=== PATIENT | female | born 1970 | race Two or more races ===

== ENCOUNTER 2020-10-13 20:11 | Inpatient (IN) | payer OTHER, SELFPAY ==
[2020-10-13 20:16] VITALS: BP 135/67; PULSE 125; RESP 18; TEMP 36.7; O2SAT 98
[2020-10-13 23:32] VITALS: BP 143/73; PULSE 93; RESP 18; TEMP 36.6; O2SAT 98
[2020-10-14 01:26] VITALS: BP 135/91; PULSE 102; RESP 18; TEMP 37.2; O2SAT 99; BMI 53.8
--- NOTE | 2020-10-14 01:52 | ECG_ITS ---
Test Reason : SOB Blood Pressure : / mmHG Vent. Rate : 094 BPM Atrial Rate : 094 BPM P-R Int : 158 ms QRS Dur : 078 ms QT Int : 342 ms P-R-T Axes : 035 017 039 degrees QTc Int : 427 ms Normal sinus rhythm Normal ECG No previous ECGs available Referred By: Irma Jo Electronically Signed By:ELOISE CHAPPELL MD
--- NOTE | 2020-10-14 01:54 | ED.GENADULT ---
HPI - General Adult General Chief complaint: General Medical Stated complaint: sob, Dizzy, back pain Time Seen by Provider: 10/14/20 01:52 History of Present Illness HPI narrative: Patient is a 49-year-old female with a history of anxiety in the past. Patient presented today with having 2 episodes of palpitation. Had 1 at 16:00. Lasted for about an hour. Patient had a long day at work. 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 Feels her heart going fast similar to previous bouts of anxiety had some shortness of breath associated with it. Has no history of blood clot. No history of leg swelling that is new. No fever no chills no cough no congestion or upper respiratory symptoms. Went away after an hour and a half. Patient previously and had this worked up by a primary physician told that she had anxiety. Never had a monitor done. At 20:00 similar episode occurred this time lasting about half an hour. Patient now symptom free. Never exactly had chest pain. No diaphoresis. No near syncope. No syncope. No bloody stool. No new medication. No change in medication. Related Data Home Medications Medication Instructions Recorded Confirmed aspirin 81 mg tablet,delayed 81 mg PO DAILY 06/14/20 08/11/20 release blood sugar diagnostic #10 ea 06/14/20 08/11/20 cholecalciferol (vitamin D3) 50 50 mcg PO DAILY 06/14/20 08/11/20 mcg (2,000 unit) capsule lisinopril 5 mg tablet 5 mg PO DAILY 06/14/20 08/11/20 metformin 750 mg tablet,extended 750 mg PO BID 06/14/20 08/11/20 release 24 hr pioglitazone 30 mg tablet 30 mg PO DAILY 06/14/20 08/11/20 spironolactone 100 mg tablet 100 mg PO BID 06/14/20 08/11/20 spironolactone 50 mg tablet mg PO 08/17/20 Previous Rx's Medication Instructions Recorded naproxen 500 mg tablet,delayed 500 mg PO .Q.h.s. 30 Days #30 tab 08/11/20 release fluconazole 150 mg tablet 150 mg PO Q3D #2 tab 08/17/20 ketoconazole 2 % topical cream 1 appl TOPICAL BID 28 Days #30 g 08/17/20 Allergies Allergy/AdvReac Type Severity Reaction Status Date / Time No Known Allergies Allergy Verified 08/17/20 09:20 Review of Systems Review of Systems: Constitutional: No Weight loss, No Fever, No Chills, No Night Sweats, No Fatigue, No Malaise ENT/Mouth: No Hearing loss, No Ear Pain, No Nasal Congestion, No Sinus Pain, No Hoarseness, No sore throat, No Rhinorrhea, No Swallowing Difficulty Eyes: No Eye Pain, No Swelling, No Redness, No Foreign Body, No Discharge, No Vision Changes Cardiovascular: No Chest Pain, No SOB, No Dyspnea on Exertion, No Orthopnea, No Edema, positive Palpitations Respiratory: No Cough, No Sputum, No Wheezing, No Smoke Exposure, No Dyspnea Gastrointestinal: No Nausea, No Vomiting, No Diarrhea, No Constipation, No abdominal Pain, No Hematochezia, No Melena Genitourinary: no irregular bleeding, No Dysuria, No Urinary Frequency, No Hematuria, No Urinary Incontinence, No Urgency, No Flank Pain, No Urinary Flow Changes, No Hesitancy Musculoskeletal: No joint pain, No Myalgias, No Joint Swelling Skin: No Skin Lesions, No rash Neuro: No Weakness, No Numbness, No Paresthesias, No Loss of Consciousness, No Dizziness, No Headache Psych: No Anxiety/Panic, No Depression, No SI/HI/AH/VH, No Social Issues, Heme/Lymph: No Bruising, No Bleeding,No Lymphadenopathy Endocrine: No Polyuria, No Polydipsia, No Temperature Intolerance PMF Past Medical History Medical History Chronic GERD Diabetes 1.5, managed as type 2 Hirsutism Obesity Surgical History No pertinent past surgical history Family History Family History Father Diabetes mellitus Mother HTN (hypertension) Paternal Grandfather Diabetes mellitus Maternal Grandfather No problems noted. Maternal Grandmother Brain tumor Paternal Grandmother Diabetes mellitus Brother No problems noted. Social History Social History Advance Directives: No Physical Exam Vital Signs: Vital Signs: Last Vital Signs Temp 99 F 10/14/20 01:26 Pulse 102 H 10/14/20 01:26 Resp 18 10/14/20 01:26 BP 135/91 H 10/14/20 01:26 Pulse Ox 99 10/14/20 01:26 Body Mass Index 53.8 Appearance: Alert. Oriented X3. No acute distress. Eyes: Pupils equal, round and reactive to light. ENT: Pharynx normal. Neck: Normal inspection. Neck supple. No lymph nodes noted. No crepitus CVS: Normal heart rate and rhythm. Pulses normal. Normal S1 and S2 Respiratory: No respiratory distress. Breath sounds normal. No Wheezing. No rales Abdomen: Soft and nontender. No rigidity. No distention. good BS x4 Skin: Skin warm and dry. Normal skin color. Normal skin turgor. Extremities: No lower extremity edema. Neurovascular intact to all extremities. No Lacerations. No Rash Neuro: Oriented X 3. No motor deficit. No sensory deficit. Moving all extermities. No slurred speech Medical Decision Making MDM Narrative Medical decision making narrative: Patient's troponin came back to be approximately 100. A 2nd troponin was drawn 2 hours later it was approximately 90. Question if patient have angina episode causing her to have the shortness of breath and palpitation. Will admit patient for further evaluation. Currently in stable condition. Symptom free. Lab Data Result diagrams: 10/14/20 02:44 10/14/20 02:44 Labs: Lab Results 10/14/20 10/14/20 10/14/20 Range/Units 02:44 02:44 02:44 WBC 11.3 H (4.8-10.8) X10*3/uL RBC 4.99 (4.20-5.50) X10*6/uL Hgb 10.3 L (12.0-16.0) g/dl Hct 34.8 L (37-47) % MCV 69.7 L (80-98) fL MCH 20.6 L (27.0-33.0) pg MCHC 29.6 L (31.0-35.0) g/dl RDW 17.5 H (11.0-16.0) % Plt Count 540 H (160-400) X10*3/uL MPV 9.8 (9.4-12.3) fL Immature Gran % (Auto) 0.5 H (0.0-0.4) % Neut % (Auto) 56.6 (45-73) % Lymph % (Auto) 33.5 (20-40) % [place] % (Auto) 7.6 (2-11) % Eos % (Auto) 1.3 (0-4) % Baso % (Auto) 0.5 (0-2) % Lymph # (Auto) 3.8 (1.2-4.9) X10*3/uL [place] # (Auto) 0.9 (0.1-1.2) X10*3/uL Eos # (Auto) 0.2 (0.0-0.4) X10*3/uL Baso # (Auto) 0.1 (0.0-0.2) X10*3/uL Abs Immat Gran (auto) 0.06 H (0.00-0.03) X10*3/uL Absolute Neuts (auto) 6.4 (2.0-8.3) X10*3/uL Absolute Nucleated RBC 0.000 (0.0-0.012) X10*3/uL Nucleated RBC % (auto) 0.0 (0.0-0.2) /100WBC Sodium 135 (135-145) mmol/L Potassium 4.8 (3.3-5.1) mmol/L Chloride 100 (96-108) mmol/L Carbon Dioxide 27 (22-29) mmol/L Anion Gap 13 (12-20) BUN 11 (9-16) mg/dL Creatinine 0.75 (0.5-1.4) mg/dL Estim Creat Clear Calc 131.4 Estimated GFR > 60 Random Glucose 238 H (60-115) mg/dL Calcium 9.6 (8.4-10.2) mg/dL Magnesium 1.9 (1.6-2.6) mg/dL Troponin I High Sens 101.6 H (<3.5-17.0) ng/L TSH 1.65 (0.32-4.0) uIU/mL COVID-19 (TRUPTI) (Negative) COVID-19 Clin Com 10/14/20 Range/Units 04:36 WBC (4.8-10.8) X10*3/uL RBC (4.20-5.50) X10*6/uL Hgb (12.0-16.0) g/dl Hct (37-47) % MCV (80-98) fL MCH (27.0-33.0) pg MCHC (31.0-35.0) g/dl RDW (11.0-16.0) % Plt Count (160-400) X10*3/uL MPV (9.4-12.3) fL Immature Gran % (Auto) (0.0-0.4) % Neut % (Auto) (45-73) % Lymph % (Auto) (20-40) % [place] % (Auto) (2-11) % Eos % (Auto) (0-4) % Baso % (Auto) (0-2) % Lymph # (Auto) (1.2-4.9) X10*3/uL [place] # (Auto) (0.1-1.2) X10*3/uL Eos # (Auto) (0.0-0.4) X10*3/uL Baso # (Auto) (0.0-0.2) X10*3/uL Abs Immat Gran (auto) (0.00-0.03) X10*3/uL Absolute Neuts (auto) (2.0-8.3) X10*3/uL Absolute Nucleated RBC (0.0-0.012) X10*3/uL Nucleated RBC % (auto) (0.0-0.2) /100WBC Sodium (135-145) mmol/L Potassium (3.3-5.1) mmol/L Chloride (96-108) mmol/L Carbon Dioxide (22-29) mmol/L Anion Gap (12-20) BUN (9-16) mg/dL Creatinine (0.5-1.4) mg/dL Estim Creat Clear Calc Estimated GFR Random Glucose (60-115) mg/dL Calcium (8.4-10.2) mg/dL Magnesium (1.6-2.6) mg/dL Troponin I High Sens (<3.5-17.0) ng/L TSH (0.32-4.0) uIU/mL COVID-19 (TRUPTI) Negative (Negative) COVID-19 Clin Com See Note Discharge Plan Discharge Clinical Impression: Angina pectoris Patient Disposition: Admitted As Inpatient Prescriptions: No Action cholecalciferol (vitamin D3) 50 mcg (2,000 unit) capsule 50 mcg PO DAILY RF: 0 metformin 750 mg tablet extended release 24 hr 750 mg PO BID RF: 0 pioglitazone 30 mg tablet 30 mg PO DAILY RF: 0 lisinopril 5 mg tablet 5 mg PO DAILY RF: 0 aspirin [Adult Low Dose Aspirin] 81 mg tablet,delayed release (DR/EC) 81 mg PO DAILY RF: 0 (DME) FreeStyle Lite Strips Strip See Rx Instructions .ROUTE .MEDSUPPLY Qty: 10 RF: 0 spironolactone 100 mg tablet 100 mg PO BID RF: 0 naproxen [EC-Naproxen] 500 mg tablet,delayed release (DR/EC) 500 mg PO .Q.h.s. 30 Days Qty: 30 RF: 0 spironolactone 50 mg tablet PO RF: 0 fluconazole [Diflucan] 150 mg tablet 150 mg PO Q3D Qty: 2 RF: 0 ketoconazole 2 % cream 1 appl topical BID 28 Days Qty: 30 RF: 0
[2020-10-14 02:48] LABS: Basophils Absolute Auto 0.1 X10*3/uL (0.0-0.2); Basophils Percent Auto 0.5 % (0-2); Eosinophils Absolute Auto 0.2 X10*3/uL (0.0-0.4); Eosinophils Percent Auto 1.3 % (0-4); Hematocrit 34.8 % (37-47); Hemoglobin 10.3 g/dl (12.0-16.0); Imm Gran Abs Auto 0.06 X10*3/uL (0.00-0.03); Imm Gran Pct Auto 0.5 % (0.0-0.4); Lymphocytes Absolute Auto 3.8 X10*3/uL (1.2-4.9); Lymphocytes Percent Auto 33.5 % (20-40); MANUAL DIFF FLAG NO; Mean Corpuscular HGB Conc 29.6 g/dl (31.0-35.0); Mean Corpuscular Hemoglobin 20.6 pg (27.0-33.0); Mean Corpuscular Volume 69.7 fL (80-98); Mean Platelet Volume 9.8 fL (9.4-12.3); Monocytes Absolute Auto 0.9 X10*3/uL (0.1-1.2); Monocytes Percent Auto 7.6 % (2-11); Neutrophils Absolute Auto 6.4 X10*3/uL (2.0-8.3); Neutrophils Percent Auto 56.6 % (45-73); Platelet Count 540 X10*3/uL (160-400); Red Blood Count 4.99 X10*6/uL (4.20-5.50); Red Cell Distribution Width 17.5 % (11.0-16.0); White Blood Count 11.3 X10*3/uL (4.8-10.8)
--- NOTE | 2020-10-14 03:11 | PC.NURSE ---
Pt refused to have IV access obtained, but consented to lab draw. Labs drawn and sent for analysis, awaiting results. Dr.Hsu perry.
[2020-10-14 03:23] LABS: Anion Gap 13 (12-20); Blood Urea Nitrogen 11 mg/dL (9-16); Calcium 9.6 mg/dL (8.4-10.2); Carbon Dioxide 27 mmol/L (22-29); Chloride 100 mmol/L (96-108); Creatinine Clr Calc Pharmacy 131.4; Estimated Glomerular Filt Rate > 60; Glucose Random 238 mg/dL (60-115); Magnesium 1.9 mg/dL (1.6-2.6); Potassium 4.8 mmol/L (3.3-5.1); Sodium 135 mmol/L (135-145)
[2020-10-14 03:34] LABS: Troponin-I High Sensitivity 101.6 ng/L (<3.5-17.0)
--- NOTE | 2020-10-14 03:43 | PC.NURSE ---
Discussed plan for admission based on lab results. Pt okay with having IV access obtained at this time, and additional labs. Awaiting admission bed.
[2020-10-14 03:44] LABS: TSH reflex Free T4 1.65 uIU/mL (0.32-4.0)
[2020-10-14] MEDS: Aspirin 81 MG TAB.CHEW 324 MG PO (04:16)
[2020-10-14 04:55] LABS: COVID-19 Test Negative (Negative)
[2020-10-14 05:20] LABS: Troponin-I High Sensitivity 98.5 ng/L (<3.5-17.0)
--- NOTE | 2020-10-14 05:27 | PM.IMHP ---
History of Present Illness Date of Service: 10/14/20 Chief Complaint: Chest pain 49-year-old female with a past medical history of hypertension, diabetes, GERD, obesity, anxiety presented to the hospital with a chief complaint of palpitations. Patient reports that at around 4 p.m. she had an episode of chest tightness associated with palpitations and not feeling well subsequently subsided but she had an episode similar happened around 8:00 p.m.. Denies any nausea vomiting lightheadedness or sweating. Denies any fever chills cough. Mentioned thatl she had some shortness of breath. Denies any GI or symptoms. Denies any fever chills cough. Review of all other systems is negative except mentioned above ER course: Per ER team patient chest pain improved. EKG nonischemic. Troponin elevated to 100 follow-up troponin trended down to 98; admitted to the [facility] for [facility] Medical History Chronic GERD Diabetes 1.5, managed as type 2 Diabetes type 2, uncontrolled Hirsutism Hypertension Obesity PCOS (polycystic ovarian syndrome) Vitamin D deficiency Family History Father Diabetes mellitus Mother HTN (hypertension) Paternal Grandfather Diabetes mellitus Maternal Grandfather No problems noted. Maternal Grandmother Brain tumor Paternal Grandmother Diabetes mellitus Brother No problems noted. Father Diabetes mellitus Maternal Grandmother Brain tumor Maternal Grandfather No problems noted. Paternal Grandfather Diabetes mellitus Paternal Grandmother No problems noted. Brother No problems noted. Surgical History No pertinent past surgical history No pertinent past surgical history Social History Household Members: Spouse and Children Housing: House Alcohol intake: never Smoking Status: Never smoker Advance Directives Date on File: 10/14/20 service: No Current occupational status: employed Meds Allergies Allergy/AdvReac Type Severity Reaction Status Date / Time No Known Allergies Allergy Verified 10/15/20 10:56 Active Medications: Current Medications Generic Name Dose Route Start Last Admin Trade Name Freq PRN Reason Stop Dose Admin Acetaminophen 650 mg 10/14/20 05:24 Acetaminophen 325 Mg Tablet PO Q6H PRN Pain, Mild (Pain Scale 1-3) Aspirin 81 mg 10/14/20 09:00 Aspirin Enteric Coated 81 Mg Tablet. PO DAILY [facility] Enoxaparin Sodium 40 mg 10/14/20 05:30 Enoxaparin Sodium 40 Mg/0.4 Ml Syringe SUBCUT Q24H [facility] Insulin Human Lispro 0 unit 10/14/20 07:30 Insulin Lispro 100 Unit/Ml 3 Ml Vial SUBCUT QIDACHS [facility] Protocol Nitroglycerin 0.4 mg 10/14/20 05:24 Nitroglycerin 0.4 Mg Tab.Subl SUBLINGUAL Q5M PRN Chest Pain Sodium Chloride 3 ml 10/14/20 08:00 0.9 % Sodium Chloride Flush 3 Ml Syringe IVFLUSH QSHIFT [facility] Home Medications Medication Instructions Recorded Confirmed Last Taken Type blood sugar diagnostic #10 ea 06/14/20 10/21/20 Unknown History metformin 1,000 mg tablet 1,000 mg PO BID 10/21/20 10/22/20 Unknown History Physical Exam Vital Signs and Narrative: Vital Signs: Last Vital Signs Temp 99 F 10/14/20 01:26 Pulse 102 H 10/14/20 01:26 Resp 18 10/14/20 01:26 BP 135/91 H 10/14/20 01:26 Pulse Ox 99 10/14/20 01:26 Body Mass Index 53.8 Gen: Appears be in no acute distress HEENT: NCAT, Moist mucosa. Pulmonary: Vesicular breath sounds, fair air entry CVS: Normal S1-S2 Abdomen: BS+, Soft, Nontender Extremities: Warm well perfused Neuro: Alert and awake. Results Labs CBC and Chem 7: 10/14/20 06:29 10/14/20 06:29 Labs: Laboratory Results - last 24 hr 10/14/20 10/14/20 10/14/20 02:44 02:44 02:44 MCV 69.7 L MCH 20.6 L MCHC 29.6 L RDW 17.5 H Plt Count 540 H MPV 9.8 Immature Gran % (Auto) 0.5 H Neut % (Auto) 56.6 Lymph % (Auto) 33.5 [place] % (Auto) 7.6 Eos % (Auto) 1.3 Baso % (Auto) 0.5 Lymph # (Auto) 3.8 [place] # (Auto) 0.9 Eos # (Auto) 0.2 Baso # (Auto) 0.1 Abs Immat Gran (auto) 0.06 H Absolute Neuts (auto) 6.4 Absolute Nucleated RBC 0.000 Nucleated RBC % (auto) 0.0 Anion Gap 13 Estim Creat Clear Calc 131.4 Estimated GFR > 60 Random Glucose 238 H Calcium 9.6 Magnesium 1.9 Troponin I High Sens 101.6 H TSH 1.65 COVID-19 (TRUPTI) COVID-19 Clin Com 10/14/20 10/14/20 04:09 04:36 MCV MCH MCHC RDW Plt Count MPV Immature Gran % (Auto) Neut % (Auto) Lymph % (Auto) [place] % (Auto) Eos % (Auto) Baso % (Auto) Lymph # (Auto) [place] # (Auto) Eos # (Auto) Baso # (Auto) Abs Immat Gran (auto) Absolute Neuts (auto) Absolute Nucleated RBC Nucleated RBC % (auto) Anion Gap Estim Creat Clear Calc Estimated GFR Random Glucose Calcium Magnesium Troponin I High Sens 98.5 H TSH COVID-19 (TRUPTI) Negative COVID-19 Clin Com See Note Assessment and Plan (1) Angina pectoris: Status: Resolved 49-year-old female with a past medical history of hypertension, hyperlipidemia, diabetes, GERD presented to the hospital with a chief complaint of chest discomfort/palpitations Chest discomfort: Atypical in nature. Patient troponin slightly elevated but follow-up for troponin trended down. EKG nonischemic. Telemetry Echocardiogram Cardiology consult for further recommendations Continue aspirin and beta-riya. will start statin, will check liver panel baseline; Will obtain lipid profile Will obtain a D-dimer-> will defer to the a.m. team to follow the results of delayed. Diabetes: Insulin sliding scale GI prophylaxis: Pepcid DVT prophylaxis: Lovenox Code status: Full code Will continue medications per med rec is done except oral hypoglycemic agents
[2020-10-14 06:22] LABS: D Dimer 244 NG/ML
[2020-10-14 06:30] VITALS: BP 114/71; PULSE 98; RESP 18; TEMP 36.9; O2SAT 99
[2020-10-14 06:49] LABS: Hematocrit 33.9 % (37-47); Hemoglobin 10.1 g/dl (12.0-16.0); Mean Corpuscular HGB Conc 29.8 g/dl (31.0-35.0); Mean Corpuscular Hemoglobin 20.9 pg (27.0-33.0); Platelet Count 532 X10*3/uL (160-400); Red Blood Count 4.84 X10*6/uL (4.20-5.50); Red Cell Distribution Width 17.4 % (11.0-16.0); White Blood Count 10.2 X10*3/uL (4.8-10.8)
[2020-10-14 07:09] LABS: Alanine Aminotransferase 22 U/L (0-31); Albumin Level 3.6 g/dL (3.5-5.0); Alkaline Phosphatase 58 U/L (39-117); Aspartate Amino Transferase 18 U/L (5-31); Bilirubin Direct 0.3 mg/dL (0.0-0.5); Bilirubin Total 0.9 mg/dL (0.0-1.0); Cholesterol 122 mg/dL; HDL Cholesterol 40 mg/dL; LDL Cholesterol Calculated 64 mg/dl; Total Protein 6.4 g/dL (6.5-8.0); Triglycerides 92 mg/dL
[2020-10-14 07:11] LABS: Anion Gap 13 (12-20); Blood Urea Nitrogen 10 mg/dL (9-16); Calcium 9.5 mg/dL (8.4-10.2); Carbon Dioxide 27 mmol/L (22-29); Chloride 100 mmol/L (96-108); Estimated Glomerular Filt Rate > 60; Glucose Random 218 mg/dL (60-115); Potassium 4.7 mmol/L (3.3-5.1); Sodium 135 mmol/L (135-145)
--- NOTE | 2020-10-14 07:17 | PC.NURSE ---
Pt on stretcher, sinus tach on tele rate 105, denies any pain or discomfort at this time, no sob or dizziness. Speech is clear. Aware of plan for admission. Significant other at bedside. Eating breakfast and tolerating well.
[2020-10-14 07:45] LABS: Glucose, Whole Blood 509 mg/dL (60-115)
[2020-10-14 08:08] VITALS: BP 136/85; PULSE 108; RESP 18; O2SAT 99
[2020-10-14] MEDS: Enoxaparin Sodium 40 MG/0.4 ML SYRINGE SUBCUT (08:08)
[2020-10-14] MEDS: 0.9 % Sodium Chloride Flush 3 ML SYRINGE IVFLUSH (08:08)
[2020-10-14 08:09] VITALS: BP 136/85; PULSE 108
[2020-10-14] MEDS: Metoprolol Tartrate 12.5 MG HALFTAB PO (08:09)
--- NOTE | 2020-10-14 08:09 | PC.NURSE ---
POC 509, Dr Ruiz notified. Pt declining insulin and request only her PO diabetic meds, Dr Ruiz updated and will be down to speak with pt. Plan to hold off on meds until Dr Ruiz speaks with pt.
--- NOTE | 2020-10-14 09:21 | PC.NURSE ---
Dr Ruiz down to speak to pt and plan to repeat poc and if greater than 300 insulin to be given, repeat poc was 286, Dr Ruiz updated
[2020-10-14 09:22] LABS: Estimated Average Glucose 229 mg/dL; Hemoglobin A1c % 9.6 %
[2020-10-14 09:22] LABS: Glucose, Whole Blood 286 mg/dL (60-115)
--- NOTE | 2020-10-14 09:46 | PC.NURSE ---
Dr Ruiz notified of poc 286, request pt still covered per sliding scale, pt now agreeable
[2020-10-14] MEDS: Insulin Lispro 100 UNIT/ML 3 ML VIAL SUBCUT ×2 (09:51→12:06)
[2020-10-14 11:06] VITALS: BP 135/88; PULSE 93; RESP 16; O2SAT 98
[2020-10-14 11:36] LABS: Glucose, Whole Blood 205 mg/dL (60-115)
--- NOTE | 2020-10-14 12:09 | PC.NURSE ---
Pt agreeable to SSI given (4 units). Dr Ma at bedside for evaluation at this time. Awaiting bed assgn
--- NOTE | 2020-10-14 12:44 | P.CONCA_ITS ---
History of Present Illness History of Present Illness Date of Service: 10/14/20 Consult reason: shortness of breath and troponin elevation Chief complaint: Chest pain Narrative: Thank you for asking us to see Shavon Hough in cardiology consultation today for symptoms of shortness of breath, palpitations or lightheadedness. 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 She got anxious and heart rate got faster. She then decided to rest and the symptoms and grow gradually subsided. However around 19:00 again she decided do some house work and she again got symptoms of shortness of breath, palpitations and then got dizzy this time. She went online and thought that she was having heart attack and she decided to come to the emergency room. She does not have any chest discomfort as per her. She came to the emergency room she was noted to have slightly lower blood pressure. She was noted to be in sinus rhythm EKG normal. Troponin was minimally elevated however repeat troponin is flat. She has not had any chest pain, she is feeling better. Heart rate is settle. Blood pressure is stable. Blood work shows significant anemia compared to last year and appears to be iron deficiency anemia. She says she has had very irregular menstrual cycles recently with heavy bleeding. She also has been started on Aldactone therapy for her polycystic ovarian disease and is on lisinopril to protect her kidneys from diabetes. She has longstanding history of diabetes for 5 years. She has never had any prior cardiac issues. She did not have any loss of consciousness. Denies orthopnea, PND, leg edema. Review of Systems Constitutional: Constitutional: Denies body ache(s), Denies chills, Reports fatigue and Reports lethargy Cardiovascular: Cardiovascular: Denies chest pain, Denies syncope, Reports lightheadedness, Denies Loss of Consciousness, Reports palpitations and Reports dyspnea Respiratory: Respiratory: Denies cough and Reports dyspnea Gastrointestinal: Gastrointestinal: Reports no additional gastrointestinal complaints Genitourinary: Genitourinary: Reports abnormal menses Musculoskeletal: Musculoskeletal: Reports no additional musculoskeletal co mplaints Neurologic: Reports system reviewed and no additional complaints, except as documented and Denies syncope Psychiatric: Psychiatric: Reports no additional psychiatric complaints Endocrine: Endocrine: Reports no additional endocrine complaints, Reports fatigue and Reports palpitations Hematologic/Lymphatic: Hematologic/Lymphatic: Reports no additional hematologic/lymphatic complaints [facility] Past Medical History Medical History Chronic GERD Diabetes 1.5, managed as type 2 Hirsutism Obesity Family History Family History Father Diabetes mellitus Mother HTN (hypertension) Paternal Grandfather Diabetes mellitus Maternal Grandfather No problems noted. Maternal Grandmother Brain tumor Paternal Grandmother Diabetes mellitus Brother No problems noted. Surgical History Surgical History No pertinent past surgical history Social History Social History Alcohol intake: current Alcohol intake frequency: holidays/special occasions only Smoking Status: Never smoker Use of substances other than those prescribed or required for medical reasons: No Advance Directives: No service: No Current occupational status: employed Meds Allergies Allergy/AdvReac Type Severity Reaction Status Date / Time No Known Allergies Allergy Verified 10/14/20 06:49 Active Medications: Current Medications Generic Name Dose Route Start Last Admin Trade Name Freq PRN Reason Stop Dose Admin Acetaminophen 650 mg 10/14/20 05:24 Acetaminophen 325 Mg Tablet PO Q6H PRN Pain, Mild (Pain Scale 1-3) Aspirin 81 mg 10/15/20 09:00 Aspirin Enteric Coated 81 Mg Tablet.Dr PO DAILY [facility] Atorvastatin Calcium 40 mg 10/14/20 21:00 Atorvastatin Calcium 40 Mg Tablet PO BEDTIME [facility] Enoxaparin Sodium 40 mg 10/14/20 09:00 10/14/20 08:08 Enoxaparin Sodium 40 Mg/0.4 Ml Syringe SUBCUT 40 mg Q24H JENY Administration Insulin Human Lispro 0 unit 10/14/20 07:30 10/14/20 12:06 Insulin Lispro 100 Unit/Ml 3 Ml Vial SUBCUT 4 unit QIDACHS JENY Administration Protocol Metoprolol Tartrate 12.5 mg 10/14/20 09:00 10/14/20 08:09 Metoprolol Tartrate 12.5 Mg Halftab PO 12.5 mg BID JENY Administration Protocol Nitroglycerin 0.4 mg 10/14/20 05:24 Nitroglycerin 0.4 Mg Tab.Subl SUBLINGUAL Q5M PRN Chest Pain Sodium Chloride 3 ml 10/14/20 08:00 10/14/20 08:08 0.9 % Sodium Chloride Flush 3 Ml Syringe [facility] 3 [facility] Administration Home Medications Medication Instructions Recorded Confirmed Last Taken Type blood sugar diagnostic #10 ea 06/14/20 08/11/20 Unknown History cholecalciferol (vitamin D3) 50 50 mcg PO DAILY 06/14/20 10/14/20 10/13/20 History mcg (2,000 unit) capsule lisinopril 5 mg tablet 5 mg PO DAILY 06/14/20 10/14/20 10/13/20 History metformin 750 mg tablet,extended 750 mg PO BID 06/14/20 10/14/20 10/13/20 History release 24 hr pioglitazone 30 mg tablet 30 mg PO DAILY 06/14/20 10/14/20 10/13/20 History spironolactone 50 mg tablet 50 mg PO BID 08/17/20 10/14/20 10/13/20 History Physical Exam Vital Signs: Vital Signs: Last Vital Signs Temp 98.4 F 10/14/20 06:30 Pulse 93 10/14/20 11:06 Resp 16 10/14/20 11:06 BP 135/88 10/14/20 11:06 Pulse Ox 98 10/14/20 11:06 Body Mass Index 53.8 Const: General: cooperative, no acute distress, alert and awake Nutritional Appearance: obese morbidly obese Orientation/consciousness: patient oriented x3 HENMT: Head: Yes normocephalic and Yes atraumatic Neck: Neck: Yes trachea midline, Yes supple and Yes no JVD Chest: Chest palpation & inspection: normal inspection of the chest Resp: Effort & Inspection: normal respiratory effort Auscultation: clear to auscultation bilaterally Cardio: Jugular venous distension: no JVD Rate: regular rate Rhythm: regular rhythm Heart sounds: S1 normal heart sound present and S2 normal heart sound present GI: Inspection: Yes Abdominal panniculus present and Yes obesity Auscultation: normal bowel sounds Skin: General skin exam: no rashes or lesions noted Neuro: General: patient oriented x3 and no focal motor deficits Extrem: General: Yes no clubbing, cyanosis or edema Psych: Appearance: grossly normal Results Labs and Meds Result diagrams: 10/14/20 06:29 10/14/20 06:29 Lab results: Laboratory Results - last 24 hr 10/14/20 10/14/20 10/14/20 02:44 02:44 02:44 WBC 11.3 H RBC 4.99 Hgb 10.3 L Hct 34.8 L MCV 69.7 L MCH 20.6 L MCHC 29.6 L RDW 17.5 H Plt Count 540 H MPV 9.8 Immature Gran % (Auto) 0.5 H Neut % (Auto) 56.6 Lymph % (Auto) 33.5 [place] % (Auto) 7.6 Eos % (Auto) 1.3 Baso % (Auto) 0.5 Lymph # (Auto) 3.8 [place] # (Auto) 0.9 Eos # (Auto) 0.2 Baso # (Auto) 0.1 Abs Immat Gran (auto) 0.06 H Absolute Neuts (auto) 6.4 Absolute Nucleated RBC 0.000 Nucleated RBC % (auto) 0.0 D-Dimer Sodium 135 Potassium 4.8 Chloride 100 Carbon Dioxide 27 Anion Gap 13 BUN 11 Creatinine 0.75 Estim Creat Clear Calc 131.4 Estimated GFR > 60 POC Glucose Random Glucose 238 H Estimat Average Glucose Hemoglobin A1c % Calcium 9.6 Magnesium 1.9 Total Bilirubin Direct Bilirubin AST ALT Alkaline Phosphatase Troponin I High Sens 101.6 H Total Protein Albumin Triglycerides Cholesterol LDL Cholesterol, Calc HDL Cholesterol TSH 1.65 COVID-19 (TRUPTI) COVID-19 [employer] [facility] 10/14/20 10/14/20 10/14/20 02:44 04:09 04:36 WBC RBC Hgb Hct MCV MCH MCHC RDW Plt Count MPV Immature Gran % (Auto) Neut % (Auto) Lymph % (Auto) [place] % (Auto) Eos % (Auto) Baso % (Auto) Lymph # (Auto) [place] # (Auto) Eos # (Auto) Baso # (Auto) Abs Immat Gran (auto) Absolute Neuts (auto) Absolute Nucleated RBC Nucleated RBC % (auto) D-Dimer Sodium Potassium Chloride Carbon Dioxide Anion Gap BUN Creatinine Estim Creat Clear Calc Estimated GFR POC Glucose Random Glucose Estimat Average Glucose 229 Hemoglobin A1c % 9.6 Calcium Magnesium Total Bilirubin Direct Bilirubin AST ALT Alkaline Phosphatase Troponin I High Sens 98.5 H Total Protein Albumin Triglycerides Cholesterol LDL Cholesterol, Calc HDL Cholesterol TSH COVID-19 (TRUPTI) Negative COVID-19 [employer] See Note 10/14/20 10/14/20 10/14/20 06:05 06:05 06:29 WBC 10.2 RBC 4.84 Hgb 10.1 L Hct 33.9 L MCV 70.0 L MCH 20.9 L MCHC 29.8 L RDW 17.4 H Plt Count 532 H MPV 10.0 Immature Gran % (Auto) Neut % (Auto) Lymph % (Auto) [place] % (Auto) Eos % (Auto) Baso % (Auto) Lymph # (Auto) [place] # (Auto) Eos # (Auto) Baso # (Auto) Abs Immat Gran (auto) Absolute Neuts (auto) Absolute Nucleated RBC 0.000 Nucleated RBC % (auto) 0.0 D-Dimer 244 Sodium Potassium Chloride Carbon Dioxide Anion Gap BUN Creatinine Estim Creat Clear Calc Estimated GFR POC Glucose Random Glucose Estimat Average Glucose Hemoglobin A1c % Calcium Magnesium Total Bilirubin 0.9 Direct Bilirubin 0.3 AST 18 ALT 22 Alkaline Phosphatase 58 Troponin I High Sens Total Protein 6.4 L Albumin 3.6 Triglycerides 92 Cholesterol 122 LDL Cholesterol, Calc 64 HDL Cholesterol 40 TSH COVID-19 (TRPUTI) COVID-[facility] 10/14/20 10/14/20 10/14/20 06:29 06:29 07:41 WBC RBC Hgb Hct MCV MCH MCHC RDW Plt Count MPV Immature Gran % (Auto) Neut % (Auto) Lymph % (Auto) [place] % (Auto) Eos % (Auto) Baso % (Auto) Lymph # (Auto) [place] # (Auto) Eos # (Auto) Baso # (Auto) Abs Immat Gran (auto) Absolute Neuts (auto) Absolute Nucleated RBC Nucleated RBC % (auto) D-Dimer Sodium 135 Potassium 4.7 Chloride 100 Carbon Dioxide 27 Anion Gap 13 BUN 10 Creatinine 0.73 Estim Creat Clear Calc 135.0 Estimated GFR > 60 POC Glucose 509 H* Random Glucose 218 H Estimat Average Glucose Cancelled Hemoglobin A1c % Cancelled Calcium 9.5 Magnesium Total Bilirubin Direct Bilirubin AST ALT Alkaline Phosphatase Troponin I High Sens Total Protein Albumin Triglycerides Cholesterol LDL Cholesterol, Calc HDL Cholesterol TSH COVID-19 (TRUPTI) COVID-[facility] 10/14/20 10/14/20 09:18 11:33 WBC RBC Hgb Hct MCV MCH MCHC RDW Plt Count MPV Immature Gran % (Auto) Neut % (Auto) Lymph % (Auto) [place] % (Auto) Eos % (Auto) Baso % (Auto) Lymph # (Auto) [place] # (Auto) Eos # (Auto) Baso # (Auto) Abs Immat Gran (auto) Absolute Neuts (auto) Absolute Nucleated RBC Nucleated RBC % (auto) D-Dimer Sodium Potassium Chloride Carbon Dioxide Anion Gap BUN Creatinine Estim Creat Clear Calc Estimated GFR POC Glucose 286 H 205 H Random Glucose Estimat Average Glucose Hemoglobin A1c % Calcium Magnesium Total Bilirubin Direct Bilirubin AST ALT Alkaline Phosphatase Troponin I High Sens Total Protein Albumin Triglycerides Cholesterol LDL Cholesterol, Calc HDL Cholesterol TSH COVID-19 (TRUPTI) COVID-19 Clin Com EKG shows normal sinus rhythm with normal EKG Assessment and Plan (1) Elevated troponin: Status: Acute Elevated troponin middle-aged woman with multiple risk factors for coronary artery disease including morbid obesity, diabetes and possibly hypertension. This appears to be flat and appears to be chronic and most likely precipitated by her significant anemia. This needs to be worked up and treated. Appears to be iron deficient anemia related to her abnormal menstrual bleeding. Prescribe iron therapy and outpatient follow-up. However given her elevated troponin, underlying significant obstructive coronary artery disease needs to be ruled out. This is not suggestive of acute coronary syndrome. Will perform outpatient myocardial perfusion imaging to further assess for myocardial ischemia further prognosis. This was discussed with her. She is agreeable. (2) Palpitations: Status: Acute Symptoms of palpitations at shortness of breath with exertion, most likely due to her significant anemia. This needs to be corrected. She is advised to avoid sudden exertion. Will require outpatient workup with event monitor to rule out atrial fibrillation, she is at high risk for the same. Will also obtain echocardiogram to have LV systolic and diastolic function. All of this workup can be done as outpatient. She is advised to maintain adequate hydration. Will follow up in the clinic after above-mentioned workup. (3) SOB (shortness of breath): Status: Acute
--- NOTE | 2020-10-14 12:52 | MHC.CM.ED ---
Met with patient in regards to dischare planning. Patient's preferred language listed as [place]ian. Patient is able to understand and speak [place]ian. 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 Patient lives with her and daughter, ambulates independently and had no services prior to coming to the ER. No services anticiapted to be needed because patient is not homebound. PCP verified. HCP completed, signed and witnessed. Original given to patient. Copy placed in chart. Patient's will transport her home when medically stable. Continue to monitor for d/c needs.
--- NOTE | 2020-10-14 13:33 | PC.NURSE ---
Plan for pt to be discharged home
[2020-10-14 13:49] LABS: Iron 25 mcg/dL (30-160); Percent Iron Saturation 5 % (15-50); Total Iron Binding Capacity 460 mcg/dL (228-428); Unsaturated Iron Binding 435 ug/dL
[2020-10-14 13:52] LABS: Ferritin 5 ng/mL (10-250)
--- NOTE | 2020-10-14 13:52 | PM.DS ---
DS: Providers Provider Date of Service: 10/16/20 Date of admission: 10/14/20 05:24 Primary care physician: Angie Blair MD Consults: 10/14/20 05:33 Consult to Cardiology Routine Consulting Provider: Gato Ma Reason for consultation: chest pain DS: Diagnosis Discharge Diagnosis (1) Elevated troponin: Status: Acute (2) Palpitations: Status: Acute (3) SOB (shortness of breath): Status: Acute (4) Iron deficiency anemia: Status: Acute DS: Medications Discharge Medications Home Medications: Home Medications Medication Instructions Recorded Confirmed blood sugar diagnostic #10 ea 06/14/20 08/11/20 cholecalciferol (vitamin D3) 50 50 mcg PO DAILY 06/14/20 10/14/20 mcg (2,000 unit) capsule lisinopril 5 mg tablet 5 mg PO DAILY 06/14/20 10/14/20 pioglitazone 30 mg tablet 30 mg PO DAILY 06/14/20 10/14/20 spironolactone 50 mg tablet 50 mg PO BID 08/17/20 10/14/20 Previous Rx's Medication Instructions Recorded ferrous sulfate 324 mg PO DAILY #30 tab 10/14/20 metformin [Fortamet] 1,000 mg PO BID #60 tab 10/14/20 DS: Summary Hospital Course Hospital Course: HPI 49-year-old female with a past medical history of hypertension, diabetes, GERD, obesity, anxiety presented to the hospital with a chief complaint of palpitations. Patient reports that at around 4 p.m. she had an episode of chest tightness associated with palpitations and not feeling well subsequently subsided but she had an episode similar happened around 8:00 p.m.. Denies any nausea vomiting lightheadedness or sweating. Denies any fever chills cough. Mentioned thatl she had some shortness of breath. Denies any GI or symptoms. Denies any fever chills cough. Per ER team patient chest pain improved. EKG nonischemic. Troponin elevated to 100 follow-up troponin trended down to 98; admitted to the hospital for further management Hospital course 49 yo f admitted with elevated troponin rule out ACS, patient was admitted to telemetry, troponin has flat trend, patient denies any chest pain, patient reported some sob , patient was seen by Cardiology reconciled troponin elevation likely secondary to anemia, given multiple risk factors for CAD cardiology recommended outpatient cardiac ischemic workup, patient will follow up cardiology Dr. Ma as outpatient for ischemic workup Patient also found to have iron deficiency anemia with hemoglobin around 10, patient reported heavy menstrual. Recently, patient was instructed to follow-up with endocrinology physician, patient was discharged on iron tablet, will follow-up endocrinology physician as outpatient patient was stable discharged home on iron tablets Time Spent with Patient Time attestation: Total time spent providing and/or coordinating discharge services: Discharge coordination time: Greater than 30 minutes Physical Exam Vital Signs: Vital Signs: Last Vital Signs Temp 98.4 F 10/14/20 06:30 Pulse 93 10/14/20 11:06 Resp 16 10/14/20 11:06 BP 135/88 10/14/20 11:06 Pulse Ox 98 10/14/20 11:06 Body Mass Index 53.8 DS: Data Data Completed and Pending Labs on day of discharge: Laboratory Results - last 24 hr 10/14/20 10/14/20 10/14/20 02:44 02:44 02:44 WBC 11.3 H RBC 4.99 Hgb 10.3 L Hct 34.8 L MCV 69.7 L MCH 20.6 L MCHC 29.6 L RDW 17.5 H Plt Count 540 H MPV 9.8 Immature Gran % (Auto) 0.5 H Neut % (Auto) 56.6 Lymph % (Auto) 33.5 [facility] % (Auto) 7.6 Eos % (Auto) 1.3 Baso % (Auto) 0.5 Lymph # (Auto) 3.8 [facility] # (Auto) 0.9 Eos # (Auto) 0.2 Baso # (Auto) 0.1 Abs Immat Gran (auto) 0.06 H Absolute Neuts (auto) 6.4 Absolute Nucleated RBC 0.000 Nucleated RBC % (auto) 0.0 D-Dimer Sodium 135 Potassium 4.8 Chloride 100 Carbon Dioxide 27 Anion Gap 13 BUN 11 Creatinine 0.75 Estim Creat Clear Calc 131.4 Estimated GFR > 60 POC Glucose Random Glucose 238 H Estimat Average Glucose Hemoglobin A1c % Calcium 9.6 Magnesium 1.9 Iron TIBC % Saturation Unsat Iron Binding Total Bilirubin Direct Bilirubin AST ALT Alkaline Phosphatase Troponin I High Sens 101.6 H Total Protein Albumin Triglycerides Cholesterol LDL Cholesterol, Calc HDL Cholesterol TSH 1.65 COVID-19 (TRUPTI) COVID-19 Clin Com 10/14/20 10/14/20 10/14/20 02:44 04:09 04:36 WBC RBC Hgb Hct MCV MCH MCHC RDW Plt Count MPV Immature Gran % (Auto) Neut % (Auto) Lymph % (Auto) [facility] [facility] % (Auto) Eos % (Auto) Baso % (Auto) Lymph # (Auto) [facility] # (Auto) Eos # (Auto) Baso # (Auto) Abs Immat Gran (auto) Absolute Neuts (auto) Absolute Nucleated RBC Nucleated RBC % (auto) D-Dimer Sodium Potassium Chloride Carbon Dioxide Anion Gap BUN Creatinine Estim Creat Clear Calc Estimated GFR POC Glucose Random Glucose Estimat Average Glucose 229 Hemoglobin A1c % 9.6 Calcium Magnesium Iron TIBC % Saturation Unsat Iron Binding Total Bilirubin Direct Bilirubin AST ALT Alkaline Phosphatase Troponin I High Sens 98.5 H Total Protein Albumin Triglycerides Cholesterol LDL Cholesterol, Calc HDL Cholesterol TSH COVID-19 (TRUPTI) Negative COVID-19 Clin Com See Note 10/14/20 10/14/20 10/14/20 06:05 06:05 06:29 WBC 10.2 RBC 4.84 Hgb 10.1 L Hct 33.9 L MCV 70.0 L MCH 20.9 L MCHC 29.8 L RDW 17.4 H Plt Count 532 H MPV 10.0 Immature Gran % (Auto) Neut % (Auto) Lymph % (Auto) [facility] % (Auto) Eos % (Auto) Baso % (Auto) Lymph # (Auto) [facility] # (Auto) Eos # (Auto) Baso # (Auto) Abs Immat Gran (auto) Absolute Neuts (auto) Absolute Nucleated RBC 0.000 Nucleated RBC % (auto) 0.0 D-Dimer 244 Sodium Potassium Chloride Carbon Dioxide Anion Gap BUN Creatinine Estim Creat Clear Calc Estimated GFR POC Glucose Random Glucose Estimat Average Glucose Hemoglobin A1c % Calcium Magnesium Iron TIBC % Saturation Unsat Iron Binding Total Bilirubin 0.9 Direct Bilirubin 0.3 AST 18 ALT 22 Alkaline Phosphatase 58 Troponin I High Sens Total Protein 6.4 L Albumin 3.6 Triglycerides 92 Cholesterol 122 LDL Cholesterol, Calc 64 HDL Cholesterol 40 TSH COVID-19 (TRUPTI) COVID-19 Clin Com 10/14/20 10/14/20 10/14/20 06:29 06:29 07:41 WBC RBC Hgb Hct MCV MCH MCHC RDW Plt Count MPV Immature Gran % (Auto) Neut % (Auto) Lymph % (Auto) [facility] % (Auto) Eos % (Auto) Baso % (Auto) Lymph # (Auto) [facility] # (Auto) Eos # (Auto) Baso # (Auto) Abs Immat Gran (auto) Absolute Neuts (auto) Absolute Nucleated RBC Nucleated RBC % (auto) D-Dimer Sodium 135 Potassium 4.7 Chloride 100 Carbon Dioxide 27 Anion Gap 13 BUN 10 Creatinine 0.73 Estim Creat Clear Calc 135.0 Estimated GFR > 60 POC Glucose 509 H* Random Glucose 218 H Estimat Average Glucose Cancelled Hemoglobin A1c % Cancelled Calcium 9.5 Magnesium Iron 25 L TIBC 460 H % Saturation 5 L Unsat Iron Binding 435 Total Bilirubin Direct Bilirubin AST ALT Alkaline Phosphatase Troponin I High Sens Total Protein Albumin Triglycerides Cholesterol LDL Cholesterol, Calc HDL Cholesterol TSH COVID-19 (TRUPTI) COVID-19 [employer] 10/14/20 10/14/20 09:18 11:33 WBC RBC Hgb Hct MCV MCH MCHC RDW Plt Count MPV Immature Gran % (Auto) Neut % (Auto) Lymph % (Auto) [facility] % (Auto) Eos % (Auto) Baso % (Auto) Lymph # (Auto) [facility] # (Auto) Eos # (Auto) Baso # (Auto) Abs Immat Gran (auto) Absolute Neuts (auto) Absolute Nucleated RBC Nucleated RBC % (auto) D-Dimer Sodium Potassium Chloride Carbon Dioxide Anion Gap BUN Creatinine Estim Creat Clear Calc Estimated GFR POC Glucose 286 H 205 H Random Glucose Estimat Average Glucose Hemoglobin A1c % Calcium Magnesium Iron TIBC % Saturation Unsat Iron Binding Total Bilirubin Direct Bilirubin AST ALT Alkaline Phosphatase Troponin I High Sens Total Protein Albumin Triglycerides Cholesterol LDL Cholesterol, Calc HDL Cholesterol TSH COVID-19 (TRUPTI) COVID-19 [employer] Com Discharge Plan Discharge Anticipated Discharge Date/Time: 10/14/20 13:38 Patient Disposition: Home, Self-Care Referrals: Angie Blair MD [Primary Care Provider] - Discharge Medications: New ferrous sulfate 324 mg (65 mg iron) tablet,delayed release (DR/EC) 324 mg PO DAILY Qty: 30 RF: 0 Continued cholecalciferol (vitamin D3) 50 mcg (2,000 unit) capsule 50 mcg PO DAILY RF: 0 pioglitazone 30 mg tablet 30 mg PO DAILY RF: 0 lisinopril 5 mg tablet 5 mg PO DAILY RF: 0 spironolactone 50 mg tablet 50 mg PO BID RF: 0 Discontinued metformin 750 mg tablet extended release 24 hr 750 mg PO BID RF: 0 No Action cholecalciferol (vitamin D3) 50 mcg (2,000 unit) capsule 50 mcg PO DAILY 30 Days Qty: 30 RF: 6 lisinopril 5 mg tablet 5 mg PO DAILY Qty: 90 RF: 1 spironolactone 50 mg tablet 50 mg PO BID Qty: 60 RF: 2 pioglitazone 30 mg tablet 30 mg PO DAILY 30 Days Qty: 30 RF: 3 metformin 500 mg tablet 1,000 mg PO BID 90 Days Qty: 360 RF: 0 (DME) FreeStyle Lite Strips Strip See Rx Instructions .ROUTE .MEDSUPPLY Qty: 10 RF: 0 Discharge Orders: Discharge Order (Routine); Ordered 10/14/20 Ordered By: Agusto Ruiz Diet: advance to usual diet Activity on Discharge: As tolerated Stand Alone Forms: Patient Portal Discharge page Care Plan Goals: treat anemia Health Concerns: see above Plan of Treatment: see above Discharge Date/Time: 10/14/20 15:05
== END 2020-10-14 15:05 | disposition home or self-care (01) | DRG 861 ==
LOC: HO.ED 10-14 05:21 → HO.EDOVER 10-14 05:32
PROVIDERS: Admitting Provider Hospitalist; Emergency Provider Emergency Medicine Emergency Medical Services; PCP Internal Medicine; Visit Provider Internal Medicine
DX: R79.89 Other specified abnormal findings of blood chemistry (principal); Z68.43 Body mass index [BMI] 50.0-59.9, adult; E11.9 Type 2 diabetes mellitus without complications; E66.9 Obesity, unspecified; R06.02 Shortness of breath; F41.9 Anxiety disorder, unspecified; K21.9 Gastro-esophageal reflux disease without esophagitis; E78.5 Hyperlipidemia, unspecified; Z79.84 Long term (current) use of oral hypoglycemic drugs; Z79.899 Other long term (current) drug therapy
CPT/HCPCS: 36415; 80048; 80061; 80076; 82728; 82947; 83036; 83540; 83735; 84443; 84484; 85025; 85027; 85379; 87635; 93005; 99219; 99284; J1650

== ENCOUNTER → 2020-10-21 10:22 | Outpatient (BNVA) | payer OTHER, SELFPAY | PROVIDERS: PCP Internal Medicine; Visit Provider Nurse Practitioner Family ==

== ENCOUNTER 2020-10-22 16:47 | Inpatient (IN) | payer OTHER, SELFPAY ==
[2020-10-22] VITALS (7 sets, daily range): BP systolic 111–129; BP diastolic 65–77; PULSE 102–204; RESP 12–26; TEMP 36.6–36.8; O2SAT 96–100; BMI 54.3
--- NOTE | 2020-10-22 | ECG_ITS ---
Test Reason : CHEST PAIN Blood Pressure : / mmHG Vent. Rate : 116 BPM Atrial Rate : 116 BPM P-R Int : 150 ms QRS Dur : 072 ms QT Int : 296 ms P-R-T Axes : 038 017 055 degrees QTc Int : 411 ms Sinus tachycardia with Premature atrial complexes Otherwise normal ECG When compared with ECG of 22-OCT-2020 17:14, Premature atrial complexes are now Present Referred By: Jon Avery Electronically Signed By:CARLOS GAFFNEY
--- NOTE | ~2020-10-22 | XR_ITS ---
EXAMINATION: XR CHEST CLINICAL INFORMATION: Palpitations COMPARISON: None TECHNIQUE: Frontal portable view of the chest was obtained. 5:16 PM FINDINGS: No significant abnormality is noted involving the heart, lungs, mediastinum, bony thorax or soft tissues. XR/XR chest 1V IMPRESSION: Unremarkable examination.
--- NOTE | 2020-10-22 07:59 | ECG_ITS ---
Test Reason : SVT Blood Pressure : / mmHG Vent. Rate : 197 BPM Atrial Rate : 214 BPM P-R Int : 000 ms QRS Dur : 072 ms QT Int : 228 ms P-R-T Axes : 000 007 150 degrees QTc Int : 413 ms Poor data quality, interpretation may be adversely affected Supraventricular tachycardia Nonspecific ST and T wave abnormality Abnormal ECG When compared to the previous EKG of SVT present Referred By: Jon Avery Electronically Signed By:Mark Borrero
--- NOTE | 2020-10-22 08:00 | ECG_ITS ---
Test Reason : CARDIAC STATUS CHECK Blood Pressure : / mmHG Vent. Rate : 098 BPM Atrial Rate : 098 BPM P-R Int : 166 ms QRS Dur : 072 ms QT Int : 344 ms P-R-T Axes : 035 008 027 degrees QTc Int : 439 ms Normal sinus rhythm Normal ECG When compared to the previous EKG of No significant changes seen Referred By: Jon Avery Electronically Signed By:Mark Borrero
--- NOTE | 2020-10-22 16:55 | PC.NURSE ---
pt arrives to triage reporting palptiations. HR 196. Attempted vagal maneuvers with no improvement of heart rate. she states she is dizzy, has chest discomfort.
--- NOTE | 2020-10-22 17:11 | ECG_ITS ---
Test Reason : TACHYCARDIA Blood Pressure : / mmHG Vent. Rate : 179 BPM Atrial Rate : 153 BPM P-R Int : 000 ms QRS Dur : 076 ms QT Int : 256 ms P-R-T Axes : 000 010 085 degrees QTc Int : 442 ms Supraventricular tachycardia Nonspecific ST and T wave abnormality Abnormal ECG When compared with ECG of 14-OCT-2020 02:26, Rhythm change Referred By: Jon Avery Electronically Signed By:CARLOS GAFFNEY
--- NOTE | 2020-10-22 17:21 | ED_ITS ---
HPI - Arrhythmia/Palpitations General Chief Complaint: Arrhythmia/Palpitations Stated Complaint: Hypertension,Dizziness Time Seen by Provider: 10/22/20 17:08 Source: patient and family (Spouse) Mode of arrival: ambulatory Limitations: no limitations History of Present Illness HPI narrative: 49-year-old female history of hypertension, diabetes, GERD, obesity, anxiety presented to the emergency department with her for feeling palpitation and shortness of breath, initial EKG found to have rapid SVT in the 190s, patient was rushed down 10, after failed Valsalva maneuver, 6 mg of adenosine was administrated intravenously, patient broke into rapid sinus tachycardia, chest tightness and shortness of breath has improved. Patient now has no symptoms. Related Data Home Medications Medication Instructions Recorded Confirmed blood sugar diagnostic #10 ea 06/14/20 10/21/20 metformin 1,000 mg tablet 1,000 mg PO BID 10/21/20 10/22/20 Previous Rx's Medication Instructions Recorded cholecalciferol (vitamin D3) 50 50 mcg PO DAILY 30 Days #30 cap 06/29/20 mcg (2,000 unit) capsule lisinopril 5 mg tablet 5 mg PO DAILY #90 tab 09/03/20 spironolactone 50 mg tablet 50 mg PO BID #60 tab 10/11/20 pioglitazone 30 mg tablet 30 mg PO DAILY 30 Days #30 tab 10/12/20 ferrous sulfate 324 mg PO DAILY #30 tab 10/14/20 Allergies Allergy/AdvReac Type Severity Reaction Status Date / Time No Known Allergies Allergy Verified 10/15/20 10:56 Review of Systems Review of Systems: All other systems are reviewed and are negative Constitutional: Reports as per HPI and Reports no additional constitutional complaints Eyes: Reports as per HPI and Reports no additional eye complaints Reports system reviewed and no additional complaints, except as documented Cardiovascular: Reports as per HPI and Reports no additional cardiovascular complaints Respiratory: Reports as per HPI and Reports no additional respiratory complaints Gastrointestinal: Reports as per HPI and Reports no additional gastrointestinal complaints Genitourinary: Reports no additional female genitourinary complaints Musculoskeletal: Reports no additional musculoskeletal complaints Skin/Breast: Reports system reviewed and no additional complaints, except as docu Psychiatric: Reports no additional psychiatric complaints Endocrine: Reports no additional endocrine complaints Hematologic/Lymphatic: Reports no additional hematologic/lymphatic complaints Allergic/Immunologic: Reports no additional allergic/immunologic complaints Reports system reviewed and no additional complaints, except as documented and Reports Abnormal speech present [facility] Past Medical History Medical History Chronic GERD Diabetes 1.5, managed as type 2 Diabetes type 2, uncontrolled Hirsutism Hypertension Obesity PCOS (polycystic ovarian syndrome) Vitamin D deficiency Surgical History No pertinent past surgical history No pertinent past surgical history Family History Family History Father Diabetes mellitus Mother HTN (hypertension) Paternal Grandfather Diabetes mellitus Maternal Grandfather No problems noted. Maternal Grandmother Brain tumor Paternal Grandmother Diabetes mellitus Brother No problems noted. Father Diabetes mellitus Maternal Grandmother Brain tumor Maternal Grandfather No problems noted. Paternal Grandfather Diabetes mellitus Paternal Grandmother No problems noted. Brother No problems noted. Social History Social History Alcohol intake: never Smoking Status: Never smoker Smoked in Last 30 Days: No Use of substances other than those prescribed or required for medical reasons: No Advance Directives: No Advance Directives Information Provided: No Advance Directives Date on File: 10/14/20 service: No Current occupational status: employed Physical Exam Vital Signs: Vital Signs: Last Vital Signs Temp 97.8 F 10/22/20 21:44 Pulse 107 H 10/22/20 22:14 Resp 26 H 10/22/20 22:06 BP 127/65 10/22/20 22:14 Pulse Ox 100 10/22/20 22:14 Body Mass Index 54.3 Vital signs have been reviewed as appeared to be correct. Blood pressure normal. Heart rate elevated. Respiration rate normal. Temperature normal. Oxygen saturation normal. Appearance: Alert. Oriented X3. No acute distress. Appear anxious Head: Normal external exam. Normocephalic. Atraumatic. No Vera signs noted. No raccoon eyes noted Eyes: PERRLA. EOMI. Conjunctiva and sclera normal. Eyelids normal. ENT: TM's Normal. Pharynx normal. Uvula midline. Moist mucous membranes. No trismus noted. No drooling noted. No muffled voice noted. Neck: Normal inspection. Neck supple. FROM. No adenopathy. Thyroid Normal. No meningeal signs. No neck mass noted. CVS: Very rapid tachycardia above 190 beats per minute. Heart sound normal. No murmurs noted. Pulses normal throughout. Respiratory: No respiratory distress. Painless inspiration. Breath sounds normal. No wheezes/rales/rhonchi noted. Chest nontender. No accessory muscle usage noted or decreased air movement noted. Abdomen: Soft and nontender. Bowel sounds normal in all 4 quadrants. No dis tention noted. No organomegaly noted. No visible injury noted. Back: No CVA tenderness. Full range of motion noted. Skin: Skin warm and dry. Normal skin color. Normal skin turgor. No rashes/les ions/lacerations noted. Extremities: No lower extremity edema. Extremities exhibit normal range of motion. Extremities nontender. Neuro: Oriented X 3. No motor deficit. No sensory deficit. Reflexes normal. Course Course Course Narrative: Assessment and plan. 49-year-old female came in with tachycardia SVT, patient required 1 dose of adenosine 6 mg, 1st troponin was 20 and 3 hours apart 2nd troponin was in the 40s, patient remained asymptomatic but will admit for troponin trends. Electrolytes within normal. Reevaluation(s) Reevaluation #1: I was called into room 10 to re-evaluate the patient for heart rate of 200, patient complaining of palpitation with shortness of breath heart rate at 200, nasal cannula with oxygen of 4 L was started, patient was connected to the EKG machine, EKG showed SVT, patient was given 6 mg of adenosine, was immediate breakdown of the SVT tachycardia and repeat EKG showed sinus tac hycardia at 01:22. Time: 22:18 MDM - Arrhythmia/Palpitations Lab Data Attestation: I reviewed the patient's lab results. Result diagrams: 10/22/20 17:21 10/22/20 17:21 Labs: Lab Results 10/22/20 10/22/20 10/22/20 Range/Units 17:21 17:21 17:21 WBC 11.6 H (4.8-10.8) X10*3/uL RBC 4.83 (4.20-5.50) X10*6/uL Hgb 10.1 L (12.0-16.0) g/dl Hct 33.7 L (37-47) % MCV 69.8 L (80-98) fL MCH 20.9 L (27.0-33.0) pg MCHC 30.0 L (31.0-35.0) g/dl RDW 17.7 H (11.0-16.0) % Plt Count 593 H (160-400) X10*3/uL MPV 10.1 (9.4-12.3) fL Immature Gran % (Auto) 0.5 H (0.0-0.4) % Neut % (Auto) 52.2 (45-73) % Lymph % (Auto) 35.5 (20-40) % Stevens % (Auto) 8.7 (2-11) % Eos % (Auto) 2.4 (0-4) % Baso % (Auto) 0.7 (0-2) % Lymph # (Auto) 4.1 (1.2-4.9) X10*3/uL Stevens # (Auto) 1.0 (0.1-1.2) X10*3/uL Eos # (Auto) 0.3 (0.0-0.4) X10*3/uL Baso # (Auto) 0.1 (0.0-0.2) X10*3/uL Abs Immat Gran (auto) 0.06 H (0.00-0.03) X10*3/uL Absolute Neuts (auto) 6.0 (2.0-8.3) X10*3/uL Absolute Nucleated RBC 0.000 (0.0-0.012) X10*3/uL Nucleated RBC % (auto) 0.0 (0.0-0.2) /100WBC PT (10.8-13.0) SEC INR (0.9-1.1) APTT (24.1-38.0) SEC Sodium 134 L (135-145) mmol/L Potassium 4.7 (3.3-5.1) mmol/L Chloride 99 (96-108) mmol/L Carbon Dioxide 22 (22-29) mmol/L Anion Gap 18 (12-20) BUN 14 (9-16) mg/dL Creatinine 1.13 (0.5-1.4) mg/dL Estim Creat Clear Calc 87.7 Estimated GFR 52 POC Glucose (60-115) mg/dL Random Glucose 290 H (60-115) mg/dL Calcium 9.0 (8.4-10.2) mg/dL Magnesium 1.7 (1.6-2.6) mg/dL Total Bilirubin 0.5 (0.0-1.0) mg/dL Direct Bilirubin 0.2 (0.0-0.5) mg/dL AST 23 (5-31) U/L ALT 33 H (0-31) U/L Alkaline Phosphatase 68 (39-117) U/L Troponin I High Sens 21.4 H D (<3.5-17.0) ng/L B-Natriuretic Peptide 24 (<100) pg/mL Total Protein 7.5 (6.5-8.0) g/dL Albumin 4.1 (3.5-5.0) g/dL Lipase 28 (8-78) U/L Urine Color Urine Appearance Urine pH (5.0-8.0) Ur Specific [place] (1.005-1.025) Urine Protein (NEG-TRACE) MG/DL Urine Glucose (UA) (NEG) MG/DL Urine Ketones (NEG) MG/DL Urine Blood (NEG) Urine Nitrite (NEG) Ur Leukocyte Esterase (NEG) Urine Test (NEGATIVE) COVID-19 (TRUPTI) (Negative) COVID-19 Clin Com 10/22/20 10/22/20 10/22/20 Range/Units 17:21 17:21 18:39 WBC (4.8-10.8) X10*3/uL RBC (4.20-5.50) X10*6/uL Hgb (12.0-16.0) g/dl Hct (37-47) % MCV (80-98) fL MCH (27.0-33.0) pg MCHC (31.0-35.0) g/dl RDW (11.0-16.0) % Plt Count (160-400) X10*3/uL MPV (9.4-12.3) fL Immature Gran % (Auto) (0.0-0.4) % Neut % (Auto) (45-73) % Lymph % (Auto) (20-40) % Stevens % (Auto) (2-11) % Eos % (Auto) (0-4) % Baso % (Auto) (0-2) % Lymph # (Auto) (1.2-4.9) X10*3/uL Stevens # (Auto) (0.1-1.2) X10*3/uL Eos # (Auto) (0.0-0.4) X10*3/uL Baso # (Auto) (0.0-0.2) X10*3/uL Abs Immat Gran (auto) (0.00-0.03) X10*3/uL Absolute Neuts (auto) (2.0-8.3) X10*3/uL Absolute Nucleated RBC (0.0-0.012) X10*3/uL Nucleated RBC % (auto) (0.0-0.2) /100WBC PT 12.0 (10.8-13.0) SEC INR 1.0 (0.9-1.1) APTT 30.6 (24.1-38.0) SEC Sodium (135-145) mmol/L Potassium (3.3-5.1) mmol/L Chloride (96-108) mmol/L Carbon Dioxide (22-29) mmol/L Anion Gap (12-20) BUN (9-16) mg/dL Creatinine (0.5-1.4) mg/dL Estim Creat Clear Calc Estimated GFR POC Glucose (60-115) mg/dL Random Glucose (60-115) mg/dL Calcium (8.4-10.2) mg/dL Magnesium (1.6-2.6) mg/dL Total Bilirubin (0.0-1.0) mg/dL Direct Bilirubin (0.0-0.5) mg/dL AST (5-31) U/L ALT (0-31) U/L Alkaline Phosphatase (39-117) U/L Troponin I High Sens (<3.5-17.0) ng/L B-Natriuretic Peptide (<100) pg/mL Total Protein (6.5-8.0) g/dL Albumin (3.5-5.0) g/dL Lipase (8-78) U/L Urine Color COLORLESS Urine Appearance CLEAR Urine pH 6.0 (5.0-8.0) Ur Specific [place] <= 1.005 (1.005-1.025) Urine Protein NEG (NEG-TRACE) MG/DL Urine Glucose (UA) 500 H (NEG) MG/DL Urine Ketones NEG (NEG) MG/DL Urine Blood NEG (NEG) Urine Nitrite NEG (NEG) Ur Leukocyte Esterase NEG (NEG) Urine Test (NEGATIVE) COVID-19 (TRUPTI) Negative (Negative) COVID-19 Clin Com See Note 10/22/20 10/22/20 10/22/20 Range/Units 18:39 19:51 21:43 WBC (4.8-10.8) X10*3/uL RBC (4.20-5.50) X10*6/uL Hgb (12.0-16.0) g/dl Hct (37-47) % MCV (80-98) fL MCH (27.0-33.0) pg MCHC (31.0-35.0) g/dl RDW (11.0-16.0) % Plt Count (160-400) X10*3/uL MPV (9.4-12.3) fL Immature Gran % (Auto) (0.0-0.4) % Neut % (Auto) (45-73) % Lymph % (Auto) (20-40) % Stevens % (Auto) (2-11) % Eos % (Auto) (0-4) % Baso % (Auto) (0-2) % Lymph # (Auto) (1.2-4.9) X10*3/uL Stevens # (Auto) (0.1-1.2) X10*3/uL Eos # (Auto) (0.0-0.4) X10*3/uL Baso # (Auto) (0.0-0.2) X10*3/uL Abs Immat Gran (auto) (0.00-0.03) X10*3/uL Absolute Neuts (auto) (2.0-8.3) X10*3/uL Absolute Nucleated RBC (0.0-0.012) X10*3/uL Nucleated RBC % (auto) (0.0-0.2) /100WBC PT (10.8-13.0) SEC INR (0.9-1.1) APTT (24.1-38.0) SEC Sodium (135-145) mmol/L Potassium (3.3-5.1) mmol/L Chloride (96-108) mmol/L Carbon Dioxide (22-29) mmol/L Anion Gap (12-20) BUN (9-16) mg/dL Creatinine (0.5-1.4) mg/dL Estim Creat Clear Calc Estimated GFR POC Glucose 180 H (60-115) mg/dL Random Glucose (60-115) mg/dL Calcium (8.4-10.2) mg/dL Magnesium (1.6-2.6) mg/dL Total Bilirubin (0.0-1.0) mg/dL Direct Bilirubin (0.0-0.5) mg/dL AST (5-31) U/L ALT (0-31) U/L Alkaline Phosphatase (39-117) U/L Troponin I High Sens 40.5 H D (<3.5-17.0) ng/L B-Natriuretic Peptide (<100) pg/mL Total Protein (6.5-8.0) g/dL Albumin (3.5-5.0) g/dL Lipase (8-78) U/L Urine Color Urine Appearance Urine pH (5.0-8.0) Ur Specific [place] (1.005-1.025) Urine Protein (NEG-TRACE) MG/DL Urine Glucose (UA) (NEG) MG/DL Urine Ketones (NEG) MG/DL Urine Blood (NEG) Urine Nitrite (NEG) Ur Leukocyte Esterase (NEG) Urine Test NEGATIVE (NEGATIVE) COVID-19 (TRUPTI) (Negative) COVID-19 Clin Com Imaging Data Chest x-ray: Radiologist's impression: Unremarkable examination. ECG Data Interpretation: EKG 1.: SVT tachycardia at 179 beats per minutes. EKG 2.: Sinus tachycardia with premature atrial complex, normal intervals, no ST-T changes. Critical Care Time Critical Care Time Total Critical Care Time: 45 Attestation: I spent 45 minutes providing critical care service to the patient, this including time spent at the bedside to evaluate the patient, reassess the patient, monitoring vital signs, review labs, and radiographic studies, counseling the patient/family, discussing the case with consultants, disposition the patient. Discharge Plan Discharge Clinical Impression: SVT (supraventricular tachycardia), Palpitations, Elevated troponin Patient Disposition: Admitted As Inpatient
[2020-10-22] MEDS: 0.9 % Sodium Chloride 1,000 ML 999 ML IVCONT (17:25)
[2020-10-22] MEDS: Adenosine 6 MG/2 ML VIAL IVPUSH ×2 (17:25→22:08)
[2020-10-22 17:31] LABS: MANUAL DIFF FLAG NO
[2020-10-22 17:33] LABS: Basophils Absolute Auto 0.1 X10*3/uL (0.0-0.2); Basophils Percent Auto 0.7 % (0-2); Eosinophils Absolute Auto 0.3 X10*3/uL (0.0-0.4); Eosinophils Percent Auto 2.4 % (0-4); Hematocrit 33.7 % (37-47); Hemoglobin 10.1 g/dl (12.0-16.0); Imm Gran Abs Auto 0.06 X10*3/uL (0.00-0.03); Imm Gran Pct Auto 0.5 % (0.0-0.4); Lymphocytes Absolute Auto 4.1 X10*3/uL (1.2-4.9); Lymphocytes Percent Auto 35.5 % (20-40); Mean Corpuscular Hemoglobin 20.9 pg (27.0-33.0); Mean Corpuscular Volume 69.8 fL (80-98); Mean Platelet Volume 10.1 fL (9.4-12.3); Monocytes Percent Auto 8.7 % (2-11); Neutrophils Percent Auto 52.2 % (45-73); Platelet Count 593 X10*3/uL (160-400); Red Blood Count 4.83 X10*6/uL (4.20-5.50); Red Cell Distribution Width 17.7 % (11.0-16.0); White Blood Count 11.6 X10*3/uL (4.8-10.8)
[2020-10-22 17:47] LABS: Partial Thromboplastin Time 30.6 SEC (24.1-38.0)
[2020-10-22 17:57] LABS: Alanine Aminotransferase 33 U/L (0-31); Albumin Level 4.1 g/dL (3.5-5.0); Alkaline Phosphatase 68 U/L (39-117); Anion Gap 18 (12-20); Aspartate Amino Transferase 23 U/L (5-31); Bilirubin Direct 0.2 mg/dL (0.0-0.5); Bilirubin Total 0.5 mg/dL (0.0-1.0); Blood Urea Nitrogen 14 mg/dL (9-16); Carbon Dioxide 22 mmol/L (22-29); Chloride 99 mmol/L (96-108); Creatinine Clr Calc Pharmacy 87.7; Estimated Glomerular Filt Rate 52; Glucose Random 290 mg/dL (60-115); Lipase 28 U/L (8-78); Magnesium 1.7 mg/dL (1.6-2.6); Potassium 4.7 mmol/L (3.3-5.1); Sodium 134 mmol/L (135-145); Total Protein 7.5 g/dL (6.5-8.0)
[2020-10-22 18:07] LABS: B Type Natriuretic Peptide 24 pg/mL (<100); Troponin-I High Sensitivity 21.4 ng/L (<3.5-17.0)
[2020-10-22 18:08] LABS: COVID-19 Test Negative (Negative)
[2020-10-22 18:57] LABS: Glucose Urine UA 500 MG/DL (NEG); Leukocyte Esterase Urine NEG (NEG); Nitrite Urine NEG (NEG); Specific Gravity - Urine <= 1.005 (1.005-1.025); Urine Blood NEG (NEG); Urine Ketones NEG (NEG); Urine Protein NEG (NEG-TRACE)
[2020-10-22 19:01] LABS: UPreg QC Valid YES; Urine Pregnancy NEGATIVE (NEGATIVE)
[2020-10-22 19:04] LABS: Appearance Urine CLEAR; Color Urine COLORLESS
[2020-10-22 20:24] LABS: Troponin-I High Sensitivity 40.5 ng/L (<3.5-17.0)
[2020-10-22 21:49] LABS: Glucose, Whole Blood 180 mg/dL (60-115)
--- NOTE | 2020-10-22 21:52 | PC.NURSE ---
Hospitalist at bedside, pt denies complaints or symptoms, no apparent distress noted. Awaiting room assignment
--- NOTE | 2020-10-22 22:11 | PC.NURSE ---
Pt in SVT w/ palpitation, weakness. Dr. coles at bedside- given 6mg adenosine w/ positive effect- hr 114 bpm, pt denies complaints
[2020-10-23] VITALS (16 sets, daily range): BP systolic 96–159; BP diastolic 55–75; PULSE 75–190; RESP 16–20; TEMP 36–36.9; O2SAT 98–100
--- NOTE | 2020-10-23 00:50 | PC.NURSE ---
report given to rn, ready for transport.
[2020-10-23 01:39] LABS: Glucose, Whole Blood 227 mg/dL (60-115)
[2020-10-23] MEDS: Metoprolol Tartrate 5 MG/5 ML VIAL 2.5 MG IVPUSH (01:53)
[2020-10-23] MEDS: Enoxaparin Sodium 40 MG/0.4 ML SYRINGE SUBCUT ×2 (02:03→20:58)
[2020-10-23] MEDS: 0.9 % Sodium Chloride 1,000 ML 100 ML IVCONT ×3 (02:03→21:07)
[2020-10-23] MEDS: 0.9 % Sodium Chloride Flush 3 ML SYRINGE IVFLUSH ×3 (02:03→16:16)
[2020-10-23] MEDS: diphenhydrAMINE HCL 50 MG/ML VIAL 25 MG IVPUSH (02:48)
[2020-10-23 05:39] LABS: MANUAL DIFF FLAG NO
[2020-10-23 05:41] LABS: Basophils Absolute Auto 0.1 X10*3/uL (0.0-0.2); Basophils Percent Auto 0.5 % (0-2); Eosinophils Absolute Auto 0.2 X10*3/uL (0.0-0.4); Eosinophils Percent Auto 1.9 % (0-4); Hematocrit 31.9 % (37-47); Hemoglobin 9.3 g/dl (12.0-16.0); Imm Gran Abs Auto 0.03 X10*3/uL (0.00-0.03); Imm Gran Pct Auto 0.3 % (0.0-0.4); Lymphocytes Absolute Auto 3.5 X10*3/uL (1.2-4.9); Lymphocytes Percent Auto 37.7 % (20-40); Mean Corpuscular HGB Conc 29.2 g/dl (31.0-35.0); Mean Corpuscular Hemoglobin 20.4 pg (27.0-33.0); Mean Platelet Volume 9.7 fL (9.4-12.3); Monocytes Absolute Auto 0.7 X10*3/uL (0.1-1.2); Monocytes Percent Auto 7.3 % (2-11); Neutrophils Absolute Auto 4.8 X10*3/uL (2.0-8.3); Neutrophils Percent Auto 52.3 % (45-73); Platelet Count 552 X10*3/uL (160-400); Red Blood Count 4.56 X10*6/uL (4.20-5.50); Red Cell Distribution Width 17.5 % (11.0-16.0); White Blood Count 9.2 X10*3/uL (4.8-10.8)
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
[2020-10-23 06:00] LABS: Anion Gap 13 (12-20); Blood Urea Nitrogen 11 mg/dL (9-16); Calcium 8.8 mg/dL (8.4-10.2); Carbon Dioxide 26 mmol/L (22-29); Chloride 104 mmol/L (96-108); Creatinine Clr Calc Pharmacy 132.2; Estimated Glomerular Filt Rate > 60; Glucose Random 214 mg/dL (60-115); Potassium 4.6 mmol/L (3.3-5.1); Sodium 138 mmol/L (135-145)
--- NOTE | 2020-10-23 08:00 | ECG_ITS ---
Test Reason : SVT Blood Pressure : / mmHG Vent. Rate : 122 BPM Atrial Rate : 122 BPM P-R Int : 136 ms QRS Dur : 074 ms QT Int : 282 ms P-R-T Axes : 044 017 096 degrees QTc Int : 401 ms Sinus tachycardia Abnormal QRS-T angle, consider primary T wave abnormality Abnormal ECG When compared to the previous EKG of Sinus tachycardia has replaced SVT Referred By: Jon Avery Electronically Signed By:Mark Borrero
[2020-10-23 08:06] LABS: Glucose, Whole Blood 192 mg/dL (60-115)
[2020-10-23] MEDS: Insulin Lispro 100 UNIT/ML 3 ML VIAL SUBCUT ×4 (08:15→20:59)
[2020-10-23] MEDS: Spironolactone 25 MG TABLET 50 MG PO (08:15)
[2020-10-23] MEDS: Pioglitazone HCL 30 MG TABLET PO (08:16)
[2020-10-23] MEDS: Cholecalciferol (Vitamin D3) 25 MCG TABLET 50 MCG PO (08:16)
[2020-10-23] MEDS: Ferrous Sulfate 324 MG TABLET.DR PO (08:16)
[2020-10-23] MEDS: lisinopriL 5 MG TABLET PO (08:16)
[2020-10-23 08:42] LABS: Troponin-I High Sensitivity 43.9 ng/L (<3.5-17.0)
--- NOTE | 2020-10-23 09:45 | P.PNIM_ITS ---
Subjective Subjective Date of Service: 10/23/20 Interval History: Patient had an episode of SVT around midnight, remained hemodynamically stable with stable blood pressure but heart rate reach 160s, patient was symptomatic with diaphoresis, and dizziness. She had no chest pain, no shortness of breath. She received 2.5 mg of IV Lopressor with improvement of her heart rate down to high 90s. Patient reports that she is feeling better this morning, she is able to tolerate food, no nausea or vomiting, no abdominal pain, no diarrhea constipation. Physical Exam Vital Signs: Vital Signs: Last Vital Signs Temp 97.4 F 10/23/20 08:00 Pulse 94 10/23/20 08:16 Resp 20 10/23/20 08:00 BP 112/67 10/23/20 08:16 Pulse Ox 100 10/23/20 08:00 Body Mass Index 54.3 Const: General: cooperative and no acute distress Orientation/consciousness: patient oriented x3 Eyes: General: appearance normal, both eyes and all related structures Resp: Effort & Inspection: normal respiratory effort and able to speak in complete sentences Cardio: Rate: regular rate Rhythm: regular rhythm GI: Palpation (GI): Soft to palpation Auscultation: normal bowel sounds Skin: General skin exam: no rashes or lesions noted Neuro: General: patient oriented x3 Cognition (Neuro): normal cognition Extrem: General: Yes normal to inspection and Yes no pedal edema Objective Data Current Medications Generic Name Dose Route Start Last Admin Trade Name Freq PRN Reason Stop Dose Admin Acetaminophen 650 mg 10/23/20 00:29 Acetaminophen 325 Mg Tablet PO Q6H PRN Pain, Mild (Pain Scale 1-3) Docusate Sodium 100 mg 10/23/20 00:29 Docusate Sodium 100 Mg Capsule PO DAILY PRN Constipation Enoxaparin Sodium 40 mg 10/23/20 00:29 10/23/20 02:03 Enoxaparin Sodium 40 Mg/0.4 Ml Syringe SUBCUT 40 mg 2200 JENY Administration Ferrous Sulfate 324 mg 10/23/20 09:00 10/23/20 08:16 Ferrous Sulfate 324 Mg Tablet.Dr PO 324 mg DAILY JENY Administration Sodium Chloride 1,000 mls @ 100 mls/hr 10/23/20 00:29 10/23/20 02:03 Ns IVCONT 100 mls/hr .Q10H JENY Administration Insulin Human Lispro 0 unit 10/23/20 07:30 10/23/20 08:15 Insulin Lispro 100 Unit/Ml 3 Ml Vial SUBCUT 2 unit QIDACHS [facility] Administration Protocol Lisinopril 5 mg 10/23/20 09:00 10/23/20 08:16 Lisinopril 5 Mg Tablet PO 5 mg DAILY JENY Administration Protocol Metoprolol Tartrate 2.5 mg 10/23/20 02:42 Metoprolol Tartrate 5 Mg/5 Ml Vial IVPUSH Q3H PRN tachycardia Ondansetron HCl 4 mg 10/23/20 00:29 Ondansetron Hcl 4 Mg/2 Ml Vial IVPUSH Q8H PRN Nausea and Vomiting Pharmacy Consult 1 each 10/22/20 20:49 Consult Rx Perform Med Rec MISCELLANE ONCE PRN Consult order Pharmacy Consult 1 each 10/22/20 20:57 Consult Rx Perform Med Rec MISCELLANE ONCE PRN Consult order Pioglitazone HCl 30 mg 10/23/20 09:00 10/23/20 08:16 Pioglitazone Hcl 30 Mg Tablet PO 30 mg DAILY JENY Administration Sodium Chloride 3 ml 10/23/20 00:29 10/23/20 08:17 0.9 % Sodium Chloride Flush 3 Ml Syringe IVFLUSH 3 ml QSHIFT [facility] Administration Spironolactone 50 mg 10/23/20 08:00 10/23/20 08:15 Spironolactone 25 Mg Tablet PO 50 mg BID@0800,1700 [facility] Administration Protocol Vitamin D 50 mcg 10/23/20 09:00 10/23/20 08:16 Cholecalciferol (Vitamin D3) 25 Mcg Tablet PO 50 mcg DAILY [facility] Administration Labs CBC & Chem 7: 10/23/20 05:33 10/23/20 05:33 Assessment and Plan (1) SVT (supraventricular tachycardia): Status: Acute (2) Palpitations: Status: Acute (3) Elevated troponin: Status: Acute (4) Iron deficiency anemia: Status: Acute Assessment and Plan: This is a 49-year-old female who presents to the hospital with palpitations found to have SVT and elevated troponin # SVT - unclear underlying rhythm - when SVT breaks, pt ges into sinus rhythm - patient seen by Cardiology on the of this month, recommended nuclear perfusion study as well as Holter monitor as well as echocardiogram - Echo pending - cardiology recommendation appreciated - Lopressor 2.5 IV push p.r.n. for further episodes, as she responded well to it overnight # elevated troponin - denies chest pain, no EKG changes suggestive of ACS - most likely secondary to SVT - trend stable with no increase - cardiology consulted # Iron def anemia - has heavy menstrual cycyles - will need follow up with PCP on discharge - Continue to monitor CBC # diabetes mellitus - hold oral antihyperglycemics - start low-dose sliding scale insulin - diabetic diet # hypertension - stable - continue spironolactone DVT prophylaxis: Lovenox Dispo: DC possibly tomorro pending cardiology recs
[2020-10-23] MEDS: Metoprolol Tartrate 25 MG TABLET PO ×2 (10:10→20:59)
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
--- NOTE | 2020-10-23 11:25 | MHC.CM.PN ---
Lives at home w/; still drives, still works, fully independent- she is requesting help getting a walker for in-home use for when she does not feel well. Explained that PT would have to evaluate for walker need and usage/ordering, etc., she is in agreement for PT eval for walker. Otherwise no prior services or equipment. Plan is home w/ when ready.
[2020-10-23 11:31] LABS: Glucose, Whole Blood 221 mg/dL (60-115)
[2020-10-23 16:01] LABS: Glucose, Whole Blood 209 mg/dL (60-115)
[2020-10-23 19:54] LABS: Glucose, Whole Blood 216 mg/dL (60-115)
[2020-10-24 03:12] VITALS: BP 112/61; PULSE 100; RESP 18; TEMP 36.1; O2SAT 98
[2020-10-24] MEDS: 0.9 % Sodium Chloride 1,000 ML 100 ML IVCONT (06:30)
[2020-10-24 07:08] VITALS: BP 115/68; PULSE 102; RESP 18; TEMP 36.1; O2SAT 99
[2020-10-24 07:31] LABS: Glucose, Whole Blood 179 mg/dL (60-115)
[2020-10-24] MEDS: Insulin Lispro 100 UNIT/ML 3 ML VIAL SUBCUT ×2 (07:53→11:35)
[2020-10-24 07:54] VITALS: BP 115/68; PULSE 102
[2020-10-24] MEDS: Pioglitazone HCL 30 MG TABLET PO (07:54)
[2020-10-24] MEDS: Ferrous Sulfate 324 MG TABLET.DR PO (07:54)
[2020-10-24] MEDS: Cholecalciferol (Vitamin D3) 25 MCG TABLET 50 MCG PO (07:54)
[2020-10-24] MEDS: Metoprolol Tartrate 25 MG TABLET PO (07:54)
[2020-10-24 10:57] VITALS: BP 140/67; PULSE 88; RESP 20; TEMP 36.6; O2SAT 99
[2020-10-24 11:17] LABS: Glucose, Whole Blood 259 mg/dL (60-115)
[2020-10-24 12:00] VITALS: TEMP 36.6
--- NOTE | 2020-10-24 12:17 | PM.DS ---
DS: Providers Provider Date of Service: 10/24/20 Date of admission: 10/22/20 22:29 Primary care physician: Angie Blair MD Consults: 10/23/20 00:29 Consult to Cardiology Routine Consulting Provider: Jamarcus Quinonez Reason for consultation: SVT, elevated trop Has provider been notified: No DS: Diagnosis Discharge Diagnosis (1) SVT (supraventricular tachycardia): Status: Acute (2) Elevated troponin: Status: Acute DS: Medications Discharge Medications Home Medications: Home Medications Medication Instructions Recorded Confirmed blood sugar diagnostic #10 ea 06/14/20 10/21/20 metformin 1,000 mg tablet 1,000 mg PO BID 10/21/20 10/22/20 Previous Rx's Medication Instructions Recorded cholecalciferol (vitamin D3) 50 50 mcg PO DAILY 30 Days #30 cap 06/29/20 mcg (2,000 unit) capsule pioglitazone 30 mg tablet 30 mg PO DAILY 30 Days #30 tab 10/12/20 ferrous sulfate 324 mg PO BIDWMEAL #30 tab 10/24/20 metoprolol tartrate 25 mg PO BID #60 tab 10/24/20 DS: Summary Hospital Course Hospital Course: Chief Complaint: Palpitations 49-year-old female with past medical history of chronic GERD, diabetes, hypertension obesity, PCOS, vitamin-D deficiency who presents the hospital with complaints of palpitations. Patient reports that she woke up this morning feeling funny feeling in her chest, but around 4:00 p.m. she started having palpitations and started feeling tired and had a weird feeling in her chest that felt similar to panic attack, she was also feeling dizzy, with no headache change in vision or shortness of breath.. She checked her heart rate at home and was 189. Patient was seen in the hospital last the and was asked to follow-up with cardiology. Patient reports that she did follow-up with Cardiology and was supposed to undergo some test but did not get a chance. She has no nausea vomiting, no abdominal pain diarrhea constipation. No urinary symptoms and no lower extremity edema. No numbness tingling or weakness. To the office note from 10/14 patient was felt to be high risk for coronary artery disease and was supposed to undergo myocardial perfusion imaging. And was supposed to have an event monitor as well as echocardiogram to evaluate LV systolic and diastolic function. On arrival to the ED patient temp was 98.1?, heart rate of 196, respiratory rate of 15, blood pressure of 126/66, satting 98% on room air. She was given adenosine with the resolution of her tachycardia. Had a 2nd episode of SVT while waiting in the ED and again resolved with adenosine. For WBC count of 11.6, hemoglobin of 10.1 MCV of 69.8, sodium of 134, potassium 4.7, glucose of 290, high sensitivity troponin of 421.4, on repeat 40.5, UA negative, COVID-19 negative. EKG Obtained shows normal sinus rhythm with no ST T wave changes Chest x-ray negative Hospital course SVT Patient was admitted with a diagnosis of SVT, patient received treatment with adenosine and placed on metoprolol 25 mg b.i.d. patient currently has sinus tachycardia she is asymptomatic with no further episodes of palpitation patient was seen in consultation by Dr. 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 Anemia also likely contributing to palpitation. Iron deficiency anemia patient inform about heavy periods she is currently on once a day iron supplement that has been increased to twice daily iron profile has been sent advised to follow-up with PCP Diabetes mellitus recommended to continue home medication Morbid obesity weight reduction recommended Time Spent with Patient Time attestation: Total time spent providing and/or coordinating discharge services: Discharge coordination time: Greater than 30 minutes Physical Exam Vital Signs: Vital Signs: Last Vital Signs Temp 98 F 10/24/20 10:57 Pulse 88 10/24/20 10:57 Resp 20 10/24/20 10:57 BP 140/67 H 10/24/20 10:57 Pulse Ox 99 10/24/20 10:57 Body Mass Index 54.3 General patient resting comfortably in no acute distress. Neck is supple no JVD. CVS regular rate rhythm, Respiratory lungs clear to auscultation, no respiratory distress, no wheeze, no rhonchi. Gastrointestinal abdomen soft, nontender, bowel sounds audible, no guarding , no rigidity. Extremities no clubbing cyanosis or edema. Neuro nonfocal ,speech clear. Skin no rash DS: Data Data Completed and Pending Labs on day of discharge: Laboratory Results - last 24 hr 10/23/20 10/23/20 10/24/20 15:53 19:46 07:08 POC Glucose 209 H 216 H 179 H 10/24/20 10:58 POC Glucose 259 H Discharge Plan Discharge Patient Disposition: Home, Self-Care Referrals: Angie Blair MD [Primary Care Provider] - Discharge Medications: New metoprolol tartrate 25 mg Tablet 25 mg PO BID Qty: 60 RF: 2 Continued cholecalciferol (vitamin D3) 50 mcg (2,000 unit) capsule 50 mcg PO DAILY 30 Days Qty: 30 RF: 6 pioglitazone 30 mg tablet 30 mg PO DAILY 30 Days Qty: 30 RF: 3 metformin 1,000 mg tablet 1,000 mg PO BID RF: 0 Changed ferrous sulfate 324 mg (65 mg iron) tablet,delayed release (DR/EC) 324 mg PO BIDWMEAL Qty: 30 RF: 0 Discontinued lisinopril 5 mg tablet 5 mg PO DAILY Qty: 90 RF: 1 spironolactone 50 mg tablet 50 mg PO BID Qty: 60 RF: 2 No Action (DME) FreeStyle Lite Strips Strip See Rx Instructions .ROUTE .MEDSUPPLY Qty: 10 RF: 0 Discharge Orders: Discharge Order (Routine); Ordered 10/24/20 Ordered By: Alexx Garrett Diet: diabetic diet Activity on Discharge: As tolerated Stand Alone Forms: Patient Portal Discharge page Care Plan Goals: As below Health Concerns: outpatient follow-up with cardiology Plan of Treatment: minimize use of caffeine, weight reduction, take metoprolol twice daily, stop use of lisinopril and Aldactone Follow-up with cardiology and primary care physician
--- NOTE | 2020-10-24 12:24 | MHC.CM.PN ---
Patient has been medically cleared for dc to home today, no services.
[2020-10-24 12:47] LABS: Iron 21 mcg/dL (30-160); Percent Iron Saturation 5 % (15-50); Total Iron Binding Capacity 398 mcg/dL (228-428); Unsaturated Iron Binding 377 ug/dL
--- NOTE | 2020-10-24 13:02 | PM.PNCARD ---
Subjective Subjective Date of Service: 10/24/20 Interval history: She feels okay. No specific complaints. Review of Systems Review of Systems Yes all other systems are reviewed and are negative Cardiovascular: Reports as per HPI, Reports no additional cardiovascular complaints, Denies acrocyanosis, Denies cool extremities, Denies painful fingertips, Reports chest pain, Denies chest pain at rest, Denies diaphoresis, Denies syncope, Denies irregular heart rhythm, Denies claudication, Denies leg edema, Denies lightheadedness, Reports palpitations and Reports dyspnea Respiratory: Reports dyspnea Denies syncope Endocrine: Reports palpitations Physical Exam Vital Signs: Last Vital Signs Temp 98 F 10/24/20 12:00 Pulse 88 10/24/20 10:57 Resp 20 10/24/20 10:57 BP 140/67 H 10/24/20 10:57 Pulse Ox 99 10/24/20 10:57 Body Mass Index 54.3 Const General: cooperative, comfortable and no acute distress Orientation/consciousness: patient oriented x3 HENMT Other: Unremarkable Neck Neck: Yes normal visual inspection Chest Chest palpation & inspection: normal inspection of the chest Resp Auscultation: clear to auscultation bilaterally, no crackles and no wheezes Cardio Jugular venous distension: no JVD Palpation: normal PMI Heart sounds: S1 normal heart sound present, S2 normal heart sound present, no gallops, no murmurs and no rubs GI Palpation (GI): Soft to palpation Back/Spine/Pelvis Other: unremarkable Skin General skin exam: no rashes or lesions noted Neuro General: patient oriented x3 Extrem General: Yes no clubbing, cyanosis or edema Psych Mental Status: mental status grossly normal Results Labs and Meds Result diagrams: 10/23/20 05:33 10/23/20 05:33 Lab results: Laboratory Results - last 24 hr 10/22/20 10/23/20 10/23/20 17:21 05:33 15:53 POC Glucose 209 H Iron Cancelled 21 L TIBC Cancelled 398 % Saturation Cancelled 5 L Unsat Iron Binding Cancelled 377 10/23/20 10/24/20 10/24/20 19:46 07:08 10:58 POC Glucose 216 H 179 H 259 H Iron TIBC % Saturation Unsat Iron Binding Progress Note: A&P Assessment and plan (1) SVT (supraventricular tachycardia): Status: Acute (2) Elevated troponin: Status: Acute Assessment and Plan: Based on EKGs, she clearly has SVT. 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 Discussed about pathophysiology of the same with patient. She understands. We discussed about medical options versus ablation. Her blood pressure is on the lower side. We can try metoprolol 25 b.i.d.. Hold off on lisinopril to avoid lowering her blood pressure too much. Otherwise with regard to troponins, we need to evaluate for underlying coronary disease with a stress test. If she has no evidence of any ischemic heart disease on noninvasive testing, then Flecainide can be considered. Otherwise discussed about obesity and implications on cardiac arrhythmias and she understands. She will require a sleep study as well as an outpatient. We also discussed about ablation as the definitive therapy and went over that as well. FU in our office. Fall Risk Details Current Medications: Current Medications Generic Name Dose Route Start Last Admin Trade Name Freq PRN Reason Stop Dose Admin Acetaminophen 650 mg 10/23/20 00:29 Acetaminophen 325 Mg Tablet PO Q6H PRN Pain, Mild (Pain Scale 1-3) Docusate Sodium 100 mg 10/23/20 00:29 Docusate Sodium 100 Mg Capsule PO DAILY PRN Constipation Enoxaparin Sodium 40 mg 10/23/20 00:29 10/23/20 20:58 Enoxaparin Sodium 40 Mg/0.4 Ml Syringe SUBCUT 40 mg 2200 JENY Administration Ferrous Sulfate 324 mg 10/23/20 09:00 10/24/20 07:54 Ferrous Sulfate 324 Mg Tablet. PO 324 mg DAILY JENY Administration Sodium Chloride 1,000 mls @ 100 mls/hr 10/23/20 00:29 10/24/20 06:30 Ns IVCONT 100 mls/hr .Q10H JENY Administration Insulin Human Lispro 0 unit 10/23/20 07:30 10/24/20 11:35 Insulin Lispro 100 Unit/Ml 3 Ml Vial SUBCUT 6 unit QIDACHS JENY Administration Protocol Metoprolol Tartrate 2.5 mg 10/23/20 02:42 Metoprolol Tartrate 5 Mg/5 Ml Vial IVPUSH Q3H PRN tachycardia Metoprolol Tartrate 25 mg 10/23/20 09:50 10/24/20 07:54 Metoprolol Tartrate 25 Mg Tablet PO 25 mg BID JENY Administration Protocol Ondansetron HCl 4 mg 10/23/20 00:29 Ondansetron Hcl 4 Mg/2 Ml Vial IVPUSH Q8H PRN Nausea and Vomiting Pharmacy Consult 1 each 10/22/20 20:49 Consult Rx Perform Med Rec MISCELLANE ONCE PRN Consult order Pharmacy Consult 1 each 10/22/20 20:57 Consult Rx Perform Med Rec MISCELLANE ONCE PRN Consult order Pioglitazone HCl 30 mg 10/23/20 09:00 10/24/20 07:54 Pioglitazone Hcl 30 Mg Tablet PO 30 mg DAILY JENY Administration Sodium Chloride 3 ml 10/23/20 00:29 10/24/20 07:55 0.9 % Sodium Chloride Flush 3 Ml Syringe IVFLUSH Not Given QSHIFT JENY Vitamin D 50 mcg 10/23/20 09:00 10/24/20 07:54 Cholecalciferol (Vitamin D3) 25 Mcg Tablet PO 50 mcg DAILY JENY Administration Time Spent With Patient Time: Total time spent is greater than 50% in coordination of care (as documented) at patient's floor/unit and/or counseling patient: Time with patient: less than 15 minutes
== END 2020-10-24 13:31 | disposition home or self-care (01) | DRG 201 ==
LOC: HO.ED 21:04 → HO.IMC 23:49
PROVIDERS: Admitting Provider Internal Medicine; Emergency Provider Emergency Medicine; PCP Internal Medicine; Visit Provider Hospitalist
DX: I47.1 Supraventricular tachycardia (principal); Z68.43 Body mass index [BMI] 50.0-59.9, adult; D50.9 Iron deficiency anemia, unspecified; E11.9 Type 2 diabetes mellitus without complications; E28.2 Polycystic ovarian syndrome; I10 Essential (primary) hypertension; N92.0 Excessive and frequent menstruation with regular cycle; E66.01 Morbid (severe) obesity due to excess calories; K21.9 Gastro-esophageal reflux disease without esophagitis; Z20.822 Contact with and (suspected) exposure to COVID-19; Z79.899 Other long term (current) drug therapy
CPT/HCPCS: 36415; 71045; 80048; 80076; 81003; 81025; 82947; 83540; 83690; 83735; 83880; 84484; 85025; 85610; 85730; 87635; 93005; 96374; 96375; 99285; 99291; J0153; J1200; J1650

== ENCOUNTER → 2020-10-26 08:43 | Outpatient (BNVA) | payer OTHER, SELFPAY | PROVIDERS: PCP Internal Medicine; Visit Provider Internal Medicine Endocrinology, Diabetes & Metabolism | DX: E11.65 Type 2 diabetes mellitus with hyperglycemia (principal); E11.21 Type 2 diabetes mellitus with diabetic nephropathy; E66.01 Morbid (severe) obesity due to excess calories; I10 Essential (primary) hypertension; E55.9 Vitamin D deficiency, unspecified; E28.2 Polycystic ovarian syndrome | CPT/HCPCS: 82947 ==

== ENCOUNTER 2020-11-17 10:39 | Outpatient (REF) | payer OTHER, SELFPAY ==
[2020-11-17 11:58] LABS: Creatinine Urine 129.62 mg/dL; Microalbum/Creatinine Ratio Ur 5.4 ug/mg cr
== END 2020-11-17 10:40 | disposition home or self-care (01) ==
LOC: HO.LAB 10:39
PROVIDERS: Internal Medicine; Visit Provider Internal Medicine Endocrinology, Diabetes & Metabolism
DX: E13.9 Other specified diabetes mellitus without complications (principal); M54.5 Low back pain
CPT/HCPCS: 82043

== ENCOUNTER → 2020-12-06 07:47 | Outpatient (REF) | payer OTHER, SELFPAY ==
--- NOTE | 2020-12-06 | CA_ITS ---
Acquisition Time: 2020-12-06 09:34:13 Total Exercise Time: 00:04:57 Test Indications: PALPITATIONS SOB Medications: METFORMIN METOPROLOL PIOGLITAZONE Protocol: NAE Max HR: 144 BPM 83% of Pred: 172 BPM Max BP: 128/078 mmHG Max Work Load: 5.5 METS Exercise stress nuclear using Nae protocol, total of 4 min 57 sec. METS 5.50 , and TAPHR up to 83 %. Pt tolerated well, denies any anginal sx. EKG with no arrhythmias, no ischemic changes seen during exercise or in recovery, Nuclear images to follow. Normotensive response to exercise . Test reviewed with Dr. Quinonez. Referred By: Kayce Waterman Overread By: Jazlyn Vallecillo NP
--- NOTE | ~2020-12-06 | NM_ITS ---
Exercise Myocardial perfusion study Indication: Shortness of breath evaluate for myocardial ischemia Technique: The patient was brought in for an exercise perfusion study on 12/06/2020. Patient performed exercise as per Gino protocol and was injected 40 mCi of sestamibi was given intravenously one target HR was achieved. Images were obtained using the SPECT gamma camera interlaced with the gating device. Images were obtained in supine position. Resting perfusion study was performed on 12/07/2020. Patient was administered 40 mCi of sestamibi intravenously at rest. Images were then obtained in supine position. Images obtained with and without CT attenuation. Total DLP 191 mGy-cm. Images were processed with the software and compared side to side in short axis, horizontal long axis and vertical long axis views. Findings: The stress perfusion study showed non attenuated images show mildly to moderately reduced uptake in a small area of distal anterolateral and mildly reduced uptake in the distal anterior wall of the LV myocardium. Remainder of the LV myocardium is normally perfused. Attenuation corrected images also show mildly reduced uptake in the distal anterolateral and anterior wall of the LV myocardium... The gated study shows normal LV systolic function with calculated LVEF of 56%. LV cavity is normal in size. The gated study shows normal systolic wall thickening and contraction of all segments. There is no transient ischemic dilation. Resting study shows normal uptake of radiotracer in all segments of LV myocardium on non attenuated images. Gating at rest reveals normal systolic wall motion with ejection fraction at 60%. The findings are consistent with mild intensity reversible defect of the distal anterolateral and inferior wall in the diagonal territory. NM/NM cardiolite stress test Impression: 1. Mild intensity small area of ischemia in diagonal territory 2. Gated LVEF is 66% 3. Transient ischemic dilatation not present Stress EKG is negative for ischemia
--- NOTE | 2020-12-06 07:51 | CA_ITS ---
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 The visually estimated ejection fraction is between 60-65%. - No obvious valvular pathology seen on this study. Findings Procedure Information Contrast agent, definity, is being given per protocol without apparent complications. Left Ventricle Normal left ventricular cavity size. There is normal left ventricular wall thickness. The left ventricular systolic function is normal. The visually estimated ejection fraction is between 60-65%. There is no evidence of regional wall motion abnormalities. Diastolic function is normal for age. Right Ventricle Normal right ventricular cavity size and systolic function. Atria Both atria are normal in size. Aortic Valve There is a normal trileaflet aortic valve. There is no aortic valve stenosis. There is no aortic valve regurgitation. Mitral Valve The mitral valve appears normal. There is trace mitral valve regurgitation. There is no mitral valve stenosis. Pulmonic Valve The pulmonic valve was not well visualized. Tricuspid Valve There is trace tricuspid valve regurgitation. Tricuspid regurgitation envelope is inadequate for calculation of right ventricular systolic pressure. Great Vessels The aortic annulus, sinuses of valsalva, and asc aorta are normal in size. Venous The inferior vena cava is normal in size and collapses greater than 50% with inspiration. Pericardium/Pleural There is a trivial pericardial effusion. Prior Study Comparison No prior study available for comparison. Recommendations, Care & Conclusions No obvious valvular pathology seen on this study. Measurements 2D Linear Measurements IVSd: 1.07 0.6-0.9/0.6-1.0 cm LVIDd: 4.73 3.9-5.3/4.2-5.9 cm LVIDd Index: 2.04 2.4-3.2/2.2-3.1 cm/m2 LVIDs: 2.97 2.0-3.6 cm LVPWd: 1.09 0.7-1.1 cm Ao Root: 3.20 2.1-3.5 cm LA Diam: 3.90 2.7-3.8/3.0-4.0 cm LAIDs Index: 1.68 1.5-2.3 cm/m2 LV Mass: 230.11 67-162/88-224 g LV Mass Index: 99.19 43-95/49-115 g/m2 LVOT Diam: 2.00 3.0+(-)1.3 cm 2D Systolic Function EF 4C: 65.40 >55% EF 2C: 58.30 >55% EF BiP: 62.10 >55% Mitral Valve MV Pk E: 1.12 MV PK A: 0.75 MV Decel Time: 214.00 E/A: 1.50 E'Lateral: 10.80 E'Medial: 12.30 E/E' Med: 9.10 E/E' Lat: 10.40 PHT: 63.00 MVA PHT: 3.49 Decel Clark: 5.23 Aortic Valve AoV Pk Goyo: 1.31 AoV Mn Goyo: 0.87 AoV VTI: 0.26 AoV Pk Grad: 7.00 Aov Mn Grad: 4.00 NAIF Cont.VTI: 2.38 LVOT LVOT Pk Goyo: 0.88 LVOT Mn Goyo: 0.59 LVOT VTI: 0.20 LVOT Pk Grad: 3.00 LVOT Mn Grad: 2.00 LVOT Diam: 2.00 LVOT Area: 3.14 Diastolic Function MV Pk E: 1.12 MV Pk A: 0.75 E/A: 1.50 E'Medial: 12.30 E/E' Med: 9.10 E' Laterial: 10.80 E/E' Lat: 10.40 Great Vessels Aorta Ao Root-2D: 3.20 2.0-3.7 cm Ao Asc: 3.00 2.1-3.4 cm Ao Arch: 2.60 Updated in Other Vendor System with Status of Final Jamarcus Quinonez MD electronically signed on 12/07/2020 12:30:34 PM with status of Final
--- NOTE | 2020-12-06 07:55 | ECG_ITS ---
Hook-up date: 2020-12-06 10:28:00 Duration: 26:39:00 Test Indications: PALPITATIONS Medications: 496131 QRS complexes 2 Ventricular ectopics which represent <1 % of total QRS comp. 13 Supraventricular ectopics which represent <1 % of total QRS comp. * Paced QRS complexs which represent % of total QRS comp. VENTRICULAR ECTOPY 2 Isolated 0 Bigeminal Cycles 0 Couplets 0 Runs 0 Beats in Runs * Beats LONGEST at * BPM at :: -- * Beats FASTEST at * BPM at :: -- SUPRAVENTRICULAR ECTOPY 13 Isolated 0 Couplets 0 Runs 0 Beats in Runs * Beats LONGEST at * BPM at :: -- * Beats FASTEST at * BPM at :: -- HEART RATES 80 MIN at 17:19:31 2020-12-06 99 AVG 138 MAX at 05:54:27 2020-12-07 LONGEST RR 0.7680 secs at 17:19:30 2020-12-06 S-T LEVELS Channel 1 - 128 mm at 10:28:00 2020-12-06 - 128 mm at 10:28:00 2020-12-06 Channel 2 - 128 mm at 10:28:00 2020-12-06 - 128 mm at 10:28:00 2020-12-06 Channel 3 - 128 mm at 02:94:71 -- - 128 mm at 02:94:71 Basic rhythm Normal sinus rhythm No long pause or profound bradycardia Frequent Sinus tachycardia , 38% of time HR > 100 bpm Rare Premature atrial complexes Patient did not report any symptoms in the diary Referred By: Kayce Waterman Overread By: ELOISE CHAPPELL MD
== END ==
LOC: HO.CARD 07:47
PROVIDERS: PCP Internal Medicine; Visit Provider Nurse Practitioner Family
DX: R00.2 Palpitations (principal); R06.02 Shortness of breath; I10 Essential (primary) hypertension; E11.65 Type 2 diabetes mellitus with hyperglycemia
CPT/HCPCS: 78452; 93016; 93017; 93018; 93225; 93226; 93306; A9500; Q9957

== ENCOUNTER → 2021-01-24 14:15 | Outpatient (BNVA) | payer OTHER, SELFPAY | PROVIDERS: PCP Internal Medicine; Visit Provider Internal Medicine Endocrinology, Diabetes & Metabolism | DX: E11.65 Type 2 diabetes mellitus with hyperglycemia (principal); E11.21 Type 2 diabetes mellitus with diabetic nephropathy; E55.9 Vitamin D deficiency, unspecified; E28.2 Polycystic ovarian syndrome; E66.01 Morbid (severe) obesity due to excess calories; I10 Essential (primary) hypertension | CPT/HCPCS: 82947 ==

== ENCOUNTER 2021-03-01 07:32 | Outpatient (REF) | payer OTHER, SELFPAY ==
[2021-03-01 08:04] LABS: MANUAL DIFF FLAG NO
[2021-03-01 08:10] LABS: Basophils Absolute Auto 0.1 X10*3/uL (0.0-0.2); Basophils Percent Auto 0.6 % (0-2); Eosinophils Absolute Auto 0.3 X10*3/uL (0.0-0.4); Eosinophils Percent Auto 2.6 % (0-4); Hematocrit 31.8 % (37-47); Hemoglobin 8.9 g/dl (12.0-16.0); Imm Gran Abs Auto 0.06 X10*3/uL (0.00-0.03); Imm Gran Pct Auto 0.6 % (0.0-0.4); Lymphocytes Absolute Auto 3.4 X10*3/uL (1.2-4.9); Lymphocytes Percent Auto 32.8 % (20-40); Mean Corpuscular Hemoglobin 18.3 pg (27.0-33.0); Mean Corpuscular Volume 65.4 fL (80-98); Mean Platelet Volume 9.5 fL (9.4-12.3); Monocytes Absolute Auto 0.7 X10*3/uL (0.1-1.2); Monocytes Percent Auto 7.2 % (2-11); Neutrophils Absolute Auto 5.7 X10*3/uL (2.0-8.3); Neutrophils Percent Auto 56.2 % (45-73); Platelet Count 615 X10*3/uL (160-400); Red Blood Count 4.86 X10*6/uL (4.20-5.50); Red Cell Distribution Width 20.8 % (11.0-16.0); White Blood Count 10.2 X10*3/uL (4.8-10.8)
[2021-03-01 08:19] LABS: Estimated Average Glucose 126 mg/dL
[2021-03-01 08:36] LABS: Alanine Aminotransferase 19 U/L (0-31); Albumin Level 4.1 g/dL (3.5-5.0); Alkaline Phosphatase 56 U/L (39-117); Anion Gap 12 (12-20); Aspartate Amino Transferase 15 U/L (5-31); Bilirubin Direct 0.2 mg/dL (0.0-0.5); Bilirubin Total 0.6 mg/dL (0.0-1.0); Blood Urea Nitrogen 15 mg/dL (9-16); Calcium 9.6 mg/dL (8.4-10.2); Carbon Dioxide 27 mmol/L (22-29); Chloride 102 mmol/L (96-108); Cholesterol 138 mg/dL; Estimated Glomerular Filt Rate > 60; Glucose Fasting 124 mg/dL (60-99); HDL Cholesterol 42 mg/dL; LDL Cholesterol Calculated 71 mg/dl; Potassium 4.8 mmol/L (3.3-5.1); Sodium 136 mmol/L (135-145); Total Protein 7.3 g/dL (6.5-8.0); Triglycerides 128 mg/dL
[2021-03-01 08:58] LABS: TSH reflex Free T4 1.98 uIU/mL (0.32-4.0)
[2021-03-01 09:21] LABS: Creatinine Urine 166.78 mg/dL; Microalbum/Creatinine Ratio Ur 7.7 ug/mg cr
== END 2021-03-01 07:33 | disposition home or self-care (01) ==
LOC: HO.LAB 07:32
PROVIDERS: Internal Medicine Endocrinology, Diabetes & Metabolism; Absent Provider Nurse Practitioner Family; PCP Internal Medicine; Visit Provider Internal Medicine
DX: M54.5 Low back pain (principal); D50.9 Iron deficiency anemia, unspecified; E11.65 Type 2 diabetes mellitus with hyperglycemia; E66.01 Morbid (severe) obesity due to excess calories; I10 Essential (primary) hypertension; R00.2 Palpitations
CPT/HCPCS: 36415; 80048; 80061; 80076; 82043; 83036; 84443; 85025

== ENCOUNTER → 2021-03-10 12:40 | Outpatient (BNVA) | payer OTHER, SELFPAY | PROVIDERS: PCP Internal Medicine; Referring Provider Internal Medicine; Visit Provider Nurse Practitioner Family ==

== ENCOUNTER → 2021-06-06 14:45 | Outpatient (BNVA) | payer OTHER, SELFPAY | PROVIDERS: PCP Internal Medicine; Referring Provider Internal Medicine; Visit Provider Internal Medicine Cardiovascular Disease ==

== ENCOUNTER → 2021-06-07 14:32 | Outpatient (BNVA) | payer OTHER, SELFPAY | PROVIDERS: PCP Internal Medicine; Visit Provider Advanced Practice Midwife ==

== ENCOUNTER → 2021-06-21 14:06 | Outpatient (BNV) | payer OTHER, SELFPAY | PROVIDERS: PCP Internal Medicine; Referring Provider Internal Medicine; Visit Provider Internal Medicine | DX: D50.9 Iron deficiency anemia, unspecified (principal) | CPT/HCPCS: 99213; 99214 ==

== ENCOUNTER 2021-06-28 07:20 | Outpatient (REF) | payer OTHER, SELFPAY | END 2021-06-28 07:21 | disposition home or self-care (01) | LOC: HO.MDS 07:20 | PROVIDERS: Visit Provider Internal Medicine | DX: D50.9 Iron deficiency anemia, unspecified (principal); E28.2 Polycystic ovarian syndrome | CPT/HCPCS: 96365; 96366; J1200; J1750; Q0163 ==

== ENCOUNTER → 2021-07-12 14:53 | Outpatient (BNVA) | payer OTHER, SELFPAY | PROVIDERS: PCP Internal Medicine; Referring Provider Internal Medicine; Visit Provider Nurse Practitioner ==

== ENCOUNTER 2021-07-14 11:37 | Outpatient (REF) | payer OTHER, SELFPAY ==
[2021-07-14 11:46] LABS: MANUAL DIFF FLAG NO
[2021-07-14 12:01] LABS: Basophils Percent Auto 0.6 % (0-2); Eosinophils Absolute Auto 0.2 X10*3/uL (0.0-0.4); Eosinophils Percent Auto 2.2 % (0-4); Hematocrit 39.7 % (37.0-47.0); Hemoglobin 11.5 g/dl (12.0-16.0); Imm Gran Abs Auto 0.03 X10*3/uL (0.00-0.03); Imm Gran Pct Auto 0.4 % (0.0-0.4); Lymphocytes Percent Auto 29.8 % (20-40); Mean Corpuscular Hemoglobin 21.4 pg (27.0-33.0); Mean Corpuscular Volume 73.9 fL (80.0-98.0); Mean Platelet Volume 9.7 fL (9.4-12.3); Monocytes Absolute Auto 0.6 X10*3/uL (0.1-1.2); Monocytes Percent Auto 8.8 % (2-11); Neutrophils Percent Auto 58.2 % (45-73); Platelet Count 381 X10*3/uL (160-400); Red Blood Count 5.37 X10*6/uL (4.20-5.50); White Blood Count 6.9 X10*3/uL (4.8-10.8)
[2021-07-14 12:41] LABS: Iron 57 mcg/dL (30-160); Percent Iron Saturation 17 % (15-50); Total Iron Binding Capacity 331 mcg/dL (228-428); Unsaturated Iron Binding 274 ug/dL
== END 2021-07-14 11:38 | disposition home or self-care (01) ==
LOC: HO.LAB 11:37
PROVIDERS: Internal Medicine; PCP Internal Medicine; Visit Provider Internal Medicine Cardiovascular Disease
DX: D64.9 Anemia, unspecified (principal)
CPT/HCPCS: 36415; 83540; 85025

== ENCOUNTER 2021-07-26 08:47 | Outpatient (REF) | payer OTHER, SELFPAY ==
[2021-07-27 11:59] LABS: BV Int Neg Control Negative (Negative); BV Int Pos Control Positive (Positive)
[2021-07-27 12:50] LABS: CT PCR NOT DETECTED (Not Detect.); NG PCR NOT DETECTED (Not Detect.)
[2021-07-29 00:11] LABS: HPV mRNA E6/E7 rflx Not Detected (Not Detected)
== END 2021-07-26 08:48 | disposition home or self-care (01) ==
LOC: HO.LAB 08:47
PROVIDERS: PCP Internal Medicine; Visit Provider Advanced Practice Midwife
DX: Z12.4 Encounter for screening for malignant neoplasm of cervix (principal); Z11.51 Encounter for screening for human papillomavirus (HPV); N93.9 Abnormal uterine and vaginal bleeding, unspecified; F41.9 Anxiety disorder, unspecified
CPT/HCPCS: 87480; 87491; 87510; 87591; 87624; 87660; 88142

== ENCOUNTER → 2021-08-04 14:53 | Outpatient (BNVA) | payer OTHER, SELFPAY | PROVIDERS: PCP Internal Medicine; Referring Provider Internal Medicine; Visit Provider Internal Medicine Cardiovascular Disease ==

== ENCOUNTER → 2021-08-15 14:57 | Outpatient (BNVA) | payer OTHER, SELFPAY | PROVIDERS: PCP Internal Medicine; Referring Provider Internal Medicine; Visit Provider Physician Assistant Surgical ==

== ENCOUNTER → 2021-09-02 13:17 | Outpatient (BNVA) | payer OTHER, SELFPAY | PROVIDERS: Visit Provider Physician Assistant Surgical ==

== ENCOUNTER → 2021-09-21 10:41 | Outpatient (BNVA) | payer OTHER, SELFPAY | PROVIDERS: PCP Internal Medicine; Referring Provider Internal Medicine; Visit Provider Internal Medicine Cardiovascular Disease ==

== ENCOUNTER 2021-09-28 23:23 | Emergency (ER) | payer OTHER, SELFPAY ==
[2021-09-28 23:30] VITALS: BP 137/85; PULSE 95; RESP 18; TEMP 37.1; O2SAT 98; BMI 49.8
--- NOTE | 2021-09-28 23:47 | ED.BACK ---
HPI - Back Pain/Injury General Chief Complaint: Back Pain/Injury Stated Complaint: back pain Time Seen by Provider: 09/28/21 23:47 Source: patient Mode of arrival: ambulatory Limitations: no limitations History of Present Illness HPI Narrative: Patient is a 50 year old female presenting to the emergency department today with low back pain. Patient states that she has been having issues with her lower back for the last 2 weeks and she hsa not been able to have any relief from the current medication regimen she is on. Patient denies any dizziness, lightheadedness, abdominal pain, nausea, vomiting, fever, chills, blurry vision, double vision, loss of vision, chest pain, difficulty breathing, shortness of breath, night sweats, pain with urination, increased urinary frequency, increased urinary urgency, blood in her urine or stool, syncope or a near syncopal episode, recent trauma or falls, bowel incontinence, bladder incontinence, bowel retention, bladder retention, or any other complaints at this time. MD elicited complaint: back pain Related Data Home Medications Medication Instructions Recorded Confirmed metformin 1,000 mg tablet 1,000 mg PO DAILY tab 09/21/21 09/23/21 metronidazole 500 mg tablet 2,000 mg PO ONCE tab 09/21/21 09/23/21 pioglitazone 15 mg tablet 15 mg PO DAILY tab 09/21/21 09/23/21 Previous Rx's Medication Instructions Recorded blood pressure kit-extra large #1 ea 10/26/20 ferrous sulfate 324 mg (65 mg 324 mg PO TID 90 Days #270 tab 03/02/21 iron) tablet,delayed release blood sugar diagnostic (FreeStyle #100 ea 03/23/21 Lite Strips) cholecalciferol (vitamin D3) 50 50 mcg PO DAILY 30 Days #30 cap 08/03/21 mcg (2,000 unit) capsule metoprolol tartrate 50 mg tablet 50 mg PO BID 90 Days #180 tab 08/12/21 baclofen 10 mg tablet 10 mg PO BEDTIME 30 Days #30 tab 09/23/21 diclofenac sodium 75 mg 75 mg PO BID PRN 30 Days #60 tab 09/23/21 tablet,delayed release Allergies Allergy/AdvReac Type Severity Reaction Status Date / Time No Known Allergies Allergy Verified 09/28/21 23:30 Review of Systems Constitutional: Constitutional: Reports no additional constitutional complaints, Denies chills, Denies fever(s) and Denies night sweats Eyes: Eyes: Reports no additional eye complaints, Denies blurry vision, Denies change in vision, Denies diplopia, Denies eye discharge, Denies loss of vision and Denies eye pain ENT: Denies dizziness Cardiovascular: Cardiovascular: Reports no additional cardiovascular complaints, Denies chest pain, Denies lightheadedness, Denies Loss of Consciousness and Denies dyspnea Respiratory: Respiratory: Reports no additional respiratory complaints and Denies dyspnea Gastrointestinal: Gastrointestinal: Reports no additional gastrointestinal complaints, Denies abdominal pain, Denies melena, Denies hematochezia, Denies change in bowel habits and Denies change in stool character Genitourinary: Genitourinary: Denies hematuria, Denies urinary frequency, Denies dysuria, Denies urinary incontinence, Denies urinary hesitancy and Denies urinary urgency Musculoskeletal: Musculoskeletal: Reports no additional musculoskeletal complaints, Reports back pain, Denies numbness and Denies tingling Neurologic: Denies dizziness, Denies loss of vision, Denies numbness and Denies tingling Psychiatric: Psychiatric: Reports no additional psychiatric complaints Endocrine: Endocrine: Reports no additional endocrine complaints Hematologic/Lymphatic: Hematologic/Lymphatic: Reports no additional hematologic/lymphatic complaints Allergic/Immunologic: Allergic/Immunologic: Reports no additional allergic/immunologic complaints PMFSH Past Medical History Medical History 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 procedure Chronic GERD Diabetes 1.5, 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 Maternal Grandmother Brain tumor Paternal Grandmother Diabetes mellitus Brother No problems noted. Father Diabetes mellitus Maternal Grandmother Brain tumor Maternal Grandfather No problems noted. Paternal Grandfather Diabetes mellitus Paternal Grandmother No problems noted. Brother No problems noted. 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 Physical Exam Vital Signs: Vital Signs: Last Vital Signs Temp 98.7 F 09/28/21 23:30 Pulse 95 09/28/21 23:30 Resp 18 09/28/21 23:30 BP 137/85 09/28/21 23:30 Pulse Ox 98 09/28/21 23:30 BMI result Body Mass Index 49.8 Const: General: cooperative, no acute distress, alert and awake Nutritional Appearance: well nourished Orientation/consciousness: patient oriented x3 Limitations: no limitations HENMT: Head: Yes normal to inspection and Yes atraumatic Ears: hearing grossly normal bilaterally and external ears normal General nose exam: Normal external nose present, no nasal discharge noted and no epistaxis Face and sinus: Yes normal facial exam, No abrasion and No laceration Mouth: Normal oral and palatal mucosa present, no drooling and no muffled voice Eyes: General: appearance normal, both eyes and all related structures Periorbital: periorbital findings normal Eyelids: Yes eyelids normal Conjunctivae: conjunctivae normal Pupils: Equal, round and reactive pupils present EOM: EOMs intact bilaterally Neck: Neck: Yes normal visual inspection, Yes full ROM and Yes no lymphadenopathy Chest: Chest palpation & inspection: normal inspection of the chest Resp: Effort & Inspection: normal respiratory effort and able to speak in complete sentences GI: Inspection: Yes normal to inspection Back/Spine/Pelvis: Thoracic/Lumbar Spine: thoracic and lumbar spine normal to inspection and thoraco-lumbar ROM normal Neuro: General: patient oriented x3 and moves all extremities Cranial nerves: Yes Equal, round and reactive pupils present Cognition (Neuro): normal cognition Motor exam (neuro): 5/5 motor strength present throughout Sensory Exam: Normal double simultaneous stimulation for sensation Coordination: [id number] test normal Extrem: General: Yes normal to inspection, Yes full ROM and Yes capillary refill normal Psych: Appearance: grossly normal Mental Status: mental status grossly normal Affect: normal affect Attitude: cooperative Thought process: Normal thought process present Thought content: Normal thought content present Insight: Good insight present (Psych) MDM - Back Pain/Injury MDM Narrative Medical decision making narrative: Patient is a 50 year old female presenting to the emergency department today with low back pain. Patient's physical exam was unremarkable including a normal neurological examination. I explained my physical exam findings to the patient. I answered all questions asked by the patient. Patient received PO Flexeril and Decadron which she stated helped her symptoms significantly. I explained to the patient that I agree with her PCP and that she likely strained her lumbar spine. However, I stressed the importance of the patient following up with neurology and orthopedics for a thorough spine work up. I stressed the importance of the patient taking her medication as prescribed. I stressed the importance of the patient following up with her primary care provider. I stressed the importance of the patient returning to the emergency department immediately if her symptoms were to worsen or if she were to develop any dizziness, shortness of breath, difficulty breathing, chest pain, blurry vision, loss of vision, nausea, vomiting, abdominal pain, fever, chills, back pain, or any other complaints. Patient verbalized agreement and understanding with this treatment plan and discharge. Differential Diagnosis Differential diagnosis: Likely lumbar radiculopathy, sciatica and strain of lumbar region Medical Records Attestation: I reviewed the patient's medical records. Discharge Plan Discharge Clinical Impression: Lumbar back pain Patient Disposition: Home, Self-Care Instructions: Back Pain (ED) Additional Instructions: Follow up with your primary care provider. Return to the emergency department immediately if your symptoms worsen or if you develop any dizziness, shortness of breath, difficulty breathing, chest pain, blurry vision, loss of vision, nausea, vomiting, abdominal pain, fever, chills, back pain, or any other complaints. Prescriptions: No Action (DME) FreeStyle Lite Strips Strip See Rx Instructions .ROUTE .MEDSUPPLY Qty: 100 6RF Rx Instructions: 3 times a day cholecalciferol (vitamin D3) 50 mcg (2,000 unit) capsule 50 mcg PO DAILY 30 Days Qty: 30 6RF metoprolol tartrate 50 mg tablet 50 mg PO BID 90 Days Qty: 180 3RF Protocol: Hold for SBP/HR < HOLD for SBP < : 90 HOLD for HR < : 60 ferrous sulfate 324 mg (65 mg iron) tablet,delayed release (DR/EC) 324 mg PO TID 90 Days Qty: 270 1RF diclofenac sodium 75 mg tablet,delayed release (DR/EC) 75 mg PO BID PRN (Reason: pain) 30 Days Qty: 60 0RF Rx Instructions: Take medicine with food 12 hours apart baclofen 10 mg tablet 10 mg PO BEDTIME 30 Days Qty: 30 0RF (DME) blood pressure kit-extra large Kit See Rx Instructions .ROUTE .MEDSUPPLY Qty: 1 0RF Rx Instructions: As directed metformin 1,000 mg tablet 1,000 mg PO DAILY 0RF pioglitazone 15 mg tablet 15 mg PO DAILY 0RF metronidazole 500 mg tablet 2,000 mg PO ONCE 0RF Rx Instructions: take with food Referrals: Tai Lozano MD [Physician] - 2 days Angie Blair MD [Primary Care Provider] - 2 days Ian Blair MD [Physician] - 2 days Stand Alone Forms: Work/School Release Print Language: [place]
[2021-09-29] MEDS: Cyclobenzaprine HCl 10 MG TABLET PO (00:31)
[2021-09-29] MEDS: dexAMETHasone 2 MG TABLET 10 MG PO (00:32)
== END 2021-09-29 00:39 | disposition home or self-care (01) ==
PROVIDERS: Emergency Provider Emergency Medicine; PCP Internal Medicine
DX: M54.50 Low back pain, unspecified (principal); E11.9 Type 2 diabetes mellitus without complications; I10 Essential (primary) hypertension; E66.01 Morbid (severe) obesity due to excess calories
CPT/HCPCS: 99283; J8540

== ENCOUNTER 2021-10-01 10:44 | Emergency (ER) | payer OTHER, SELFPAY ==
--- NOTE | ~2021-10-01 | XR_ITS ---
EXAMINATION: XR SHOULDER, LEFT CLINICAL INFORMATION: Pain COMPARISON: None TECHNIQUE: Three views of the left shoulder. FINDINGS: Mild to moderate acromioclavicular arthritis. Minimal glenohumeral joint arthritis. No visible acute fracture or dislocation. No abnormal soft tissue calcification. . XR/XR shoulder LT min 2V IMPRESSION: No evidence of acute osseous abnormality. Mild to moderate acromioclavicular arthritis.
--- NOTE | ~2021-10-01 | XR_ITS ---
EXAMINATION: XR LUMBOSACRAL SPINE CLINICAL INFORMATION: Pain COMPARISON: X-ray 10/04/2009 TECHNIQUE: Three views of the lumbosacral spine. FINDINGS: Grade 1 anterolisthesis of L4 on L5, with approximately 8 mm anterior listhesis of L4. This appears more prominent as compared to previous. Vertebral body heights are maintained. No evidence of acute fracture. These there is disc degeneration in the visualized thoracic spine. Mild disc degeneration at T12-L1. Facet degeneration in the lower lumbar spine. Phleboliths in the pelvis. XR/XR lumbar spine 2-3V IMPRESSION: Grade 1 anterolisthesis of L4 on L5, more prominent as compared to the prior radiograph of 10/04/2009. No visible acute fracture or compression deformity. Thoracolumbar spondylosis as detailed above.
[2021-10-01 10:46] VITALS: BP 125/73; PULSE 87; RESP 17; TEMP 36.3; O2SAT 95; BMI 48.4
[2021-10-01 11:56] VITALS: BP 108/70; PULSE 79; RESP 18; TEMP 36.6; O2SAT 97
--- NOTE | 2021-10-01 12:01 | ED_ITS ---
HPI - General Adult General Chief complaint: General Medical <SHANNAN Saravia - Last Filed: 10/01/21 13:59> Stated complaint: lower back pain numbness l hand numbness <SHANNAN Saravia - Last Filed: 10/01/21 13:59> Time Seen by Provider: 10/01/21 12:01 <SHANNAN Saravia - Last Filed: 10/01/21 13:59> History of Present Illness HPI narrative: Patient with 2 complaints 1 is left shoulder pain radiating down to her fingers with a feeling of numbness and tingling and the other is low back pain radiating down the left leg with numbness and tingling, there is no incontinence no changes to bowel or bladder no recent injury, these symptoms have been going on for several weeks and she has already seen her primary doctor and has a referral to a neurologist No fever no chills no chest pain no abdominal pain no dysuria no free <SHANNAN Saravia - Last Filed: 10/01/21 13:59> Related Data Home medications: Home Medications Medication Instructions Recorded Confirmed metformin 1,000 mg tablet 1,000 mg PO DAILY tab 09/21/21 09/23/21 metronidazole 500 mg tablet 2,000 mg PO ONCE tab 09/21/21 09/23/21 pioglitazone 15 mg tablet 15 mg PO DAILY tab 09/21/21 09/23/21 Previous Rx's Medication Instructions Recorded blood pressure kit-extra large #1 ea 10/26/20 ferrous sulfate 324 mg (65 mg 324 mg PO TID 90 Days #270 tab 03/02/21 iron) tablet,delayed release blood sugar diagnostic (FreeStyle #100 ea 03/23/21 Lite Strips) cholecalciferol (vitamin D3) 50 50 mcg PO DAILY 30 Days #30 cap 08/03/21 mcg (2,000 unit) capsule metoprolol tartrate 50 mg tablet 50 mg PO BID 90 Days #180 tab 08/12/21 baclofen 10 mg tablet 10 mg PO BEDTIME 30 Days #30 tab 09/23/21 diclofenac sodium 75 mg 75 mg PO BID PRN 30 Days #60 tab 09/23/21 tablet,delayed release acetaminophen 500 mg tablet 1,000 mg PO QID PRN #30 tab 10/01/21 cyclobenzaprine 5 mg tablet 5 mg PO TID PRN #10 tab 10/01/21 oxycodone 5 mg tablet 5 mg PO Q6H PRN #14 tab 10/01/21 prednisone 20 mg tablet 60 mg PO DAILY 4 Days #12 tab 10/01/21 <SHANNAN Saravia - Last Filed: 10/01/21 13:59> Allergies/adverse reactions: Allergies Allergy/AdvReac Type Severity Reaction Status Date / Time No Known Allergies Allergy Verified 09/28/21 23:30 <SHANNAN Saravia - Last Filed: 10/01/21 13:59> Review of Systems Review of Systems: Positive for numbers and tingling in left arm, left shoulder pain, back pain and radiating with numbness and tingling down left leg Negatives are no fever no chills no dizziness no weakness no fainting no feeling faint no headache no neck pain no chest pain no abdominal pain no nausea vomiting no dysuria no frequency no changes to bowel or bladder no incontinence no skin rash <SHANNAN Saravia Last Filed: 10/01/21 13:59> Yes all other systems are reviewed and are negative <SHANNAN Saravia Last Filed: 10/01/21 13:59> [facility] Past Medical History Source: nursing notes reviewed <SHANNAN Saravia Last Filed: 10/01/21 13:59> Medical History: Medical History 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 procedure Chronic GERD Diabetes 1.5, managed as type 2 Diabetes type 2, uncontrolled Diabetic nephropathy associated with type 2 diabetes mellitus Encounter for general adult medical examination with abnormal findings Encounter for routine gynecological examination Hirsutism Hypertension Morbid obesity Obesity PCOS (polycystic ovarian syndrome) Vitamin D deficiency <SHANNAN Saravia Last Filed: 10/01/21 13:59> Surgical History: Surgical History No pertinent past surgical history No pertinent past surgical history <SHANNAN Saravia - Last Filed: 10/01/21 13:59> Family History Family History: Family History Father Diabetes mellitus Mother HTN (hypertension) Paternal Grandfather Diabetes mellitus Maternal Grandfather No problems noted. Maternal Grandmother Brain tumor Paternal Grandmother Diabetes mellitus Brother No problems noted. Father Diabetes mellitus Maternal Grandmother Brain tumor Maternal Grandfather No problems noted. Paternal Grandfather Diabetes mellitus Paternal Grandmother No problems noted. Brother No problems noted. 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 <SHANNAN Saravia - Last Filed: 10/01/21 13:59> Physical Exam ED Vital Signs: Vital Signs - 24 hr 10/01/21 10:46 10/01/21 11:56 10/01/21 14:02 Temperature 97.3 F 97.8 F 97.8 F Pulse Rate 87 79 87 Respiratory Rate 17 18 18 Blood Pressure 125/73 108/70 131/71 Pulse Oximetry 95 97 97 BMI result Body Mass Index 48.4 <SHANNAN Saravia Last Filed: 10/01/21 13:59> General appearance no acute distress Head is normocephalic atraumatic The neck is supple and nontender, there is left trapezius tenderness, there is mild left shoulder tenderness Chest is clear to auscultation bilateral The abdomen soft nontender the back had lower lumbar paraspinal tenderness no midline tenderness, there was pain with bending, no focal bony tenderness no CVA tenderness Neuro motor is 5/5 x4 and sensation is intact and symmetrical <SHANNAN Saravia Last Filed: 10/01/21 13:59> Course Course Course Narrative: Patient is started on a course of steroids and has follow-up with a neurologist and is otherwise well-appearing and is discharged <SHANNAN Saravia Last Filed: 10/01/21 13:59> Discharge Plan Discharge Clinical Impression: Left lumbar radiculopathy, Cervical radiculopathy <SHANNAN Saravia Last Filed: 10/01/21 13:59> Patient Disposition: Home, Self-Care <SHANNAN Saravia - Last Filed: 10/01/21 13:59> Additional Instructions: The pain from her back down her leg is probably from a pinched nerve as is the pain shooting down her arm into her hand it may be from a pinched nerve in the neck We are trying steroids to reduce the inflammation, but steroids may raise her sugar so keep track of your sugar and if it is going up is stop taking the prednisone Follow is scheduled with Dr. Blair Return to the ER any time any worse condition or any concerns You asked me to try Flexeril instead of baclofen for muscle spasm so do not take the baclofen and you could try the Flexeril instead <SHANNAN Saravia - Last Filed: 10/01/21 13:59> Prescriptions: New cyclobenzaprine 5 mg tablet 5 mg PO TID PRN (Reason: muscle spasm) Qty: 10 0RF acetaminophen 500 mg tablet 1,000 mg PO QID PRN (Reason: pain) Qty: 30 0RF prednisone 20 mg tablet 60 mg PO DAILY 4 Days Qty: 12 0RF oxycodone 5 mg tablet 5 mg PO Q6H PRN (Reason: pain) Qty: 14 0RF Rx Instructions: Narcotic, no driving for 6 hours after taking this medication No Action (DME) FreeStyle Lite Strips Strip See Rx Instructions .ROUTE .MEDSUPPLY Qty: 100 6RF Rx Instructions: 3 times a day cholecalciferol (vitamin D3) 50 mcg (2,000 unit) capsule 50 mcg PO DAILY 30 Days Qty: 30 6RF metoprolol tartrate 50 mg tablet 50 mg PO BID 90 Days Qty: 180 3RF Protocol: Hold for SBP/HR < HOLD for SBP < : 90 HOLD for HR < : 60 ferrous sulfate 324 mg (65 mg iron) tablet,delayed release (DR/EC) 324 mg PO TID 90 Days Qty: 270 1RF diclofenac sodium 75 mg tablet,delayed release (DR/EC) 75 mg PO BID PRN (Reason: pain) 30 Days Qty: 60 0RF Rx Instructions: Take medicine with food 12 hours apart baclofen 10 mg tablet 10 mg PO BEDTIME 30 Days Qty: 30 0RF (DME) blood pressure kit-extra large Kit See Rx Instructions .ROUTE .MEDSUPPLY Qty: 1 0RF Rx Instructions: As directed metformin 1,000 mg tablet 1,000 mg PO DAILY 0RF pioglitazone 15 mg tablet 15 mg PO DAILY 0RF metronidazole 500 mg tablet 2,000 mg PO ONCE 0RF Rx Instructions: take with food <SHANNAN Saravia - Last Filed: 10/01/21 13:59> Stand Alone Forms: Work/School Release <SHANNAN Saravia - Last Filed: 10/01/21 13:59> Interventions: ED Discharge Assessment Last Done: 10/01/21 14:04 <SHANNAN Saravia - Last Filed: 10/01/21 13:59> Discharge Date/Time: 10/01/21 14:06 <SHANNAN Saravia - Last Filed: 10/01/21 13:59>
[2021-10-01] MEDS: predniSONE 20 MG TABLET 60 MG PO (14:00)
[2021-10-01 14:02] VITALS: BP 131/71; PULSE 87; RESP 18; TEMP 36.6; O2SAT 97
== END 2021-10-01 14:06 | disposition home or self-care (01) ==
PROVIDERS: Emergency Provider Emergency Medicine; PCP Internal Medicine
DX: M54.16 Radiculopathy, lumbar region (principal); M54.12 Radiculopathy, cervical region; M54.50 Low back pain, unspecified; M25.512 Pain in left shoulder; E11.9 Type 2 diabetes mellitus without complications; I10 Essential (primary) hypertension
CPT/HCPCS: 72100; 73030; 99283; 99284

== ENCOUNTER → 2021-10-10 08:34 | Outpatient (BNVA) | payer OTHER, SELFPAY | PROVIDERS: PCP Internal Medicine; Visit Provider Surgery | DX: Z13.89 Encounter for screening for other disorder (principal) ==

== ENCOUNTER 2021-10-13 07:13 | Outpatient (REF) | payer OTHER, SELFPAY ==
--- NOTE | ~2021-10-13 | XR_ITS ---
EXAMINATION: XR chest 2V CLINICAL INFORMATION: Reason for Exam E11.9 - Type 2 diabetes mellitus without complications COMPARISON: Chest radiograph 10/22/2020 TECHNIQUE: 2 views of the chest XR/XR chest 2V FINDINGS/IMPRESSION: Clear lungs. No pneumothorax. No pleural effusion. Borderline enlarged cardiac silhouette.
--- NOTE | 2021-10-13 07:21 | ECG_ITS ---
Test Reason : DIABETES Blood Pressure : / mmHG Vent. Rate : 091 BPM Atrial Rate : 091 BPM P-R Int : 180 ms QRS Dur : 074 ms QT Int : 336 ms P-R-T Axes : 033 009 015 degrees QTc Int : 413 ms Normal sinus rhythm Normal ECG No significant changes when compared with the previous EKG of 23 october 2020 Referred By: Issac Ghotra Electronically Signed By:CARLOS GAFFNEY
[2021-10-13 07:47] LABS: MANUAL DIFF FLAG NO
[2021-10-13 07:54] LABS: Basophils Percent Auto 0.4 % (0-2); Eosinophils Absolute Auto 0.4 X10*3/uL (0.0-0.4); Eosinophils Percent Auto 4.2 % (0-4); Hematocrit 43.3 % (37.0-47.0); Imm Gran Abs Auto 0.04 X10*3/uL (0.00-0.03); Imm Gran Pct Auto 0.4 % (0.0-0.4); Lymphocytes Absolute Auto 2.6 X10*3/uL (1.2-4.9); Lymphocytes Percent Auto 28.6 % (20-40); Mean Corpuscular HGB Conc 32.3 g/dl (31.0-35.0); Mean Corpuscular Hemoglobin 26.2 pg (27.0-33.0); Mean Corpuscular Volume 81.1 fL (80.0-98.0); Mean Platelet Volume 10.3 fL (9.4-12.3); Monocytes Absolute Auto 0.7 X10*3/uL (0.1-1.2); Monocytes Percent Auto 8.1 % (2-11); Neutrophils Absolute Auto 5.3 x10*3/uL (2.0-8.3); Neutrophils Percent Auto 58.3 % (45-73); Platelet Count 407 X10*3/uL (160-400); Red Blood Count 5.34 X10*6/uL (4.20-5.50); White Blood Count 9.1 X10*3/uL (4.8-10.8)
[2021-10-13 08:18] LABS: Estimated Average Glucose 151 mg/dL; Hemoglobin A1c % 6.9 %
[2021-10-13 08:55] LABS: Alanine Aminotransferase 29 U/L (0-31); Albumin Level 4.1 g/dL (3.5-5.0); Alkaline Phosphatase 56 U/L (39-117); Anion Gap 13 (12-20); Aspartate Amino Transferase 15 U/L (5-31); Bilirubin Total 0.9 mg/dL (0.0-1.0); Blood Urea Nitrogen 13 mg/dL (9-16); C Reactive Protein 1.23 mg/dL (< or = 0.50); Carbon Dioxide 24 mmol/L (22-29); Chloride 103 mmol/L (96-108); Cholesterol 140 mg/dL; Estimated Glomerular Filt Rate > 60; Ferritin 19 ng/mL (10-250); Glucose Random 152 mg/dL (60-115); HDL Cholesterol 46 mg/dL; Iron 46 mcg/dL (30-160); LDL Cholesterol Calculated 66 mg/dl; Potassium 4.4 mmol/L (3.3-5.1); Sodium 136 mmol/L (135-145); TSH reflex Free T4 2.53 uIU/mL (0.32-4.0); Total Protein 7.4 g/dL (6.5-8.0); Triglycerides 143 mg/dL; Vitamin D 25-OH Total 42.5 ng/mL (>30)
[2021-10-13 08:59] LABS: Folate 16.7 ng/mL (> or = 4.0); Vitamin B12 528 pg/mL (200-900)
[2021-10-13 09:19] LABS: Percent Iron Saturation 12 % (15-50); Total Iron Binding Capacity 384 mcg/dL (228-428); Unsaturated Iron Binding 338 ug/dL
[2021-10-13 09:39] LABS: Insulin 24 uU/mL (2-29)
[2021-10-14 16:06] LABS: Calcium (PTHI) 9.5 mg/dL (8.6-10.2); PTHI 49 pg/mL (16-77)
[2021-10-16 11:33] LABS: H Pylori Breath Test Negative (Negative)
[2021-10-18 02:46] LABS: Zinc 81 mcg/dL (60-130)
[2021-10-18 20:42] LABS: Vitamin A 47 mcg/dL (38-98)
[2021-10-19 14:11] LABS: Vitamin B1 12 nmol/L (8-30)
== END 2021-10-13 07:14 | disposition home or self-care (01) ==
LOC: HO.XRAY 07:13
PROVIDERS: PCP Internal Medicine; Visit Provider Surgery
DX: E11.9 Type 2 diabetes mellitus without complications (principal); E66.01 Morbid (severe) obesity due to excess calories; E28.2 Polycystic ovarian syndrome; I10 Essential (primary) hypertension; L68.0 Hirsutism; Z11.0 Encounter for screening for intestinal infectious diseases
CPT/HCPCS: 36415; 71046; 80053; 80061; 82306; 82607; 82728; 82746; 83013; 83036; 83525; 83540; 83970; 84425; 84443; 84590; 84630; 85025; 86140; 93005

== ENCOUNTER → 2021-10-27 07:41 | Outpatient (BNVA) | payer OTHER, SELFPAY | PROVIDERS: PCP Internal Medicine; Visit Provider Nurse Practitioner Family | DX: R29.898 Other symptoms and signs involving the musculoskeletal system (principal); M54.2 Cervicalgia; R20.2 Paresthesia of skin; Z79.899 Other long term (current) drug therapy ==

== ENCOUNTER 2021-11-03 14:51 | Outpatient (REF) | payer OTHER, SELFPAY ==
--- NOTE | ~2021-11-03 | XR_ITS ---
EXAMINATION: XR C-SPINE XR LUMBOSACRAL SPINE CLINICAL INFORMATION: Cervicalgia. Low back pain. COMPARISON: C-spine done on 07/06/2009 and lumbosacral spine done on 10/01/2021. TECHNIQUE: 3 views of the cervical spine, total of 5 images. 3 views of the lumbosacral spine were obtained. FINDINGS: Cervical spine: There is straightening of the cervical spine present with moderate degenerative spondylosis at C5-6 and C6-C7. The remainder of the intervertebral discs appear unremarkable. The heights of the cervical vertebrae are well-maintained. The posterior appendages are intact. The prespinal soft tissues are unremarkable. The C1-C2 alignment is intact. Both lung apices are clear. No significant change since 07/01/2009. Lumbosacral spine: Grade 1-2 anterolisthesis of L4 over L5 is noted. The remainder of the lumbar spine show satisfactory alignment. Mild degenerative disc disease is noted at L4-5 and L5-S1 and significant degenerative disc disease at lower thoracic spine. There are 5 nonrib-bearing lumbar vertebrae present. The posterior appendages appear to be intact. Facet degenerative arthritic changes are noted at L4-5 and L5-S1. Multiple phleboliths are seen in the pelvis. XR/XR cervical spine 2V IMPRESSION: 1. Straightening of the cervical spine and moderate degenerative spondylosis at C5-6 and C6-C7, appears similar to prior study dated 07/01/2009. 2. The lumbosacral spine shows grade 1-2 anterolisthesis of L4 over L5 and underlying facet degenerative arthritic changes at L4-5 and L5-S1. Mild degenerative disc disease at L4-5 and L5-S1 and mild to moderate degenerative disc disease at lower lumbar spine.
--- NOTE | ~2021-11-03 | XR_ITS ---
EXAMINATION: XR C-SPINE XR LUMBOSACRAL SPINE CLINICAL INFORMATION: Cervicalgia. Low back pain. COMPARISON: C-spine done on 07/06/2009 and lumbosacral spine done on 10/01/2021. TECHNIQUE: 3 views of the cervical spine, total of 5 images. 3 views of the lumbosacral spine were obtained. FINDINGS: Cervical spine: There is straightening of the cervical spine present with moderate degenerative spondylosis at C5-6 and C6-C7. The remainder of the intervertebral discs appear unremarkable. The heights of the cervical vertebrae are well-maintained. The posterior appendages are intact. The prespinal soft tissues are unremarkable. The C1-C2 alignment is intact. Both lung apices are clear. No significant change since 07/01/2009. Lumbosacral spine: Grade 1-2 anterolisthesis of L4 over L5 is noted. The remainder of the lumbar spine show satisfactory alignment. Mild degenerative disc disease is noted at L4-5 and L5-S1 and significant degenerative disc disease at lower thoracic spine. There are 5 nonrib-bearing lumbar vertebrae present. The posterior appendages appear to be intact. Facet degenerative arthritic changes are noted at L4-5 and L5-S1. Multiple phleboliths are seen in the pelvis. XR/XR lumbar spine 2-3V IMPRESSION: 1. Straightening of the cervical spine and moderate degenerative spondylosis at C5-6 and C6-C7, appears similar to prior study dated 07/01/2009. 2. The lumbosacral spine shows grade 1-2 anterolisthesis of L4 over L5 and underlying facet degenerative arthritic changes at L4-5 and L5-S1. Mild degenerative disc disease at L4-5 and L5-S1 and mild to moderate degenerative disc disease at lower lumbar spine.
== END 2021-11-03 14:52 | disposition home or self-care (01) ==
LOC: HO.XRAY 14:51
PROVIDERS: PCP Internal Medicine; Visit Provider Nurse Practitioner Family
DX: M54.2 Cervicalgia (principal); M54.50 Low back pain, unspecified; R20.2 Paresthesia of skin; R29.898 Other symptoms and signs involving the musculoskeletal system
CPT/HCPCS: 72040; 72100

== ENCOUNTER 2021-11-06 22:35 | Emergency (ER) | payer OTHER, SELFPAY ==
[2021-11-06 22:38] VITALS: BP 131/93; PULSE 172; RESP 16; TEMP 36.3; O2SAT 98; BMI 48.4
--- NOTE | 2021-11-06 22:38 | ECG_ITS ---
Test Reason : ARRYTHMIA Blood Pressure : / mmHG Vent. Rate : 169 BPM Atrial Rate : 000 BPM P-R Int : 000 ms QRS Dur : 072 ms QT Int : 270 ms P-R-T Axes : 000 007 051 degrees QTc Int : 452 ms Supraventricular tachycardia Nonspecific ST and T wave abnormality Abnormal ECG When compared with ECG of 13-OCT-2021 07:25, Vent. rate has increased BY [address] now depressed in Inferior leads ST now depressed in Anterolateral leads Nonspecific T wave abnormality now evident in Lateral leads Referred By: Generic ED Physician Electronically Signed By:Mark Borrero
--- NOTE | 2021-11-06 22:58 | ED.ARRPALP ---
HPI - Arrhythmia/Palpitations General Chief Complaint: Arrhythmia/Palpitations Stated Complaint: high heart rate Time Seen by Provider: 11/06/21 22:58 Source: patient Mode of arrival: other Limitations: no limitations History of Present Illness HPI narrative: Patient's history of SVT last episode was last year been on metoprolol 50 mg daily since then did not have any more episodes today noticed the similar episode since 22:00 took extra 50 mg of metoprolol feel dizzy with heart rate of 180s when she arrived no chest pain no shortness of breath no fever no chills, patient been drinking caffeinated coffee for last 2 weeks instead of decaf . Related Data Home Medications Medication Instructions Recorded Confirmed metformin 1,000 mg tablet 1,000 mg PO DAILY tab 09/21/21 10/27/21 pioglitazone 15 mg tablet 15 mg PO DAILY tab 09/21/21 10/27/21 spironolactone 50 mg tablet 50 mg PO BID 10/10/21 10/27/21 Previous Rx's Medication Instructions Recorded blood pressure kit-extra large #1 ea 10/26/20 ferrous sulfate 324 mg (65 mg 324 mg PO TID 90 Days #270 tab 03/02/21 iron) tablet,delayed release blood sugar diagnostic (FreeStyle #100 ea 03/23/21 Lite Strips) cholecalciferol (vitamin D3) 50 50 mcg PO DAILY 30 Days #30 cap 08/03/21 mcg (2,000 unit) capsule metoprolol tartrate 50 mg tablet 50 mg PO BID 90 Days #180 tab 08/12/21 acetaminophen 500 mg tablet 1,000 mg PO QID PRN #30 tab 10/01/21 acetaminophen 650 mg 650 mg PO Q8H 90 Days #270 tab 10/05/21 tablet,extended release (Tylenol Arthritis Pain) tramadol 50 mg tablet 50 mg PO Q8H PRN 10 Days #30 tab 10/05/21 cyclobenzaprine 10 mg tablet 10 mg PO BID PRN 10 Days #20 tab 10/18/21 gabapentin 100 mg capsule 100 - 300 mg PO BEDTIME 30 Days 10/27/21 #90 cap Allergies Allergy/AdvReac Type Severity Reaction Status Date / Time No Known Allergies Allergy Verified 10/27/21 07:48 Review of Systems Review of Systems: Yes all other systems are reviewed and are negative PMFSH Past Medical History Medical History 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 procedure Chronic GERD Diabetes 1.5, managed as type 2 Diabetes type 2, uncontrolled Diabetic nephropathy associated with type 2 diabetes mellitus Encounter for general adult medical examination with abnormal findings Encounter for routine gynecological examination Hirsutism Hypertension Morbid obesity Obesity PCOS (polycystic ovarian syndrome) Vitamin D deficiency Surgical History No pertinent past surgical history Family History Family History Father Diabetes mellitus Mother HTN (hypertension) Total knee replacement status Paternal Grandfather Diabetes mellitus Maternal Grandfather No problems noted. Maternal Grandmother Brain tumor Paternal Grandmother Diabetes mellitus Brother No problems noted. Father Diabetes mellitus Maternal Grandmother Brain tumor Maternal Grandfather No problems noted. Paternal Grandfather Diabetes mellitus Paternal Grandmother No problems noted. Brother No problems noted. 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 Oriented X3. No acute distress. Eyes: No pallor or icterus ENT: Pharynx normal. Oral Mucosa moist Neck: Normal inspection. Neck supple. CVS: Sinus tachycardia with heart rate in 160s no murmur rub or gallop Pulses normal. Respiratory: No respiratory distress. Equal air entry bilateral, no wheezing/rales/rhonchi Abdomen: Soft and nontender. Bowel sounds are present, Skin: Skin warm and dry. Normal skin color. Normal skin turgor. Extremities: No lower extremity edema. No calf tenderness Neuro: Oriented X 3. MDM - Arrhythmia/Palpitations MDM Narrative Medical decision making narrative: Patient with SVT responded to IV had not seen 6 mg sinus tachycardia at this time with heart is about 100-104/min patient already taking metoprolol and she took extra dose will discharge patient home advised to continue metoprolol patient had normal TSH level on 10/13 Differential Diagnosis Differential diagnosis: Likely sinus tachycardia, artial fibrillation and supraventricular tachycardia Lab Data Attestation: I reviewed the patient's lab results. Result diagrams: 11/06/21 23:14 11/06/21 23:14 Labs: Lab Results 11/06/21 11/06/21 11/06/21 Range/Units 23:14 23:14 23:14 WBC 10.0 (4.8-10.8) X10*3/uL RBC 5.29 (4.20-5.50) X10*6/uL Hgb 14.0 (12.0-16.0) g/dl Hct 42.8 (37.0-47.0) % MCV 80.9 (80.0-98.0) fL MCH 26.5 L (27.0-33.0) pg MCHC 32.7 (31.0-35.0) g/dl RDW 15.2 (11.0-16.0) % Plt Count 435 H (160-400) X10*3/uL MPV 10.2 (9.4-12.3) fL Immature Gran % (Auto) 0.2 (0.0-0.4) % Neut % (Auto) 43.3 L (45-73) % Lymph % (Auto) 44.5 H (20-40) % [place] % (Auto) 8.5 (2-11) % Eos % (Auto) 2.9 (0-4) % Baso % (Auto) 0.6 (0-2) % Lymph # (Auto) 4.4 (1.2-4.9) X10*3/uL [place] # (Auto) 0.9 (0.1-1.2) X10*3/uL Eos # (Auto) 0.3 (0.0-0.4) X10*3/uL Baso # (Auto) 0.1 (0.0-0.2) X10*3/uL Abs Immat Gran (auto) 0.02 (0.00-0.03) X10*3/uL Absolute Neuts (auto) 4.3 (2.0-8.3) x10*3/uL Absolute Nucleated RBC 0.000 (0.0-0.012) X10*3/uL Nucleated RBC % (auto) 0.0 (0.0-0.2) /100WBC Sodium 134 L (135-145) mmol/L Potassium 5.3 H D (3.3-5.1) mmol/L Chloride 101 (96-108) mmol/L Carbon Dioxide 22 (22-29) mmol/L Anion Gap 16 (12-20) BUN 14 (9-16) mg/dL Creatinine 0.72 (0.5-1.4) mg/dL Estim Creat Clear Calc 125.3 Estimated GFR > 60 Random Glucose 204 H (60-115) mg/dL Calcium 10.0 (8.4-10.2) mg/dL Magnesium 1.9 (1.6-2.6) mg/dL Total Bilirubin 0.6 (0.0-1.0) mg/dL Direct Bilirubin 0.2 (0.0-0.5) mg/dL AST 36 H D (5-31) U/L ALT 38 H (0-31) U/L Alkaline Phosphatase 56 (39-117) U/L Troponin I High Sens 15.6 (<3.5-17.0) ng/L Total Protein 8.5 H (6.5-8.0) g/dL Albumin 4.4 (3.5-5.0) g/dL Lipase 40 (8-78) U/L ECG Data Attestation: I personally reviewed and interpreted this ECG as follows: Interpretation: Supra ventricular tachycardia with ventricular rate of 169 beats per minute nonspecific ST-T changes no acute ischemia Discharge Plan Discharge Clinical Impression: SVT (supraventricular tachycardia) Patient Disposition: Home, Self-Care Instructions: Supraventricular Tachycardia (ED) Additional Instructions: stop drinking caffeine Continue metoprolol 50 mg twice Daily 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 Report to the ER if recurrence of similar episode of palpitation Prescriptions: No Action (DME) FreeStyle Lite Strips Strip See Rx Instructions .ROUTE .MEDSUPPLY Qty: 100 6RF Rx Instructions: 3 times a day cholecalciferol (vitamin D3) 50 mcg (2,000 unit) capsule 50 mcg PO DAILY 30 Days Qty: 30 6RF metoprolol tartrate 50 mg tablet 50 mg PO BID 90 Days Qty: 180 3RF Protocol: Hold for SBP/HR < HOLD for SBP < : 90 HOLD for HR < : 60 cyclobenzaprine 10 mg tablet 10 mg PO BID PRN (Reason: muscle spasm) 10 Days Qty: 20 0RF acetaminophen 500 mg tablet 1,000 mg PO QID PRN (Reason: pain) Qty: 30 0RF ferrous sulfate 324 mg (65 mg iron) tablet,delayed release (DR/EC) 324 mg PO TID 90 Days Qty: 270 1RF tramadol 50 mg tablet 50 mg PO Q8H PRN (Reason: pain) 10 Days Qty: 30 0RF acetaminophen [Tylenol Arthritis Pain] 650 mg tablet extended release 650 mg PO Q8H 90 Days Qty: 270 0RF (DME) blood pressure kit-extra large Kit See Rx Instructions .ROUTE .MEDSUPPLY Qty: 1 0RF Rx Instructions: As directed metformin 1,000 mg tablet 1,000 mg PO DAILY 0RF pioglitazone 15 mg tablet 15 mg PO DAILY 0RF spironolactone 50 mg tablet 50 mg PO BID 0RF gabapentin 100 mg capsule 100 - 300 mg PO BEDTIME 30 Days Qty: 90 3RF
[2021-11-06] MEDS: Adenosine 6 MG/2 ML VIAL IVPUSH (23:03)
[2021-11-06] MEDS: 0.9 % Sodium Chloride 1,000 ML 999 ML IV (23:03)
[2021-11-06 23:19] LABS: Basophils Absolute Auto 0.1 X10*3/uL (0.0-0.2); Basophils Percent Auto 0.6 % (0-2); Eosinophils Absolute Auto 0.3 X10*3/uL (0.0-0.4); Eosinophils Percent Auto 2.9 % (0-4); Hematocrit 42.8 % (37.0-47.0); Imm Gran Abs Auto 0.02 X10*3/uL (0.00-0.03); Imm Gran Pct Auto 0.2 % (0.0-0.4); Lymphocytes Absolute Auto 4.4 X10*3/uL (1.2-4.9); Lymphocytes Percent Auto 44.5 % (20-40); MANUAL DIFF FLAG NO; Mean Corpuscular HGB Conc 32.7 g/dl (31.0-35.0); Mean Corpuscular Hemoglobin 26.5 pg (27.0-33.0); Mean Corpuscular Volume 80.9 fL (80.0-98.0); Mean Platelet Volume 10.2 fL (9.4-12.3); Monocytes Absolute Auto 0.9 X10*3/uL (0.1-1.2); Monocytes Percent Auto 8.5 % (2-11); Neutrophils Absolute Auto 4.3 x10*3/uL (2.0-8.3); Neutrophils Percent Auto 43.3 % (45-73); Platelet Count 435 X10*3/uL (160-400); Red Blood Count 5.29 X10*6/uL (4.20-5.50); Red Cell Distribution Width 15.2 % (11.0-16.0)
[2021-11-06 23:38] LABS: Troponin-I High Sensitivity 15.6 ng/L (<3.5-17.0)
[2021-11-06 23:41] LABS: Alanine Aminotransferase 38 U/L (0-31); Albumin Level 4.4 g/dL (3.5-5.0); Alkaline Phosphatase 56 U/L (39-117); Anion Gap 16 (12-20); Aspartate Amino Transferase 36 U/L (5-31); Bilirubin Direct 0.2 mg/dL (0.0-0.5); Bilirubin Total 0.6 mg/dL (0.0-1.0); Blood Urea Nitrogen 14 mg/dL (9-16); Carbon Dioxide 22 mmol/L (22-29); Chloride 101 mmol/L (96-108); Creatinine Clr Calc Pharmacy 125.3; Estimated Glomerular Filt Rate > 60; Glucose Random 204 mg/dL (60-115); Lipase 40 U/L (8-78); Magnesium 1.9 mg/dL (1.6-2.6); Potassium 5.3 mmol/L (3.3-5.1); Sodium 134 mmol/L (135-145); Total Protein 8.5 g/dL (6.5-8.0)
--- NOTE | 2021-11-07 01:12 | PC.NURSE ---
I assumed nursing care of Shavon Hough upon her arrival to bed 10. She arrived from the waiting room top bed 11 with a HR of 175, SVT. IV access was obtained immediately and pt was placed on all bedside monitors. Adenosine was given by RN's Marichuy and austin and the SVT of 175 broke to a sinus tach of 115. pt rested while we monitored her. She ambulated to and from the bathroom independently and with steady gait. She took PO food and fluids without difficulty. After approximately 1-2 hours of observation pt was discharged. She verbalized an understanding of all DC orders and ambulated out of the ED independently and with steady gait.
== END 2021-11-07 01:22 | disposition home or self-care (01) ==
PROVIDERS: Emergency Provider Internal Medicine; PCP Internal Medicine
DX: I47.1 Supraventricular tachycardia (principal); R00.2 Palpitations; I49.9 Cardiac arrhythmia, unspecified; Z79.899 Other long term (current) drug therapy
CPT/HCPCS: 36415; 80048; 80076; 83690; 83735; 84484; 85025; 93005; 99283; J0153

== ENCOUNTER → 2021-11-08 16:00 | Outpatient (BNVA) | payer OTHER, SELFPAY | PROVIDERS: PCP Internal Medicine; Visit Provider Counselor Mental Health | DX: Z13.89 Encounter for screening for other disorder (principal) ==

== ENCOUNTER 2021-11-15 07:36 | Outpatient (REF) | payer OTHER, SELFPAY ==
--- NOTE | ~2021-11-15 | FL_ITS ---
EXAMINATION: FL UPPER GI SERIES CLINICAL INFORMATION: Bariatric service evaluation. E11.9 - Type 2 diabetes mellitus without complications. COMPARISON: None TECHNIQUE: Upper GI series is performed using fluoroscopic evaluation in addition to multiple fluoroscopic spot views. The patient is imaged both upright and prone and using both thick and thin barium sulfate along with effervescent granules. Patient unable to fully rotate on fluoroscopy table due to back pain. Prior imaging is not performed. Exam tailored to patient capabilities. Fluoroscopy time: 1.5 minutes DAP: 29.411 Gycm2 Fluoroscopic spot images: 17 FINDINGS: There is normal esophageal motility. There is no obstruction, stricture, ulceration, or hernia. No gastroesophageal reflux is demonstrated. The stomach shows no thickened folds or ulcer crater or outlet obstruction. The duodenal bulb is pliable and without ulcer crater or scarring. The post bulbar duodenum the jejunal mucosal pattern are unremarkable. FL/FL upper GI w air IMPRESSION: Normal study.
--- NOTE | ~2021-11-15 | US_ITS ---
EXAMINATION: US COMPLETE ABDOMEN WITH LIVER ELASTOGRAPHY CLINICAL INFORMATION: Obesity. COMPARISON: None. TECHNIQUE: Real-time imaging of the abdominal viscera. Noninvasive ultrasound liver fibrosis assessment is performed using Butch ElastPQ point quantification shear wave elastography (2D-SWE) with a C5-2 MHz transducer. Multiple elastography samples are obtained. FINDINGS: Limited evaluation due to patient's body habitus. PANCREAS: Normal. The visualized pancreatic head and body are normal in appearance. The remainder of the pancreas is obscured from visualization by the overlying bowel gas. ABDOMINAL AORTA: The proximal, middle, and distal aortic segments are normal in caliber. INFERIOR VENA CAVA: Visualized portions are normal. LIVER: The liver shows mild diffuse heterogeneous abnormal increased echotexture, consistent with diffuse liver disease. The right lobe measures 21.1 cm in length. The left lobe measures 16.1 cm in length. Portal flow is towards the liver (hepatopetal). Shear wave liver elastography median stiffness is 1.67 m/s (reference: normal median stiffness is 1.3 m/s or less). IQR/median stiffness to assess sampling precision is 0.14 (reference: good quality data set is IQR/median stiffness of 0.15 or less). GALLBLADDER: Mobile gallstones are present without any sonographic evidence of acute cholecystitis or biliary obstruction. COMMON BILE DUCT: Normal in caliber measuring 0.5 cm in diameter. RIGHT KIDNEY: Normal. No hydronephrosis. No renal calculi or focal parenchymal lesions. The kidney measures 13.1 cm in maximum dimension. LEFT KIDNEY: Normal. No hydronephrosis. No renal calculi or focal parenchymal lesions. The kidney measures 15.4 cm in maximum dimension. SPLEEN: Normal. The spleen measures 9.8 cm in maximum dimension. FREE FLUID: None. US/US abdomen comp w elastography IMPRESSION: 1. Diffuse abnormal increased echotexture is noted throughout the entire liver, consistent with diffuse liver disease without any sonographic evidence of superimposed focal liver lesion. 2. Liver elastography: In the absence of other known clinical signs, measurements rule out compensated advanced chronic liver disease. If there are known clinical signs, further testing may be needed for confirmation. 3. Cholelithiasis without any sonographic evidence of acute cholecystitis or biliary obstruction. REFERENCE: Society of Radiologists in Ultrasound Liver Stiffness Thresholds (2020): LIVER STIFFNESS THRESHOLDS: *Liver Stiffness equal or less than 1.3 m/s: High probability of being normal. *Liver Stiffness less than 1.7 m/s: In the absence of other known clinical signs, rules out compensated advanced chronic liver disease. *Liver Stiffness 1.7-2.1 m/s: Suggestive of compensated advanced chronic liver disease but need further test for confirmation. *Liver Stiffness over 2.1 m/s: Rules in compensated advanced chronic liver disease. *Liver Stiffness over 2.4 m/s: Suggestive of clinically significant portal hypertension. QUALITY OF DATA SET: *IQR/Median value equal or less than 0.15 implies a quality data set. *IQR/Median value over 0.15 implies a poor quality data set. SIGNIFICANT CHANGE FROM PRIOR EXAM: Significant change if liver stiffness measurement is 10% or greater from prior exam. OTHER CONSIDERATIONS: The stage of liver fibrosis may be overestimated in the setting of acute hepatitis, liver inflammation, elevated liver function tests, hepatic vascular congestion, obstructive cholestasis, non-fasting state, and infiltrative diseases such as amyloidosis and lymphoma. In some patients with NAFLD, the liver stiffness thresholds for compensated advanced chronic liver disease may be lower. In causes other than viral hepatitis and NAFLD, liver stiffness thresholds are not well established.
== END 2021-11-15 07:37 | disposition home or self-care (01) ==
LOC: HO.US 07:36
PROVIDERS: PCP Internal Medicine; Visit Provider Surgery
DX: Z01.810 Encounter for preprocedural cardiovascular examination (principal); I47.1 Supraventricular tachycardia; I10 Essential (primary) hypertension; E11.9 Type 2 diabetes mellitus without complications; E28.2 Polycystic ovarian syndrome; E66.01 Morbid (severe) obesity due to excess calories; L68.0 Hirsutism
CPT/HCPCS: 74246; 76705; 76981; 97802

== ENCOUNTER → 2021-11-16 08:08 | Outpatient (BNVA) | payer OTHER, SELFPAY | PROVIDERS: PCP Internal Medicine; Visit Provider Surgery | DX: Z13.89 Encounter for screening for other disorder (principal) ==

== ENCOUNTER → 2021-11-17 11:08 | Outpatient (BNVA) | payer OTHER, SELFPAY | PROVIDERS: PCP Internal Medicine; Visit Provider Surgery | DX: Z13.89 Encounter for screening for other disorder (principal) ==

== ENCOUNTER 2021-11-25 15:49 | Outpatient (REF) | payer OTHER, SELFPAY | END 2021-11-25 15:50 | disposition home or self-care (01) | LOC: HO.MRI 15:49 | PROVIDERS: Visit Provider Nurse Practitioner Family | DX: Z13.89 Encounter for screening for other disorder (principal) ==

== ENCOUNTER 2021-11-26 09:00 | Outpatient (REF) | payer OTHER, SELFPAY ==
[2021-11-26 09:23] LABS: MANUAL DIFF FLAG NO
[2021-11-26 09:32] LABS: Basophils Absolute Auto 0.1 X10*3/uL (0.0-0.2); Basophils Percent Auto 0.8 % (0-2); Eosinophils Absolute Auto 0.1 X10*3/uL (0.0-0.4); Eosinophils Percent Auto 2.2 % (0-4); Hematocrit 42.4 % (37.0-47.0); Hemoglobin 13.9 g/dl (12.0-16.0); Imm Gran Abs Auto 0.02 X10*3/uL (0.00-0.03); Imm Gran Pct Auto 0.3 % (0.0-0.4); Lymphocytes Absolute Auto 2.6 X10*3/uL (1.2-4.9); Lymphocytes Percent Auto 40.2 % (20-40); Mean Corpuscular HGB Conc 32.8 g/dl (31.0-35.0); Mean Corpuscular Hemoglobin 26.6 pg (27.0-33.0); Mean Corpuscular Volume 81.2 fL (80.0-98.0); Mean Platelet Volume 10.7 fL (9.4-12.3); Monocytes Absolute Auto 0.5 X10*3/uL (0.1-1.2); Monocytes Percent Auto 8.2 % (2-11); Neutrophils Absolute Auto 3.1 x10*3/uL (2.0-8.3); Neutrophils Percent Auto 48.3 % (45-73); Platelet Count 388 X10*3/uL (160-400); Red Blood Count 5.22 X10*6/uL (4.20-5.50); White Blood Count 6.4 X10*3/uL (4.8-10.8)
[2021-11-26 09:39] LABS: INTERNATIONAL NORM RATIO 1.1 (0.9-1.1); Prothrombin Time 12.1 SEC (9.9-13.0)
[2021-11-26 09:42] LABS: Partial Thromboplastin Time 36.9 SEC (24.1-38.0)
[2021-11-26 10:05] LABS: Alanine Aminotransferase 55 U/L (0-31); Albumin Level 4.4 g/dL (3.5-5.0); Alkaline Phosphatase 54 U/L (39-117); Anion Gap 15 (12-20); Aspartate Amino Transferase 39 U/L (5-31); Bilirubin Total 1.8 mg/dL (0.0-1.0); Blood Urea Nitrogen 12 mg/dL (9-16); C Reactive Protein 0.78 mg/dL (< or = 0.50); Calcium 10.1 mg/dL (8.4-10.2); Carbon Dioxide 25 mmol/L (22-29); Chloride 102 mmol/L (96-108); Cholesterol 127 mg/dL; Estimated Glomerular Filt Rate > 60; Glucose Random 160 mg/dL (60-115); HDL Cholesterol 43 mg/dL; LDL Cholesterol Calculated 52 mg/dl; Potassium 4.7 mmol/L (3.3-5.1); Sodium 137 mmol/L (135-145); Total Protein 7.8 g/dL (6.5-8.0); Triglycerides 163 mg/dL
[2021-11-26 10:16] LABS: Estimated Average Glucose 154 mg/dL
[2021-11-26 10:35] LABS: TSH reflex Free T4 1.78 uIU/mL (0.32-4.0)
[2021-11-26 11:05] LABS: Insulin 21 uU/mL (2-29)
== END 2021-11-26 09:01 | disposition home or self-care (01) ==
LOC: HO.LAB 09:00
PROVIDERS: PCP Internal Medicine; Visit Provider Surgery
DX: E66.9 Obesity, unspecified (principal); Z68.39 Body mass index [BMI] 39.0-39.9, adult; K21.9 Gastro-esophageal reflux disease without esophagitis; E13.9 Other specified diabetes mellitus without complications
CPT/HCPCS: 36415; 80053; 80061; 83036; 83525; 84443; 85025; 85610; 85730; 86140; 86850; 86900; 86901

== ENCOUNTER → 2021-11-30 10:45 | Outpatient (BNVA) | payer OTHER, SELFPAY | PROVIDERS: PCP Internal Medicine; Referring Provider Internal Medicine; Visit Provider Physician Assistant | DX: Z13.89 Encounter for screening for other disorder (principal) ==

== ENCOUNTER → 2021-12-02 13:08 | Outpatient (BNVA) | payer OTHER, SELFPAY | PROVIDERS: PCP Internal Medicine; Visit Provider Surgery | DX: Z13.89 Encounter for screening for other disorder (principal) ==

== ENCOUNTER 2021-12-05 06:11 | Inpatient (IN) | payer OTHER, SELFPAY ==
[2021-11-30 11:57] VITALS: BP 119/73; PULSE 77; RESP 20; O2SAT 97; BMI 48.2
[2021-11-30 12:49] LABS: COVID-19 Test Negative (Negative); IDNOW Serial# 16C4AD1C
--- NOTE | 2021-11-30 13:05 | P.CONAN_ITS ---
HPI - Anesthesia Eval Consult details Narrative: 51yo F for Gastrectomy Sleeve,EGD,poss diaphragmatic hernia,poss ventral hernia,poss open Optimized per cardiol LUE weakness due to known injury PMFSH Active Problems Active Problems: All Active Problems (Updated 11/30/21 @ 12:32 by Nel Gaytan RN) Lower back pain (Acute) Candidal skin infection (Acute) Heel callus (Acute) Diabetes type 2, uncontrolled (Acute) Iron deficiency anemia (Acute) SVT (supraventricular tachycardia) (Acute) Palpitations (Acute) Elevated troponin (Acute) Abnormal nuclear stress test (Acute) SOB (shortness of breath) (Acute) Anemia (Chronic) Breast screening (Acute) Type 2 diabetes mellitus (Acute) Dysfunctional uterine bleeding (Acute) Abnormal uterine bleeding (AUB) (Acute) Encounter for Papanicolaou smear of cervix (Acute) Anxiety (Acute) Lumbar paraspinal muscle spasm (Acute) Paresthesia of left arm (Acute) Shoulder pain, left (Acute) Arm pain, left (Acute) Upper back pain (Acute) Pain in both lower legs (Acute) Hospital discharge follow-up (Acute) Weakness of both legs (Acute) Cervical radiculitis (Acute) Cervicalgia (Acute) Left hand weakness (Acute) Paresthesias (Acute) Anxiety disorder due to general medical condition (Acute) BMI 39.0-39.9,adult (Acute) 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 procedure (Acute) Diabetic nephropathy associated with type 2 diabetes mellitus (Acute) Morbid obesity (Acute) Vitamin D deficiency (Acute) PCOS (polycystic ovarian syndrome) (Acute) Hypertension (Acute) Hirsutism (Acute) Chronic GERD (Acute) Obesity (Acute) Diabetes 1.5, managed as type 2 (Acute) Past Medical History Medical History (Updated 12/05/21 @ 08:01 by Issac Ghotra MD) 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 procedure Chronic GERD COVID-19 vaccine series completed Diabetes 1.5, managed as type 2 Diabetic nephropathy associated with type 2 diabetes mellitus Encounter for general adult medical examination with abnormal findings Encounter for routine gynecological examination Hirsutism Hypertension Liver fibrosis Morbid obesity Obesity PCOS (polycystic ovarian syndrome) Steatosis, liver SVT (supraventricular tachycardia) Vitamin D deficiency Family History Family History Father Diabetes mellitus Mother HTN (hypertension) Total knee replacement status Paternal Grandfather Diabetes mellitus Maternal Grandfather No problems noted. Maternal Grandmother Brain tumor Paternal Grandmother Diabetes mellitus Brother No problems noted. Father Diabetes mellitus Maternal Grandmother Brain tumor Maternal Grandfather No problems noted. Paternal Grandfather Diabetes mellitus Paternal Grandmother No problems noted. Brother No problems noted. 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 Meds Allergies Allergy/AdvReac Type Severity Reaction Status Date / Time No Known Allergies Allergy Verified 11/17/21 11:16 Exam Exam Date and Time: November 30, 2021 1305 Height,Weight and Vital Signs: Height 5 ft 4 in Weight 127.459 kg Last Vital Signs Pulse 77 11/30/21 11:57 Resp 20 11/30/21 11:57 BP 119/73 11/30/21 11:57 Pulse Ox 97 11/30/21 11:57 Pertinent Lab Results Pertinent Lab Results: Laboratory Tests 11/26/21 11/30/21 09:21 12:10 COVID-19 (TRUPTI) Negative COVID-19 Clin Com See Note Blood Type O Positive Antibody Screen NEGATIVE Laboratory Tests 11/26/21 11/26/21 09:21 09:21 WBC 6.4 Hgb 13.9 Hct 42.4 Plt Count 388 Sodium 137 Potassium 4.7 Chloride 102 Carbon Dioxide 25 BUN 12 Creatinine 0.71 Narrative Narrative: EKG 09/2021 Vent. Rate : 091 BPM ? ? Atrial Rate : 091 BPM ?? P-R Int : 180 ms? QRS Dur : 074 ms ? ? QT Int : 336 ms ? ? ? P-R-T Axes : 033 009 015 degrees ?? QTc Int : 413 ms ? Normal sinus rhythm Normal ECG No significant changes when compared with the previous EKG? of 23 october 2020 (Pt in ED 10/2021 with SVT @ 169, resolved with adenosine. Eval by cardiology after ED visit.) Assessment and Plan Assessment Anesthesia Assessment: Chart Reviewed
--- NOTE | 2021-12-02 15:00 | MHC.SHP ---
Pre-Procedural Eval Section A Date of Service: 12/02/21 The patient is an INPATIENT: No The History & Physical has been completed within 30 days and I have reviewed it.: Yes Section B Chief Complaint: obesity Relevant Family History (Specify if Yes): No Relevant Social History: None Present Medications: None Medical History: No relevant PMH History of Previous Operations: No relevant previous surgery Allergies: Allergies Allergy/AdvReac Type Severity Reaction Status Date / Time No Known Allergies Allergy Verified 11/17/21 11:16 Review of Systems Sugical H&P ROS: Negative: Constitution, Cardiovascular, Respiratory, Neurological, Psychiatric, Hem-Onc, Allergic/Immunologic, Gastrointestinal, Genitourinary, Musculoskeletal, Integumentary, Endocrine and Eyes/Ears/Nose/Throat Exam Surgical H&P Exam: Normal: HEENT, Normal: Heart, Normal: Lungs, Normal: Extremities, Normal: Abdomen, Normal: Skin and Normal: Neurological Plan Diagnosis/Plan: Unchanged I have reviewed the history and physical and performed a pertinent physical examination on my patient. No changes have occurred unless specified.
[2021-12-05] VITALS (11 sets, daily range): BP systolic 141–163; BP diastolic 72–97; PULSE 81–115; RESP 14–30; TEMP 36.1–37.3; O2SAT 94–100
[2021-12-05 06:29] LABS: UPreg QC Valid YES; Urine Pregnancy NEGATIVE (NEGATIVE)
[2021-12-05 06:41] LABS: COVID-19 Test Negative (Negative)
[2021-12-05 06:48] LABS: Glucose, Whole Blood 187 mg/dL (60-115)
[2021-12-05] MEDS: Lactated Ringers 1,000 ML 999 ML IV (06:56)
--- NOTE | 2021-12-05 07:22 | HO.ANESPROP2 ---
HPI - Anesthesia Eval Consult details Narrative: Morbid obesity [facility] Active Problems Active Problems: All Active Problems (Updated 11/30/21 @ 12:32 by Nel Gaytan RN) Lower back pain (Acute) Candidal skin infection (Acute) Heel callus (Acute) Diabetes type 2, uncontrolled (Acute) Iron deficiency anemia (Acute) SVT (supraventricular tachycardia) (Acute) Palpitations (Acute) Elevated troponin (Acute) Abnormal nuclear stress test (Acute) SOB (shortness of breath) (Acute) Anemia (Chronic) Breast screening (Acute) Type 2 diabetes mellitus (Acute) Dysfunctional uterine bleeding (Acute) Abnormal uterine bleeding (AUB) (Acute) Encounter for Papanicolaou smear of cervix (Acute) Anxiety (Acute) Lumbar paraspinal muscle spasm (Acute) Paresthesia of left arm (Acute) Shoulder pain, left (Acute) Arm pain, left (Acute) Upper back pain (Acute) Pain in both lower legs (Acute) Hospital discharge follow-up (Acute) Weakness of both legs (Acute) Cervical radiculitis (Acute) Cervicalgia (Acute) Left hand weakness (Acute) Paresthesias (Acute) Anxiety disorder due to general medical condition (Acute) BMI 39.0-39.9,adult (Acute) 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 procedure (Acute) Diabetic nephropathy associated with type 2 diabetes mellitus (Acute) Morbid obesity (Acute) Vitamin D deficiency (Acute) PCOS (polycystic ovarian syndrome) (Acute) Hypertension (Acute) Hirsutism (Acute) Chronic GERD (Acute) Obesity (Acute) Diabetes 1.5, managed as type 2 (Acute) Past Medical History Medical History (Updated 11/30/21 @ 12:32 by Nel Gaytan RN) 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 procedure Chronic GERD COVID-19 vaccine series completed Diabetes 1.5, managed as type 2 Diabetic nephropathy associated with type 2 diabetes mellitus Encounter for general adult medical examination with abnormal findings Encounter for routine gynecological examination Hirsutism Hypertension Morbid obesity Obesity PCOS (polycystic ovarian syndrome) SVT (supraventricular tachycardia) Vitamin D deficiency Family History Family History Father Diabetes mellitus Mother HTN (hypertension) Total knee replacement status Paternal Grandfather Diabetes mellitus Maternal Grandfather No problems noted. Maternal Grandmother Brain tumor Paternal Grandmother Diabetes mellitus Brother No problems noted. Father Diabetes mellitus Maternal Grandmother Brain tumor Maternal Grandfather No problems noted. Paternal Grandfather Diabetes mellitus Paternal Grandmother No problems noted. Brother No problems noted. Family history of problems with anesthesia: No Surgical History Surgical History No pertinent past surgical history History of Problems with Anesthesia: No Social History Social History Household Members: Spouse and Children Housing: House Are you a primary career development director to a significant other at home: No Do you presently have visiting nurse or other home services: No Alcohol intake: never Patient Tobacco Use Status: Never used Tobacco Second Hand Smoke Exposure: No Use of substances other than those prescribed or required for medical reasons: No Have you been hit, kicked, punched, or otherwise hurt by someone within the past year? 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 Meds Allergies Allergy/AdvReac Type Severity Reaction Status Date / Time No Known Allergies Allergy Verified 11/17/21 11:16 Active Medications: Current Medications Lactated Ringer's (Lr) 1,000 mls @ 100 mls/hr IVCONT .Q10H JENY Lactated Ringer's (Lr) 1,000 mls @ 50 mls/hr IVCONT .Q20H [facility] Home Medications Medication Instructions Recorded Confirmed Last Taken Type metformin 1,000 mg tablet 1,000 mg PO DAILY tab 09/21/21 11/15/21 Unknown History Exam Exam Date and Time: December 05, 2021721 Height,Weight and Vital Signs: Height 5 ft 4 in Weight 127.459 kg Last Vital Signs Temp 97.0 F 12/05/21 06:41 Pulse 81 12/05/21 06:41 Resp 18 12/05/21 06:41 BP 144/88 H 12/05/21 06:41 Pulse Ox 97 12/05/21 06:41 Pertinent Lab Results Pertinent Lab Results: Laboratory Tests 11/26/21 11/30/21 12/05/21 09:21 12:10 06:14 POC Glucose Urine Test COVID-19 (TRUPTI) Negative Negative COVID-19 Clin Com See Note See Note Blood Type O Positive Antibody Screen NEGATIVE 12/05/21 12/05/21 06:14 06:44 POC Glucose 187 H Urine Test NEGATIVE COVID-19 (TRUPTI) COVID-19 Clin Com Blood Type Antibody Screen Airway Mallampati Class: III TM Dist: >3cm Neck ROM: Full Loose/Missing/Broken Teeth: Yes (upper chipped, many poor denition) Heart: rrr+[id number] Lungs: cta b/l Assessment and Plan Assessment Anesthesia Assessment: Anesthesia Plan Discussed and Chart Reviewed Final Anesthetic Review Family History of Problems with Anesthesia: No History of Problems with Anesthesia: No NPO: Yes ASA Class: III Final Preanesthetic Review: No Changes in Pt Med Stat, Meds/Allgs Chart Reviewed, Consent Obtained/Reviewed and Anes Risks/Benef Reviewed Patient Risk: Intermediate Procedure Risk: Intermediate Assessment/Block/Sedation in SS: Assess/Block/Sedation-SS Anesthetic Plan Anesthetic Plan: GA and Agree w/ Assess. and Plan Disposition: Standard PACU
--- NOTE | 2021-12-05 07:57 | PM.OP ---
Brief Operative Note Date of Service: 12/05/21 Pre-op diagnosis: Morbid obesity and comorbidities (see below) Post-op diagnosis: same Procedure: INITIAL PATIENT BMI ON PRESENTATION AT OUR OFFICE: 54.8 kg/m2 LAST BMI BEFORE SURGERY: 48 kg/m2 COMORBIDITIES: non-insulin dependent diabetes, hypertension, SVT, hirsutism, back pain, liver steatosis, cholelithiasis, liver fibrosis ?The patient presented to the Weight Management Program with significant obesity that was negatively impacting the patient's comorbidities as listed above.? The program is a phased program with a special focus on preoperative medical weight management to promote substantial weight loss and prepare the patients for the second phase of the program: bariatric surgery. The patient participated in an intensive weekly lifestyle ?intervention and exercise program during which the patient ?has lost between the initial office visit and the last preoperative visit 27.1 lbs, or 8.76% of initial actual body weight. It was deemed appropriate for the patient to now have bariatric surgery. In light of the current Covid-19 pandemic and the well documented strong association of obesity and increased risk of worse outcomes if infected with Covid-19 (REFERENCES:https://pubmed.ncbi.nlm.nih.gov/86124289/,?https://pubmed.ncbi.nlm.nih.gov/16817704/), any delay in undergoing bariatric surgery may lead to the patient's worsening health condition and increased?risk of more severe Covid-19 disease if infected. In addition a recent?study from [facility] published in [employer] on 07/25/2021 ([email or web address]) found that, among patients with obesity, substantial weight loss achieved with surgery was associated with improved outcomes of COVID-19 infection. The findings suggest that obesity can be a modifiable risk factor for the severity of COVID-19 infection. In addition, the patient met the BMI-criteria for bariatric surgery based on the BMI on initial presentation. The patient should not be penalized for achieving such weight loss because ?it is not sustainable long-term without surgical intervention and it was achieved in preparation for bariatric surgery ?under my direction and based on my published research ([email or web address] and?https://www.soard.org/article/[email or web address](39)43342-X/pdf) ?that a 10% preoperative weight loss improves long-term weight loss after surgery and reduces perioperative complications.? Insurance carriers such as [facility] have endorsed my recommendations ?and have included in their policies criteria to include a 10% preoperative weight loss requirement. PROCEDURE: Esophago-gastroscopy, laparoscopic sleeve gastrectomy and laparoscopic gastropexy INDICATIONS: This is a 51 year-old female who was electively scheduled for laparoscopic, possibly open sleeve gastrectomy. The risks and complications of the procedure were discussed with the patient in advance, particularly the possibility of ; pulmonary embolism; staple line leak; bleeding; GERD; cardiac, pulmonary, or renal complications; as well as long-term problems such as insufficient weight loss, vitamin deficiency, strictures, or ulcers. The patient understood all the risks, and was in agreement to proceed with surgery. DESCRIPTION OF PROCEDURE: After informed consent was obtained from the patient, the patient was given preoperative antibiotics, and was transferred to the operating room. After successful induction of general anesthesia, pneumatic compression devices were placed on both lower extremities. An upper endoscopy was performed next. The oropharynx and esophagus appeared to be within normal limits. There was no diaphragmatic hernia present consistent with the findings of the preoperative upper GI. The stomach was entered. Then after all fluid and air were suctioned and the stomach was fully decompressed, the scope was withdrawn and secured in the mid esophagus. The patient was then prepped and draped in the usual sterile manner, and abdominal access was established at the right upper quadrant with the Antonietta technique. A 12 mm blunt port was inserted, and the abdomen was insufflated with CO2 to a pressure of 15 mmHg. Under direct visualization, additional ports were placed, specifically two 5 mm Versi-step ports to the left upper quadrant, and a 5 mm Versi-Step port to the right upper quadrant. 1% lidocaine plain was used to infiltrate all port sites as well as all fascia defects. Following that, the patient was placed in a steep reverse Trendelenburg position. An additional 5 mm port was placed to the right flank for the Mediflex retractor that was used to retract the left lobe of the liver. The gastro-esophageal fat pad was opened with the ultrasonic device (Thunderbeat, Olympus) and the anterior esophagus and hiatus were exposed. The angle of His was opened with the ultrasonic device the fundus of the stomach from any diaphragmatic and splenic attachments. I then opened the gastrocolic ligament between the transverse colon and the greater curvature of the stomach with the ultrasonic device to enter the lesser sac and facilitate the ligation of the short gastric vessels. I started at a mid-point along the greater curvature and using the Thunderbeat, all short gastric vessels were divided all the way to the angle of His until the left pardeep was completely dissected at its entirety. I then divided the gastro-colic ligament distally to a distance of about 3-4 cm proximal to the pylorus. The stomach was then divided transversely with one Endo KATELYN-45 purple, one KATELYN-45 orange load, 2 KATELYN-60 purple loads and two KATELYN-60 articulating orange loads using the AEON stapler and loads. Every effort was made that the gastric sleeve had a tubular shape and an even caliber throughout. Once the sleeve resection was completed, the staple line of the gastric sleeve was reinforced with Hemoclips. The resected stomach was retrieved without difficulty from the Antonietta port. A gastropexy was then performed in order to prevent postoperative GERD and partial gastric volvulus. Several interrupted 2.0 Surgidac sutures were placed between the sleeve's staple line and the previously divided greater omentum and gastro-colic ligament using the Endo-Stitch device. ?An upper endoscopy was performed. There was no narrowing at the GE junction. The scope was easily advanced all the way to the pylorus which was clearly visualized. There was no narrowing anywhere and the sleeve's caliber was even throughout. The sleeve's staple line was inspected and there was no evidence of ischemia, bleeding or dehiscence. At that point the gastroscope was withdrawn from the patient?s mouth while we were decompressing the bowel and the stomach from any remaining air. I looked into the lesser sac to see how the sleeve was situating and it was situating well. There was no bleeding from the staple line, spleen, or short gastric vessels. The Mediflex retractor was removed, and the undersurface of the liver was inspected and there was no bleeding. The patient was placed in supine position. I closed the fascial defect of the 12 mm port site with a figure of eight #1 Polysorb suture. Then 100 cc 0.25 % Marcaine plain with 10 mg of Dexamethasone were used to infiltrate the fascial closure as well as all skin incisions. At this point, the abdomen was deflated, all ports were removed under direct vision, and no bleeding was noted from any of the port sites. The skin incisions were irrigated with saline and were closed with 4-0 absorbable monofilament sutures. Steri-Strips and OpSites were used to cover all incisions. The patient was extubated and was transferred in stable condition to the recovery room for further care. I was present and performed all campbell parts of the procedure. Mr Zaidi was the assistant program manager. There were no residents to assist with this case. Salazar Ghotra MD, PhD, FACS Surgeon: Issac Ghotra MD Anesthesia: GETA, local and other (TAP block) Was an Choir Singer used for this Procedure?: No Choir Singer: Alan Zaidi Estimated blood loss (mL): 10 IV fluids (mL): 3,000 Urine output (mL): 0 (No Buchanan to record) Pathology: other (Stomach) Condition: stable Disposition: PACU
--- NOTE | 2021-12-05 07:59 | PM.PNGS ---
Subjective Subjective Date of Service: 12/06/21 Interval history: Patient has mild incisional pain, but was able to ambulate and use the incentive spirometer. She is tolerating phase 1 bariatric diet Physical Exam Vital Signs: Vital Signs: Last Vital Signs Temp 97.0 F 12/05/21 06:41 Pulse 81 12/05/21 06:41 Resp 18 12/05/21 06:41 BP 144/88 H 12/05/21 06:41 Pulse Ox 97 12/05/21 06:41 BMI result Body Mass Index 48.2 GI: Inspection: Yes normal to inspection, Yes incision (clean, dry and intact) and Yes obesity Extrem: Right lower extremity: normal to inspection (no calf tenderness) Left lower extremity: normal to inspection (no calf tenderness) Objective Data Active Medications Fentanyl (Fentanyl Citrate/Pf 100 Mcg/2 Ml Vial) 50 mcg IVPUSH Q5M PRN; Protocol PRN Reason: Pain, Moderate (Pain Scale 4-6 Hydromorphone HCl (Hydromorphone Hcl 0.5 Mg/0.5 Ml Syringe) 0.5 mg IVPUSH Q5M PRN; Protocol PRN Reason: Pain, Severe (Pain Scale 7-10) Lactated Ringer's (Lr) 1,000 mls @ 100 mls/hr IVCONT .Q10H JENY Lactated Ringer's (Lr) 1,000 mls @ 50 mls/hr IVCONT .Q20H JENY Promethazine HCl 6.25 mg/ (Sodium Chloride) 50.25 mls @ 201 mls/hr IV ONCE PRN PRN Reason: Nausea and Vomiting Ondansetron HCl (Ondansetron Hcl 4 Mg/2 Ml Vial) 4 mg IVPUSH ONCE PRN PRN Reason: Nausea and Vomiting Oxycodone HCl (Oxycodone Hcl Immed Release 5 Mg Tablet) 10 mg PO ONCE PRN PRN Reason: Pain, Mild (Pain Scale 1-3) Labs CBC & Chem 7: 12/05/21 11:28 12/05/21 11:28 Labs: Laboratory Results - last 24 hr 12/05/21 12/05/21 12/05/21 06:14 06:14 06:31 POC Glucose Urine Test NEGATIVE COVID-19 (TRUPTI) Negative COVID-19 Clin Com See Note Blood Type O Positive Antibody Screen NEGATIVE 12/05/21 06:44 POC Glucose 187 H Urine Test COVID-19 (TRUPTI) COVID-19 Clin Com Blood Type Antibody Screen Procedures Date of Service Date of Service: 12/06/21 Progress Note: A&P Assessment and plan (1) Morbid obesity: Status: Acute Assessment and Plan: s/p laparoscopic sleeve and gastropexy Doing well Check am labs. If OK, will discharge home? (2) Hypertension: Status: Acute (3) PCOS (polycystic ovarian syndrome): Status: Acute (4) Hirsutism: Status: Acute (5) Chronic GERD: Status: Acute (6) Diabetes 1.5, managed as type 2: Status: Acute (7) Anxiety: Status: Acute (8) Lower back pain: Status: Acute (9) Steatosis, liver: Status: Acute (10) Liver fibrosis: Status: Acute (11) SVT (supraventricular tachycardia): Status: Acute (12) S/P laparoscopic sleeve gastrectomy: Status: Acute Time Spent With Patient Time: Total time spent is greater than 50% in coordination of care (as documented) at patient's floor/unit and/or counseling patient: Quality Stroke Does the patient have a stroke diagnosis?: No VTE Prior VTE?: No VTE Risk Level:: Medical - moderate - high VTE Device Contraindication: N/A - Device Ordered VTE Drug Contraindication: Treatment Not Indicated
--- NOTE | 2021-12-05 10:51 | P.DS_ITS ---
DS: Providers Provider Date of Service: 12/06/21 Date of admission: 12/05/21 06:11 Primary care physician: Angie Blair MD DS: Diagnosis Discharge Diagnosis (1) Morbid obesity: Status: Acute (2) Hypertension: Status: Acute (3) PCOS (polycystic ovarian syndrome): Status: Acute (4) Hirsutism: Status: Acute (5) Chronic GERD: Status: Acute (6) Diabetes 1.5, managed as type 2: Status: Acute (7) Anxiety: Status: Acute (8) Lower back pain: Status: Acute (9) Steatosis, liver: Status: Acute (10) Liver fibrosis: Status: Acute (11) SVT (supraventricular tachycardia): Status: Acute (12) S/P laparoscopic sleeve gastrectomy: Status: Acute DS: Summary Hospital Course Hospital Course: ADMITTING DIAGNOSIS: morbid obesity, PCOS, GERD, anxiety, DM, SVT ? DISCHARGE DIAGNOSIS: same, s/p laparoscopic sleeve gastrectomy ? PAST SURGICAL HISTORY: None ? PROCEDURE: upper endoscopy, laparoscopic sleeve gastrectomy ? DISCHARGE SUMMARY: ? History of Present Illness: ? The patient is a?51 year-old woman with a BMI of?50.4 kg/m2 and associated co- morbidities as described above. The patient had extensive work-up,lost?32.2 lbs preoperatively and was electively scheduled for laparoscopic, possible open sleeve gastrectomy and gastropexy. Risks and complications of the surgery were discussed with the patient in advance, particularly the possibility of , pulmonary embolism, anastomotic leak, bleeding, bowel injury, GERD, cardiac, renal or pulmonary complications. The patient understood all the risks and was in agreement with the surgical plan. ? Hospital Course: ? The patient underwent an uneventful laparoscopic sleeve gastrectomy with gastropexy on the day of admission. Postoperatively, the patient was transferred to the surgical floor. The patient received IV Acetaminophen and IV dilaudid for pain control. Patient was started on bariatric phase 1 diet POD #0. On postoperative day one, the patient was feeling well without nausea, vomiting, fevers, or tachycardia. The patient had some mild incisional pain and the abdomen was soft. ? On the morning of postoperative day one, the patient was continued on 1 ounce of water or ice every half hour. During the day, the patient did fairly well, having some incisional pain, but able to ambulate adequately and to tolerate liquids well. ? Since the patient is doing well, we decided that the patient was ready to be discharged. The patient was given instructions to follow-up with me next week and to call my office for any fever over 101, persistent abdominal pain, nausea, vomiting, GERD, symptoms of DVT such as calf tenderness, or leg swelling, or pulmonary embolism such as chest pain or shortness of breath. The patient was also instructed to drink 40-60 ounces of liquids per day using the 1-ounce cups. The patient had been given prescriptions for Tylenol for pain, Zofran prn for nausea, and pantoprazole and carafate previously. The patient was encouraged to ambulate and use the incentive spirometer. The patient was allowed to shower, but no baths, and encouraged to stay active at home. All of these instructions were given to the patient personally. All questions were answered and the patient understood all instructions, the instructions were also given to the patient in print. Time Spent with Patient Time attestation: Total time spent providing and/or coordinating discharge services: Discharge coordination time: Less than 30 minutes Quality: Safe Use of Opioids Does Pt have an Active Cancer Diagnosis on the Problem List?: No Quality: Stroke Does the patient have a stroke diagnosis?: No Physical Exam Vital Signs: Vital Signs: Last Vital Signs Temp 97.2 F 12/05/21 10:46 Pulse 95 12/05/21 10:46 Resp 30 H 12/05/21 10:46 BP 149/86 H 12/05/21 10:46 Pulse Ox 97 12/05/21 10:46 BMI result Body Mass Index 48.2 DS: Data Data Completed and Pending Pending studies at discharge: Pending at discharge 12/05/21 09:53 Surgical [PTH] Routine Labs on day of discharge: Laboratory Results - last 24 hr 12/05/21 12/05/21 12/05/21 06:14 06:14 06:31 POC Glucose Urine Test NEGATIVE COVID-19 (TRUPTI) Negative COVID-19 Clin Com See Note Blood Type O Positive Antibody Screen NEGATIVE 12/05/21 06:44 POC Glucose 187 H Urine Test COVID-19 (TRUPTI) COVID-19 Clin Com Blood Type Antibody Screen Discharge Plan Discharge Patient Disposition: Home, Self-Care Discharge Diagnosis: s/p laparoscopic sleeve gastrectomy Referrals: Angie Blair MD [Primary Care Provider] - 1 Week Discharge Medications: Continued (DME) FreeStyle Lite Strips Strip See Rx Instructions .ROUTE .MEDSUPPLY Qty: 100 6RF Rx Instructions: 3 times a day metoprolol tartrate 50 mg tablet 50 mg PO BID 90 Days Qty: 180 3RF Protocol: Hold for SBP/HR < HOLD for SBP < : 90 HOLD for HR < : 60 pantoprazole 40 mg tablet,delayed release (DR/EC) 40 mg PO DAILY Qty: 30 2RF sucralfate 100 mg/mL suspension 10 ml PO BID Qty: 400 2RF ondansetron HCl 4 mg tablet 4 mg PO Q12H Qty: 20 0RF (DME) blood pressure kit-extra large Kit See Rx Instructions .ROUTE .MEDSUPPLY Qty: 1 0RF Rx Instructions: As directed Held spironolactone 25 mg tablet 25 mg PO BID Qty: 60 1RF Hold Instructions: until discussed with Dr Ghotra Discontinued cholecalciferol (vitamin D3) 50 mcg (2,000 unit) capsule 50 mcg PO DAILY 30 Days Qty: 30 6RF polyethylene glycol 3350 [Miralax] 17 gram powder in packet 17 g PO DAILY Qty: 14 0RF Rx Instructions: Mix each packet with 8oz of water and do 7 packets on 11/29/21 and another 7 packets on 11/30/21 acetaminophen 500 mg tablet 1,000 mg PO QID PRN (Reason: pain) Qty: 30 0RF metformin 1,000 mg tablet 1,000 mg PO DAILY 0RF Discharge Orders: Discharge Order (Routine); Ordered 12/06/21 Ordered By: Issac Ghotra Diet: other Activity on Discharge: No heavy lifting Stand Alone Forms: Patient Portal Discharge page Care Plan Goals: weight loss Health Concerns: morbid obesity Plan of Treatment: No tub baths, sex or returning to work until discussed at first post op appointment. No exercise, alcohol, tobacco or illegal drug use. Continue to use incentive spirometer hourly while awake. Walk in home for 5- 10 minutes every 2 hours during the first week. Follow all instructions in the bariatric handbook and call with any questions.Discharge Instructions 1. Please call your doctor or come back to the emergency room should any new symptoms arise. 2. You will receive a courtesy call from [facility] 24-48 hours after discharge. 3. Activity: abstain from alcohol, practice limited stair climbing, no bending, no driving, no exercise, no illicit substances, no lifting, no sex, no tub bath, no work. 4. Diet: continue as discussed with Dr. Ghotra. 5. Dressing Change/Wound Care: Your incision is covered by clear bandages and guaze underneath. If the area is tender, you may apply an ice pack for short intervals (no more than 20 minutes on, followed by at least 20 minutes off). Do not apply heat. Do not use creams, lotions, or topical antibiotics unless instructed to do so by your surgeon. These can cause infection or allergic reaction. 6. Call your doctor if: - Your temperature exceeds 101.5 F - You experience excessive pain or swelling - You have an unexpected reaction to medication - You have excessive bleeding - You experience continued vomiting/nausea - Your incision begins to separate - Your incision shows signs of infection such as increased redness, swelling, excessive pain, heat, or drainage (light blood or clear fluid is normal) 7. General instructions: No lifting greater than 5 lbs for the next 4 weeks[address] driving within 24 hours of taking narcotic pain medications. If you do not move your bowels in the next 2 days, please take milk of magnesia over the counter. Please follow the post op diet and do not advance your diet until you are seen in the office in about 2 weeks. Please walk around your home every hour or two to prevent blood clots from forming in your legs. You do not need to wake from sleeping to walk. Please sleep in a bed or couch to prevent kinking at the hips and knees. Please take your incentive spirometer (your lung automatic beading lathe operator) home with you and use it for the next few days to prevent pneumonias. You may shower, no hot tubs, baths or swimming pools. Please call the office with any questions or concerns such as increasing abdominal pain, fever, chills, shortness of breath, chest pain, leg pain or swelling, or redness or drainage from your incisions. Please stay on stage 3 diet which includes sugar free clear liquids such as ice pops and jello and broth and crystal light. Avoid all carbonation. Please drink 3 protein shakes with at least 25-30 grams of protein daily or 3 of the Celebrate 4:1 shakes which can be purchased in our office. The Celebrate shakes have all of the bariatric vitamins you need if you consume these shakes. If you are drinking other protein shakes, you will need to purchase the Celebrate multivitamins and calcium that we provide in the office (they will provide all the vitamins you need). Please make sure you are consuming at least 40-60 ounces of water in addition to your 3 protein shakes daily. Do not hesitate to contact the office with any questions at . The patient's medical history has been reviewed and they are considered low risk for post op DVT and therefore DVT prophylaxis is not considered necessary. Travel after surgery was reviewed. The patient has not disclosed any travel plans during the first 30 days after surgery and they have been advised that within the first 30 days after surgery any bus, plane, train or car travel over 2 hours in duration is contraindicated due to the possibility of developing blood clots from immobility. Any travel, needs to include periods of ambulation of 10 minutes in duration every 2 hours.? The patient was instructed to discuss any plans for travel during this period with their bariatric surgeon. Assessment: stable s/p laparoscopic sleeve gastrectomy
[2021-12-05] MEDS: Famotidine/PF 20 MG/2 ML VIAL IVPUSH ×2 (11:17→21:24)
[2021-12-05] MEDS: Lactated Ringers 1,000 ML 50 ML IVCONT (11:36)
[2021-12-05 11:51] LABS: Hematocrit 45.2 % (37.0-47.0); Hemoglobin 14.5 g/dl (12.0-16.0)
[2021-12-05 11:58] LABS: Anion Gap 16 (12-20); Blood Urea Nitrogen 11 mg/dL (9-16); Calcium 9.5 mg/dL (8.4-10.2); Carbon Dioxide 21 mmol/L (22-29); Chloride 103 mmol/L (96-108); Estimated Glomerular Filt Rate > 60; Glucose Random 170 mg/dL (60-115); Potassium 5.4 mmol/L (3.3-5.1); Sodium 135 mmol/L (135-145)
[2021-12-05] MEDS: Lactated Ringers 1,000 ML 100 ML IVCONT (13:26)
[2021-12-05] MEDS: ondansetron HCL 4 MG/2 ML VIAL IVPUSH ×2 (13:26→19:55)
[2021-12-05] MEDS: ceFAZolin Sodium/Dextrose,Iso 2 GM/50 ML PIGGYBACK IV (14:21)
[2021-12-05] MEDS: Metoprolol Tartrate 50 MG TABLET PO (19:54)
[2021-12-05 20:59] LABS: Glucose, Whole Blood 175 mg/dL (60-115)
[2021-12-06] MEDS: Lactated Ringers 1,000 ML 100 ML IVCONT (02:20)
[2021-12-06 03:23] VITALS: BP 142/61; PULSE 98; RESP 17; TEMP 36.3; O2SAT 98
[2021-12-06] MEDS: ondansetron HCL 4 MG/2 ML VIAL IVPUSH (04:20)
[2021-12-06 06:33] LABS: Glucose, Whole Blood 144 mg/dL (60-115)
[2021-12-06] MEDS: Metoprolol Tartrate 50 MG TABLET PO (07:14)
[2021-12-06] MEDS: Famotidine/PF 20 MG/2 ML VIAL IVPUSH (07:15)
[2021-12-06] MEDS: 0.9 % Sodium Chloride Flush 3 ML SYRINGE IVFLUSH (07:15)
[2021-12-06 07:21] VITALS: O2SAT 96
[2021-12-06 07:50] VITALS: BP 146/78; PULSE 85; RESP 17; TEMP 36.3; O2SAT 98
--- NOTE | 2021-12-06 08:36 | HO.POSTANES ---
Post Anesthesia Evaluation Post Anesthesia Evaluation Vital Signs: Vital Signs Temp Pulse Resp BP Pulse Ox 12/06/21 07:50 97.3 F 85 17 146/78 H 98 12/06/21 07:21 96 12/06/21 03:23 97.4 F 98 17 142/61 H 98 12/05/21 23:44 97.0 F 82 17 150/77 H 97 Anesthesia: General Endotracheal-GETA Mental Status: Awake Pain Control: Satisfactory Nausea/Vomiting: None Hydration: Adequate Anesthesia-Related Issues: No Anes. Related Issues
== END 2021-12-06 09:45 | disposition home or self-care (01) | DRG 403 ==
LOC: HO.SSSA 06:14 → HO.S3 11:17
PROVIDERS: Nurse Practitioner; Physician Assistant Surgical; Admitting Provider Surgery; PCP Internal Medicine; Visit Provider Surgery
PROC: 0DB64Z3 Excision of Stomach, Percutaneous Endoscopic Approach, Vertical (ICD-10-PCS; CPT 43845; principal; 2021-12-05 07:30)
DX: E66.01 Morbid (severe) obesity due to excess calories (principal); I47.1 Supraventricular tachycardia; K74.00 Hepatic fibrosis, unspecified; K76.0 Fatty (change of) liver, not elsewhere classified; E28.2 Polycystic ovarian syndrome; E11.9 Type 2 diabetes mellitus without complications; I10 Essential (primary) hypertension; L68.0 Hirsutism; M54.9 Dorsalgia, unspecified; K80.20 Calculus of gallbladder without cholecystitis without obstruction; Z20.822 Contact with and (suspected) exposure to COVID-19; Z68.42 Body mass index [BMI] 45.0-49.9, adult; Z79.899 Other long term (current) drug therapy
CPT/HCPCS: 36415; 80048; 81025; 82947; 85014; 85018; 86850; 86900; 86901; 87635; 88307; 88342; 99024; A4649; C9399; J0131; J0690; J1100; J1170; J1200; J2250; J2405; J3010

== ENCOUNTER → 2021-12-15 12:25 | Outpatient (BNVA) | payer OTHER, SELFPAY | PROVIDERS: PCP Internal Medicine; Referring Provider Internal Medicine; Visit Provider Physician Assistant Surgical | DX: E66.01 Morbid (severe) obesity due to excess calories (principal) ==

== ENCOUNTER → 2021-12-30 14:25 | Outpatient (BNVA) | payer OTHER, SELFPAY | PROVIDERS: PCP Internal Medicine; Visit Provider Nurse Practitioner Family | DX: Z13.89 Encounter for screening for other disorder (principal) ==

== ENCOUNTER 2022-03-02 10:09 | Outpatient (REF) | payer OTHER, SELFPAY ==
--- NOTE | 2022-03-02 | EMG_ITS ---
Left median, ulnar, motor, and sensory studies were performed. Left radial and sensory study was performed, and paraspinal muscles were tested with a needle. IMPRESSION: 1. 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 2. [id number] right median neuropathy across carpal tunnel. MD SCARLETT Escobar/JUDY / [id number]
== END 2022-03-02 10:10 | disposition home or self-care (01) ==
LOC: HO.NEURO 10:09
PROVIDERS: PCP Internal Medicine; Visit Provider Nurse Practitioner Family
DX: M54.2 Cervicalgia (principal); R20.2 Paresthesia of skin; R29.898 Other symptoms and signs involving the musculoskeletal system
CPT/HCPCS: 95886; 95909

== ENCOUNTER 2022-03-07 09:23 | Outpatient (REF) | payer OTHER, SELFPAY ==
[2022-03-07 11:28] LABS: MANUAL DIFF FLAG NO
[2022-03-07 11:30] LABS: Basophils Percent Auto 0.7 % (0-2); Eosinophils Absolute Auto 0.1 X10*3/uL (0.0-0.4); Eosinophils Percent Auto 2.2 % (0-4); Hematocrit 42.5 % (37.0-47.0); Hemoglobin 13.9 g/dl (12.0-16.0); Imm Gran Abs Auto 0.01 X10*3/uL (0.00-0.03); Imm Gran Pct Auto 0.2 % (0.0-0.4); Lymphocytes Absolute Auto 2.2 X10*3/uL (1.2-4.9); Lymphocytes Percent Auto 47.4 % (20-40); Mean Corpuscular HGB Conc 32.7 g/dl (31.0-35.0); Mean Corpuscular Hemoglobin 26.8 pg (27.0-33.0); Mean Platelet Volume 12.7 fL (9.4-12.3); Monocytes Absolute Auto 0.5 X10*3/uL (0.1-1.2); Monocytes Percent Auto 9.8 % (2-11); Neutrophils Absolute Auto 1.8 x10*3/uL (2.0-8.3); Neutrophils Percent Auto 39.7 % (45-73); Platelet Count 309 X10*3/uL (160-400); Red Blood Count 5.18 X10*6/uL (4.20-5.50); Red Cell Distribution Width 15.8 % (11.0-16.0); White Blood Count 4.6 X10*3/uL (4.8-10.8)
[2022-03-07 11:39] LABS: Estimated Average Glucose 120 mg/dL; Hemoglobin A1C 144.9542 umol/L; Hemoglobin A1c % 5.8 %
[2022-03-07 11:48] LABS: Alanine Aminotransferase 74 U/L (0-31); Albumin Level 4.4 g/dL (3.5-5.0); Alkaline Phosphatase 63 U/L (39-117); Anion Gap 15 (12-20); Aspartate Amino Transferase 42 U/L (5-31); Bilirubin Total 1.1 mg/dL (0.0-1.0); Blood Urea Nitrogen 15 mg/dL (9-16); Calcium 9.7 mg/dL (8.4-10.2); Carbon Dioxide 25 mmol/L (22-29); Chloride 103 mmol/L (96-108); Cholesterol 130 mg/dL; Estimated Glomerular Filt Rate > 60; Glucose Fasting 87 mg/dL (60-99); HDL Cholesterol 45 mg/dL; LDL Cholesterol Calculated 68 mg/dl; Potassium 4.4 mmol/L (3.3-5.1); Sodium 139 mmol/L (135-145); Total Protein 7.7 g/dL (6.5-8.0); Triglycerides 86 mg/dL
[2022-03-07 12:01] LABS: TSH reflex Free T4 0.89 uIU/mL (0.32-4.0)
[2022-03-07 12:01] LABS: Creatinine Urine 256.53 mg/dL; Microalbum/Creatinine Ratio Ur 67.4 ug/mg cr
== END 2022-03-07 09:24 | disposition home or self-care (01) ==
LOC: HO.HMGCLDS 09:23
PROVIDERS: PCP Internal Medicine; Visit Provider Internal Medicine
DX: E11.21 Type 2 diabetes mellitus with diabetic nephropathy (principal); E66.01 Morbid (severe) obesity due to excess calories; F06.4 Anxiety disorder due to known physiological condition; D50.9 Iron deficiency anemia, unspecified
CPT/HCPCS: 36415; 80053; 80061; 82043; 83036; 84443; 85025

== ENCOUNTER 2022-03-10 12:45 | Outpatient (REF) | payer OTHER, SELFPAY ==
--- NOTE | ~2022-03-10 | MM_ITS ---
EXAMINATION: MM SCREENING DIGITAL BREAST TOMOSYNTHESIS, BILATERAL CLINICAL INFORMATION: Screening. Asymptomatic. The lifetime risk of breast cancer based on the Tyrer-Cuzick Model is 8%. COMPARISON: Mammography: 04/28/2017 (baseline) TECHNIQUE: Digital breast tomosynthesis is performed in both the craniocaudal and mediolateral oblique views along with computer-aided detection (CAD). Synthesized 2D images are generated from the tomosynthesis. FINDINGS: The breasts are almost entirely fatty (ACR BI-RADS breast composition Category a). There are no significant masses, abnormal calcifications, or other abnormalities. Background stromal markings are normal. There is no developing density. The skin contours are smooth. MM/MM tomosynthesis screening BI IMPRESSION: No mammographic evidence of malignancy. ASSESSMENT: BI-RADS 1: Negative RECOMMENDATION: Routine annual mammography screening. This patient's information was entered into a reminder system with a target due date for their next mammogram.
== END 2022-03-10 12:46 | disposition home or self-care (01) ==
LOC: HO.MAMMO 12:45
PROVIDERS: PCP Internal Medicine; Visit Provider Internal Medicine
DX: Z12.31 Encounter for screening mammogram for malignant neoplasm of breast (principal)
CPT/HCPCS: 77063; 77067

== ENCOUNTER 2022-04-05 13:31 | Outpatient (REF) | payer OTHER, SELFPAY ==
--- NOTE | ~2022-04-05 | US_ITS ---
EXAMINATION: US THYROID CLINICAL INFORMATION: Nontoxic multinodular goiter. COMPARISON: None TECHNIQUE: Linear transducer grayscale and color Doppler examination with attention to the region of the thyroid. FINDINGS: SIZE: Measurements of the thyroid lobes and nodules are given in sagittal, anteroposterior and transverse dimensions respectively. Right Thyroid Lobe: 5.67 x 2.36 x 2.06 cm, volume 14.4 mL. Parenchyma: The gland echotexture is heterogeneous. Thyroid vascularity is normal. Left Thyroid Lobe: 6.06 x 2.03 x 2.20 cm, volume 14.2 mL. Parenchyma: The gland echotexture is heterogeneous. Thyroid vascularity is normal. Isthmus: 0.38 cm in maximum AP dimension. Estimated total number of nodules greater than or equal to 1 cm: 5. User Interface Designer nodules are described as follows: 1. Location: Right inferior. Size: 0.92 x 0.90 x 1.2 cm, volume 0.53 mL. Nodule characteristics: Composition: Mixed cystic and solid (1). Echogenicity: Hypoechoic (2). Shape: Not taller than wide (0). Margins: Smooth (0). Echogenic Foci: Peripheral calcifications (2). ACR TI-RADS total points: 5 ACR TI-RADS category: 4 2. Location: Right mid. Size: 2.6 x 2.0 x 2.0 cm, volume 5.5 mL. Nodule characteristics: Composition: Mixed cystic and solid (1). Echogenicity: Hypoechoic (2). Shape: Not taller than wide (0). Margins: Smooth (0). Echogenic Foci: Punctate echogenic foci (3). ACR TI-RADS total points: 6 ACR TI-RADS category: 4 3. Location: Left superior. Size: 1.2 x 0.90 x 0.90 cm, volume 0.49 mL. Nodule characteristics: Composition: Cannot be determined (2). Echogenicity: Very hypoechoic (3). Shape: Not taller than wide (0). Margins: Smooth (0). Echogenic Foci: Macrocalcifications (1). ACR TI-RADS total points: 6 ACR TI-RADS category: 4 4. Location: Left mid. Size: 1.2 x 1.1 x 1.2 cm, volume 0.87 mL. Nodule characteristics: Composition: Spongiform (0). Echogenicity: Anechoic (0). Shape: Not taller than wide (0). Margins: Smooth (0). Echogenic Foci: None (0). ACR TI-RADS total points: 0 ACR TI-RADS category: 1 5. Location: Left inferior. Size: 1.6 x 1.2 x 1.9 cm, volume 1.9 mL. Nodule characteristics: Composition: Mixed cystic and solid (1). Echogenicity: Hypoechoic (2). Shape: Not taller than wide (0). Margins: Smooth (0). Echogenic Foci: None (0). ACR TI-RADS total points: 3 ACR TI-RADS category: 3 NODES: No lymphadenopathy is seen in the tissue surrounding the thyroid gland. US/US thyroid IMPRESSION: Enlarged heterogeneous thyroid gland with multiple bilateral nodules. Nodules in the right mid and left superior lobes medially TI RADS criteria for fine-needle aspiration. ACR TI-RADS RECOMMENDATION REFERENCE: Ultrasound-guided fine-needle aspiration, followup ultrasound, no further follow up. * TR1 (0 point) and TR 2 (2 points): No FNA or follow up * TR3 (3 points): FNA if more than or equal to 2.5 cm in maximum dimension, followup ultrasound in 1, 3 and 5 years if 1.5 to 2.4 cm in maximum dimension. * TR4 (4-6 points): FNA if more than or equal to 1.5 cm in maximum dimension, followup ultrasound in 1, 2, 3 and 5 years if 1 to 1.4 cm in maximum dimension. * TR5 (more than or equal to 7 points): FNA if more than or equal to 1 cm in maximum dimension, followup ultrasound every year for 5 years if 0.5 to 0.9 cm in maximum dimension. * TR3, TR4 or TR5 nodules that are below the size threshold for follow up receive no follow up.
== END 2022-04-05 13:32 | disposition home or self-care (01) ==
LOC: HO.HMGCX 13:31
PROVIDERS: PCP Internal Medicine; Visit Provider Internal Medicine
DX: E04.2 Nontoxic multinodular goiter (principal)
CPT/HCPCS: 76536

== ENCOUNTER 2022-06-13 08:47 | Outpatient (REF) | payer OTHER, SELFPAY ==
[2022-06-13 08:57] LABS: MANUAL DIFF FLAG NO
[2022-06-13 09:20] LABS: Basophils Percent Auto 1.1 % (0-2); Eosinophils Absolute Auto 0.1 X10*3/uL (0.0-0.4); Eosinophils Percent Auto 3.6 % (0-4); Hematocrit 38.5 % (37.0-47.0); Hemoglobin 12.3 g/dl (12.0-16.0); Imm Gran Abs Auto 0.01 X10*3/uL (0.00-0.03); Imm Gran Pct Auto 0.3 % (0.0-0.4); Lymphocytes Absolute Auto 2.1 X10*3/uL (1.2-4.9); Mean Corpuscular HGB Conc 31.9 g/dl (31.0-35.0); Mean Corpuscular Hemoglobin 26.5 pg (27.0-33.0); Mean Corpuscular Volume 82.8 fL (80.0-98.0); Mean Platelet Volume 10.5 fL (9.4-12.3); Monocytes Absolute Auto 0.3 X10*3/uL (0.1-1.2); Monocytes Percent Auto 8.5 % (2-11); Neutrophils Absolute Auto 1.1 x10*3/uL (2.0-8.3); Neutrophils Percent Auto 29.5 % (45-73); Platelet Count 361 X10*3/uL (160-400); Red Blood Count 4.65 X10*6/uL (4.20-5.50); Red Cell Distribution Width 14.3 % (11.0-16.0); White Blood Count 3.7 X10*3/uL (4.8-10.8)
[2022-06-13 09:29] LABS: Estimated Average Glucose 111 mg/dL; Hemoglobin A1c % 5.5 %
[2022-06-13 11:07] LABS: Folate > 20.0 ng/mL (> or = 4.0); Vitamin B12 786 pg/mL (200-900)
[2022-06-13 11:59] LABS: Alanine Aminotransferase 12 U/L (0-31); Albumin Level 3.9 g/dL (3.5-5.0); Alkaline Phosphatase 52 U/L (39-117); Anion Gap 11 (12-20); Aspartate Amino Transferase 14 U/L (5-31); Bilirubin Total 1.1 mg/dL (0.0-1.0); Blood Urea Nitrogen 11 mg/dL (9-16); C Reactive Protein < 0.10 mg/dL (< or = 0.50); Calcium 9.3 mg/dL (8.4-10.2); Carbon Dioxide 27 mmol/L (22-29); Chloride 107 mmol/L (96-108); Cholesterol 169 mg/dL; Estimated Glomerular Filt Rate > 60; Ferritin 13 ng/mL (10-250); Glucose Random 89 mg/dL (60-115); HDL Cholesterol 61 mg/dL; Insulin 9 uU/mL (2-29); Iron 55 mcg/dL (30-160); LDL Cholesterol Calculated 85 mg/dl; Percent Iron Saturation 16 % (15-50); Potassium 4.4 mmol/L (3.3-5.1); Sodium 141 mmol/L (135-145); TSH reflex Free T4 1.55 uIU/mL (0.32-4.0); Total Iron Binding Capacity 346 mcg/dL (228-428); Total Protein 6.8 g/dL (6.5-8.0); Triglycerides 115 mg/dL; Unsaturated Iron Binding 291 ug/dL
[2022-06-14 12:51] LABS: Calcium (PTHI) 9.3 mg/dL (8.6-10.2); PTHI 63 pg/mL (16-77)
[2022-06-16 17:16] LABS: Vitamin A 40 mcg/dL (38-98)
[2022-06-16 21:41] LABS: Zinc 76 mcg/dL (60-130)
[2022-06-17 10:16] LABS: Vitamin B1 15 nmol/L (8-30)
== END 2022-06-13 08:48 | disposition home or self-care (01) ==
LOC: HO.LAB 08:47
PROVIDERS: PCP Internal Medicine; Visit Provider Physician Assistant Surgical
DX: Z98.84 Bariatric surgery status (principal)
CPT/HCPCS: 36415; 80053; 80061; 82306; 82607; 82728; 82746; 83036; 83525; 83540; 83970; 84425; 84443; 84590; 84630; 85025; 86140

== ENCOUNTER → 2023-01-31 09:35 | Outpatient (BNVA) | payer OTHER, SELFPAY | PROVIDERS: PCP Internal Medicine; Visit Provider Physician Assistant Surgical ==

== ENCOUNTER 2023-03-15 13:04 | Outpatient (REF) | payer OTHER, SELFPAY ==
--- NOTE | ~2023-03-15 | MM_ITS ---
EXAMINATION: MM SCREENING DIGITAL BREAST TOMOSYNTHESIS, BILATERAL CLINICAL INFORMATION: Screening. Asymptomatic. COMPARISON: Mammography: This study is compared with prior exams dating back to 2017. TECHNIQUE: Digital breast tomosynthesis is performed in both the craniocaudal and mediolateral oblique views along with computer-aided detection (CAD). Synthesized 2D images are generated from the tomosynthesis. FINDINGS: The breasts are almost entirely fatty (ACR BI-RADS breast composition Category a). There are no significant masses, abnormal calcifications, or other abnormalities. MM/MM tomosynthesis screening BI IMPRESSION: No mammographic evidence of malignancy. ASSESSMENT: BI-RADS BI-RADS 1 - Negative RECOMMENDATION: Routine annual mammography screening. 1 year F/U This examination should not preclude the clinical evaluation of a suspicious palpable abnormality. This patient's information was entered into a reminder system with a target due date for their next mammogram.
== END 2023-03-15 13:05 | disposition home or self-care (01) ==
LOC: HO.MAMMO 13:04
PROVIDERS: Visit Provider Internal Medicine
DX: Z12.31 Encounter for screening mammogram for malignant neoplasm of breast (principal)
CPT/HCPCS: 77063; 77067

== ENCOUNTER → 2023-03-15 13:30 | Outpatient (BNV) | payer OTHER, SELFPAY | PROVIDERS: Visit Provider Radiology Diagnostic Radiology | DX: Z12.31 Encounter for screening mammogram for malignant neoplasm of breast (principal) | CPT/HCPCS: 77063; 77067 ==

== ENCOUNTER 2023-03-16 09:47 | Outpatient (AMB) | payer OTHER, SELFPAY ==
[2023-03-16 09:55] VITALS: BP 130/72; PULSE 87; O2SAT 97; BMI 50.0
--- NOTE | 2023-03-16 09:55 | MHC.PC.OV ---
Vital Signs 03/16/23 09:55 Height 5 ft 3 in Weight 282 lb 6 oz BMI 50.0 BP 130/72 Blood Pressure Location Lt brachial Position Sitting Pulse 87 Pulse Source Pulse Oximeter Pulse Oximetry (%) 97 Oxygen Delivery Method Room Air Intake Visit Reasons: PE - due for colonscopy Allergies No Known Allergies Allergy (Verified 03/16/23 09:56) Medication List - Last Reconciled 03/16/23 by Angie Blair MD blood pressure kit-extra large As directed docusate sodium (Colace) 100 mg PO DAILY gabapentin 300 mg PO TID inulin (Fiber Gummies) 2 grams PO BID metoprolol tartrate 50 mg See Protocol PO BID 90 days Tobacco use date assessed: 03/16/23 Dental Screening Dental Screen Date: 03/16/23 Did you have a dental visit in the last 12 months?: No Did you have a dental problem in the last 6 months where you did not have access to dental care?: No Was dental information given to patient?: No HPI PE - due for colonscopy HPI Details Patient is 52-year-old female came in today for physical examination Physical exam was limited as patient was not able to get on examination table Patient is seeing Dr. Fernandez neurosurgery as patient had a cervical disc surgery March of last year She still have residual weakness left hand and arm Patient also suffer from lumbar radiculitis right side She is on high-dose gabapentin 600 mg 3 times a day through Dr. Fernandez is office Mammogram was this month Pap smear was through [facility] O[facility]YN patient does not want to have another Colonoscopy was declined. Patient already have lab order in the system through weight loss program [facility]. 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 Elevated troponin Encounter for general adult medical examination with abnormal findings Encounter for Papanicolaou smear of cervix Encounter for routine gynecological examination Heel callus Herniated cervical disc Hirsutism Hospital discharge follow-up Hypertension Liver fibrosis Morbid obesity Obesity PCOS (polycystic ovarian syndrome) SOB (shortness of breath) Steatosis, liver SVT (supraventricular tachycardia) Vitamin D deficiency Surgical History History of gastric surgery Hx of discectomy Family History Father Diabetes mellitus Mother HTN (hypertension) Total knee replacement status Paternal Grandfather Diabetes mellitus Maternal Grandfather No problems noted. Maternal Grandmother Brain tumor Paternal Grandmother Diabetes mellitus Brother No problems noted. Father Diabetes mellitus Maternal Grandmother Brain tumor Maternal Grandfather No problems noted. Paternal Grandfather Diabetes mellitus Paternal Grandmother No problems noted. Brother No problems noted. 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 1. Little interest or pleasure in doing things: not at all 2. Feeling down, depressed, or hopeless: several days 3. Trouble falling or staying asleep, or sleeping too much: several days 4. Feeling tired or having little energy: several days 5. Poor appetite or overeating: several days 6. Feeling bad about yourself - or that you are a failure or have let yourself or your family down: several days 7. Trouble concentrating on things, such as reading the newspaper or watching television: not at all 8. Moving or speaking so slowly that other people could have noticed. Or the opposite - being so fidgety or restless that you have been moving around a lot more than usual: not at all 9. Thoughts that you would be better off or of hurting yourself in some way: not at all Total score: 5 Depression Screening Interpretation: Negative 94190 - PHQ-9 Billing: Yes Source: Developed by Drs. Kana Arana, Gómez Canales and colleagues, with an educational oral from [employer]. Thrive Questionnaire Date Thrive assessed: 03/16/23 I am a: Patient What is your living situation today?: I have a steady place to live Within the past 12 months, did the food you bought not last and you didn't have the money to get more?: Never true Within the past 12 months, did you worry whether your food would run out before you got money to buy more?: Never true Do you have trouble paying for medicines?: No Do you have trouble getting transportation to medical appointments?: No Do you have trouble paying your heating and electricity bill?: Yes Do you have trouble taking care of your child, family member or friend?: No Do you have trouble with day-to-day activities such as bathing, preparing meals, shopping, managing finances, etc.?: Yes Are you currently unemployed and looking for a job?: Yes Are you interested in more education?: No AUDIT C Alcohol Use Questionnaire (AUDIT-C) 1. How often do you have a drink containing alcohol?: Never 3. How often do you have six or more drinks on one occasion?: Never Total Score: 0 Score Reviewed/Action Taken: Yes RONEL-7 AMB Questionnaire RONEL-7 Date RONEL - 7 assessed: 03/16/23 Feeling nervous, anxious, or on edge: 0 = Not at all Not being able to stop or control worryin = Not at all Worrying too much about different things: 0 = Not at all Trouble relaxin = Not at all Being so restless that it is hard to sit still: 0 = Not at all Becoming easily annoyed or irritable: 0 = Not at all Feeling afraid as if something awful might happen: 0 = Not at all Total RONEL-7 score (0-4 normal; 5-9 mild; 10-14 moderate; 15-21 severe): 0 Source: Developed by Drs. Kana Arana, Gómez Canales and colleagues, with an educational oral from [employer]. RONEL-7 Assessment Billing RONEL-7 Assessment Tool: RONEL-7 Assessment 75036 Review of Systems Const Denies chills, Denies fever(s) and Denies headache(s) Eyes Denies blurry vision ENT Denies headache(s), Denies nasal discharge, Denies nasal obstruction, Denies odynophagia and Denies sinus pain Card Denies chest pain at rest and Denies chest pain with activity Resp Denies cough and Denies hemoptysis GI Denies diarrhea, Denies odynophagia, Denies vomiting and Denies hematemesis Reports as per HPI Skin/Breast Reports as per HPI Neuro Denies Neuro-related abnormal movements, Denies Abnormal speech present and Denies headache(s) Psych Denies mood swings and Denies paranoia Endo Reports as per HPI Sina/Lymph Reports as per HPI Aller/Immun Reports as per HPI Physical exam (Primary Care) Vital Signs: Last Vital Signs Pulse 87 03/16/23 09:55 BP 130/72 03/16/23 09:55 Pulse Ox 97 03/16/23 09:55 Oxygen Delivery Method Room Air 03/16/23 09:55 BMI result Body Mass Index 50.0 Tobacco/Smoking Status: Tobacco use Status Tobacco use date assessed 03/16/23 03/16/23 09:57 Patient Tobacco Use Status Never used Tobacco 03/16/23 09:57 e-Cigarette/Vaping Use Never Used 03/16/23 09:57 PHQ-9: PHQ-9 Score PHQ-9: Total score 5 03/16/23 10:25 Depression Screening Interpretation: Negative Thrive Assessment: Date of Thrive Assessment Date Thrive assessed 03/16/23 03/16/23 10:24 Const General: cooperative, comfortable and no acute distress Orientation/consciousness: patient oriented x3 HENMT Head: Yes normocephalic and Yes atraumatic Eyes General: appearance normal, both eyes and all related structures Pupils: Equal, round and reactive pupils present EOM: EOMs intact bilaterally Neck Neck: Yes supple and No lymphadenopathy Lymphatic: no lymphadenopathy noted Resp Effort & Inspection: normal respiratory effort and able to speak in complete sentences Auscultation: clear to auscultation bilaterally Cardio Heart sounds: S1 normal heart sound present and S2 normal heart sound present GI Palpation (GI): Soft to palpation and nontender Auscultation: normal bowel sounds Skin General skin exam: elasticity normal and turgor normal Neuro Other: Gait is cautious General: patient oriented x3 Cranial nerves: Yes Equal, round and reactive pupils present Speech: No Abnormal speech present Extrem General: Yes normal exam except as noted and No edema Assessment and Plan Assessment & Plan (1) Encounter for general adult medical examination with abnormal findings: Code(s): Z00.01 - Encounter for general adult medical examination with abnormal findings (2) Diabetes 1.5, managed as type 2: Comment: glucose usually <150 Code(s): E13.9 - Other specified diabetes mellitus without complications (3) Chronic GERD: Code(s): K21.9 - Gastro-esophageal reflux disease without esophagitis (4) PCOS (polycystic ovarian syndrome): Code(s): E28.2 - Polycystic ovarian syndrome (5) Vitamin D deficiency: Code(s): E55.9 - Vitamin D deficiency, unspecified (6) Morbid obesity: Code(s): E66.01 - Morbid (severe) obesity due to excess calories (7) Diabetic nephropathy associated with type 2 diabetes mellitus: Code(s): E11.21 - Type 2 diabetes mellitus with diabetic nephropathy (8) Steatosis, liver: Code(s): K76.0 - Fatty (change of) liver, not elsewhere classified (9) SVT (supraventricular tachycardia): Comment: 2020 & 10/2021-seen in ED-clearance 11/15/21 on chart Code(s): I47.1 - Supraventricular tachycardia (10) Left hand weakness: Code(s): R29.898 - Other symptoms and signs involving the musculoskeletal system (11) Cervicalgia: Code(s): M54.2 - Cervicalgia (12) Pain in both lower legs: Code(s): M79.661 - Pain in right lower leg; M79.662 - Pain in left lower leg (13) 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 Fernandez neurosurgery as patient had a cervical disc surgery March of last year She still have residual weakness left hand and arm Patient also suffer from lumbar radiculitis right side She is on high-dose gabapentin 600 mg 3 times a day through Dr. Fernandez is office Mammogram was this month Pap smear was through [facility] OBGYN patient does not want to have another Colonoscopy was declined. Patient already have lab order in the system through weight loss program [facility]. 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
== END 2023-03-16 10:43 | disposition home or self-care (01) ==
PROVIDERS: Visit Provider Internal Medicine
DX: Z00.01 Encounter for general adult medical examination with abnormal findings (principal); E13.9 Other specified diabetes mellitus without complications; K21.9 Gastro-esophageal reflux disease without esophagitis; E28.2 Polycystic ovarian syndrome; E55.9 Vitamin D deficiency, unspecified; E66.01 Morbid (severe) obesity due to excess calories; E11.21 Type 2 diabetes mellitus with diabetic nephropathy; K76.0 Fatty (change of) liver, not elsewhere classified; I47.1 Supraventricular tachycardia; R29.898 Other symptoms and signs involving the musculoskeletal system
CPT/HCPCS: 99396

== ENCOUNTER 2023-03-19 08:14 | Outpatient (REF) | payer OTHER, SELFPAY ==
[2023-03-19 08:48] LABS: MANUAL DIFF FLAG NO
[2023-03-19 08:55] LABS: Basophils Absolute Auto 0.1 X10*3/uL (0.0-0.2); Basophils Percent Auto 1.2 % (0-2); Eosinophils Absolute Auto 0.3 X10*3/uL (0.0-0.4); Eosinophils Percent Auto 4.6 % (0-4); Hematocrit 34.1 % (37.0-47.0); Hemoglobin 10.1 g/dl (12.0-16.0); Imm Gran Abs Auto 0.01 X10*3/uL (0.00-0.03); Imm Gran Pct Auto 0.2 % (0.0-0.4); Lymphocytes Absolute Auto 2.7 X10*3/uL (1.2-4.9); Lymphocytes Percent Auto 44.2 % (20-40); Mean Corpuscular HGB Conc 29.6 g/dl (31.0-35.0); Mean Corpuscular Hemoglobin 22.1 pg (27.0-33.0); Mean Corpuscular Volume 74.6 fL (80.0-98.0); Mean Platelet Volume 10.3 fL (9.4-12.3); Monocytes Absolute Auto 0.5 X10*3/uL (0.1-1.2); Monocytes Percent Auto 8.1 % (2-11); Neutrophils Absolute Auto 2.5 x10*3/uL (2.0-8.3); Neutrophils Percent Auto 41.7 % (45-73); Platelet Count 494 X10*3/uL (160-400); Red Blood Count 4.57 X10*6/uL (4.20-5.50); Red Cell Distribution Width 16.6 % (11.0-16.0); White Blood Count 6.1 X10*3/uL (4.8-10.8)
[2023-03-19 09:05] LABS: Estimated Average Glucose 137 mg/dL; Hemoglobin A1c % 6.4 %
[2023-03-19 09:34] LABS: Alanine Aminotransferase 18 U/L (0-31); Albumin Level 3.9 g/dL (3.5-5.0); Alkaline Phosphatase 48 U/L (39-117); Anion Gap 13 (12-20); Aspartate Amino Transferase 18 U/L (5-31); Bilirubin Total 0.7 mg/dL (0.0-1.0); Blood Urea Nitrogen 13 mg/dL (9-16); C Reactive Protein 0.39 mg/dL (< or = 0.50); Calcium 9.5 mg/dL (8.4-10.2); Carbon Dioxide 25 mmol/L (22-29); Chloride 105 mmol/L (96-108); Cholesterol 152 mg/dL; Estimated Glomerular Filt Rate > 60; Glucose Random 120 mg/dL (60-115); HDL Cholesterol 51 mg/dL; Iron 29 mcg/dL (30-160); LDL Cholesterol Calculated 71 mg/dl; Percent Iron Saturation 8 % (15-50); Potassium 4.1 mmol/L (3.3-5.1); Sodium 139 mmol/L (135-145); Total Iron Binding Capacity 354 mcg/dL (228-428); Total Protein 7.4 g/dL (6.5-8.0); Triglycerides 150 mg/dL; Unsaturated Iron Binding 325 ug/dL
[2023-03-19 09:58] LABS: Folate 13.4 ng/mL (> or = 4.0); Vitamin B12 629 pg/mL (200-900)
[2023-03-19 10:03] LABS: Ferritin 7 ng/mL (10-250); TSH reflex Free T4 1.57 uIU/mL (0.32-4.0); Vitamin D 25-OH Total 39.4 ng/mL (>30)
[2023-03-19 10:27] LABS: Insulin 19 uU/mL (2-29)
[2023-03-20 14:13] LABS: Calcium (PTHI) 9.6 mg/dL (8.6-10.4); PTHI 54 pg/mL (16-77)
[2023-03-22 12:54] LABS: Zinc 69 mcg/dL (60-130)
[2023-03-23 02:44] LABS: Vitamin A 35 mcg/dL (38-98)
[2023-03-24 14:29] LABS: Vitamin B1 12 nmol/L (8-30)
== END 2023-03-19 08:15 | disposition home or self-care (01) ==
LOC: HO.LAB 08:14
PROVIDERS: PCP Internal Medicine; Visit Provider Physician Assistant Surgical
DX: K91.2 Postsurgical malabsorption, not elsewhere classified (principal); Z98.84 Bariatric surgery status; Z20.2 Contact with and (suspected) exposure to infections with a predominantly sexual mode of transmission
CPT/HCPCS: 36415; 80053; 80061; 82306; 82607; 82728; 82746; 83036; 83525; 83540; 83970; 84425; 84443; 84590; 84630; 85025; 86140

== ENCOUNTER 2023-06-19 14:47 | Outpatient (AMB) | payer OTHER, SELFPAY ==
[2023-06-19 15:10] VITALS: BP 122/74; PULSE 92; BMI 43.7
--- NOTE | 2023-06-19 15:10 | MHC.OFFVIS ---
Intake Vital Signs 06/19/23 15:10 Height 5 ft 3 in Weight 246 lb 14.684 oz BMI 43.7 BP 122/74 Blood Pressure Location Lt brachial Position Sitting Pulse 92 Intake Visit Reasons: 1 year follow up Intake Note: 1 year follow up, feel good Lease Picker Required: No Accompanied by: Spouse Allergies No Known Allergies Allergy (Verified 03/16/23 09:56) Medication List - Last Reconciled 06/19/23 by Gato Ma MD blood pressure kit-extra large As directed ferrous sulfate 325 mg PO DAILY gabapentin 300 mg PO TID inulin (Fiber Gummies) 2 grams PO BID metoprolol tartrate 50 mg See Protocol PO BID 90 days vitamin A palmitate 10,000 units PO DAILY HPI HPI Comments History of Present Illness Details Shavon Hough comes for follow-up. She has been recuperating gradually from her cervical spine injury. She is walking more. Since starts of school she says she has lost about 40 lb with walking regularly. She has not had any prolonged palpitation irregular heartbeat. Her sugars are much better controlled now and she is currently not on any insulin. Her blood pressure remains well controlled. She denies any exertional chest pain or shortness of breath. No orthopnea, PND, leg edema. Most recent LDL was 71 mg/dL. [facility] Medical History Herniated cervical disc Liver fibrosis Steatosis, liver COVID-19 vaccine series completed SVT (supraventricular tachycardia) Hospital discharge follow-up 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 procedure Encounter for Papanicolaou smear of cervix Encounter for general adult medical examination with abnormal findings Encounter for routine gynecological examination Breast screening SOB (shortness of breath) Abnormal nuclear stress test Diabetic nephropathy associated with type 2 diabetes mellitus Morbid obesity Elevated troponin Hypertension PCOS (polycystic ovarian syndrome) Vitamin D deficiency Heel callus Candidal skin infection Hirsutism Chronic GERD Obesity Diabetes 1.5, managed as type 2 Surgical History Hx of discectomy History of gastric surgery Family History Father Diabetes mellitus Mother HTN (hypertension) Total knee replacement status Paternal Grandfather Diabetes mellitus Maternal Grandfather No problems noted. Maternal Grandmother Brain tumor Paternal Grandmother Diabetes mellitus Brother No problems noted. Father Diabetes mellitus Maternal Grandmother Brain tumor Maternal Grandfather No problems noted. Paternal Grandfather Diabetes mellitus Paternal Grandmother No problems noted. Brother No problems noted. 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 Cognitive needs: No Hearing needs: No Vision needs: Yes Review of Systems Const Denies chills, Denies fatigue, Denies fever(s), Denies frequent falls, Denies weakness, Denies weight gain and Denies weight loss ENT Denies dizziness Card Denies chest pain, Denies leg edema, Denies lightheadedness, Denies palpitations, Denies dyspnea, Denies dyspnea on exertion, Denies orthopnea and Denies other (loss of consciousness) Resp Denies cough, Denies dyspnea and Denies dyspnea on exertion GI Denies hematochezia and Denies change in stool character Musc Denies abnormal gait, Denies muscle weakness, Denies numbness, Denies radiating pain into limb and Denies tingling Neuro Denies Abnormal speech present, Denies abnormal gait, Denies dizziness, Denies frequent falls, Denies numbness, Denies tingling and Denies weakness Endo Denies fatigue and Denies palpitations Physical Exam Vital Signs: Last Vital Signs Pulse 92 06/19/23 15:10 BP 122/74 06/19/23 15:10 BMI result Body Mass Index 43.7 Const General: cooperative, comfortable and no acute distress Orientation/consciousness: patient oriented x3 Limitations: ambulation with walker Neck Neck: Yes normal visual inspection and Yes no JVD Resp Effort & Inspection: normal respiratory effort Auscultation: clear to auscultation bilaterally, no crackles, no rales, no rhonchi and no wheezes Cardio Jugular venous distension: no JVD Rate: regular rate Rhythm: regular rhythm Heart sounds: S1 normal heart sound present, S2 normal heart sound present, no gallops, no murmurs and no rubs Peripheral pulses: Peripheral pulses 2+ throughout GI Inspection: Yes normal to inspection Neuro General: patient oriented x3 Speech: No Abnormal speech present Extrem General: Yes normal to inspection and No no pedal edema Office Procedures EKG Details: EKG shows normal sinus rhythm with poor R-wave progression most likely due to lead placement otherwise no significant ST wave changes [id number], Complete Assessment & Plan Assessment & Plan (1) SVT (supraventricular tachycardia): Comment: 2020 & 10/2021-seen in ED-clearance 11/15/21 on chart Code(s): I47.1 - Supraventricular tachycardia Plan: Supraventricular tachycardia which has remained suppressed on metoprolol therapy. She has done well on it. We discussed pathophysiology. We discussed about vagal maneuvers. Avoidance of stimulants was discussed. Continue metoprolol therapy. No need for further ablation. (2) Hypertension: Code(s): I10 - Essential (primary) hypertension Plan: Hypertension which is currently well optimized on metoprolol therapy. Continue the same. Advised to monitor blood pressure at home maintain a log. I applauded her efforts to lose weight as well as improvement in her diabetes control. LDL is well optimized at this point time. Continue to participate in aggressive weight loss program. Will follow up in the clinic in 1 year's time, sooner p.r.n.. Thank you for allowing me to partake in her care Coding Level of Care Code Est Pt Level 4 (33885) Diagnoses SVT (supraventricular tachycardia) I47.1 Hypertension I10 CPT Codes EKG - CPT: 44007-[id number], Complete ([id number])
== END 2023-06-19 15:40 | disposition home or self-care (01) ==
PROVIDERS: Visit Provider Internal Medicine Cardiovascular Disease
DX: I47.1 Supraventricular tachycardia (principal); I10 Essential (primary) hypertension
CPT/HCPCS: 93010; 99214

== ENCOUNTER → 2023-06-19 14:47 | Outpatient (BNVA) | payer OTHER, SELFPAY | PROVIDERS: Visit Provider Internal Medicine Cardiovascular Disease | DX: I47.10 Supraventricular tachycardia, unspecified (principal); I10 Essential (primary) hypertension | CPT/HCPCS: 93005 ==

== ENCOUNTER 2023-11-19 16:46 | Emergency (ER) | payer OTHER, SELFPAY ==
--- NOTE | 2023-11-19 16:48 | ECG_ITS ---
Test Reason : TACHYCARDIA Blood Pressure : / mmHG Vent. Rate : 143 BPM Atrial Rate : 000 BPM P-R Int : 000 ms QRS Dur : 086 ms QT Int : 282 ms P-R-T Axes : 000 002 034 degrees QTc Int : 435 ms Supraventricular tachycardia Otherwise normal ECG When compared with ECG of 06-NOV-2021 22:45, ST no longer depressed in Anterior leads Referred By: Gail Panda Electronically Signed By:ELOISE CHAPPELL MD
--- NOTE | 2023-11-19 17:15 | ED.ARRPALP ---
HPI - Arrhythmia/Palpitations General Chief Complaint: Arrhythmia/Palpitations Stated Complaint: rapid hr Time Seen by Provider: 11/19/23 17:15 Source: patient Mode of arrival: ambulatory Limitations: no limitations History of Present Illness HPI narrative: Patient history of SVT on metoprolol 50 mg twice daily today around 15:40 beats 180 per minute took her evening dose of metoprolol 50 mg at 16:00 when came to the ER was in 140s sinus tachycardia with denies any chest pain shortness breath dizzy weak did not have any episode for last 2 no increased caffeine intake no chills no fever Related Data Home Medications ?Medication ?Instructions ?Recorded ?Confirmed gabapentin 100 mg capsule 300 mg PO TID 01/31/23 06/19/23 ferrous sulfate 325 mg (65 mg 325 mg PO DAILY 06/19/23 06/19/23 iron) tablet Previous Rx's ?Medication ?Instructions ?Recorded blood pressure kit-extra large #1 ea 10/26/20 inulin 2 gram chewable tablet 2 g PO BID #60 tabs 02/17/22 (Fiber Gummies) vitamin A palmitate 3,000 mcg 10,000 unit PO DAILY #90 caps 05/24/23 (10,000 unit) capsule metoprolol tartrate 50 mg tablet 50 mg PO BID #180 tabs 10/15/23 ferrous sulfate 325 mg (65 mg 325 mg PO DAILY #90 tabs 11/19/23 iron) tablet Allergies Allergy/AdvReac Type Severity Reaction Status Date / Time No Known Allergies Allergy Verified 11/19/23 17:23 Review of Systems Review of Systems: Yes all other systems are reviewed and are negative PMFSH Past Medical History Medical History Herniated cervical disc Liver fibrosis Steatosis, liver COVID-19 vaccine series completed SVT (supraventricular tachycardia) Hospital discharge follow-up 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 procedure Encounter for Papanicolaou smear of cervix Encounter for general adult medical examination with abnormal findings Encounter for routine gynecological examination Breast screening SOB (shortness of breath) Abnormal nuclear stress test Diabetic nephropathy associated with type 2 diabetes mellitus Morbid obesity Elevated troponin Hypertension PCOS (polycystic ovarian syndrome) Vitamin D deficiency Heel callus Candidal skin infection Hirsutism Chronic GERD Obesity Diabetes 1.5, managed as type 2 Surgical History Hx of discectomy History of gastric surgery Family History Family History Father Diabetes mellitus Mother HTN (hypertension) Total knee replacement status Paternal Grandfather Diabetes mellitus Maternal Grandfather No problems noted. Maternal Grandmother Brain tumor Paternal Grandmother Diabetes mellitus Brother No problems noted. Father Diabetes mellitus Maternal Grandmother Brain tumor Maternal Grandfather No problems noted. Paternal Grandfather Diabetes mellitus Paternal Grandmother No problems noted. Brother No problems noted. Social History Social History Household Members: Spouse Housing: House Are you a primary home health caregiver to a significant other at home: No Do you presently have visiting nurse or other home services: No Alcohol intake: never Comment: uses cane due to back pain (DDD)-is improving Patient Tobacco Use Status: Never used Tobacco e-Cigarette/Vaping Use: Never Used Second Hand Smoke Exposure: No Advance Directives: No Advance Directives Information Provided: Yes Advance Directives Date on File: 10/14/20 Do you have a plan to hurt others: No Plan service: No Current occupational status: employed 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 Oriented X3. No acute distress. Eyes: PERRLA, No Nystagmus ENT: Pharynx normal. Oral Mucosa moist Neck: Normal inspection. Neck supple. CVS: Tachycardia regular rhythm , Pulses normal. Respiratory: No respiratory distress. Equal air entry bilateral, no wheezing/rales/rhonchi Abdomen: Soft and nontender. Bowel sounds are present, no mass palpable, no CVA tenderness Skin: Skin warm and dry. Normal skin color. Normal skin turgor. Extremities: No lower extremity edema. No calf tenderness Neuro: Oriented X 3. Medications Administered Discontinued Medications Generic Name Dose Route Start Last Admin Trade Name Freq PRN Reason Stop Dose Admin Metoprolol Tartrate 5 mg 11/19/23 17:26 11/19/23 18:04 Metoprolol Tartrate 5 Mg/5 Ml Vial IVPUSH 11/19/23 17:27 Not Given ONCE ONE Protocol Medical Decision Making Medical Decision Making [facility] Narrative: 530 pm Patient with SVT on metoprolol 50 mg twice daily came for palpitation episode started 15:40 ranging to 180 beats per minute on arrival it was 140s while drawing the blood broke to normal sinus rhythm rate is 90 beats per minute now will check basic labs and mg Patient does have history of chronic iron deficiency anemia not taking her iron tablets lately and had dysfunctional uterine bleed last month hemoglobin today was 8.9 previously was 10.1 patient advised to follow-up with PCP and Cardiology Differential Diagnosis Differential Diagnoses: The differential diagnosis associated with the presentation includes SVT/atrial fibrillation/atrial flutter Lab Data [facility] Lab Attestation statement: I reviewed the patient's lab results. 11/19/23 17:30 11/19/23 17:30 Labs: Lab Results 11/19/23 Range/Units 17:30 WBC 7.4 (4.8-10.8) X10*3/uL RBC 4.50 (4.20-5.50) X10*6/uL Hgb 8.9 L (12.0-16.0) g/dl Hct 30.9 L (37.0-47.0) % MCV 68.7 L (80.0-98.0) fL MCH 19.8 L (27.0-33.0) pg MCHC 28.8 L (31.0-35.0) g/dl RDW 18.8 H (11.0-16.0) % Plt Count 480 H (160-400) X10*3/uL MPV 10.1 (9.4-12.3) fL Immature Gran % (Auto) 0.3 (0.0-0.4) % Neut % (Auto) 47.0 (45-73) % Lymph % (Auto) 37.4 (20-40) % [place] % (Auto) 10.0 (2-11) % Eos % (Auto) 4.2 H (0-4) % Baso % (Auto) 1.1 (0-2) % Lymph # (Auto) 2.8 (1.2-4.9) X10*3/uL [place] # (Auto) 0.7 (0.1-1.2) X10*3/uL Eos # (Auto) 0.3 (0.0-0.4) X10*3/uL Baso # (Auto) 0.1 (0.0-0.2) X10*3/uL Abs Immat Gran (auto) 0.02 (0.00-0.03) X10*3/uL Absolute Neuts (auto) 3.5 (2.0-8.3) x10*3/uL Absolute Nucleated RBC 0.000 (0.0-0.012) X10*3/uL Nucleated RBC % (auto) 0.0 (0.0-0.2) /100WBC Hold Purple Top SEE NOTE Hold Blue Top SEE NOTE Sodium 136 (135-145) mmol/L Potassium 4.6 (3.3-5.1) mmol/L Chloride 106 (96-108) mmol/L Carbon Dioxide 22 (22-29) mmol/L Anion Gap 13 (12-20) BUN 10 (9-16) mg/dL Creatinine 0.92 (0.5-1.4) mg/dL Estim Creat Clear Calc 97.8 Estimated GFR > 60 Random Glucose 144 H (60-115) mg/dL Calcium 9.2 (8.4-10.2) mg/dL Magnesium 2.0 (1.6-2.6) mg/dL Total Bilirubin 0.6 (0.0-1.0) mg/dL AST 38 H (5-31) U/L ALT 16 (0-31) U/L Alkaline Phosphatase 60 (39-117) U/L Total Protein 7.9 (6.5-8.0) g/dL Albumin 4.0 (3.5-5.0) g/dL Independent Interpretation I performed an independent interpretation of an: EKG Interpretation: SVT with ventricular rate of 143 beats per minute no acute ST-T changes no acute ischemia Discharge Plan Discharge Clinical Impression: Paroxysmal supraventricular tachycardia, Iron deficiency anemia Patient Disposition: Home, Self-Care Instructions: Supraventricular Tachycardia (ED), Iron Rich Diet (ED), Iron Deficiency Anemia (ED) Additional Instructions: Continue take your medications for SVT as prescribed by sales floor manager Start taking iron tablets daily Your hemoglobin today was 8.9 Prescriptions: New ferrous sulfate 325 mg (65 mg iron) tablet 325 mg PO DAILY Qty: 90 1RF No Action Fiber Gummies 2 gram tablet,chewable 2 g PO BID Qty: 60 11RF Rx Instructions: Please give 2.5 mg dose bid. vitamin A palmitate 3,000 mcg (10,000 unit) capsule 10,000 unit PO DAILY Qty: 90 3RF metoprolol tartrate 50 mg tablet 50 mg PO BID Qty: 180 3RF (DME) blood pressure kit-extra large Kit See Rx Instructions .ROUTE .MEDSUPPLY Qty: 1 0RF Rx Instructions: As directed gabapentin 100 mg capsule 300 mg PO TID ferrous sulfate 325 mg (65 mg iron) tablet 325 mg PO DAILY Print Language: Danish
[2023-11-19 17:19] VITALS: BP 114/75; PULSE 138; RESP 19; TEMP 36.7; O2SAT 97; BMI 49.9
[2023-11-19 17:37] LABS: MANUAL DIFF FLAG NO
[2023-11-19 17:41] LABS: Basophils Absolute Auto 0.1 X10*3/uL (0.0-0.2); Basophils Percent Auto 1.1 % (0-2); Eosinophils Absolute Auto 0.3 X10*3/uL (0.0-0.4); Eosinophils Percent Auto 4.2 % (0-4); Hematocrit 30.9 % (37.0-47.0); Hemoglobin 8.9 g/dl (12.0-16.0); Imm Gran Abs Auto 0.02 X10*3/uL (0.00-0.03); Imm Gran Pct Auto 0.3 % (0.0-0.4); Lymphocytes Absolute Auto 2.8 X10*3/uL (1.2-4.9); Lymphocytes Percent Auto 37.4 % (20-40); Mean Corpuscular HGB Conc 28.8 g/dl (31.0-35.0); Mean Corpuscular Hemoglobin 19.8 pg (27.0-33.0); Mean Corpuscular Volume 68.7 fL (80.0-98.0); Mean Platelet Volume 10.1 fL (9.4-12.3); Monocytes Absolute Auto 0.7 X10*3/uL (0.1-1.2); Neutrophils Absolute Auto 3.5 x10*3/uL (2.0-8.3); Platelet Count 480 X10*3/uL (160-400); Red Cell Distribution Width 18.8 % (11.0-16.0); White Blood Count 7.4 X10*3/uL (4.8-10.8)
[2023-11-19 18:05] LABS: Alanine Aminotransferase 16 U/L (0-31); Alkaline Phosphatase 60 U/L (39-117); Anion Gap 13 (12-20); Aspartate Amino Transferase 38 U/L (5-31); Bilirubin Total 0.6 mg/dL (0.0-1.0); Blood Urea Nitrogen 10 mg/dL (9-16); Calcium 9.2 mg/dL (8.4-10.2); Carbon Dioxide 22 mmol/L (22-29); Chloride 106 mmol/L (96-108); Creatinine Clr Calc Pharmacy 97.8; Estimated Glomerular Filt Rate > 60; Glucose Random 144 mg/dL (60-115); Potassium 4.6 mmol/L (3.3-5.1); Sodium 136 mmol/L (135-145); Total Protein 7.9 g/dL (6.5-8.0)
--- NOTE | 2023-11-19 18:43 | PC.NURSE ---
improvement in HR to 80s-90s after IV insertion and lab draw, provider aware, medication held per provider verbal order.
[2023-11-19 18:47] LABS: Iron 32 mcg/dL (30-160); Percent Iron Saturation 8 % (15-50); Total Iron Binding Capacity 378 mcg/dL (228-428); Unsaturated Iron Binding 346 ug/dL
[2023-11-19 18:49] VITALS: BP 113/66; PULSE 89; RESP 18; TEMP 36.6; O2SAT 100
== END 2023-11-19 18:49 | disposition home or self-care (01) ==
PROVIDERS: Emergency Provider Internal Medicine; PCP Internal Medicine
DX: I47.19 Other supraventricular tachycardia (principal); D50.9 Iron deficiency anemia, unspecified; E13.9 Other specified diabetes mellitus without complications; Z79.899 Other long term (current) drug therapy
CPT/HCPCS: 36415; 80053; 83540; 83735; 85025; 93005; 99283

== ENCOUNTER → 2023-11-19 16:48 | Outpatient (BNV) | payer OTHER, SELFPAY | PROVIDERS: Emergency Provider Internal Medicine; PCP Internal Medicine; Visit Provider Internal Medicine Cardiovascular Disease | DX: I47.10 Supraventricular tachycardia, unspecified (principal) | CPT/HCPCS: 93010 ==

== ENCOUNTER 2023-11-27 12:10 | Outpatient (AMB) | payer OTHER, SELFPAY ==
[2023-11-27 12:22] VITALS: BP 124/72; BMI 49.9
--- NOTE | 2023-11-27 12:22 | MHC.OFFVIS ---
Vital Signs 11/27/23 12:22 Height 5 ft 4 in Weight 291 lb 0.163 oz BMI 49.9 BP 124/72 Intake Visit Reasons: ER follow up Engineering Director Required: No Information Interpreted: non-clinical & clinical Marketing Regional Consultant: Marketing Regional Consultant Present (Ingrid REICH) Accompanied by: Self / Same As Patient Allergies No Known Allergies Allergy (Verified 11/27/23 12:26) Is last menstrual period known: Yes Last menstrual period: 05/27/20 Post menopausal: No Patient : No Do you need a note to return to daycare/school/sports/work: Yes (for surgery on sunday) HPI Comments Details: Presenting for ER follow-up after an episode of vaginal bleeding, the patient developed SVT and was started on metoprolol 11/19/2023 H&H was 8.9/30.9 Last mammogram was In 03/21 was BI-RADS 1 Last co test was in 07/19 was negative [facility] Medical History Herniated cervical disc Liver fibrosis Steatosis, liver COVID-19 vaccine series completed SVT (supraventricular tachycardia) Hospital discharge follow-up 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 procedure Encounter for Papanicolaou smear of cervix Encounter for general adult medical examination with abnormal findings Encounter for routine gynecological examination Breast screening SOB (shortness of breath) Abnormal nuclear stress test Diabetic nephropathy associated with type 2 diabetes mellitus Morbid obesity Elevated troponin Hypertension PCOS (polycystic ovarian syndrome) Vitamin D deficiency Heel callus Candidal skin infection Hirsutism Chronic GERD Obesity Diabetes 1.5, managed as type 2 Surgical History Hx of discectomy History of gastric surgery Family History Father Diabetes mellitus Mother HTN (hypertension) Total knee replacement status Paternal Grandfather Diabetes mellitus Maternal Grandfather No problems noted. Maternal Grandmother Brain tumor Paternal Grandmother Diabetes mellitus Brother No problems noted. Father Diabetes mellitus Maternal Grandmother Brain tumor Maternal Grandfather No problems noted. Paternal Grandfather Diabetes mellitus Paternal Grandmother No problems noted. Brother No problems noted. 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 Cognitive needs: No Hearing needs: No Vision needs: Yes Female Reproductive History Menstrual Date of last menstrual period: 05/27/20 Total pregnancies: 2 Full term: 2 Date of last pap smear: 07/27/21 Date of Mammogram: 03/15/23 Review of Systems Const All systems reviewed & are unremarkable except as noted in HPI and below Card Reports as per HPI and Reports no additional complaints Resp Reports as per HPI and Reports no additional complaints GI Reports as per HPI and Reports no additional complaints Reports as per HPI Physical Exam Vital Signs: Last Vital Signs BP 124/72 11/27/23 12:22 BMI result Body Mass Index 49.9 Const General: cooperative, healthy appearing and comfortable Chest Chest palpation & inspection: normal inspection of the chest and normal palpation of entire chest wall Breast/axilla inspection: normal inspection of the breasts and normal inspection of the axillae Breast/axilla palpation: normal palpation of the breasts, normal palpation of the axillae and no axillary lymphadenopathy Resp Effort & Inspection: normal respiratory effort Auscultation: clear to auscultation bilaterally Percussion: percussion normal Cardio Palpation: normal PMI Rate: regular rate Rhythm: regular rhythm Heart sounds: no murmurs and no rubs Peripheral pulses: Peripheral pulses 2+ throughout GI Inspection: Yes normal to inspection Palpation (GI): Soft to palpation, nontender, no guarding, not rigid and No hepatosplenomegaly present Percussion: Yes normal to percussion Auscultation: normal bowel sounds Rectal Exam - Female: deferred Other: The patient declined pelvic exam cause of bleeding and intolerance to pain Assessment & Plan Assessment & Plan (1) Abnormal uterine bleeding (AUB): Code(s): N93.9 - Abnormal uterine and vaginal bleeding, unspecified Category: Medical Plan: Iron sulfate 325 mg p.o. t.i.d. recommended the patient Urine GC and chlamydia taken CBC, prolactin, FSH/LH, TSH, HCG, and pelvic ultrasound ordered. Discussed with the patient the different causes of abnormal bleeding including thyroid disorders, uterine and ovarian pathology, endometrial hyperplasia, carcinoma and other potential causes. Discussed with the patient the work up including CBC (to r/o anemia), TSH, pelvic Ultrasound, endometrial sampling to r/o endometrial pathology. Recommended to the patient that the next step is an endometrial sampling via hysteroscopy D&C possible polypectomy versus endometrial biopsy to r/o endometrial pathology including hyperplasia or cancer. All the pros and cons risks and benefits of each approach were discussed with the patient, endometrial biopsy being less invasive, office procedure with less sensitivity and inability diagnose a polyp and removal versus hysteroscopy done under anesthesia more invasive more sensitive to endometrial cancer and possibility of diagnosing and endometrial polyp with the possibility of polypectomy. All questions were answered pt verbalized understanding and decided to proceed with hysteroscopy D&C possible polypectomy/myomectomy. The patient was asked to call her PCP for preop medical clearance. Will schedule hysteroscopy D&C possible polypectomy/myomectomy pending medical clearance. Discussed with the patient the procedure , all benefits and risks including but not limited to inability to complete the procedure , insufficient endometrial tissue for a complete evaluation of the endometrial cavity , bleeding, infection, possible need for blood transfusion with all its risk ( HIV,syphilis, Hepatitis, anaphylaxis shock, others..), injury to bladder, rectum, possible need for laparoscopy/laparotomy or hysterectomy. The patient verbalized understanding and signed the consent. Instructions given the patient to schedule a 2 week postoperative appointment All questions answered and the patient verbalized understanding. Coding Level of Care Code New Pt Level 3 (32861) Diagnoses Abnormal uterine bleeding (AUB) N93.9
== END 2023-11-27 13:10 | disposition home or self-care (01) ==
PROVIDERS: PCP Internal Medicine; Visit Provider Obstetrics & Gynecology
DX: N93.9 Abnormal uterine and vaginal bleeding, unspecified (principal)
CPT/HCPCS: 99203

== ENCOUNTER 2023-11-27 12:10 | Outpatient (REF) | payer OTHER, SELFPAY | END 2023-11-27 12:11 | disposition home or self-care (01) | LOC: HO.LNP 12:10 | PROVIDERS: PCP Internal Medicine; Visit Provider Obstetrics & Gynecology | DX: Z13.89 Encounter for screening for other disorder (principal) | CPT/HCPCS: 0353U ==

== ENCOUNTER 2023-11-27 13:31 | Outpatient (AMB) | payer OTHER, SELFPAY ==
--- NOTE | 2023-11-27 13:45 | MHC.PC.OV ---
Vital Signs 11/27/23 13:46 Height 5 ft 4 in Weight 282 lb 8 oz BMI 48.5 BP 118/62 Blood Pressure Location Rt brachial Position Sitting Pulse 83 Pulse Source Pulse Oximeter Pulse Oximetry (%) 98 Oxygen Delivery Method Room Air Intake Visit Reasons: Anemia Allergies No Known Allergies Allergy (Verified 11/27/23 13:48) Medication List - Last Reconciled 11/27/23 by Angie Blair MD blood pressure kit-extra large As directed ferrous sulfate 325 mg PO DAILY gabapentin 600 mg PO TID inulin (Fiber Gummies) 2 grams PO BID metoprolol tartrate 50 mg PO BID vitamin A palmitate 10,000 units PO DAILY Tobacco use date assessed: 11/27/23 Dental Screening Dental Screen Date: 11/27/23 Did you have a dental visit in the last 12 months?: No Did you have a dental problem in the last 6 months where you did not have access to dental care?: No Was dental information given to patient?: Patient has dentist HPI Anemia HPI Details Patient is a 53-year-old female who was in emergency room [facility] on 11/19/2023 with a chief complaint of palpitations During emergency room workup patient's hemoglobin came back at 8.9 She continued to bleed heavily vaginally She has made appointment with Dr. Puente which is on December 13 Patient is requesting to up her iron supplement to 3 times a day which I have She also need a referral to Dr. Greco hematology, she has seen her in the past and gotten iron infusion Patient says that she need clearance for the procedure on December 13 by OBGYN Emergency room note, labs reviewed Referral placed to see hematology Iron supplement sent Note given to be off work for today She has cardiology appointment tomorrow she will also get clearance for OBGYN procedure through Cardiology Patient is clear for OBGYN procedure [facility] Medical History Herniated cervical disc Liver fibrosis Steatosis, liver COVID-19 vaccine series completed SVT (supraventricular tachycardia) Hospital discharge follow-up 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 procedure Encounter for Papanicolaou smear of cervix Encounter for general adult medical examination with abnormal findings Encounter for routine gynecological examination Breast screening SOB (shortness of breath) Abnormal nuclear stress test Diabetic nephropathy associated with type 2 diabetes mellitus Morbid obesity Elevated troponin Hypertension PCOS (polycystic ovarian syndrome) Vitamin D deficiency Heel callus Candidal skin infection Hirsutism Chronic GERD Obesity Diabetes 1.5, managed as type 2 Surgical History Hx of discectomy History of gastric surgery Family History Father Diabetes mellitus Mother HTN (hypertension) Total knee replacement status Paternal Grandfather Diabetes mellitus Maternal Grandfather No problems noted. Maternal Grandmother Brain tumor Paternal Grandmother Diabetes mellitus Brother No problems noted. Father Diabetes mellitus Maternal Grandmother Brain tumor Maternal Grandfather No problems noted. Paternal Grandfather Diabetes mellitus Paternal Grandmother No problems noted. Brother No problems noted. 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 How often do you have a drink containing alcohol?: Never 3. How often do you have six or more drinks on one occasion?: Never Total Score: 0 Score Reviewed/Action Taken: Yes RONEL-7 AMB Questionnaire RONEL-7 Date RONEL - 7 assessed: 03/16/23 Source: Developed by Drs. Kana Arana, Zo Mckenna, Gómez Gutierrez and colleagues, with an educational oral from [employer]. Review of Systems Const Denies chills and Denies fever(s) ENT Denies epistaxis and Denies nasal discharge Card Denies chest pain Resp Denies chest congestion, Denies cough and Denies hemoptysis GI Denies diarrhea and Denies nausea Skin/Breast Denies rash Neuro Reports no additional complaints Psych Reports no additional complaints Endo Reports no additional complaints Physical exam (Primary Care) Vital Signs: Last Vital Signs Pulse 83 11/27/23 13:46 BP 118/62 11/27/23 13:46 Pulse Ox 98 11/27/23 13:46 Oxygen Delivery Method Room Air 11/27/23 13:46 BMI result Body Mass Index 48.5 Tobacco/Smoking Status: Tobacco use Status Tobacco use date assessed 11/27/23 11/27/23 13:49 Patient Tobacco Use Status Never used Tobacco 11/27/23 13:49 e-Cigarette/Vaping Use Never Used 11/27/23 13:49 Thrive Assessment: Date of Thrive Assessment Date Thrive assessed 03/16/23 11/27/23 13:49 Const General: cooperative, comfortable and no acute distress Orientation/consciousness: patient oriented x3 HENMT Head: Yes normocephalic Eyes General: appearance normal, both eyes and all related structures Neck Neck: Yes supple Resp Effort & Inspection: normal respiratory effort, no cough and no stridor Cardio Rhythm: regular rhythm Heart sounds: S1 normal heart sound present and S2 normal heart sound present Skin General skin exam: turgor normal Neuro General: patient oriented x3, tone normal and moves all extremities Extrem Right lower extremity: no edema Left lower extremity: no edema Assessment and Plan Assessment & Plan (1) Iron deficiency anemia: Code(s): D50.9 - Iron deficiency anemia, unspecified Qualifiers: Iron deficiency anemia type: chronic blood loss Qualified Code(s): D50.0 - Iron deficiency anemia secondary to blood loss (chronic) (2) Palpitations: Code(s): R00.2 - Palpitations (3) Dysfunctional uterine bleeding: Code(s): N93.8 - Other specified abnormal uterine and vaginal bleeding Plan Patient is a 53-year-old female who was in emergency room [facility] on 11/19/2023 with a chief complaint of palpitations During emergency room workup patient's hemoglobin came back at 8.9 She continued to bleed heavily vaginally She has made appointment with Dr. Puente which is on December 13 Patient is requesting to up her iron supplement to 3 times a day which I have She also need a referral to Dr. Greco hematology, she has seen her in the past and gotten iron infusion Patient says that she need clearance for the procedure on December 13 by OBGYN Emergency room note, labs reviewed Referral placed to see hematology Iron supplement sent Note given to be off work for today She has cardiology appointment tomorrow she will also get clearance for OBGYN procedure through Cardiology Patient is clear for OBGYN procedure 45 minute spent in care of this patient Orders: Referrals Hematology & Oncology Referral D50.9 - Iron deficiency anemia, unspecified Medications: Changed From ferrous sulfate 325 mg PO DAILY 90 tabs 1RF To ferrous sulfate 325 mg PO TID 270 tabs 1RF 90 days Coding Level of Care Code Est Pt Level 5 (87489) Diagnoses Iron deficiency anemia due to chronic blood loss D50.0 Iron deficiency anemia type: chronic blood loss Palpitations R00.2 Dysfunctional uterine bleeding N93.8
[2023-11-27 13:46] VITALS: BP 118/62; PULSE 83; O2SAT 98; BMI 48.5
== END 2023-11-27 14:11 | disposition home or self-care (01) ==
PROVIDERS: PCP Internal Medicine; Visit Provider Internal Medicine
DX: D50.0 Iron deficiency anemia secondary to blood loss (chronic) (principal); R00.2 Palpitations; N93.8 Other specified abnormal uterine and vaginal bleeding
CPT/HCPCS: 99215

== ENCOUNTER 2023-11-28 13:31 | Outpatient (AMB) | payer OTHER, SELFPAY ==
--- NOTE | 2023-11-28 14:47 | MHC.OFFVIS ---
Vital Signs 11/28/23 14:48 Height 5 ft 1 in Weight 282 lb BMI 53.3 BP 130/70 Blood Pressure Location Lt brachial Position Sitting Pulse 89 Pulse Source Pulse Oximeter Pulse Oximetry (%) 98 Oxygen Delivery Method Room Air Intake Visit Reasons: [facility] [place] ED fu - elevated heart rate (rs) Intake Note: [facility] [place] [facility] ER D/C PT IS DOING BETTER NEEDS CLEARANCE FOR SURGERY Allergies No Known Allergies Allergy (Verified 11/27/23 13:48) HPI Comments Details: 53-year-old female presents today for a follow-up after emergency care and pre-operative clearance for a hysteroscopy with D&C with possible polyectomy and myomectomy on 12/14/[address] Puente. She presents to the ED for an episode of SVT on 11/18. She was cleaning the house and felt her heart racing and noticed she was due for her medication. This was the first episode in about 2 years. She was found to be anemic with a hgb of 8.9 and 30.9. She denies chest pains and endoreses mild SOB with ambulation which has been recent due to anemia. [facility] Medical History Herniated cervical disc Liver fibrosis Steatosis, liver COVID-19 vaccine series completed SVT (supraventricular tachycardia) Hospital discharge follow-up 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 procedure Encounter for Papanicolaou smear of cervix Encounter for general adult medical examination with abnormal findings Encounter for routine gynecological examination Breast screening SOB (shortness of breath) Abnormal nuclear stress test Diabetic nephropathy associated with type 2 diabetes mellitus Morbid obesity Elevated troponin Hypertension PCOS (polycystic ovarian syndrome) Vitamin D deficiency Heel callus Candidal skin infection Hirsutism Chronic GERD Obesity Diabetes 1.5, managed as type 2 Surgical History Hx of discectomy History of gastric surgery Family History Father Diabetes mellitus Mother HTN (hypertension) Total knee replacement status Paternal Grandfather Diabetes mellitus Maternal Grandfather No problems noted. Maternal Grandmother Brain tumor Paternal Grandmother Diabetes mellitus Brother No problems noted. Father Diabetes mellitus Maternal Grandmother Brain tumor Maternal Grandfather No problems noted. Paternal Grandfather Diabetes mellitus Paternal Grandmother No problems noted. Brother No problems noted. 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 Cognitive needs: No Hearing needs: No Vision needs: Yes Review of Systems Const Denies weakness ENT Denies dizziness Card Denies chest pain, Denies chest pain with activity, Denies syncope, Denies rapid heart rate, Denies pedal edema, Denies edema, Denies leg edema, Denies lightheadedness, Denies palpitations, Denies dyspnea, Denies dyspnea on exertion and Denies orthopnea Resp Denies cough, Denies dyspnea and Denies dyspnea on exertion GI Denies hematochezia and Denies change in stool character Musc Denies abnormal gait, Denies muscle cramps, Denies muscle weakness, Denies numbness, Denies radiating pain into limb and Denies tingling Neuro Denies abnormal gait, Denies dizziness, Denies syncope, Denies numbness, Denies tingling and Denies weakness Endo Denies palpitations Physical Exam Vital Signs: Last Vital Signs Pulse 89 11/28/23 14:48 BP 130/70 11/28/23 14:48 Pulse Ox 98 11/28/23 14:48 Oxygen Delivery Method Room Air 11/28/23 14:48 BMI result Body Mass Index 53.3 Const General: healthy appearing and no acute distress Orientation/consciousness: patient oriented x3 HEENT Head: Yes normal to inspection Eyes General: appearance normal, both eyes and all related structures Neck Neck: Yes normal visual inspection Chest Chest palpation & inspection: normal inspection of the chest Resp Effort & Inspection: normal respiratory effort Auscultation: clear to auscultation bilaterally Cardio Jugular venous distension: no JVD Palpation: normal PMI Rate: regular rate Rhythm: regular rhythm Heart sounds: S1 normal heart sound present, S2 normal heart sound present, no click, no gallops, no murmurs and no rubs GI Inspection: Yes normal to inspection Palpation (GI): Soft to palpation Skin General skin exam: no rashes or lesions noted Neuro General: patient oriented x3 Extrem General: Yes normal to inspection Psych Appearance: grossly normal Assessment & Plan Assessment & Plan (1) SVT (supraventricular tachycardia): Comment: 2020 & 10/2021-seen in ED-clearance 11/15/21 on chart Code(s): I47.1 - Supraventricular tachycardia Category: Medical (2) Pre-operative cardiovascular examination: Code(s): Z01.810 - Encounter for preprocedural cardiovascular examination Plan Patient with episode of SVT in setting of anemia. FIrst episode in 2 years. She was due for her medications at that time. Due for gynecoloigcal procuedure 12/[address] Puente. She should continue medications and is optimized for surgery with low to intermediate risk. Coding Level of Care Code Est Pt Level 3 (55804) Diagnoses SVT (supraventricular tachycardia) I47.1 Pre-operative cardiovascular examination Z01.810
[2023-11-28 14:48] VITALS: BP 130/70; PULSE 89; O2SAT 98; BMI 53.3
== END 2023-11-28 16:26 | disposition home or self-care (01) ==
PROVIDERS: PCP Internal Medicine; Visit Provider Nurse Practitioner
DX: I47.10 Supraventricular tachycardia, unspecified (principal); Z01.810 Encounter for preprocedural cardiovascular examination
CPT/HCPCS: 99213

== ENCOUNTER → 2023-11-28 13:31 | Outpatient (BNVA) | payer OTHER, SELFPAY | PROVIDERS: PCP Internal Medicine; Visit Provider Nurse Practitioner | DX: Z01.810 Encounter for preprocedural cardiovascular examination (principal); I47.10 Supraventricular tachycardia, unspecified ==

== ENCOUNTER 2023-12-06 10:28 | Outpatient (REF) | payer OTHER, SELFPAY ==
--- NOTE | ~2023-12-06 | US_ITS ---
EXAMINATION: US PELVIS CLINICAL INFORMATION: Abnormal uterine and vaginal bleeding, unspecified LMP: One week ago, currently menstruating COMPARISON: None available. TECHNIQUE: Ultrasound of the pelvis is performed using both transabdominal and transvaginal transducers along with Doppler. Transvaginal imaging is performed due to inadequate visualization transabdominally. Technically limited study due to patient body habitus and patient discomfort. FINDINGS: Uterus: The uterus is anteverted and measures 10.6 x 5.7 x 6.9 cm. No focal fibroid. The endometrial thickness is 0.7 cm. Adnexa: The right ovary is not seen. Left ovary measures 2.6 x 3.2 x 2.0 cm. Volume 8.7 mL. There is no free fluid within the cul-de-sac. US/US pelvic and transvaginal IMPRESSION: 1. Normal size uterus without a focal fibroid. 2. Normal left ovary. 3. The right ovary is not seen.
== END 2023-12-06 10:29 | disposition home or self-care (01) ==
LOC: HO.US 10:28
PROVIDERS: PCP Internal Medicine; Visit Provider Obstetrics & Gynecology
DX: N93.9 Abnormal uterine and vaginal bleeding, unspecified (principal)
CPT/HCPCS: 76830; 76856

== ENCOUNTER 2023-12-10 12:52 | Outpatient (REF) | payer OTHER, SELFPAY ==
[2023-12-11 02:20] LABS: CT PCR NOT DETECTED (Not Detect.); NG PCR NOT DETECTED (Not Detect.)
== END 2023-12-10 12:53 | disposition home or self-care (01) ==
LOC: HO.LAB 12:52
PROVIDERS: PCP Internal Medicine; Visit Provider Obstetrics & Gynecology
DX: N93.9 Abnormal uterine and vaginal bleeding, unspecified (principal)
CPT/HCPCS: 0353U

== ENCOUNTER 2023-12-14 08:07 | Day surgery (SDC) | payer OTHER, SELFPAY ==
[2023-12-12 08:33] VITALS: BMI 49.9
--- NOTE | 2023-12-12 13:16 | P.CONAN_ITS ---
Documented by User: Hilary Raymundo NP 12/12/23 13:25 HPI - Anesthesia Eval Consult details Narrative: 53yo F for D&C Hysteroscopy,possible myomectomy,possible polypectomy, BMI 49 [facility] ED 10/2023 with SVT. First occurrance in 2 years. HR 140s on arrival, spontaneously converted to SR, HR 90s Optimized per cardiology. Seen 11/2023 by [facility] cardiology for ED f/u and preprocedure. DM - no rx on external record. 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 (Acute) Cervical fusion syndrome (Acute) Lower back pain (Acute) Diabetes type 2, uncontrolled (Acute) Iron deficiency anemia (Acute) Palpitations (Acute) Anemia (Chronic) Type 2 diabetes mellitus (Acute) Dysfunctional uterine bleeding (Acute) Abnormal uterine bleeding (AUB) (Acute) Anxiety (Acute) Lumbar paraspinal muscle spasm (Acute) Paresthesia of left arm (Acute) Shoulder pain, left (Acute) Arm pain, left (Acute) Upper back pain (Acute) Pain in both lower legs (Acute) Weakness of both legs (Acute) Cervical radiculitis (Acute) Cervicalgia (Acute) Left hand weakness (Acute) Paresthesias (Acute) Anxiety disorder due to general medical condition (Acute) BMI 39.0-39.9,adult (Acute) S/P laparoscopic sleeve gastrectomy (Acute) Constipation (Acute) Multinodular thyroid (Acute) Encounter for general adult medical examination with abnormal findings (Acute) Elevated serum creatinine (Acute) SVT (supraventricular tachycardia) (Acute) Liver fibrosis (Acute) Steatosis, liver (Acute) 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 procedure (Acute) Diabetic nephropathy associated with type 2 diabetes mellitus (Acute) Morbid obesity (Acute) Vitamin D deficiency (Acute) PCOS (polycystic ovarian syndrome) (Acute) Hypertension (Acute) Hirsutism (Acute) Chronic GERD (Acute) Obesity (Acute) Diabetes 1.5, managed as type 2 (Acute) Past Medical History Medical History Anemia Herniated cervical disc Liver fibrosis Steatosis, liver COVID-19 vaccine series completed SVT (supraventricular tachycardia) Hospital discharge follow-up 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 procedure Encounter for Papanicolaou smear of cervix Encounter for general adult medical examination with abnormal findings Encounter for routine gynecological examination Breast screening SOB (shortness of breath) Abnormal nuclear stress test Diabetic nephropathy associated with type 2 diabetes mellitus Morbid obesity Elevated troponin Hypertension PCOS (polycystic ovarian syndrome) Vitamin D deficiency Heel callus Candidal skin infection Hirsutism Chronic GERD Obesity Diabetes 1.5, managed as type 2 Family History Family History Father Diabetes mellitus Mother HTN (hypertension) Total knee replacement status Paternal Grandfather Diabetes mellitus Maternal Grandfather No problems noted. Maternal Grandmother Brain tumor Paternal Grandmother Diabetes mellitus Brother No problems noted. Father Diabetes mellitus Maternal Grandmother Brain tumor Maternal Grandfather No problems noted. Paternal Grandfather Diabetes mellitus Paternal Grandmother No problems noted. Brother No problems noted. Family history of problems with anesthesia: No Surgical History Surgical History (Updated 12/14/23 @ 08:49 by Earnestine Estrella RN) Hx of discectomy History of gastric surgery History of Problems with Anesthesia: No Social History Social History Household Members: Spouse Housing: House Are you a primary wound care physician to a significant other at home: No Do you presently have visiting nurse or other home services: No Alcohol intake: never Comment: uses cane due to back pain (DDD)-is improving Patient Tobacco Use Status: Never used Tobacco e-Cigarette/Vaping Use: Never Used Second Hand Smoke Exposure: No Use of substances other than those prescribed or required for medical reasons: No Are you DNR?: No Advance Directives: No Advance Directives Information Provided: Yes Advance Directives Date on File: 10/14/20 service: No Current occupational status: employed 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 Cognitive needs: No Hearing needs: No Vision needs: Yes Meds Allergies Allergy/AdvReac Type Severity Reaction Status Date / Time No Known Allergies Allergy Verified 12/14/23 08:53 Home Medications ?Medication ?Instructions ?Recorded ?Confirmed ?Last Taken ?Type gabapentin 600 mg tablet 600 mg PO TID 11/27/23 12/14/23 Unknown History multivitamin 1 tab PO DAILY 12/14/23 12/14/23 Unknown History Exam Height,Weight and Vital Signs: Height 5 ft 4 in Weight 131.995 kg Pertinent Lab Results Pertinent Lab Results: Laboratory Tests 11/19/23 11/30/23 17:30 10:48 WBC 7.5 Hgb 9.0 L Hct 30.3 L Plt Count 482 H Sodium 136 Potassium 4.6 Chloride 106 Carbon Dioxide 22 BUN 10 Creatinine 0.92 Assessment and Plan Assessment Anesthesia Assessment: Chart Reviewed Final Anesthetic Review Family History of Problems with Anesthesia: No History of Problems with Anesthesia: No Documented by User: Will Andrade MD 12/14/23 10:37 [facility] Past Medical History Medical History Anemia Herniated cervical disc Liver fibrosis Steatosis, liver COVID-19 vaccine series completed SVT (supraventricular tachycardia) Hospital discharge follow-up 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 procedure Encounter for Papanicolaou smear of cervix Encounter for general adult medical examination with abnormal findings Encounter for routine gynecological examination Breast screening SOB (shortness of breath) Abnormal nuclear stress test Diabetic nephropathy associated with type 2 diabetes mellitus Morbid obesity Elevated troponin Hypertension PCOS (polycystic ovarian syndrome) Vitamin D deficiency Heel callus Candidal skin infection Hirsutism Chronic GERD Obesity Diabetes 1.5, managed as type 2 Patient : No Family History Family History Father Diabetes mellitus Mother HTN (hypertension) Total knee replacement status Paternal Grandfather Diabetes mellitus Maternal Grandfather No problems noted. Maternal Grandmother Brain tumor Paternal Grandmother Diabetes mellitus Brother No problems noted. Father Diabetes mellitus Maternal Grandmother Brain tumor Maternal Grandfather No problems noted. Paternal Grandfather Diabetes mellitus Paternal Grandmother No problems noted. Brother No problems noted. Surgical History Surgical History (Updated 12/14/23 @ 08:49 by Earnestine Estrella, RN) Hx of discectomy History of gastric surgery Social History Social History Household Members: Spouse Housing: House Are you a primary wound care physician to a significant other at home: No Do you presently have visiting nurse or other home services: No Alcohol intake: never Comment: uses cane due to back pain (DDD)-is improving Patient Tobacco Use Status: Never used Tobacco e-Cigarette/Vaping Use: Never Used Second Hand Smoke Exposure: No Use of substances other than those prescribed or required for medical reasons: No Are you DNR?: No Advance Directives: No Advance Directives Information Provided: Yes Advance Directives Date on File: 10/14/20 service: No Current occupational status: employed 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 Cognitive needs: No Hearing needs: No Vision needs: Yes Meds Allergies Allergy/AdvReac Type Severity Reaction Status Date / Time No Known Allergies Allergy Verified 12/14/23 08:53 Home Medications ?Medication ?Instructions ?Recorded ?Confirmed ?Last Taken ?Type gabapentin 600 mg tablet 600 mg PO TID 11/27/23 12/14/23 Unknown History multivitamin 1 tab PO DAILY 12/14/23 12/14/23 Unknown History Exam Airway Mallampati Class: II TM Dist: <=3cm Neck ROM: Full Loose/Missing/Broken Teeth: Yes and Upper Heart: ok Lungs: ok Assessment and Plan Assessment Anesthesia Assessment: Anesthesia Plan Discussed Final Anesthetic Review NPO: Yes ASA Class: III Final Preanesthetic Review: No Changes in Pt Med Stat, Meds/Allgs Chart Reviewed, Consent Obtained/Reviewed and Anes Risks/Benef Reviewed Patient Risk: Intermediate Procedure Risk: Low Anesthetic Plan Anesthetic Plan: GA and Agree w/ Assess. and Plan Disposition: Standard PACU
[2023-12-14] VITALS (7 sets, daily range): BP systolic 95–136; BP diastolic 59–81; PULSE 71–81; RESP 16–18; TEMP 36.3–36.8; O2SAT 95–99; BMI 46.9
--- NOTE | 2023-12-14 08:47 | MHC.SHP ---
Pre-Procedural Eval Section A - 24 Hr Update-Section A only Date of Service: 12/14/23 The patient is an INPATIENT: No Changes since office visit: No Cold of Flu in the past 2 weeks, No New Medical Problems, No Changes in Medication and No Patient answered all questions The patient has been examined within 24 hours of the surgical procedure. The History & Physical has been completed within 30 days and I have reviewed it.: Yes Section B - Complete if H&P > 30 days Chief Complaint: Abnormal uterine and vaginal bleeding, unspecified Allergies: Allergies Allergy/AdvReac Type Severity Reaction Status Date / Time No Known Allergies Allergy Verified 11/30/23 10:39 Plan Diagnosis/Plan: Unchanged I have reviewed the history and physical and performed a pertinent physical examination on my patient. No changes have occurred unless specified. Time Spent With Patient Time: Total time managing care of this patient today ____ minutes.
[2023-12-14 09:02] LABS: Glucose, Whole Blood 141 mg/dL (60-115)
[2023-12-14 09:12] LABS: UPreg QC Valid YES; Urine Pregnancy NEGATIVE (NEGATIVE)
[2023-12-14] MEDS: Lactated Ringers 1,000 ML 100 ML IVCONT (09:19)
--- NOTE | 2023-12-14 11:21 | P.BOP_ITS ---
Brief Operative Note Date of Service: 12/14/23 Pre-op diagnosis: Abnormal uterine bleeding Post-op diagnosis: same (2 Endometrial polyps) Procedure: Hysteroscopy D&C, Polypectomy Surgeon: Ton Puente MD Anesthesia: GLMA Was an Special Education Director used for this Procedure?: No Estimated blood loss (mL): 0 Pathology: other (Endometrial Scrapping. Polyps) Condition: stable Disposition: PACU
--- NOTE | 2023-12-14 11:21 | P.OP_ITS ---
Operative Note Operative Note Date of Service: 12/14/23 Narrative: Preop Diagnosis: Abnormal uterine bleed Operation: Diagnostic Hysteroscopy, Dilataion & Curettage and polypectomy Post Op Diagnosis: 2 Endometrial Polyps QBL: Minimal Anesthesia: GLMA Surgeon: Ton Puente MD Cyber Security Consultant: None Complication: None Pathology: Endometrial Scrapings, Endometrial polyps Procedure: The patient was put in the dorsal lithotomy position, scrubbed, and draped in the usual manner. A sterile speculum was inserted in the patient's vagina. The anterior lip of the cervix was grasped with a single tooth tenaculum. The cervix was dilated up to 5 mm, then the scope was inserted in the patient's uterus. Inspection revealed 2 endometrial polyps. The Myosure Reach device was used; it was introduced through the operative channel and polypectomy done with no complications. The scope was then taken out from the uterine cavity, sharp curettings was carried on with minimal to moderate amount of tissues retrieved. At the end of the procedure, all instruments were taken out of the patient uterine and vaginal cavity. The single tooth tenaculum was removed and homeostasis was assured using pressure,. The patient tolerated the procedure well and was transferred to the PACU in a stable condition.
[2023-12-14] MEDS: oxyCODONE HCl Immed Release 5 MG TABLET PO (11:53)
== END 2023-12-14 13:15 | disposition home or self-care (01) ==
PROVIDERS: Pathology Anatomic Pathology & Clinical Pathology; PCP Internal Medicine; Visit Provider Obstetrics & Gynecology
PROC: 0UDB8ZZ Extraction of Endometrium, Via Natural or Artificial Opening Endoscopic (ICD-10-PCS; CPT 58558; principal; 2023-12-14 10:30)
DX: N93.9 Abnormal uterine and vaginal bleeding, unspecified (principal); C54.1 Malignant neoplasm of endometrium; N84.0 Polyp of corpus uteri; E28.2 Polycystic ovarian syndrome; E11.21 Type 2 diabetes mellitus with diabetic nephropathy; I10 Essential (primary) hypertension; K76.0 Fatty (change of) liver, not elsewhere classified; K74.00 Hepatic fibrosis, unspecified; L68.0 Hirsutism; I47.10 Supraventricular tachycardia, unspecified; E66.01 Morbid (severe) obesity due to excess calories; Z68.42 Body mass index [BMI] 45.0-49.9, adult; Z79.899 Other long term (current) drug therapy; Z98.84 Bariatric surgery status
CPT/HCPCS: 58558; 36415; 81025; 81288; 82947; 88305; 88341; 88342; J1885; J2405; J2704; J3010

== ENCOUNTER → 2023-12-14 08:07 | Outpatient (BNV) | payer OTHER, SELFPAY | PROVIDERS: PCP Internal Medicine; Visit Provider Obstetrics & Gynecology | DX: N84.0 Polyp of corpus uteri (principal); N93.9 Abnormal uterine and vaginal bleeding, unspecified | CPT/HCPCS: 58558 ==

== ENCOUNTER 2023-12-19 14:23 | Outpatient (AMB) | payer OTHER, SELFPAY ==
--- NOTE | 2023-12-19 14:23 | MHC.OFFVIS ---
Intake Visit Reasons: discuss results Allergies No Known Allergies Allergy (Verified 12/14/23 08:53) HPI Comments Details: The patient scheduled tele health visit post hysteroscopy D&C no complaints minimal vaginal bleeding no feverishness chills or abdominal pain. The pathology showed the following: A. Endometrium, polypectomy: Endometrial adenocarcinoma, endometrioid type, FIGO Grade 1. B. Endometrium, curettage: Endometrial adenocarcinoma, endometrioid type, FIGO Grade 1 PFSH Medical History Anemia Herniated cervical disc Liver fibrosis Steatosis, liver COVID-19 vaccine series completed SVT (supraventricular tachycardia) Hospital discharge follow-up 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 procedure Encounter for Papanicolaou smear of cervix Encounter for general adult medical examination with abnormal findings Encounter for routine gynecological examination Breast screening SOB (shortness of breath) Abnormal nuclear stress test Diabetic nephropathy associated with type 2 diabetes mellitus Morbid obesity Elevated troponin Hypertension PCOS (polycystic ovarian syndrome) Vitamin D deficiency Heel callus Candidal skin infection Hirsutism Chronic GERD Obesity Diabetes 1.5, managed as type 2 Surgical History Hx of discectomy History of gastric surgery Family History Father Diabetes mellitus Mother HTN (hypertension) Total knee replacement status Paternal Grandfather Diabetes mellitus Maternal Grandfather No problems noted. Maternal Grandmother Brain tumor Paternal Grandmother Diabetes mellitus Brother No problems noted. Father Diabetes mellitus Maternal Grandmother Brain tumor Maternal Grandfather No problems noted. Paternal Grandfather Diabetes mellitus Paternal Grandmother No problems noted. Brother No problems noted. 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 Cognitive needs: No Hearing needs: No Vision needs: Yes Review of Systems Const All systems reviewed & are unremarkable except as noted in HPI and below Reports as per HPI and Reports no additional complaints GI Reports no additional complaints Reports no additional complaints Telehealth Telehealth Telehealth Platform: Telephone Location of provider rendering services: practice address Location of patient: address on file Patient Identification confirmed using: Name, : Yes Telehealth method: video Patient verbally consented to treatment: Yes Patient verbally consented to billing insurance company: Yes Patient informed of any privacy concerns related to visit: Yes Assessment & Plan Assessment & Plan (1) Endometrial adenocarcinoma: Code(s): C54.1 - Malignant neoplasm of endometrium Category: Medical Plan: Discussed with the patient the pathology results, the recommended surgical staging procedure, and the prognosis. The patient will be referred to [facility] for further management. MRI of the pelvis with and without contrast ordered. All questions answered, the patient verbalized understanding. Appointment scheduled at [facility] bonded strand operator Oncology on 01/01/2024 at 10:20 a.m.. , the patient is aware I spent a total of 20 minutes reviewing the chart, talking to the patient via video and documenting in the medical record. Orders: Orders MR pelvis wo/w con Today C54.1 - Malignant neoplasm of endometrium Coding Level of Care Code Tele Est Pt Level 1 (66078) Diagnoses Endometrial adenocarcinoma C54.1
== END 2023-12-20 07:18 | disposition home or self-care (01) ==
LOC: HO.HWS 14:23
PROVIDERS: PCP Internal Medicine; Visit Provider Obstetrics & Gynecology
DX: C54.1 Malignant neoplasm of endometrium (principal)
CPT/HCPCS: 99211

== ENCOUNTER → 2023-12-19 14:23 | Outpatient (BNVA) | payer OTHER, SELFPAY | PROVIDERS: PCP Internal Medicine; Visit Provider Obstetrics & Gynecology ==

== ENCOUNTER → 2024-01-02 11:43 | Outpatient (BNVA) | payer OTHER, SELFPAY | PROVIDERS: PCP Internal Medicine; Visit Provider Obstetrics & Gynecology ==

== ENCOUNTER 2024-01-29 14:27 | Outpatient (AMB) | payer BC, SELFPAY ==
--- NOTE | 2024-01-29 14:35 | MHC.OFFVISWM ---
VS Expanded 01/29/24 14:43 BP 131/68 Blood Pressure Location Rt brachial Blood Pressure Position Sitting Pulse 86 Pulse Source Pulse Oximeter Temp 96.5 F L Temperature Source Temporal Artery Scan Pulse Oximetry 98 Oxygen Delivery Method Room Air Height 5 ft 3 in Weight 274 lb 9.6 oz BMI 48.6 Body Fat % 49.1 Body Fat Mass 134.8 Fat Free Mass 139.8 Visceral Fat Rating 17.0 Body Water % 36.3 Body Water Mass 99.6 Muscle Mass/Score 132.8 Basal Metabolic Rate/Score 1,995 Intake Visit Reasons: (OV) PO LSG 12/15/21 Allergies No Known Allergies Allergy (Verified 01/29/24 14:39) Medication List - Last Reconciled 01/29/24 by SHANNAN Julian blood pressure kit-extra large As directed ferrous sulfate 325 mg PO TID 90 days gabapentin 600 mg PO TID ibuprofen 600 mg PO Q8H PRN medroxyprogesterone 10 mg PO DAILY metoprolol tartrate 50 mg PO BID multivitamin 1 tab PO DAILY vitamin A palmitate 10,000 units PO DAILY HPI Comments Details: This?is a?53?yo female who is s/p LSG 12/15/2021. Weight gain of 14.8lbs since last OV 1 year ago.? No complaints of nausea, emesis, abdominal pain or reflux, or constipation. Was found to have early stage cancer of uterus, having hysterectomy at [facility] in early February. Had some financial difficulties, was let go from her job. Present meal plan includes: I eat very little but I still gain weight sometimes snacks Exercise routine includes: difficulty walking due to leg pain [facility] Medical History Anemia Herniated cervical disc Liver fibrosis Steatosis, liver COVID-19 vaccine series completed SVT (supraventricular tachycardia) Hospital discharge follow-up 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 procedure Encounter for Papanicolaou smear of cervix Encounter for general adult medical examination with abnormal findings Encounter for routine gynecological examination Breast screening SOB (shortness of breath) Abnormal nuclear stress test Diabetic nephropathy associated with type 2 diabetes mellitus Morbid obesity Elevated troponin Hypertension PCOS (polycystic ovarian syndrome) Vitamin D deficiency Heel callus Candidal skin infection Hirsutism Chronic GERD Obesity Diabetes 1.5, managed as type 2 Surgical History Hx of discectomy History of gastric surgery Family History Father Diabetes mellitus Mother HTN (hypertension) Total knee replacement status Paternal Grandfather Diabetes mellitus Maternal Grandfather No problems noted. Maternal Grandmother Brain tumor Paternal Grandmother Diabetes mellitus Brother No problems noted. Father Diabetes mellitus Maternal Grandmother Brain tumor Maternal Grandfather No problems noted. Paternal Grandfather Diabetes mellitus Paternal Grandmother No problems noted. Brother No problems noted. 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 Discussed the need for adequate protein intake with upcoming surgery. 8-10am protein drink 20g 11am-12pm small meal 2-3oz protein 2-4pm protein drink 5-6pm small meal 2-3oz protein 7-9pm protein drink RTC 4 months, gave pt my phone # and encouraged her to reach out between appts with any questions. Patient is morbidly obese and is not considered stable at this time. I spent a total of 30 minutes reviewing/updating records, examining the patient and counseling the patient on weight management as detailed above.
[2024-01-29 14:43] VITALS: BP 131/68; PULSE 86; TEMP 35.8; O2SAT 98; BMI 48.6
== END 2024-01-29 15:10 | disposition home or self-care (01) ==
PROVIDERS: PCP Internal Medicine; Referring Provider Internal Medicine; Visit Provider Physician Assistant Surgical
DX: E66.01 Morbid (severe) obesity due to excess calories (principal); Z68.42 Body mass index [BMI] 45.0-49.9, adult; Z90.3 Acquired absence of stomach [part of]; Z98.84 Bariatric surgery status
CPT/HCPCS: 99214

== ENCOUNTER → 2024-01-29 14:27 | Outpatient (BNVA) | payer BC, SELFPAY | PROVIDERS: PCP Internal Medicine; Visit Provider Physician Assistant Surgical ==

== ENCOUNTER 2024-04-01 09:32 | Outpatient (AMB) | payer OTHER, SELFPAY ==
[2024-04-01 09:35] VITALS: BP 132/74; PULSE 84; O2SAT 98; BMI 49.4
--- NOTE | 2024-04-01 09:35 | A.OFFPC_ITS ---
Vital Signs 04/01/24 09:35 Height 5 ft 3 in Weight 279 lb BMI 49.4 BP 132/74 Blood Pressure Location Lt brachial Position Sitting Pulse 84 Pulse Source Pulse Oximeter Pulse Oximetry (%) 98 Oxygen Delivery Method Room Air Intake Visit Reasons: PE Allergies No Known Allergies Allergy (Verified 04/01/24 09:35) Medication List - Last Reconciled 04/01/24 by Angie Blair MD blood pressure kit-extra large As directed gabapentin 600 mg PO TID ibuprofen 600 mg PO Q8H PRN metoprolol tartrate 50 mg PO BID multivitamin 1 tab PO DAILY Tobacco use date assessed: 04/01/24 Dental Screening Dental Screen Date: 04/01/24 Did you have a dental visit in the last 12 months?: No Did you have a dental problem in the last 6 months where you did not have access to dental care?: No Was dental information given to patient?: Patient has dentist HPI PE HPI Details Patient is a 53-year-old female came in today for physical exam Patient recently had radical hysterectomy secondary to adenocarcinoma uterus, she will be going in for radiation therapy after Wound is healing well She is due for mammogram Declined to do colonoscopy at this time Patient have weakness in her left upper extremity and left lower extremity secondary to disc in her neck which she had surgery for and now need a surgery for lumbar back She will be seeing Dr. Ragland soon to be re-evaluated, She was having physical therapy when she was diagnosed with uterine cancer so she had to stop. Last time she had labs done in November her hemoglobin was 9.0 Patient says that she had labs after that and hemoglobin was improved She is in need of new set of lab order placed to be done fasting Continued to be morbidly obese Patient had bariatric surgery in 2021. All medications are from different providers Gabapentin is through Dr. R[facility]. 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 procedure Encounter for Papanicolaou smear of cervix Encounter for general adult medical examination with abnormal findings Encounter for routine gynecological examination Breast screening SOB (shortness of breath) Abnormal nuclear stress test Diabetic nephropathy associated with type 2 diabetes mellitus Morbid obesity Elevated troponin Hypertension PCOS (polycystic ovarian syndrome) Vitamin D deficiency Heel callus Candidal skin infection Hirsutism Chronic GERD Obesity Diabetes 1.5, managed as type 2 Surgical History Hx of discectomy History of gastric surgery Family History Father Diabetes mellitus Mother HTN (hypertension) Total knee replacement status Paternal Grandfather Diabetes mellitus Maternal Grandfather No problems noted. Maternal Grandmother Brain tumor Paternal Grandmother Diabetes mellitus Brother No problems noted. Father Diabetes mellitus Maternal Grandmother Brain tumor Maternal Grandfather No problems noted. Paternal Grandfather Diabetes mellitus Paternal Grandmother No problems noted. Brother No problems noted. 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 1. Little interest or pleasure in doing things: not at all 2. Feeling down, depressed, or hopeless: not at all 3. Trouble falling or staying asleep, or sleeping too much: not at all 4. Feeling tired or having little energy: not at all 5. Poor appetite or overeating: not at all 6. Feeling bad about yourself - or that you are a failure or have let yourself or your family down: not at all 7. Trouble concentrating on things, such as reading the newspaper or watching television: not at all 8. Moving or speaking so slowly that other people could have noticed. Or the opposite - being so fidgety or restless that you have been moving around a lot more than usual: not at all 9. Thoughts that you would be better off or of hurting yourself in some way: not at all Total score: 0 Depression Screening Interpretation: Negative Depression Screening Done: Yes 82591 - PHQ-9 Billing: Yes Source: Developed by Drs. Kana Arana, Zo Mckenna, Gómez Gutierrez and colleagues, with an educational oral from [employer]. Thrive Questionnaire Date Thrive assessed: 04/01/24 I am a: Patient What is your living situation today?: I have a steady place to live Within the past 12 months, did the food you bought not last and you didn't have the money to get more?: I choose not to answer this question Within the past 12 months, did you worry whether your food would run out before you got money to buy more?: I choose not to answer this question Do you have trouble paying for medicines?: I choose not to answer this question Do you have trouble getting transportation to medical appointments?: No Do you have trouble paying your heating and electricity bill?: No Do you have trouble taking care of your child, family member or friend?: No Do you have trouble with day-to-day activities such as bathing, preparing meals, shopping, managing finances, etc.?: No Are you currently unemployed and looking for a job?: Yes Are you interested in more education?: No Please select the resources that you would like help with: None Currently or been in a relationship where the following occur: I choose not to answer THRIVE Score: 0 AUDIT C Alcohol Use Questionnaire (AUDIT-C) 1. How often do you have a drink containing alcohol?: Never 3. How often do you have six or more drinks on one occasion?: Never Total Score: 0 Score Reviewed/Action Taken: Yes RONEL-7 AMB Questionnaire RONEL-7 Date RONEL - 7 assessed: 04/01/24 Feeling nervous, anxious, or on edge: 0 = Not at all Not being able to stop or control worryin = Not at all Worrying too much about different things: 0 = Not at all Trouble relaxin = Not at all Being so restless that it is hard to sit still: 0 = Not at all Becoming easily annoyed or irritable: 0 = Not at all Feeling afraid as if something awful might happen: 0 = Not at all Total RONEL-7 score (0-4 normal; 5-9 mild; 10-14 moderate; 15-21 severe): 0 Source: Developed by Drs. Kana Arana, Zo Mckenna, Gómez Gutierrez and colleagues, with an educational oral from [employer]. RONEL-7 Assessment Billing RONEL-7 Assessment Tool: RONEL-7 Assessment 13468 Review of Systems Const Denies chills, Denies fever(s) and Denies headache(s) Eyes Denies blurry vision ENT Denies headache(s), Denies nasal discharge, Denies nasal obstruction, Denies odynophagia and Denies sinus pain Card Denies chest pain at rest and Denies chest pain with activity Resp Denies cough and Denies hemoptysis GI Denies diarrhea, Denies odynophagia, Denies vomiting and Denies hematemesis Reports as per HPI Musc Denies abnormal gait Skin/Breast Reports as per HPI Neuro Denies Neuro-related abnormal movements, Denies Abnormal speech present, Denies abnormal gait and Denies headache(s) Psych Denies mood swings and Denies paranoia Endo Reports as per HPI Sina/Lymph Reports as per HPI Aller/Immun Reports as per HPI Physical exam (Primary Care) Vital Signs: Last Vital Signs Pulse 84 04/01/24 09:35 BP 132/74 04/01/24 09:35 Pulse Ox 98 04/01/24 09:35 Oxygen Delivery Method Room Air 04/01/24 09:35 BMI result Body Mass Index 49.4 Tobacco/Smoking Status: Tobacco use Status Tobacco use date assessed 04/01/24 04/01/24 09:39 Patient Tobacco Use Status Never used Tobacco 04/01/24 09:39 e-Cigarette/Vaping Use Never Used 04/01/24 09:39 PHQ-9: PHQ-9 Score PHQ-9: Total score 0 04/01/24 09:58 Depression Screening Interpretation: Negative Thrive Assessment: Date of Thrive Assessment Date Thrive assessed 04/01/24 04/01/24 09:39 Currently or been in a relationship where the following occur: I choose not to answer Const General: cooperative, comfortable and no acute distress Orientation/consciousness: patient oriented x3 HENMT Head: Yes normocephalic and Yes atraumatic Eyes General: appearance normal, both eyes and all related structures Pupils: Equal, round and reactive pupils present EOM: EOMs intact bilaterally Neck Neck: Yes supple and No lymphadenopathy Thyroid: Thyroid normal Lymphatic: no lymphadenopathy noted Resp Effort & Inspection: normal respiratory effort and able to speak in complete sentences Auscultation: clear to auscultation bilaterally Cardio Heart sounds: S1 normal heart sound present and S2 normal heart sound present GI Other: Surgical wound healing, still cleaner tube to palpation, bowel sounds positive General: Yes no CVA tenderness Back/Spine/Pelvis Back: no CVA tenderness Skin General skin exam: elasticity normal and turgor normal Neuro General: patient oriented x3 and gait normal Cranial nerves: Yes Equal, round and reactive pupils present Speech: No Abnormal speech present Extrem General: Yes normal exam except as noted and No edema Assessment and Plan Assessment & Plan (1) Encounter for general adult medical examination with abnormal findings: Code(s): Z00.01 - Encounter for general adult medical examination with abnormal findings (2) Diabetes 1.5, managed as type 2: Comment: glucose usually <150 Code(s): E13.9 - Other specified diabetes mellitus without complications (3) Hypertension: Code(s): I10 - Essential (primary) hypertension Qualifiers: Hypertension type: primary hypertension Qualified Code(s): I10 - Essential (primary) hypertension (4) Morbid obesity: Code(s): E66.01 - Morbid (severe) obesity due to excess calories (5) Diabetic nephropathy associated with type 2 diabetes mellitus: Code(s): E11.21 - Type 2 diabetes mellitus with diabetic nephropathy (6) History of radical hysterectomy: Code(s): Z90.710 - Acquired absence of both cervix and uterus (7) Endometrial adenocarcinoma: Code(s): C54.1 - Malignant neoplasm of endometrium (8) 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 (9) S/P laparoscopic sleeve gastrectomy: Code(s): Z98.84 - Bariatric surgery status (10) Left hand weakness: Code(s): R29.898 - Other symptoms and signs involving the musculoskeletal system (11) Anemia: Code(s): D64.9 - Anemia, unspecified Qualifiers: Anemia type: other cause Other causes of anemia: chronic disease, other Qualified Code(s): D63.8 - Anemia in other chronic diseases classified elsewhere (12) Steatosis, liver: Code(s): K76.0 - Fatty (change of) liver, not elsewhere classified (13) Morbid obesity due to excess calories: Code(s): E66.01 - Morbid (severe) obesity due to excess calories (14) Colonoscopy refused: Code(s): Z53.20 - Procedure and treatment not carried out because of patient's decision for unspecified reasons Plan Patient is a 53-year-old female came in today for physical exam Patient recently had radical hysterectomy secondary to adenocarcinoma uterus, she will be going in for radiation therapy after Wound is healing well She is due for mammogram Declined to do colonoscopy at this time Patient have weakness in her left upper extremity and left lower extremity secondary to disc in her neck which she had surgery for and now need a surgery for lumbar back She will be seeing Dr. Ragland soon to be re-evaluated, She was having physical therapy when she was diagnosed with uterine cancer so she had to stop. Last time she had labs done in November her hemoglobin was 9.0 Patient says that she had labs after that and hemoglobin was improved She is in need of new set of lab order placed to be done fasting Continued to be morbidly obese Patient had bariatric surgery in 2021. All medications are from different providers Gabapentin is through Dr. Ragland [facility]. Orders: Orders Comprehensive [place]. Panel Fast Today E11.21 - Type 2 diabetes mellitus with diabetic nephropathy, E13.9 - Other specified diabetes mellitus without complications, E66.01 - Morbid (severe) obesity due to excess calories, I10 - Essential (primary) hypertension, Z00.01 - Encounter for general adult medical examination with abnormal findings MM tomosynthesis screening BI Today Z12.31 - Encounter for screening mammogram for malignant neoplasm of breast Complete Blood Count Auto Diff Today E11.21 - Type 2 diabetes mellitus with diabetic nephropathy, E13.9 - Other specified diabetes mellitus without complications, E66.01 - Morbid (severe) obesity due to excess calories, I10 - Essential (primary) hypertension, Z00.01 - Encounter for general adult medical examination with abnormal findings Lipid Panel Today E11.21 - Type 2 diabetes mellitus with diabetic nephropathy, E13.9 - Other specified diabetes mellitus without complications, E66.01 - Morbid (severe) obesity due to excess calories, I10 - Essential (primary) hypertension, Z00.01 - Encounter for general adult medical examination with abnormal findings Hemoglobin A1c Today E11.21 - Type 2 diabetes mellitus with diabetic nephropathy, E13.9 - Other specified diabetes mellitus without complications, E 66.01 - Morbid (severe) obesity due to excess calories, I10 - Essential (primary) hypertension, Z00.01 - Encounter for general adult medical examination with abnormal findings Microalbumin, Random (w Creat) Today E11.21 - Type 2 diabetes mellitus with diabetic nephropathy, E13.9 - Other specified diabetes mellitus without complications, E66.01 - Morbid (severe) obesity due to excess calories, I10 - Essential (primary) hypertension, Z00.01 - Encounter for general adult medical examination with abnormal findings Coding Level of Care Code Est Pt Level 3 (09994) Est Pt Prev Care 40-64y(08674) Diagnoses Encounter for general adult medical examination with abnormal findings Z00.01 Diabetes 1.5, managed as type 2 E13.9 Primary hypertension I10 Hypertension type: primary hypertension Morbid obesity E66.01 Diabetic nephropathy associated with type 2 diabetes mellitus E11.21 History of radical hysterectomy Z90.710 Endometrial adenocarcinoma C54.1 Cervical fusion syndrome Q76.1 S/P laparoscopic sleeve gastrectomy Z98.84 Left hand weakness R29.898 Anemia in other chronic diseases classified elsewhere D63.8 Anemia type: other cause Other causes of anemia: chronic disease, other Steatosis, liver K76.0 Morbid obesity due to excess calories E66.01 Colonoscopy refused Z53.20 Additional Codes RONEL-7 Assessment Billing - RONEL-7 Assessment Tool: RONEL-7 Assessment [id number] ([id number])
== END 2024-04-01 10:39 | disposition home or self-care (01) ==
PROVIDERS: PCP Internal Medicine; Visit Provider Internal Medicine
DX: Z00.00 Encounter for general adult medical examination without abnormal findings (principal); E11.21 Type 2 diabetes mellitus with diabetic nephropathy; E66.01 Morbid (severe) obesity due to excess calories; Z68.42 Body mass index [BMI] 45.0-49.9, adult; C54.1 Malignant neoplasm of endometrium; I10 Essential (primary) hypertension; Z90.710 Acquired absence of both cervix and uterus; Q76.1 Klippel-Feil syndrome; Z98.84 Bariatric surgery status; R29.898 Other symptoms and signs involving the musculoskeletal system; D63.8 Anemia in other chronic diseases classified elsewhere
CPT/HCPCS: 99396

== ENCOUNTER 2024-04-02 08:12 | Outpatient (REF) | payer SELFPAY ==
[2024-04-02 08:39] LABS: MANUAL DIFF FLAG NO
[2024-04-02 08:56] LABS: Basophils Percent Auto 0.7 % (0-2); Eosinophils Absolute Auto 0.3 X10*3/uL (0.0-0.4); Eosinophils Percent Auto 5.5 % (0-4); Hematocrit 39.5 % (37.0-47.0); Hemoglobin 13.1 g/dl (12.0-16.0); Imm Gran Abs Auto 0.02 X10*3/uL (0.00-0.03); Imm Gran Pct Auto 0.4 % (0.0-0.4); Lymphocytes Absolute Auto 2.4 X10*3/uL (1.2-4.9); Lymphocytes Percent Auto 41.7 % (20-40); Mean Corpuscular HGB Conc 33.2 g/dl (31.0-35.0); Mean Corpuscular Hemoglobin 28.1 pg (27.0-33.0); Mean Corpuscular Volume 84.6 fL (80.0-98.0); Mean Platelet Volume 10.9 fL (9.4-12.3); Monocytes Absolute Auto 0.5 X10*3/uL (0.1-1.2); Monocytes Percent Auto 8.8 % (2-11); Neutrophils Absolute Auto 2.4 x10*3/uL (2.0-8.3); Neutrophils Percent Auto 42.9 % (45-73); Platelet Count 298 X10*3/uL (160-400); Red Blood Count 4.67 X10*6/uL (4.20-5.50); Red Cell Distribution Width 13.3 % (11.0-16.0); White Blood Count 5.7 X10*3/uL (4.8-10.8)
[2024-04-02 09:03] LABS: Estimated Average Glucose 169 mg/dL; Hemoglobin A1c % 7.5 % (<6.0)
[2024-04-02 10:01] LABS: Alanine Aminotransferase 22 U/L (0-31); Alkaline Phosphatase 61 U/L (39-117); Anion Gap 15 (12-20); Aspartate Amino Transferase 19 U/L (5-31); Bilirubin Total 0.7 mg/dL (0.0-1.0); Blood Urea Nitrogen 12 mg/dL (9-16); Calcium 9.7 mg/dL (8.4-10.2); Carbon Dioxide 23 mmol/L (22-29); Chloride 106 mmol/L (96-108); Cholesterol 153 mg/dL (<200); Estimated Glomerular Filt Rate > 60; Glucose Fasting 151 mg/dL (60-99); HDL Cholesterol 45 mg/dL (>40); LDL Cholesterol Calculated 79 mg/dL (<100); Potassium 4.7 mmol/L (3.3-5.1); Sodium 139 mmol/L (135-145); Total Protein 7.4 g/dL (6.5-8.0); Triglycerides 147 mg/dL (<150)
[2024-04-02 10:44] LABS: Creatinine Urine 88.16 mg/dL
== END 2024-04-02 08:13 | disposition home or self-care (01) ==
LOC: HO.LAB 08:12
PROVIDERS: PCP Internal Medicine; Visit Provider Internal Medicine
DX: Z00.01 Encounter for general adult medical examination with abnormal findings (principal); E66.01 Morbid (severe) obesity due to excess calories; E11.21 Type 2 diabetes mellitus with diabetic nephropathy; I10 Essential (primary) hypertension
CPT/HCPCS: 36415; 80053; 80061; 82043; 82570; 83036; 85025

== ENCOUNTER 2024-04-14 10:01 | Outpatient (REF) | payer SELFPAY ==
--- NOTE | ~2024-04-14 | MM_ITS ---
EXAMINATION: MM SCREENING DIGITAL BREAST TOMOSYNTHESIS, BILATERAL CLINICAL INFORMATION: Screening. Asymptomatic. Recent diagnosis of ovarian cancer. Family history of breast cancer in paternal aunt and maternal aunt. COMPARISON: Mammography: 03/15/2023, 03/10/2022, 04/28/2017. TECHNIQUE: Digital breast tomosynthesis is performed in both the craniocaudal and mediolateral oblique views along with computer-aided detection (CAD). Synthesized 2D images are generated from the tomosynthesis. FINDINGS: The breasts are almost entirely fatty (ACR BI-RADS breast composition Category a). There are early vascular calcifications, and a few scattered bilateral skin calcifications. There are no suspicious masses, suspicious grouped calcifications, or areas of architectural distortion in either breast. The parenchymal pattern is stable from prior exams. There is no skin or axillary abnormality. MM/MM tomosynthesis screening BI IMPRESSION: No mammographic evidence of malignancy. ASSESSMENT: BI-RADS BI-RADS 2 - Benign Findings RECOMMENDATION: Routine annual mammography screening. 1 year F/U This examination should not preclude the clinical evaluation of a suspicious palpable abnormality. This patient's information was entered into a reminder system with a target due date for their next mammogram. Electronically signed by: Candido Greer MD 04/15/2024 09:08 AM EDT
== END 2024-04-14 10:02 | disposition home or self-care (01) ==
LOC: HO.MAMMO 10:01
PROVIDERS: PCP Internal Medicine; Visit Provider Internal Medicine
DX: Z12.31 Encounter for screening mammogram for malignant neoplasm of breast (principal)
CPT/HCPCS: 77063; 77067

== ENCOUNTER → 2024-04-14 10:30 | Outpatient (BNV) | payer SELFPAY | PROVIDERS: PCP Internal Medicine; Visit Provider Radiology Diagnostic Radiology | DX: Z12.31 Encounter for screening mammogram for malignant neoplasm of breast (principal) | CPT/HCPCS: 77063; 77067 ==

== ENCOUNTER 2024-06-18 14:37 | Outpatient (AMB) | payer SELFPAY ==
[2024-06-18 14:59] VITALS: BP 120/80; PULSE 85; BMI 46.9
--- NOTE | 2024-06-18 14:59 | A.OFFVIS_ITS ---
Vital Signs 06/18/24 14:59 Height 5 ft 4 in Weight 273 lb 5.971 oz BMI 46.9 BP 120/80 Blood Pressure Location Lt brachial Position Sitting Pulse 85 Intake Visit Reasons: 6 month follow-up Intake Note: 6 month follow-up feeling good Customer Service Voice Required: No Allergies No Known Allergies Allergy (Verified 04/29/24 11:10) HPI Comments Details: Shavon Hough comes for follow-up after uterine surgery. This was positive for cancer and she subsequently received radiation therapy. She is not doing well. Her anemia has significantly improved. She has had no recurrent symptoms of palpitations or prolonged heartbeat. She is taking all her medications. Denies any exertional chest pain or shortness of breath. No other heart failure symptoms. She feels well overall. Still working and trying to lose weight aggressively. 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 procedure Encounter for Papanicolaou smear of cervix Encounter for general adult medical examination with abnormal findings Encounter for routine gynecological examination Breast screening SOB (shortness of breath) Abnormal nuclear stress test Diabetic nephropathy associated with type 2 diabetes mellitus Morbid obesity Elevated troponin Hypertension PCOS (polycystic ovarian syndrome) Vitamin D deficiency Heel callus Candidal skin infection Hirsutism Chronic GERD Obesity Diabetes 1.5, managed as type 2 Surgical History Hx of discectomy History of gastric surgery Family History Father Diabetes mellitus Mother HTN (hypertension) Total knee replacement status Paternal Grandfather Diabetes mellitus Maternal Grandfather No problems noted. Maternal Grandmother Brain tumor Paternal Grandmother Diabetes mellitus Brother No problems noted. Father Diabetes mellitus Maternal Grandmother Brain tumor Maternal Grandfather No problems noted. Paternal Grandfather Diabetes mellitus Paternal Grandmother No problems noted. Brother No problems noted. 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 Cognitive needs: No Hearing needs: No Vision needs: Yes Review of Systems Const Denies chills, Denies fatigue, Denies fever(s), Denies frequent falls, Denies weakness, Denies weight gain and Denies weight loss ENT Denies dizziness Card Denies chest pain, Denies leg edema, Denies lightheadedness, Denies palpitations, Denies dyspnea, Denies dyspnea on exertion, Denies orthopnea and Denies other (loss of consciousness) Resp Denies cough, Denies dyspnea and Denies dyspnea on exertion GI Denies hematochezia and Denies change in stool character Musc Denies abnormal gait, Denies muscle weakness, Denies numbness, Denies radiating pain into limb and Denies tingling Neuro Denies Abnormal speech present, Denies abnormal gait, Denies dizziness, Denies frequent falls, Denies numbness, Denies tingling and Denies weakness Endo Denies fatigue and Denies palpitations Physical Exam Vital Signs: Last Vital Signs Pulse 85 06/18/24 14:59 BP 120/80 06/18/24 14:59 BMI result Body Mass Index 46.9 Const General: cooperative, comfortable and no acute distress Nutritional Appearance: obese Orientation/consciousness: patient oriented x3 Limitations: ambulation with walker Neck Neck: Yes normal visual inspection and Yes no JVD Resp Effort & Inspection: normal respiratory effort Auscultation: clear to auscultation bilaterally, no crackles, no rales, no rhonchi and no wheezes Cardio Jugular venous distension: no JVD Rate: regular rate Rhythm: regular rhythm Heart sounds: S1 normal heart sound present, S2 normal heart sound present, no gallops, no murmurs and no rubs Peripheral pulses: Peripheral pulses 2+ throughout GI Inspection: Yes normal to inspection Neuro General: patient oriented x3 Speech: No Abnormal speech present Extrem General: Yes normal to inspection and No no pedal edema Assessment & Plan Assessment & Plan (1) SVT (supraventricular tachycardia): Comment: 2020 & 10/2021-seen in ED-clearance 11/15/21 on chart Code(s): I47.1 - Supraventricular tachycardia Category: Medical Plan: Supraventricular tachycardia which has exacerbated in the setting of severe anemia. This has now resolved after surgery. No recurrence of supraventricular tachycardia. No additional therapy such as ablation is required. Continue metoprolol therapy. Avoidance of stimulants was discussed. Vagal maneuvers were discussed. She understands management well. (2) Hypertension: Code(s): I10 - Essential (primary) hypertension Category: Medical Qualifiers: Hypertension type: primary hypertension Qualified Code(s): I10 - Essential (primary) hypertension Plan: Hypertension which is currently well optimized advised to monitor blood pressure at home maintain a log. Goal blood pressure less than 130/84. Low-salt diet was discussed. Discussed about various strategies to lose weight. He says she is trying heart. Consider GLP 1 antagonist. Will follow up in the clinic in 1 year's time, sooner p.r.n.. Thank you for allowing me to partake in his care Coding Level of Care Code Est Pt Level 4 (70641) Complex EM visit Add On G2211 Diagnoses SVT (supraventricular tachycardia) I47.1 Primary hypertension I10 Hypertension type: primary hypertension
== END 2024-06-18 15:51 | disposition home or self-care (01) ==
PROVIDERS: PCP Internal Medicine; Visit Provider Internal Medicine Cardiovascular Disease
DX: I47.10 Supraventricular tachycardia, unspecified (principal); I10 Essential (primary) hypertension
CPT/HCPCS: 99214; G2211

== ENCOUNTER → 2024-06-18 14:37 | Outpatient (BNVA) | payer SELFPAY | PROVIDERS: PCP Internal Medicine; Visit Provider Internal Medicine Cardiovascular Disease | DX: I47.10 Supraventricular tachycardia, unspecified (principal); I10 Essential (primary) hypertension; Z79.899 Other long term (current) drug therapy | CPT/HCPCS: 99212 ==

== ENCOUNTER 2024-06-25 13:30 | Outpatient (REF) | payer OTHER, SELFPAY | END 2024-06-25 13:31 | disposition home or self-care (01) | LOC: HO.US 13:30 | PROVIDERS: PCP Internal Medicine; Visit Provider Internal Medicine Nephrology | DX: N20.0 Calculus of kidney (principal) | CPT/HCPCS: 76775 ==

== ENCOUNTER 2024-12-30 14:47 | Outpatient (AMB) | payer OTHER, SELFPAY ==
[2024-12-30 15:03] VITALS: BP 122/84; PULSE 97; TEMP 36.9; O2SAT 97; BMI 49.3
--- NOTE | 2024-12-30 15:03 | A.OFFPC_ITS ---
Vital Signs 12/30/24 15:03 Height 5 ft 4 in Weight 287 lb 2 oz BMI 49.3 BP 122/84 Blood Pressure Location Rt brachial Position Sitting Pulse 97 Pulse Source Pulse Oximeter Temp 98.5 F Temp Source Oral Pulse Oximetry (%) 97 Oxygen Delivery Method Room Air Intake Visit Reasons: Referral for Endo Allergies No Known Allergies Allergy (Verified 12/30/24 15:03) Medication List - Last Reconciled 12/30/24 by Angie Blair MD blood pressure kit-extra large As directed [id number] 300-50-200 mg tabs PO gabapentin 600 mg PO TID ibuprofen 600 mg PO Q8H PRN metoprolol tartrate 50 mg PO BID multivitamin 1 tab PO DAILY Tobacco use date assessed: 12/30/24 Dental Screening Dental Screen Date: 12/30/24 Did you have a dental visit in the last 12 months?: Yes Did you have a dental problem in the last 6 months where you did not have access to dental care?: No Was dental information given to patient?: Patient has dentist HPI Referral for Endo HPI Details History - The patient is a 54-year-old female wh o has not been seen in over a year Came in today to talk about different medical problems Having ambulatory difficulty and recurrent falls. - She reports falling twice recently. Th e first fall occurred in June in [place], attributed to her herniated lumbar disk leading to reduced strength in the left leg, [place]. The second fall happened last week at an [employer] restaurant, attributed to a high sidewalk, with the nose being affected during the fall. - The patient describes frequent falls r elated to her pre-existing herniated disk causing leg weakness. Patient has a history of cervical spine surgery by Dr. Ragland Currently taking high-dose gabapentin for pain management 600 mg 3 times a day through them - Diabetes management: - The patient ack nowledges her diabetic condition but has not been consistently she stopped coming in for follow-up appointments and is not checking her sugars at home either. We did the hemoglobin A1c today which came back at 9.5 She is declining to take oral medication stating that it makes her obese Her BMI is 49.3 She agreed to take Trulicity which she was taking before, we will be sending script for Trulicity and glucometer and supplies for her She will also do fasting labs and come in in 2 weeks to have further discussions She wanted to have a handicap placard filled today which I did for her She has no problem with the driving - Reports night-time anxiety and snackin g, attributed to insufficient daytime consumption of proteins, leading to a dietary imbalance. - The patient inquires about weight loss medication. - Reports supraventricular tachycardia e pisodes in the past managed with Metoprolol, previously related to anemia stemming from uterine cancer, now resolved post-hysterectomy. Medical History: - Diabetes Mellitus uncontrolled - Supraventricular tachycardia - Herniated lumbar disk surgery with lef t leg weakness residual - Anemia (resolved) - History of uterine cancer - Obesity - Anxiety Surgical History: - Hysterectomy for uterine cancer - Neck surgery performed by Dr. 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 - Discussed weight management and potent ial consultation for surgery due to large breast size causing discomfort. Problem List - Osteoarthritis with ambulatory difficu lty left leg weakness - Diabetes Mellitus uncontrolled with he moglobin A1c of 9.5 today patient taking no medications by choice - Herniated surgery cervical leading to weakness left leg and recurrent falls - Supraventricular tachycardia - Anemia - Uterine cancer (surgically addressed) - Obesity morbid - Anxiety - Back pain Patient Instructions - Book appointment for routine lab tests including liver and kidney function. - start Trulicity injection and start mo nitoring your blood sugars control the diet - Manage snacking and ensure balanced pr otein intake during the day to control night-time hunger and anxiety. - return in 2 weeks Review of Systems - General: No fever no chills - Neurological: No headaches no dizziness - Ear nose throat: No sore throat no hearing difficulty no ear pain - Cardiovascular: No syncope, no chest pain, no palpitations - Gastrointestinal: No nausea vomiting or diarrhea - Endocrine: No polyuria polydipsia no heat intolerance - Genitourinary: No dysuria , no blood in urine Physical Exam General: No acute distress HEENT: Nose was flat Neck: Supple Respiratory system: Able to talk in full sentences, no audible wheeze Cardiovascular: S1-S2 regular in rate and rhythm Gastrointestinal: No pain Extremities: Left leg has less strength 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: Alert awake oriented x3 motor uses cane for ambulation Skin: Normal turgor PFSH Medical History Anemia Herniated cervical disc Liver fibrosis Steatosis, liver COVID-19 vaccine series completed SVT (supraventricular tachycardia) Hospital discharge follow-up 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 procedure Encounter for Papanicolaou smear of cervix Encounter for general adult medical examination with abnormal findings Encounter for routine gynecological examination Breast screening SOB (shortness of breath) Abnormal nuclear stress test Diabetic nephropathy associated with type 2 diabetes mellitus Morbid obesity Elevated troponin Hypertension PCOS (polycystic ovarian syndrome) Vitamin D deficiency Heel callus Candidal skin infection Hirsutism Chronic GERD Obesity Diabetes 1.5, managed as type 2 Surgical History Hx of discectomy History of gastric surgery Family History Father Diabetes mellitus Mother HTN (hypertension) Total knee replacement status Paternal Grandfather Diabetes mellitus Maternal Grandfather No problems noted. Maternal Grandmother Brain tumor Paternal Grandmother Diabetes mellitus Brother No problems noted. Father Diabetes mellitus Maternal Grandmother Brain tumor Maternal Grandfather No problems noted. Paternal Grandfather Diabetes mellitus Paternal Grandmother No problems noted. Brother No problems noted. 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 1. Little interest or pleasure in doing things: not at all 2. Feeling down, depressed, or hopeless: not at all 3. Trouble falling or staying asleep, or sleeping too much: not at all 4. Feeling tired or having little energy: not at all 5. Poor appetite or overeating: not at all 6. Feeling bad about yourself - or that you are a failure or have let yourself or your family down: not at all 7. Trouble concentrating on things, such as reading the newspaper or watching television: not at all 8. Moving or speaking so slowly that other people could have noticed. Or the opposite - being so fidgety or restless that you have been moving around a lot more than usual: not at all 9. Thoughts that you would be better off or of hurting yourself in some way: not at all Total score: 0 Depression Screening Interpretation: Negative Depression Screening Done: Yes 71890 - PHQ-9 Billing: Yes Source: Developed by Drs. Kana Arana, Zo Mckenna, Gómez Gutierrez and colleagues, with an educational oral from [employer]. Thrive Questionnaire Date Thrive assessed: 12/30/24 I am a: Patient What is your living situation today?: I have a steady place to live Within the past 12 months, did the food you bought not last and you didn't have the money to get more?: Never true Within the past 12 months, did you worry whether your food would run out before you got money to buy more?: Never true Do you have trouble paying for medicines?: No Do you have trouble getting transportation to medical appointments?: No Do you have trouble paying your heating and electricity bill?: No Do you have trouble taking care of your child, family member or friend?: No Do you have trouble with day-to-day activities such as bathing, preparing meals, shopping, managing finances, etc.?: No Are you currently unemployed and looking for a job?: No Are you interested in more education?: No Please select the resources that you would like help with: None Currently or been in a relationship where the following occur: No concerns reported THRIVE Score: 0 AUDIT C Alcohol Use Questionnaire (AUDIT-C) 1. How often do you have a drink containing alcohol?: Never 3. How often do you have six or more drinks on one occasion?: Never Total Score: 0 RONEL-7 AMB Questionnaire RONEL-7 Date RONEL - 7 assessed: 12/30/24 Feeling nervous, anxious, or on edge: 0 = Not at all Not being able to stop or control worryin = Not at all Worrying too much about different things: 0 = Not at all Trouble relaxin = Not at all Being so restless that it is hard to sit still: 0 = Not at all Becoming easily annoyed or irritable: 0 = Not at all Feeling afraid as if something awful might happen: 0 = Not at all Total RONEL-7 score (0-4 normal; 5-9 mild; 10-14 moderate; 15-21 severe): 0 Source: Developed by Drs. Kana Arana, Zo Mckenna, Gómez Gutierrez and colleagues, with an educational oral from [employer]. Physical exam (Primary Care) Vital Signs: Last Vital Signs Temp 98.5 F 12/30/24 15:03 Pulse 97 12/30/24 15:03 BP 122/84 12/30/24 15:03 Pulse Ox 97 12/30/24 15:03 Oxygen Delivery Method Room Air 12/30/24 15:03 BMI result Body Mass Index 49.3 Tobacco/Smoking Status: Tobacco use Status Tobacco use date assessed 12/30/24 12/30/24 15:04 Patient Tobacco Use Status Never used Tobacco 12/30/24 15:04 e-Cigarette/Vaping Use Never Used 12/30/24 15:04 PHQ-9: PHQ-9 Score PHQ-9: Total score 0 12/30/24 15:43 Depression Screening Interpretation: Negative Thrive Assessment: Date of Thrive Assessment Date Thrive assessed 12/30/24 12/30/24 15:04 Currently or been in a relationship where the following occur: No concerns reported Results AMB Hemoglobin A1c AMB Hemoglobin A1c 9.3 % Last Edit by Josseline Vargas CMA on 12/30/24 15:20 Results Reviewed Results Reviewed: Laboratory Last Values Hgb A1c (Clinic) 9.3 % (4.0-6.0) H 12/30/24 15:11 Coding Level of Care Code Est Pt Level 5 (54796) Diagnoses Uncontrolled type 2 diabetes mellitus with hyperglycemia E11.65 Glycemic state: with hyperglycemia Diabetic nephropathy associated with type 2 diabetes mellitus E11.21 Primary hypertension I10 Hypertension type: primary hypertension Iron deficiency anemia due to chronic blood loss D50.0 Iron deficiency anemia type: chronic blood loss Weakness of both legs R29.898 Morbid obesity due to excess calories E66.01 SVT (supraventricular tachycardia) I47.1 Recurrent falls R29.6 Ambulates with cane Z99.89 Additional Codes PHQ-9 - 60596 - PHQ-9 Billing: Yes ([id number]) Time Spent (min) 40 Comment Handicap placard form, reviewing chart, [id number], coordination of care Assessment & Plan Assessment & Plan (1) Diabetes type 2, uncontrolled: Code(s): E11.65 - Type 2 diabetes mellitus with hyperglycemia Category: Medical Qualifiers: Glycemic state: with hyperglycemia Qualified Code(s): E11.65 - Type 2 diabetes mellitus with hyperglycemia (2) Diabetic nephropathy associated with type 2 diabetes mellitus: Code(s): E11.21 - Type 2 diabetes mellitus with diabetic nephropathy Category: Medical (3) Hypertension: Code(s): I10 - Essential (primary) hypertension Category: Medical Qualifiers: Hypertension type: primary hypertension Qualified Code(s): I10 - Essential (primary) hypertension (4) Iron deficiency anemia: Code(s): D50.9 - Iron deficiency anemia, unspecified Category: Medical Qualifiers: Iron deficiency anemia type: chronic blood loss Qualified Code(s): D50.0 - Iron deficiency anemia secondary to blood loss (chronic) (5) Weakness of both legs: Code(s): R29.898 - Other symptoms and signs involving the musculoskeletal system Category: Medical (6) Morbid obesity due to excess calories: Code(s): E66.01 - Morbid (severe) obesity due to excess calories Category: Medical (7) SVT (supraventricular tachycardia): Comment: 2020 & 10/2021-seen in ED-clearance 11/15/21 on chart Code(s): I47.1 - Supraventricular tachycardia Category: Medical (8) Recurrent falls: Code(s): R29.6 - Repeated falls Category: Medical (9) Ambulates with cane: Code(s): Z99.89 - Dependence on other enabling machines and devices Category: Medical Plan History - The patient is a 54-year-old female who has not been seen in over a year Came in today to talk about different medical problems Having ambulatory difficulty and recurrent falls. - She reports falling twice recently. The first fall occurred in June in [place], attributed to her herniated lumbar disk leading to reduced strength in the left leg, [place] the [place]. The second fall happened last week at an [employer] restaurant, attributed to a high sidewalk, with the nose being affected during the fall. - The patient describes frequent falls related to her pre-existing herniated disk causing leg weakness. Patient has a history of cervical spine surgery by Dr. Ragland Currently taking high-dose gabapentin for pain management 600 mg 3 times a day through them - Diabetes management: - The patient acknowledges her diabetic condition but has not been consistently she stopped coming in for follow-up appointments and is not checking her sugars at home either. We did the hemoglobin A1c today which came back at 9.5 She is declining to take oral medication stating that it makes her obese Her BMI is 49.3 She agreed to take Trulicity which she was taking before, we will be sending scr ipt for Trulicity and glucometer and supplies for her She will also do fasting labs and come in in 2 weeks to have further discussions She wanted to have a handicap placard filled today which I did for her She has no problem with the driving - Reports night-time anxiety and snacking, attributed to insufficient daytime consumption of proteins, leading to a dietary imbalance. - The patient inquires about weight loss medication. - Reports supraventricular tachycardia episodes in the past managed with Metoprolol, previously related to anemia stemming from uterine cancer, now resolved post-hysterectomy. Medical History: - Diabetes Mellitus uncontrolled - Supraventricular tachycardia - Herniated lumbar disk surgery with left leg weakness residual - Anemia (resolved) - History of uterine cancer - Obesity - Anxiety Surgical History: - Hysterectomy for uterine cancer - Neck surgery performed by Dr. 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 - Discussed weight management and potential consultation for surgery due to large breast size causing discomfort. Problem List - Osteoarthritis with ambulatory difficulty left leg weakness - Diabetes Mellitus uncontrolled with hemoglobin A1c of 9.5 today patient taking no medications by choice - Herniated surgery cervical leading to weakness left leg and recurrent falls - Supraventricular tachycardia - Anemia - Uterine cancer (surgically addressed) - Obesity morbid - Anxiety - Back pain Patient Instructions - Book appointment for routine lab tests including liver and kidney function. - start Trulicity injection and start monitoring your blood sugars control the diet - Manage snacking and ensure balanced protein intake during the day to control night-time hunger and anxiety. - return in 2 weeks Orders: Orders Complete Blood Count Auto Diff Today D50.0 - Iron deficiency anemia secondary to blood loss (chronic), E11.9 - Type 2 diabetes mellitus without complications, E13.9 - Other specified diabetes mellitus without complications, E66.01 - Morbid (severe) obesity due to excess calories, I10 - Essential (primary) hypertension, I47.1 - Supraventricular tachycardia, R29.898 - Other symptoms and signs involving the musculoskeletal system TSH reflex Free T4 Today D50.0 - Iron deficiency anemia secondary to blood loss (chronic), E11.9 - Type 2 diabetes mellitus without complications, E13.9 - Other specified diabetes mellitus without complications, E66.01 - Morbid (severe) obesity due to excess calories, I10 - Essential (primary) hypertension, I47.1 - Supraventricular tachycardia, R29.898 - Other symptoms and signs involving the musculoskeletal system Lipid Panel Today D50.0 - Iron deficiency anemia secondary to blood loss (chronic), E11.9 - Type 2 diabetes mellitus without complications, E13.9 - Other specified diabetes mellitus without complications, E66.01 - Morbid (severe) obesity due to excess calories, I10 - Essential (primary) hypertension, I47.1 - Supraventricular tachycardia, R29.898 - Other symptoms and signs involving the musculoskeletal system Lipase Today E66.01 - Morbid (severe) obesity due to excess calories Amylase Today E66.01 - Morbid (severe) obesity due to excess calories AMB Hemoglobin A1c Today Z13.9 - Encounter for screening, unspecified Hemoglobin A1c Today D50.0 - Iron deficiency anemia secondary to blood loss (chronic), E11.9 - Type 2 diabetes mellitus without complications, E13.9 - Other specified diabetes mellitus without complications, E66.01 - Morbid (severe) obesity due to excess calories, I10 - Essential (primary) hypertension, I47.1 - Supraventricular tachycardia, R29.898 - Other symptoms and signs involving the musculoskeletal system Comprehensive Milfay. Panel Fast Today D50.0 - Iron deficiency anemia secondary to blood loss (chronic), E11.9 - Type 2 diabetes mellitus without complications, E13.9 - Other specified diabetes mellitus without complications, E66.01 - Morbid (severe) obesity due to excess calories, I10 - Essential (primary) hypertension, I47.1 - Supraventricular tachycardia, R29.898 - Other symptoms and signs involving the musculoskeletal system Medications: New Trulicity (dulaglutide) 0.75 mg (0.5 mL) subcut QWEEK 90 days 2 mL 0RF NS E11.21 - Type 2 diabetes mellitus with diabetic nephropathy, E11.65 - Type 2 diabetes mellitus with hyperglycemia
--- OUTSIDE RECORDS SUMMARY | 2024-12-30 16:31 | XMS_ITS | Clinical Summary ---
Author Organization [facility] Address [address] [address] Phone Care Team Providers Care Brand Representative Name Role Phone Angie Blair MD Primary Care Provider [phone] Allergies No known active allergies Medications metoprolol tartrate (LOPRESSOR) 50 MG tablet Take 50 mg by mouth in the morning and 50 mg in the evening. Active gabapentin (NEURONTIN) 600 MG tablet TAKE 1 TABLET BY MOUTH 3 TIMES DAILY FOR 90 DAYS. 04/27/2023 Active Multiple Vitamins-Minera ls (WOMENS MULTI GUMMIES PO) Take by mouth Active Magnesium 400 MG capsule Take by mouth Active Cyanocobalamin (Vitamin B 12) 500 MCG tablet Take by mouth Active Active Problems Problem Noted Date Diagnosed Date Hypertension 06/12/2024 Nephrolithiasis 06/11/2023 Cervical myelopathy 03/13/2022 Overview (06/07/2022): Last Assessment & Plan: Patient is 11 days s/p C5-6, C6-7 ACDF. She was discharged from rehab yesterday. She has appointment scheduled next week for PT and OT at outpatient [facility] rehab. Patient is working on strengthening exercises for the left hand and leg, postop in PACU she had minimal movement of the left wrist, hand, leg and she has seen some improvement. Preop she had significant left hand weakness, signal change in her spinal cord on MRI at both levels. Now she is able to flex and extend the wrist, he is walking with a walker, has residual left leg/iliopsoas weakness/spasticity. She has not had any issues with the incision, fever, wound drainage, sweats chills. She is on stool softeners for constipation, notes she has to strain slightly to urinate but is voiding. She is using gabapentin 200 mg twice daily, oxycodone 5 mg occasionally when her left leg spasms. She notes mild hoarseness, that should continue to improve with time, she is able to swallow. Postop in the hospital she was started on steroids, but her blood sugars were elevated and it was stopped. Ms. Skinny Taylor has a follow-up appointment with Dr. Fernandez in 6 weeks with C-spine x-rays. All postop questions answered. She should hopefully note continued improvement with time as the spinal cord and nerves heal, since she has seen some improvement in the last [address] Fernandez came in and saw the patient today as well. She will call with any questions or concerns prior to her next visit. At this time patient is unable to return to work, we can make updates to her return to work date as needed. Degenerative lumbar spinal stenosis 03/13/2022 Overview (06/07/2022): Last Assessment & Plan: Patient also mentions that she has chronic low back pain, that actually has been improving after her gastric bypass and she has lost weight. She no longer gets low back pain every day, rates it a 4/10 when it bothers her now. She used to get burning in her legs and feet, was using a cane, subjectively felt weak, would get cramping in her legs at nighttime, states that is improved. She was started on gabapentin, feels that is helping. Patient had lumbar spine MRI that showed L4-5 spondylolisthesis and central stenosis. I reviewed the MRI images with the patient in detail on the computer. At this point she is not having any significant symptoms from her low back. We can follow this over time, her priority currently is her cervical stenosis and myelopathy. Family History Medical History Relation Comments Diabetes Father Hypertension Mother Relation Status Comments Father Mother Alive Social History Tobacco Use Types Packs/Day Years Used Date Smoking Tobacco: Never Smokeless Tobacco: Never Tobacco Cessation:Counseling Given: Not Answered Alcohol Use Standard Drinks/Week Comments Never 0 (1 standard drink = 0.6 oz pur e alcohol) Comments Unknown Sex and Gender Information Value Date Recorded Sex Assigned at Not on file Legal Sex Female 4:22 PM EDT Gender Identity Not on file Sexual Orientation Not on file Last Filed Vital Signs Vital Sign Reading Time Taken Comments Blood Pressure 110/80 06/12/2024 4:33 PM EST Pulse 84 06/12/2024 4:07 PM EST Temperature - - Respiratory Rate - - Oxygen Saturation 98% 06/11/2023 4:06 PM EST Inhaled Oxygen Concentration - - Weight 124 kg (274 lb) 06/12/2024 4:07 PM EST Height 162.6 cm (5' 4 ) 06/11/2023 4:06 PM EST Body Mass Index 47.03 06/11/2023 4:06 PM EST Plan of Treatment Upcoming Encounters Date Type Department Care Team (Late st Contact Info) Description 06/22/2025 3:30 PM EST Office Visit [facility] [address] [address] Gely Blanca ARNP [address] [address] Health Maintenance Due Date Last Done Comments Breast Cancer Screening 1970 Hepatitis B Vaccine (1 of 3 - 19+ 3-dose series) 11/01 Pneumococcal Vaccine: 50+ Years (1 of 2 - PCV) 992 Colorectal Cancer Screening: Annual FOBT 2021 Colorectal Cancer Screening: Colonoscopy 2021 Colorectal Cancer Screening: Sigmoidoscopy 2021 Diabetes: Hemoglobin A1C 08/20/2024 Diabetes: Ophthalmology Exam 08/20/2024 Diabetes: Pedal Pulse Checked 08/20/2024 Diabetes: Sensory Foot Exam 08/20/2024 Diabetes: Visual Foot Exam 08/20/2024 Influenza Vaccine (Season Ended) 2025 Insurance [facility] Care Teams Brand Representative Relationship Specialty Start Date End Date Angie Blair MD [facility] [place] [address] PCP - General Internal Medicine 03/16/22
== END 2024-12-30 15:57 | disposition home or self-care (01) ==
LOC: HO.HMCC 14:48
PROVIDERS: PCP Internal Medicine; Visit Provider Internal Medicine
DX: E11.65 Type 2 diabetes mellitus with hyperglycemia (principal); E11.21 Type 2 diabetes mellitus with diabetic nephropathy; E66.01 Morbid (severe) obesity due to excess calories; Z68.42 Body mass index [BMI] 45.0-49.9, adult; I10 Essential (primary) hypertension; D50.0 Iron deficiency anemia secondary to blood loss (chronic); R29.898 Other symptoms and signs involving the musculoskeletal system; I47.10 Supraventricular tachycardia, unspecified; R29.6 Repeated falls; Z99.89 Dependence on other enabling machines and devices

== ENCOUNTER → 2024-12-30 14:47 | Outpatient (BNVA) | payer OTHER, SELFPAY | PROVIDERS: PCP Internal Medicine; Visit Provider Internal Medicine | DX: E11.65 Type 2 diabetes mellitus with hyperglycemia (principal); E11.21 Type 2 diabetes mellitus with diabetic nephropathy; E66.9 Obesity, unspecified; I10 Essential (primary) hypertension; D50.0 Iron deficiency anemia secondary to blood loss (chronic); R29.898 Other symptoms and signs involving the musculoskeletal system; E66.01 Morbid (severe) obesity due to excess calories; I47.10 Supraventricular tachycardia, unspecified; R29.6 Repeated falls; Z99.89 Dependence on other enabling machines and devices; Z68.42 Body mass index [BMI] 45.0-49.9, adult | CPT/HCPCS: 83036; 96127 ==

== ENCOUNTER 2025-01-03 07:38 | Outpatient (REF) | payer OTHER, SELFPAY ==
--- OUTSIDE RECORDS SUMMARY | 2025-01-03 07:40 | XMS_ITS | Clinical Summary ---
Author Organization [facility] Address [address] [address] Phone Care Team Providers Care Concrete Pourer Name Role Phone Angie Blair MD Primary Care Provider [phone] Allergies No known active allergies Medications metoprolol [...] week for PT and OT at outpatient [facility] rehab. Patient is working on strengthening exercises [...] Office Visit [facility] [address] [address] Gely Blanca ARNP [address] [address] Health Maintenance Due Date Last [...] 08/20/2024 Influenza Vaccine (Season Ended) 2025 Insurance [facility] Care Teams Concrete Pourer Relationship Specialty Start Date End Date Angie Blair MD [facility] [place] [address] PCP - General Internal Medicine 03/16/22
[2025-01-03 11:10] LABS: MANUAL DIFF FLAG NO
[2025-01-03 11:18] LABS: Basophils Percent Auto 0.9 % (0-2); Eosinophils Absolute Auto 0.1 X10*3/uL (0.0-0.4); Hematocrit 41.8 % (37.0-47.0); Hemoglobin 14.3 g/dl (12.0-16.0); Imm Gran Abs Auto 0.01 X10*3/uL (0.00-0.03); Imm Gran Pct Auto 0.3 % (0.0-0.4); Lymphocytes Percent Auto 30.6 % (20-40); Mean Corpuscular HGB Conc 34.2 g/dl (31.0-35.0); Mean Corpuscular Hemoglobin 29.3 pg (27.0-33.0); Mean Corpuscular Volume 85.7 fL (80.0-98.0); Mean Platelet Volume 11.3 fL (9.4-12.3); Monocytes Absolute Auto 0.4 X10*3/uL (0.1-1.2); Monocytes Percent Auto 11.9 % (2-11); Neutrophils Absolute Auto 1.7 x10*3/uL (2.0-8.3); Neutrophils Percent Auto 52.3 % (45-73); Platelet Count 284 X10*3/uL (160-400); Red Blood Count 4.88 X10*6/uL (4.20-5.50); Red Cell Distribution Width 14.1 % (11.0-16.0); White Blood Count 3.3 X10*3/uL (4.8-10.8)
[2025-01-03 11:31] LABS: Estimated Average Glucose 217 mg/dL; Hemoglobin A1c % 9.2 % (<6.0)
[2025-01-03 11:46] LABS: Alanine Aminotransferase 47 U/L (0-31); Albumin Level 4.2 g/dL (3.5-5.0); Alkaline Phosphatase 62 U/L (39-117); Amylase 26 U/L (28-100); Anion Gap 11 (12-20); Aspartate Amino Transferase 46 U/L (5-31); Bilirubin Total 1.1 mg/dL (0.0-1.0); Blood Urea Nitrogen 14 mg/dL (9-16); Calcium 9.3 mg/dL (8.4-10.2); Carbon Dioxide 27 mmol/L (22-29); Chloride 104 mmol/L (96-108); Cholesterol 152 mg/dL (<200); Estimated Glomerular Filt Rate > 60; Glucose Fasting 184 mg/dL (60-99); HDL Cholesterol 40 mg/dL (>40); LDL Cholesterol Calculated 78 mg/dL (<100); Lipase 12 U/L (8-78); Potassium 3.9 mmol/L (3.3-5.1); Sodium 138 mmol/L (135-145); Total Protein 7.3 g/dL (6.5-8.0); Triglycerides 170 mg/dL (<150)
== END 2025-01-03 07:39 | disposition home or self-care (01) ==
LOC: HO.HMGCLDS 07:38
PROVIDERS: PCP Internal Medicine; Visit Provider Internal Medicine
DX: D50.0 Iron deficiency anemia secondary to blood loss (chronic) (principal); E11.9 Type 2 diabetes mellitus without complications; R29.898 Other symptoms and signs involving the musculoskeletal system; E66.01 Morbid (severe) obesity due to excess calories; I10 Essential (primary) hypertension; I47.10 Supraventricular tachycardia, unspecified
CPT/HCPCS: 36415; 80053; 80061; 82150; 83036; 83690; 84443; 85025

== ENCOUNTER 2025-01-16 08:49 | Outpatient (AMB) | payer OTHER, SELFPAY ==
--- OUTSIDE RECORDS SUMMARY | 2025-01-16 08:56 | XMS_ITS | Clinical Summary ---
Author Organization [facility] Address [address] [address] Phone Care Team Providers Care Director Erp Name Role Phone Angie Blair MD Primary Care Provider [phone] Allergies No known active allergies Medications metoprolol [...] week for PT and OT at outpatient [facility] rehab. Patient is working on strengthening exercises [...] Office Visit [facility] [address] [address] Gely Blanca ARNP [address] [address] Health Maintenance Due Date Last [...] 08/20/2024 Influenza Vaccine (Season Ended) 2025 Insurance [facility] Care Teams Director Erp Relationship Specialty Start Date End Date Angie Blair MD [facility] [place] [address] PCP - General Internal Medicine 03/16/22
--- NOTE | 2025-01-16 09:03 | A.OFFPC_ITS ---
Vital Signs 01/16/25 09:07 Height 5 ft 4 in Weight 278 lb BMI 47.7 BP 108/62 Blood Pressure Location Rt brachial Position Sitting Respiration 15 Pulse 91 Pulse Source Pulse Oximeter Temp 98.2 F Temp Source Oral Pulse Oximetry (%) 96 Oxygen Delivery Method Room Air Intake Visit Reasons: 2 week follow up Allergies No Known Allergies Allergy (Verified 01/16/25 09:04) Medication List - Last Reconciled 01/16/25 by Angie Blair MD alcohol swabs (Alcohol Prep Pads) 1 pad topical TID blood pressure kit-extra large As directed blood sugar diagnostic (FreeStyle Lite Strips) Check blood sugar 3 times daily as directed blood-glucose meter (FreeStyle Lite Meter kit) Check blood sugar 3 times daily as directed turner.[id number] 300-50-200 mg tabs PO gabapentin 600 mg PO TID ibuprofen 600 mg PO Q8H PRN lancets (FreeStyle Lancets) Check blood sugar 3 times daily as directed metoprolol tartrate 50 mg PO BID multivitamin 1 tab PO DAILY Trulicity (dulaglutide) 0.75 mg (0.5 mL) subcut QWEEK 90 days NS Tobacco use date assessed: 01/16/25 Dental Screening Dental Screen Date: 12/30/24 Did you have a dental visit in the last 12 months?: Yes Did you have a dental problem in the last 6 months where you did not have access to dental care?: No Was dental information given to patient?: Patient has dentist HPI 2 week follow up HPI Details History - The patient is a 54-year-old female pr esenting with management of Type 2 Diabetes Mellitus and evaluation of back pain due to a herniated lumbar disc. - Type 2 Diabetes Mellitus: The patient reports improved blood glucose levels, with readings between 120 and 160 mg/dL, attributed to the use of Trulicity once a week. - Herniated Lumbar Disc: The patient has a history of a herniated lumbar disc diagnosed in 2021, with MRI findings of L4-L5 grade 1 anteriorolithesis and severe bilateral facet arthropathy. - The patient experiences pain primarily on the right side, despite MRI findings indicating left-sided disc protrusion. - Osteoarthritis: The patient reports ar thritis-related pain managed with Tylenol or ibuprofen. - morbid Obesity: The patient has BMI of 47.7 requesting referral to bariatric surgery [facility] Dr. Del Angel - taking gabapentin for the management o f lumbar radiculopathy through Dr. Ragland neurosurgeon - SVT: Stable with metoprolol 50 mg b.i. d. - liver enzymes are elevated most likely secondary to fatty liver we will continue to monitor - need handicap placard paperwork refill ed which I did Problem List - Type 2 Diabetes Mellitus - Herniated Lumbar Disc - Osteoarthritis - Obesity - SVT - unable to walk more than 150 ft withou t assistance - need handicap placard paperwork filled - Diagnostic results - Labs: Hemoglobin 14.3 g/dL, no anemia; A1c 9.2%; elevated liver enzymes; LDL cholesterol 78 mg/dL; normal thyroid function - Imaging: MRI in 2021 showed L4-L5 grad e 1 anterior lithesis and severe bilateral facet arthropathy, with left-sided disc protrusion affecting L4 and L5 [place] of Care: Dr. Ragland neurosurgeon Patient Instructions - Continue taking Trulicity as prescribe d for diabetes management. - Use Tylenol or ibuprofen for arthritis pain as needed. - Avoid [id number]-[id number]-[id number] supplements marine t are not vitamins. - Schedule and complete blood tests befo re the next appointment in March. - continue other medications Review of Systems General: No fever no chills neurological: No headaches no dizziness ear nose throat: No sore throat no hearing difficulty no ear pain cardiovascular: No syncope, no chest pain, no palpitations gastrointestinal: No nausea vomiting or diarrhea endocrine: No polyuria polydipsia no heat intolerance genitourinary: No dysuria skin: No new complaints Physical Exam general: No acute distress HEENT: No acute findings neck: Supple respiratory system: Able to talk in full sentences, no audible wheeze no stridor cardiovascular: S1-S2 RRR, sounds okay gastrointestinal: No pain extremities: No new findings 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: Alert awake oriented x3 motor sensory intact skin: Normal turgor [facility] Medical History Anemia Herniated cervical disc Liver fibrosis Steatosis, liver COVID-19 vaccine series completed SVT (supraventricular tachycardia) Hospital discharge follow-up 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 procedure Encounter for Papanicolaou smear of cervix Encounter for general adult medical examination with abnormal findings Encounter for routine gynecological examination Breast screening SOB (shortness of breath) Abnormal nuclear stress test Diabetic nephropathy associated with type 2 diabetes mellitus Morbid obesity Elevated troponin Hypertension PCOS (polycystic ovarian syndrome) Vitamin D deficiency Heel callus Candidal skin infection Hirsutism Chronic GERD Obesity Diabetes 1.5, managed as type 2 Surgical History Hx of discectomy History of gastric surgery Family History Father Diabetes mellitus Mother HTN (hypertension) Total knee replacement status Paternal Grandfather Diabetes mellitus Maternal Grandfather No problems noted. Maternal Grandmother Brain tumor Paternal Grandmother Diabetes mellitus Brother No problems noted. Father Diabetes mellitus Maternal Grandmother Brain tumor Maternal Grandfather No problems noted. Paternal Grandfather Diabetes mellitus Paternal Grandmother No problems noted. Brother No problems noted. 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 Cognitive needs: No Hearing needs: No Vision needs: Yes Questionnaire Thrive Questionnaire Date Thrive assessed: 12/30/24 I am a: Patient What is your living situation today?: I have a steady place to live Within the past 12 months, did the food you bought not last and you didn't have the money to get more?: Never true Within the past 12 months, did you worry whether your food would run out before you got money to buy more?: Never true Do you have trouble paying for medicines?: No Do you have trouble getting transportation to medical appointments?: No Do you have trouble paying your heating and electricity bill?: No Do you have trouble taking care of your child, family member or friend?: No Do you have trouble with day-to-day activities such as bathing, preparing meals, shopping, managing finances, etc.?: No Are you currently unemployed and looking for a job?: No Are you interested in more education?: No Please select the resources that you would like help with: None Currently or been in a relationship where the following occur: No concerns repor brenton THRIVE Score: 0 RONEL-7 AMB Questionnaire RONEL-7 Date RONEL - 7 assessed: 12/30/24 Source: Developed by Drs. Kana Arana, Zo Mckenna, Gómez Gutierrez and colleagues, with an educational oral from [employer]. Physical exam (Primary Care) Vital Signs: Last Vital Signs Temp 98.2 F 01/16/25 09:07 Pulse 91 01/16/25 09:07 Resp 15 01/16/25 09:07 BP 108/62 01/16/25 09:07 Pulse Ox 96 01/16/25 09:07 Oxygen Delivery Method Room Air 01/16/25 09:07 BMI result Body Mass Index 47.7 Tobacco/Smoking Status: Tobacco use Status Tobacco use date assessed 01/16/25 01/16/25 09:09 Patient Tobacco Use Status Never used Tobacco 01/16/25 09:03 e-Cigarette/Vaping Use Never Used 01/16/25 09:03 Thrive Assessment: Date of Thrive Assessment Date Thrive assessed 12/30/24 01/16/25 09:03 Currently or been in a relationship where the following occur: No concerns reported Coding Level of Care Code Est Pt Level 5 (70117) Diagnoses Uncontrolled type 2 diabetes mellitus with hyperglycemia E11.65 Glycemic state: with hyperglycemia SVT (supraventricular tachycardia) I47.1 Lumbar disc disease with radiculopathy M51.16 Primary hypertension I10 Hypertension type: primary hypertension Morbid obesity E66.01 LFT elevation R79.89 Morbid obesity due to excess calories E66.01 Recurrent falls R29.6 Ambulates with cane Z99.89 Unable to walk 150 feet R26.2 Time Spent (min) 40 Comment Review of chart/labs/paperwork for handicap placard/fhle-kw-pnfy/coordination of care Assessment & Plan Assessment & Plan (1) Diabetes type 2, uncontrolled: Code(s): E11.65 - Type 2 diabetes mellitus with hyperglycemia Category: Medical Qualifiers: Glycemic state: with hyperglycemia Qualified Code(s): E11.65 - Type 2 diabetes mellitus with hyperglycemia (2) SVT (supraventricular tachycardia): Comment: 2020 & 10/2021-seen in ED-clearance 11/15/21 on chart Code(s): I47.1 - Supraventricular tachycardia Category: Medical (3) Lumbar disc disease with radiculopathy: Code(s): M51.16 - Intervertebral disc disorders with radiculopathy, lumbar region Category: Medical (4) Hypertension: Code(s): I10 - Essential (primary) hypertension Category: Medical Qualifiers: Hypertension type: primary hypertension Qualified Code(s): I10 - Essential (primary) hypertension (5) Morbid obesity: Code(s): E66.01 - Morbid (severe) obesity due to excess calories Category: Medical (6) LFT elevation: Code(s): R79.89 - Other specified abnormal findings of blood chemistry Category: Medical (7) Morbid obesity due to excess calories: Code(s): E66.01 - Morbid (severe) obesity due to excess calories Category: Medical (8) Recurrent falls: Code(s): R29.6 - Repeated falls Category: Medical (9) Ambulates with cane: Code(s): Z99.89 - Dependence on other enabling machines and devices Category: Medical (10) Unable to walk 150 feet: Code(s): R26.2 - Difficulty in walking, not elsewhere classified Category: Medical Plan History - The patient is a 54-year-old female presenting with management of Type 2 Diabetes Mellitus and evaluation of back pain due to a herniated lumbar disc. - Type 2 Diabetes Mellitus: The patient reports improved blood glucose levels, with readings between 120 and 160 mg/dL, attributed to the use of Trulicity once a week. - Herniated Lumbar Disc: The patient has a history of a herniated lumbar disc diagnosed in 2021, with MRI findings of L4-L5 grade 1 anteriorolithesis and severe bilateral facet arthropathy. - The patient experiences pain primarily on the right side, despite MRI findings indicating left-sided disc protrusion. - Osteoarthritis: The patient reports arthritis-related pain managed with Tylenol or ibuprofen. - morbid Obesity: The patient has BMI of 47.7 requesting referral to bariatric surgery [facility] Dr. Del Angel - taking gabapentin for the management of lumbar radiculopathy through Dr. Ragland neurosurgeon - SVT: Stable with metoprolol 50 mg b.i.d. - liver enzymes are elevated most likely secondary to fatty liver we will con tinue to monitor - need handicap placard paperwork refilled which I did Problem List - Type 2 Diabetes Mellitus - Herniated Lumbar Disc - Osteoarthritis - Obesity - SVT - unable to walk more than 150 ft without assistance - need handicap placard paperwork filled - Diagnostic results - Labs: Hemoglobin 14.3 g/dL, no anemia; A1c 9.2%; elevated liver enzymes; LDL cholesterol 78 mg/dL; normal thyroid function - Imaging: MRI in 2021 showed L4-L5 grade 1 anterior lithesis and severe bilateral facet arthropathy, with left-sided disc protrusion affecting L4 and L5 [place] of Care: Dr. Ragland neurosurgeon Patient Instructions - Continue taking Trulicity as prescribed for diabetes management. - Use Tylenol or ibuprofen for arthritis pain as needed. - Avoid [id number] supplements that are not vitamins. - Schedule and complete blood tests before the next appointment in March. - continue other medications Orders: Orders Hemoglobin A1c Today E11.65 - Type 2 diabetes mellitus with hyperglycemia, E66.01 - Morbid (severe) obesity due to excess calories, R79.89 - Other sp ecified abnormal findings of blood chemistry Comprehensive Met. Panel Today E11.65 - Type 2 diabetes mellitus with hyperglycemia, E66.01 - Morbid (severe) obesity due to excess calories, R79.89 - Other specified abnormal findings of blood chemistry Referrals Bariatric Surgery Referral E66.01 - Morbid (severe) obesity due to excess calories
[2025-01-16 09:07] VITALS: BP 108/62; PULSE 91; RESP 15; TEMP 36.8; O2SAT 96; BMI 47.7
== END 2025-01-16 09:32 | disposition home or self-care (01) ==
LOC: HO.HMCC 08:50
PROVIDERS: PCP Internal Medicine; Visit Provider Internal Medicine
DX: E11.65 Type 2 diabetes mellitus with hyperglycemia (principal); E66.01 Morbid (severe) obesity due to excess calories; I47.10 Supraventricular tachycardia, unspecified; Z68.35 Body mass index [BMI] 35.0-35.9, adult; M51.16 Intervertebral disc disorders with radiculopathy, lumbar region; I10 Essential (primary) hypertension; R79.89 Other specified abnormal findings of blood chemistry; R29.6 Repeated falls; Z99.89 Dependence on other enabling machines and devices; R26.2 Difficulty in walking, not elsewhere classified

== ENCOUNTER → 2025-01-16 08:49 | Outpatient (BNVA) | payer OTHER, SELFPAY | PROVIDERS: PCP Internal Medicine; Visit Provider Internal Medicine | DX: Z13.89 Encounter for screening for other disorder (principal) ==

== ENCOUNTER 2025-04-10 13:43 | Outpatient (AMB) | payer OTHER, SELFPAY ==
--- NOTE | 2025-04-10 13:57 | A.OFFPC_ITS ---
Vital Signs 04/10/25 13:58 Height 5 ft 4 in Weight 271 lb BMI 46.5 BP 112/68 Blood Pressure Location Lt brachial Position Sitting Pulse 89 Pulse Source Pulse Oximeter Pulse Oximetry (%) 97 Oxygen Delivery Method Room Air Intake Visit Reasons: PE Viscose Department Worker Required: No Accompanied by: Self / Same As Patient Allergies No Known Allergies Allergy (Verified 01/16/25 09:04) Medication List - Last Reconciled 04/10/25 by Angie Blair MD alcohol swabs (Alcohol Prep Pads) 1 pad topical TID blood pressure kit-extra large As directed blood sugar diagnostic (FreeStyle Lite Strips) Check blood sugar 3 times daily as directed blood-glucose meter (FreeStyle Lite Meter kit) Check blood sugar 3 times daily as directed turner.[id number] 300-50-200 mg tabs PO gabapentin 600 mg PO TID ibuprofen 600 mg PO Q8H PRN lancets (FreeStyle Lancets) Check blood sugar 3 times daily as directed metoprolol tartrate 50 mg PO BID multivitamin 1 tab PO DAILY semaglutide 0.25 mg (0.368 mL) subcut QWEEK 30 days Tobacco use date assessed: 04/10/25 Dental Screening Dental Screen Date: 04/10/25 Did you have a dental visit in the last 12 months?: Yes Did you have a dental problem in the last 6 months where you did not have access to dental care?: No Was dental information given to patient?: Patient has dentist HPI PE HPI Details Physical exam appointment The patient is a 54-year-old female presenting with Type 2 Diabetes Mellitus and weight management. Type 2 Diabetes Mellitus: - Hemoglobin A1c was 9.2 in December and has improved to 6.8 currently. - The patient reports checking blood glu cose at home, typically ranging from 100 to 140 mg/dL in the morning and evening. - Reports improved dietary habits includ ing reduced snacking at night. Obesity: - Initial weight in December was 278 lbs, wi th a recent weight of 271 lbs. - Patient started semaglutide injections in late January and noticed gradual weight loss and increased energy. Lumbar Disc Disease with L4-L5 Grade 1 Anterolisthesis and Severe Bilateral Arthropathy: - MRI in 2021 indicated L4-L5 grade 1 an terolisthesis and severe bilateral arthropathy. - Being treated by pain management with gabapentin. Through Dr. Ragland Neurosurgery Supraventricular Tachycardia (SVT): - Patient takes metoprolol 50 mg twice d aily for SVT management. Osteoarthritis: - Has osteoarthritis affecting multiple joints. Elevated Liver Enzymes: - Mildly elevated liver enzymes were rep orted Medical History: - Type 2 Diabetes Mellitus with previous ly elevated HbA1c of 9.2. - Lumbar disc disease with L4-L5 grade 1 anterolisthesis and severe bilateral arthropathy. - Osteoarthritis in multiple joints. - Supraventricular Tachycardia (SVT). 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 - Modified dietary habits, including red uced nighttime snacking and regular consumption of yogurt. Health Maintenance - Recent A1c improved to 6.8 from 9.2. - Weight management supported by semaglu tide injections. - Scheduled mammogram for May 02. - Previous ovarian cancer ascertainment, ongoing follow-up advised. - due for colonoscopy - due for OBGYN visit [place] [facility] - Gabapentin prescribed by Dr. Fernandez in the neurosurgeon office. - Recommendation for aquatic therapy for joint management. - cardiology Patient Instructions - Continue current semaglutide dose unti l next month, then increase to 0.5 mg as per plan. - Maintain physical activity levels and dietary improvements. - Keep scheduled mammogram appointment. - Start aquatic therapy as recommended f or joint pain management. Through Dr. Ragland - continue other medications -follow-up 2 months Review of Systems - General: No fever no chills - Neurological: No headaches no dizzin ess - Ear nose throat: No sore throat no hearing difficulty no ear pain - Cardiovascular: No syncope, no chest pain, no palpitations - Gastrointestinal: No nausea vomiting or diarrhea - Endocrine: No polyuria polydipsia no heat intolerance - Genitourinary: No dysuria - Skin: No new complaints Physical Exam General: Cooperative, healthy appearing, comfortable, no acute distress Orientation: Patient oriented x3 Head: Normal to inspection Ears: Within normal limit visually Nose: Normal external nose present Face and sinus: Normal facial exam Eyes: Appearance normal, extraocular movement intact pupils reactive Neck: Normal visual inspection and supple Respiratory: Normal respiratory effort and able to speak in complete sentences. Clear to auscultation, no stridor Cardiovascular: S1 and S2 RRR GI: Normal to inspection. Soft to palpation and nontender Skin: Turgor normal, no acute findings Neuro: Patient oriented x3, motor sensory intact, balance intact, tandem failed Extremities: Normal to inspection, range of motion slightly limited both sh oulders PFSH Medical History Anemia Herniated cervical disc Liver fibrosis Steatosis, liver COVID-19 vaccine series completed SVT (supraventricular tachycardia) Hospital discharge follow-up 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 procedure Encounter for Papanicolaou smear of cervix Encounter for general adult medical examination with abnormal findings Encounter for routine gynecological examination Breast screening SOB (shortness of breath) Abnormal nuclear stress test Diabetic nephropathy associated with type 2 diabetes mellitus Morbid obesity Elevated troponin Hypertension PCOS (polycystic ovarian syndrome) Vitamin D deficiency Heel callus Candidal skin infection Hirsutism Chronic GERD Obesity Diabetes 1.5, managed as type 2 Surgical History Hx of discectomy History of gastric surgery Family History Father Diabetes mellitus Mother HTN (hypertension) Total knee replacement status Paternal Grandfather Diabetes mellitus Maternal Grandfather No problems noted. Maternal Grandmother Brain tumor Paternal Grandmother Diabetes mellitus Brother No problems noted. Father Diabetes mellitus Maternal Grandmother Brain tumor Maternal Grandfather No problems noted. Paternal Grandfather Diabetes mellitus Paternal Grandmother No problems noted. Brother No problems noted. 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 1. Little interest or pleasure in doing things: not at all 2. Feeling down, depressed, or hopeless: not at all 3. Trouble falling or staying asleep, or sleeping too much: not at all 4. Feeling tired or having little energy: not at all 5. Poor appetite or overeating: not at all 6. Feeling bad about yourself - or that you are a failure or have let yourself or your family down: not at all 7. Trouble concentrating on things, such as reading the newspaper or watching television: not at all 8. Moving or speaking so slowly that other people could have noticed. Or the opposite - being so fidgety or restless that you have been moving around a lot more than usual: not at all 9. Thoughts that you would be better off or of hurting yourself in some way: not at all Total score: 0 Depression Screening Interpretation: Negative Depression Screening Done: Yes 77415 - PHQ-9 Billing: Yes Source: Developed by Drs. Kana Arana, Zo Mckenna, Gómez Gutierrez and colleagues, with an educational oral from [employer]. Thrive Questionnaire Date Thrive assessed: 12/30/24 I am a: Patient What is your living situation today?: I have a steady place to live Within the past 12 months, did the food you bought not last and you didn't have the money to get more?: Never true Within the past 12 months, did you worry whether your food would run out before you got money to buy more?: Never true Do you have trouble paying for medicines?: No Do you have trouble getting transportation to medical appointments?: No Do you have trouble paying your heating and electricity bill?: No Do you have trouble taking care of your child, family member or friend?: No Do you have trouble with day-to-day activities such as bathing, preparing meals, shopping, managing finances, etc.?: No Are you currently unemployed and looking for a job?: No Are you interested in more education?: No Please select the resources that you would like help with: None Currently or been in a relationship where the following occur: No concerns reported THRIVE Score: 0 AUDIT C Alcohol Use Questionnaire (AUDIT-C) 3. How often do you have six or more drinks on one occasion?: Never Total Score: 0 RONEL-7 AMB Questionnaire RONEL-7 Date RONEL - 7 assessed: 04/10/25 Feeling nervous, anxious, or on edge: 0 = Not at all Not being able to stop or control worryin = Not at all Worrying too much about different things: 0 = Not at all Trouble relaxin = Not at all Being so restless that it is hard to sit still: 0 = Not at all Becoming easily annoyed or irritable: 0 = Not at all Feeling afraid as if something awful might happen: 0 = Not at all Total RONEL-7 score (0-4 normal; 5-9 mild; 10-14 moderate; 15-21 severe): 0 Source: Developed by Drs. Kana Arana, Zo Mckenna, Gómez Gutierrez and colleagues, with an educational oral from [employer]. RONEL-7 Assessment Billing RONEL-7 Assessment Tool: RONEL-7 Assessment 07484 Physical exam (Primary Care) Vital Signs: Last Vital Signs Pulse 89 04/10/25 13:58 BP 112/68 04/10/25 13:58 Pulse Ox 97 04/10/25 13:58 Oxygen Delivery Method Room Air 04/10/25 13:58 BMI result Body Mass Index 46.5 Tobacco/Smoking Status: Tobacco use Status Tobacco use date assessed 04/10/25 04/10/25 14:03 Patient Tobacco Use Status Never used Tobacco 04/10/25 14:03 e-Cigarette/Vaping Use Never Used 04/10/25 14:03 PHQ-9: PHQ-9 Score PHQ-9: Total score 0 04/10/25 14:03 Depression Screening Interpretation: Negative Thrive Assessment: Date of Thrive Assessment Date Thrive assessed 12/30/24 04/10/25 14:03 Currently or been in a relationship where the following occur: No concerns reported Results AMB Hemoglobin A1c AMB Hemoglobin A1c 6.8 % Last Edit by Sylvie Manzo MA on 04/10/25 14:16 Coding Level of Care Code Est Pt Level 3 (01064) Est Pt Prev Care 40-64y(74690) Diagnoses Encounter for general adult medical examination with abnormal findings Z00.01 Colon cancer screening Z12.11 Type 2 diabetes mellitus with other specified complication, without long-term current use of insulin E11.69 Diabetes mellitus correction insulin use: without correction use Diabetes mellitus complication status: with other specified complication Morbid obesity due to excess calories E66.01 SVT (supraventricular tachycardia) I47.1 Steatosis, liver K76.0 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 R29.818 Additional Codes RONEL-7 Assessment Billing - RONEL-7 Assessment Tool: RONEL-7 Assessment 68030 ([id number]) PHQ-9 - 69074 - PHQ-9 Billing: Yes ([id number]) Assessment & Plan Assessment & Plan (1) Encounter for general adult medical examination with abnormal findings: Code(s): Z00.01 - Encounter for general adult medical examination with abnormal findings Category: Medical (2) Colon cancer screening: Code(s): Z12.11 - Encounter for screening for malignant neoplasm of colon Category: Medical (3) Type 2 diabetes mellitus: Code(s): E11.9 - Type 2 diabetes mellitus without complications Category: Medical Qualifiers: Diabetes mellitus correction insulin use: without correction use Diabetes mellitus complication status: with other specified complication Qualified Code(s): E11.69 - Type 2 diabetes mellitus with other specified complication (4) Morbid obesity due to excess calories: Code(s): E66.01 - Morbid (severe) obesity due to excess calories Category: Medical (5) SVT (supraventricular tachycardia): Comment: 2020 & 10/2021-seen in ED-clearance 11/15/21 on chart Code(s): I47.1 - Supraventricular tachycardia Category: Medical (6) Steatosis, liver: Code(s): K76.0 - Fatty (change of) liver, not elsewhere classified Category: Medical (7) 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 Type 2 Diabetes Mellitus: - Hemoglobin A1c was 9.2 in December and has improved to 6.8 currently. - The patient reports checking blood glucose at home, typically ranging from 100 to 140 mg/dL in the morning and evening. - Reports improved dietary habits including reduced snacking at night. Obesity: - Initial weight in December was 278 lbs, with a recent weight of 271 lbs. - Patient started semaglutide injections in late January and noticed gradual weight loss and increased energy. Lumbar Disc Disease with L4-L5 Grade 1 Anterolisthesis and Severe Bilateral Arthropathy: - MRI in 2021 indicated L4-L5 grade 1 anterolisthesis and severe bilateral arthropathy. - Being treated by pain management with gabapentin. Through Dr. Ragland Neurosurgery Supraventricular Tachycardia (SVT): - Patient takes metoprolol 50 mg twice daily for SVT management. Osteoarthritis: - Has osteoarthritis affecting multiple joints. Elevated Liver Enzymes: - Mildly elevated liver enzymes were reported Medical History: - Type 2 Diabetes Mellitus with previously elevated HbA1c of 9.2. - Lumbar disc disease with L4-L5 grade 1 anterolisthesis and severe bilateral arthropathy. - Osteoarthritis in multiple joints. - Supraventricular Tachycardia (SVT). 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 - Modified dietary habits, including reduced nighttime snacking and regular consumption of yogurt. Health Maintenance - Recent A1c improved to 6.8 from 9.2. - Weight management supported by semaglutide injections. - Scheduled mammogram for May 02. - Previous ovarian cancer ascertainment, ongoing follow-up advised. - due for colonoscopy - due for OBGYN visit [place] [facility] - Gabapentin prescribed by Dr. Fernandez in the neurosurgeon office. - Recommendation for aquatic therapy for joint management. - cardiology Patient Instructions - Continue current semaglutide dose until next month, then increase to 0.5 mg as per plan. - Maintain physical activity levels and dietary improvements. - Keep scheduled mammogram appointment. - Start aquatic therapy as recommended for joint pain management. Through Dr. Ragland - continue other medications -follow-up 2 months Orders: Orders AMB Hemoglobin A1c Today Z13.9 - Encounter for screening, unspecified Referrals Gastroenterology Referral Z12.11 - Encounter for screening for malignant neoplasm of colon Medications: Changed From semaglutide 0.25 mg (0.368 mL) subcut QWEEK 30 days 1.84 mL 0RF To semaglutide 0.5 mg (0.736 mL) subcut QWEEK 3.68 mL 0RF 30 days
[2025-04-10 13:58] VITALS: BP 112/68; PULSE 89; O2SAT 97; BMI 46.5
--- OUTSIDE RECORDS SUMMARY | 2025-04-10 16:38 | XMS_ITS | Clinical Summary ---
Author Organization [facility] Address [address] [address] Phone Care Team Providers Care Registrar Museum Name Role Phone Angie Blair MD Primary Care Provider [phone] Allergies No known active allergies Medications metoprolol [...] week for PT and OT at outpatient [facility] rehab. Patient is working on strengthening [...] Office Visit [facility] [address] [address] Gely Blanca ARNP [address] [address] Health Maintenance Due Date Last [...] Diabetes: Visual Foot Exam 08/20/2024 Influenza Vaccine (#1) 2025 Insurance [facility] Care Teams Registrar Museum Relationship Specialty Start Date End Date Angie Blair MD [facility] [place] [address] PCP - General Internal Medicine 03/16/22
--- OUTSIDE RECORDS SUMMARY | 2025-04-10 16:38 | XMS_ITS | Clinical Summary ---
Author Organization [facility] Address [address] [place] [address] Phone Care Team Providers Care Retail Sales Teammate Name Role Phone Angie Blair MD Primary Care Provider [phone] Medications FreeStyle Lite Meter monitoring kit FOR UNCONTROLLED DIABETES CHECK BLOOD SUGAR 3 TIMES DAILY DIRECTED 12/31/19 25 Active Trulicity 0.75 mg/0.5 mL pen injector injection INJECT 0.75 MG (0.5 ML) SUBCUTANEOUSLY EVERY WEEK FOR 90 DAYS 01/27/20 25 Active ibuprofen (ADVIL,MOTRIN ) 600 mg tablet Take 1 tablet (600 mg total) by mouth every 6 (six) hours if needed. for mild pain 03/27/20 24 Active iron-vit C-vit T77-napku acid 100-771-30-1 ud-ao-osg-mg tablet Take by mouth. Activ e metoprolol tartrate (LOPRESSOR) 50 mg tablet Take 1 tablet (50 mg total) by mouth 2 (two) times a day. Active Ozempic 0.25 mg or 0.5 mg (2 mg/3 mL) injection pen INJECT 0.25 MG (0.368 ML) SUBCUTANEOUSLY EVERY WEEK FOR 30 DAYS 03/04/20 25 Active cyanocobalami n (VITAMIN B-12) 500 mcg tablet Take by mouth. Activ e magnesium aspart,citrat e,oxide (Triple Magnesium Complex) 400 mg magnesium capsule Take by mouth. Activ e gabapentin (NEURONTIN) 600 mg tablet Take 1 tablet (600 mg total) by mouth 3 (three) times a day. 90 each 2 03/19/20 25 2024 Active gabapentin (NEURONTIN) 300 mg capsule Take 2 capsules (600 mg total) by mouth 3 (three) times a day. 180 each 2 01/21/20 25 2024 Discontinued Active Problems Problem Noted Date Diagnosed Date Lumbar spondylosis 03/19/2025 Assessment & Plan (03/19/2025 2:14 PM EDT): Patient is well-known to us s/p C5-6, C6-7 ACDF on 04/24/2022 for cervical myopathy and cord compression. She has chronic left hand weakness, has some hand steel pickler Small objects, can hold a large coffee mug, when typing uses her third left digit, notes her left leg is weaker than the right, sometimes will trip or fall, this is stable. She comes in today for persistent chronic low back pain, right leg pain. 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 She continues to describe right anterior > lateral leg burning pain, some numbness in the vagina making it difficult for intercourse. She rates her pain 8-9/10, has and having some of the symptoms for the last 3 years. She has been on gabapentin since her neck surgery, states that the life saver and what allowed her to go back to work, helped her a lot for neck and back. We will order L/S MRI to r/o stenosis or nerve root compression causing her pain. She cannot afford PT copays at this time. She does her previous PT exercises still at home. She is working on weight loss and healthy eating. I will call her with MRI results once completed. Encounters Date Type Department Care Team Description 04/02/2025 Telephone [address] [phone] La Torres PA 03/19/2025 1:00 PM EDT Office Visit [address] [phone] La Torres PA Lumbar spondylosis (Primary Dx) 01/20/2025 Telephone Neurosurgery [address] [phone] Karla Newman MA from Last 3 Months Surgical History Surgery Date Site/Laterality Comments GASTRIC BYPASS 11/2021 [place] GASTRIC RSTCV W/BYP W/SM INT RCNSTJ LIMIT ABSRPJ OTHER SURGICAL HISTORY 04/24/2022 C5-6,C6-7 ACDF for cervical myelopathy, Dr. Fernandez Medical History Medical History Date Comments Rapid heart rate History of tach ycardia which has been stable on metoprolol for years Vaginal delivery 1994 Social History Tobacco Use Types Packs/Day Years Used Date Smoking Tobacco: Never Passive Smoke Exposure: Never Smokeless Tobacco: Never Alcohol Use Standard Drinks/Week Comments Never 0 (1 standard drink = 0.6 oz pur e alcohol) Comments Unknown Sex and Gender Information Value Date Recorded Sex Assigned at Not on file Legal Sex Female 1:00 PM EST Gender Identity Not on file Sexual Orientation Not on file Obstetrics History Last Filed Vital Signs Vital Sign Reading Time Taken Comments Blood Pressure - - Pulse - - Temperature - - Respiratory Rate - - Oxygen Saturation - - Inhaled Oxygen Concentration - - Weight 107 kg (236 lb) 03/19/2025 1:02 PM EDT Height 162.6 cm (5' 4 ) 03/19/2025 1:02 PM EDT Body Mass Index 40.51 03/19/2025 1:02 PM EDT Plan of Treatment Upcoming Encounters Date Type Department Care Team (Late st Contact Info) Description 09/15/2025 1:30 PM EST Office Visit Bariatric Surgery - [address] [place] [address] Fercho Goyal MD [address] [place] [phone] Health Maintenance Due Date Last Done Comments Breast Cancer Screening 1972 DTaP,Tdap,and Td Vaccines (1 - Tdap) 11/02/1991 Hepatitis B Vaccines (1 of 3 - 19+ 3-dose series) 11/02/1991 Cervical Cancer Screening: P ap Smear 1993 Cholesterol Screening (Lipid Panel) 06/27/2022 Colorectal Cancer Screening: Colonoscopy 06/27/2022 HIV Screening 06/27/2022 Hepatitis C Screening 06/27/2022 Social Influencers of Health Screening 06/27/2022 Pneumococcal Vaccine: 50+ Ye ars (1 of 1 - PCV) 2022 Zoster Vaccines (1 of 2) 2022 Depression Screening 07/30/2024 Hypertension/CHF/CAD Annual BMP Blood Test 03/19/2025 COVID-19 Vaccine (2 - 2024-2 6 season) 2025 08/13/2021 Influenza Vaccine (#1) 2025 HIB Vaccines Aged Out No longer eligi ble based on patient's age to complete this topic HPV Vaccines Aged Out No longer eligi ble based on patient's age to complete this topic Hepatitis A Vaccines Aged Out No long er eligible based on patient's age to complete this topic IPV Vaccines Aged Out No longer eligi ble based on patient's age to complete this topic MMR Vaccines Aged Out No longer eligi ble based on patient's age to complete this topic Meningococcal ACWY Vaccine Aged Out N o longer eligible based on patient's age to complete this topic Meningococcal B Vaccine Aged Out No l onger eligible based on patient's age to complete this topic RSV Immunization Patients Un nunu 20 months Aged Out No longer eligible b ased on patient's age to complete this topic Varicella Vaccines Aged Out No longer eligible based on patient's age to complete this topic Insurance [facility] Care Teams Retail Sales Teammate Relationship Specialty Start Date End Date Angie Blair MD [address] [place] [address] PCP - General Internal Medicine 03/06/22
== END 2025-04-10 14:33 | disposition home or self-care (01) ==
PROVIDERS: PCP Internal Medicine; Visit Provider Internal Medicine
DX: Z00.01 Encounter for general adult medical examination with abnormal findings (principal); E11.69 Type 2 diabetes mellitus with other specified complication; E66.01 Morbid (severe) obesity due to excess calories; Z68.42 Body mass index [BMI] 45.0-49.9, adult; Z12.11 Encounter for screening for malignant neoplasm of colon; I47.10 Supraventricular tachycardia, unspecified; K76.0 Fatty (change of) liver, not elsewhere classified; R29.818 Other symptoms and signs involving the nervous system

== ENCOUNTER → 2025-04-10 13:43 | Outpatient (BNVA) | payer OTHER, SELFPAY | PROVIDERS: PCP Internal Medicine; Visit Provider Internal Medicine | DX: Z00.01 Encounter for general adult medical examination with abnormal findings (principal); E11.69 Type 2 diabetes mellitus with other specified complication; E66.01 Morbid (severe) obesity due to excess calories; Z68.42 Body mass index [BMI] 45.0-49.9, adult; I47.10 Supraventricular tachycardia, unspecified; K76.0 Fatty (change of) liver, not elsewhere classified; R29.818 Other symptoms and signs involving the nervous system; Z13.31 Encounter for screening for depression; Z13.39 Encounter for screening examination for other mental health and behavioral disorders | CPT/HCPCS: 83036; 96127 ==

== ENCOUNTER 2025-05-02 07:38 | Outpatient (REF) | payer OTHER, SELFPAY ==
--- OUTSIDE RECORDS SUMMARY | 2025-05-02 07:41 | XMS_ITS | Clinical Summary ---
Author Organization [facility] Address [address] [address] Phone Care Team Providers Care Deputy Brand Inspector Name Role Phone Angie Blair MD Primary Care Provider [phone] Allergies No known active allergies Medications metoprolol [...] week for PT and OT at outpatient [facility] rehab. Patient is working on strengthening [...] Office Visit [facility] [address] [phone] Gely Blanca ARNP [address] [phone] Health Maintenance Due Date Last [...] Exam 08/20/2024 Influenza Vaccine (#1) 2025 Insurance [facility] Care Teams Deputy Brand Inspector Relationship Specialty Start Date End Date Angie Blair MD [facility] [place] [address] PCP - General Internal Medicine 03/16/22
--- OUTSIDE RECORDS SUMMARY | 2025-05-02 07:41 | XMS_ITS | Clinical Summary ---
Author Organization 175 [facility] Address [address] [place] [address] Phone Care Team Providers Care Vice President Business Development Name Role Phone Angie Blair MD Primary Care Provider [phone] Medications FreeStyle Lite Meter monitoring kit FOR UNCONTROLLED DIABETES CHECK BLOOD SUGAR 3 TIMES DAILY DIRECTED 5 Active Trulicity 0.75 mg/0.5 mL pen injector injection INJECT 0.75 MG (0.5 ML) SUBCUTANEOUSLY EVERY WEEK FOR 90 DAYS 5 Active ibuprofen (ADVIL,MOTRIN) 600 mg tablet Take 1 tablet (600 mg total) by mouth every 6 (six) hours if needed. for mild pain 4 Active iron-vit C-vit P50-dlzgx acid [id number] vt-ok-jex-mg tablet Take by mouth. Activ e metoprolol tartrate (LOPRESSOR) 50 mg tablet Take 1 tablet (50 mg total) by mouth 2 (two) times a day. Active Ozempic 0.25 mg or 0.5 mg (2 mg/3 mL) injection pen INJECT 0.25 MG (0.368 ML) SUBCUTANEOUSLY EVERY WEEK FOR 30 DAYS 5 Active cyanocobalamin (VITAMIN B-12) 500 mcg tablet Take by mouth. Active magnesium aspart,citrate ,oxide (Triple Magnesium Complex) 400 mg magnesium capsule Take by mouth. Activ e gabapentin (NEURONTIN) 600 mg tablet Take 1 tablet (600 mg total) by mouth 3 (three) times a day. 90 each 2 5 025 Active Active Problems Problem Noted Date Diagnosed Date Lumbar spondylosis 03/19/2025 Assessment & Plan (03/19/2025 2:14 PM EDT): Patient is well-known to us s/p C5-6, C6-7 ACDF on 04/24/2022 for cervical myopathy and cord compression. 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 She continues to describe right anterior [...] Department Care Team Description 04/02/2025 Telephone Neurosurgery [facility] [address] [place] [address] La Torres PA 03/19/2025 1:00 PM EDT Office Visit Neurosurgery [facility] [address] [place] [address] La Torres PA Lumbar spondylosis (Primary Dx) from Last 3 Months Surgical History Surgery Date Site/Laterality Comments GASTRIC BYPASS 11/2021 [place] GASTRIC RSTCV W/BYP W/SM INT RCNSTJ LIMIT [...] Contact Info) Description 09/15/2025 1:30 PM EST Consult Bariatric Surgery - [address] [place] [address] Fercho Goyal MD [address] [place] [phone] Health Maintenance Due Date Last Done Comments Breast Cancer Screening 1972 Colorectal Cancer Screening: Colonoscopy 1972 DTaP,Tdap,and Td Vaccines (1 - Tdap) 11/02/1991 Hepatitis B Vaccines (1 of 3 - 19+ 3-dose series) 11/02/1991 Cervical Cancer Screening: P ap Smear 1993 Cholesterol Screening (Lipid Panel) 06/27/2022 HIV Screening 06/27/2022 Hepatitis C Screening 06/27/2022 Social Influencers of Health Screening 06/27/2022 Pneumococcal Vaccine: 50+ Ye ars (1 of 1 - PCV) 2022 Zoster Vaccines (1 of 2) 2022 Depression Screening 07/30/2024 Hypertension/CHF/CAD Annual BMP Blood Test 03/19/2025 COVID-19 Vaccine (2 - 2024-2 6 season) 2025 08/13/2021 Influenza Vaccine (#1) 2025 RSV Immunization Adult Patie nts (1 - 1-dose 75+ series) 11/02/2047 HIB Vaccines Aged Out No longer eligi [...] patient's age to complete this topic [facility] [place] [id number] [facility] Care Teams Vice President Business Development Relationship Specialty Start Date End Date Angie Blair MD [address] [facility] [place] [id number] PCP - General Internal Medicine 03/06/22
== END 2025-05-02 07:39 | disposition home or self-care (01) ==
LOC: HO.MAMMO 07:38
PROVIDERS: PCP Internal Medicine; Visit Provider Internal Medicine
DX: Z12.31 Encounter for screening mammogram for malignant neoplasm of breast (principal)
CPT/HCPCS: 77063; 77067

== ENCOUNTER → 2025-05-02 07:45 | Outpatient (BNV) | payer OTHER, SELFPAY | PROVIDERS: PCP Internal Medicine; Visit Provider Internal Medicine | DX: Z12.31 Encounter for screening mammogram for malignant neoplasm of breast (principal) | CPT/HCPCS: 77063; 77067 ==

== ENCOUNTER 2025-05-19 13:31 | Outpatient (REF) | payer OTHER, SELFPAY ==
--- NOTE | ~2025-05-19 | US_ITS ---
EXAMINATION(S): 1. MM DIAGNOSTIC DIGITAL BREAST TOMOSYNTHESIS, LEFT 2. Targeted ultrasound of the left breast CLINICAL INFORMATION: Callback from screening for left breast focal asymmetry in the upper inner quadrant posterior depth, possible skin lesion. On inspection, no skin moles were visible. However, patient mentioned that she got bit by a mosquito, which caused a local palpable lump. COMPARISON: Comparison made to multiple prior, most recent screening on May 02, 2025, and most remote April 28, 2017. TECHNIQUE: Digital breast tomosynthesis is performed in both the mediolateral oblique and craniocaudal views along with computer-aided detection (CAD). Synthesized 2D images are generated from the tomosynthesis. The palpable lump was marked with a circular skin marker. FINDINGS: BREAST COMPOSITION: There are scattered areas of fibroglandular density. LEFT BREAST: The palpable lesion circled with a skin marker correlates with previously described mammographic finding located in the upper inner quadrant, and measures approximately 0.8 cm in size at about 13 to 15 cm from the nipple. Targeted ultrasound of the left breast was performed at the location of the palpable concern. The survey shows a 0.7 x 0.5 x 0.7 cm hypoechoic structure at the interface of the skin subcutaneous tissue at 10 o'clock position 12 cm from the nipple. There is a suggestion of possible continuation into the skin layer, however, could not be followed to the skin surface. No abnormal vascularity demonstrated with color Doppler evaluation. US/US Breast LT Limited Mamm Only IMPRESSION: LEFT BREAST: Palpable concern correlates with a 0.7 cm superficial lesion with features compatible with epidermal inclusion cyst. Benign, no evidence of malignancy. Clinical follow-up is recommended. Otherwise, normal interval follow-up mammogram is recommended in 12 months. ASSESSMENT: BI-RADS: Category 2: Benign RECOMMENDATION: 1. Patient should be managed based on the clinical impression. 2. Otherwise, routine annual screening mammography. Results were provided to the patient at time of visit by the technologist. This patient's information was entered into a reminder system with a target due date for their next mammogram. Electronically signed by: Mulugeta Charlton MD 05/19/2025 04:49 PM EDT
== END 2025-05-19 13:32 | disposition home or self-care (01) ==
LOC: HO.MAMMO 13:31
PROVIDERS: PCP Internal Medicine; Visit Provider Internal Medicine
DX: N64.89 Other specified disorders of breast (principal)
CPT/HCPCS: 76642; 77061; 77065

== ENCOUNTER → 2025-05-19 14:00 | Outpatient (BNV) | payer OTHER, SELFPAY | PROVIDERS: PCP Internal Medicine; Visit Provider Radiology Body Imaging | DX: R92.8 Other abnormal and inconclusive findings on diagnostic imaging of breast (principal) | CPT/HCPCS: 76642; 77061; 77065 ==

== ENCOUNTER 2025-06-05 13:48 | Outpatient (AMB) | payer OTHER, SELFPAY ==
[2025-06-05 13:50] VITALS: BP 118/78; PULSE 86; O2SAT 96; BMI 46.5
--- NOTE | 2025-06-05 13:50 | A.OFFPC_ITS ---
Vital Signs 06/05/25 13:50 Height 5 ft 4 in Weight 271 lb BMI 46.5 BP 118/78 Blood Pressure Location Lt brachial Position Sitting Pulse 86 Pulse Source Pulse Oximeter Pulse Oximetry (%) 96 Intake Visit Reasons: Weigh in Allergies No Known Allergies Allergy (Verified 06/05/25 13:50) Medication List - Last Reconciled 06/05/25 by Angie Blair MD alcohol swabs (Alcohol Prep Pads) 1 pad topical TID blood pressure kit-extra large As directed blood sugar diagnostic (FreeStyle Lite Strips) Check blood sugar 3 times daily as directed blood-glucose meter (FreeStyle Lite Meter kit) Check blood sugar 3 times daily as directed turner.[id number] 300-50-200 mg tabs PO gabapentin 600 mg PO TID ibuprofen 600 mg PO Q8H PRN lancets (FreeStyle Lancets) Check blood sugar 3 times daily as directed metoprolol tartrate 50 mg PO BID multivitamin 1 tab PO DAILY semaglutide 0.5 mg (0.736 mL) subcut QWEEK 30 days Tobacco use date assessed: 04/10/25 Dental Screening Dental Screen Date: 04/10/25 HPI Weigh in HPI Details History of Present Illness The patient is a 54-year-old female presenting for a follow-up visit for medication management and discussion of recent test results. Type 2 Diabetes Mellitus: - The patient is currently taking semagl utide (Ozempic) 0.25 mg for diabetes management. - She experienced confusion regarding a prescription for a higher dose of 0.5 mg, initially believing it was denied. - Her last hemoglobin A1c in March w as 6.8%. Surgical Menopause and Osteoporosis Risk: - The patient underwent a total hysterec karuna and oophorectomy in February of the previous year due to cancer. - She expressed concern about developing osteoporosis, based on a recommendation from another provider's medical assistant internal medicine, and asked about estrogen therapy. - The patient has been taking an over-th e-counter estrogen supplement (Estroven). Medical History: - History of cancer - Type 2 Diabetes Mellitus Surgical History: - Total hysterectomy and bilateral oopho rectomy in February of last year for cancer. 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 - Diet: Reports trying to eat more prote in and fewer carbohydrates to lose more weight. - Immunizations: Declines flu vaccine, s tating she has never had one. Diagnostic Results: - Labs: Hemoglobin A1c was 6.8% in Rylee solano. - Imaging: A recent mammogram identified a breast cyst. Problem List - Type 2 Diabetes Mellitus - History of cancer - Status post hysterectomy and bilateral oophorectomy Plan - A new prescription for semaglutide (Oz empic) 0.5 mg will be sent to the pharmacy for a 3-month supply. - The patient is instructed to continue the 0.5 mg dose for three months, after which the dosage will be re-evaluated. - Counseled the patient that hormone rep lacement therapy is not recommended due to her age and the associated risks of certain cancers and blood clots. - Recommended exercise and a calcium-crescencio h diet for osteoporosis prevention instead of hormone therapy. - An order for blood tests will be place d, to be completed before the next visit. - The patient will follow up in three mo nths. - The patient declined the influenza vac cination. Review of Systems - General: No fever no chills - Neurological: No headaches no dizziness - Ear nose throat: No sore throat no hearing difficulty no ear pain - Cardiovascular: No syncope, no chest pain, no palpitations - Gastrointestinal: No nausea vomiting or diarrhea - Endocrine: No polyuria polydipsia no heat intolerance - Genitourinary: No dysuria , no blood in urine Physical Exam - General: No acute distress - HEENT: No acute findings - Neck: Supple - Respiratory system: Able to talk in f ull sentences, no audible wheeze - Extremities: No new findings - ADULT EDUCATOR: Alert awake oriented x3 motor in tact - Skin: Normal turgor [facility] Medical History Anemia Herniated cervical disc Liver fibrosis Steatosis, liver COVID-19 vaccine series completed SVT (supraventricular tachycardia) Hospital discharge follow-up 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 procedure Encounter for Papanicolaou smear of cervix Encounter for general adult medical examination with abnormal findings Encounter for routine gynecological examination Breast screening SOB (shortness of breath) Abnormal nuclear stress test Diabetic nephropathy associated with type 2 diabetes mellitus Morbid obesity Elevated troponin Hypertension PCOS (polycystic ovarian syndrome) Vitamin D deficiency Heel callus Candidal skin infection Hirsutism Chronic GERD Obesity Diabetes 1.5, managed as type 2 Surgical History Hx of discectomy History of gastric surgery Family History Father Diabetes mellitus Mother HTN (hypertension) Total knee replacement status Paternal Grandfather Diabetes mellitus Maternal Grandfather No problems noted. Maternal Grandmother Brain tumor Paternal Grandmother Diabetes mellitus Brother No problems noted. Father Diabetes mellitus Maternal Grandmother Brain tumor Maternal Grandfather No problems noted. Paternal Grandfather Diabetes mellitus Paternal Grandmother No problems noted. Brother No problems noted. 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 Cognitive needs: No Hearing needs: No Vision needs: Yes Questionnaire Thrive Questionnaire Date Thrive assessed: 12/30/24 I am a: Patient What is your living situation today?: I have a steady place to live Within the past 12 months, did the food you bought not last and you didn't have the money to get more?: Never true Within the past 12 months, did you worry whether your food would run out before you got money to buy more?: Never true Do you have trouble paying for medicines?: No Do you have trouble getting transportation to medical appointments?: No Do you have trouble paying your heating and electricity bill?: No Do you have trouble taking care of your child, family member or friend?: No Do you have trouble with day-to-day activities such as bathing, preparing meals, shopping, managing finances, etc.?: No Are you currently unemployed and looking for a job?: No Are you interested in more education?: No Please select the resources that you would like help with: None Currently or been in a relationship where the following occur: No concerns reported THRIVE Score: 0 RONEL-7 AMB Questionnaire RONEL-7 Date RONEL - 7 assessed: 04/10/25 Source: Developed by Drs. Kana Arana, Zo Mckenna, Gómez Gutierrez and colleagues, with an educational oral from [employer]. Physical exam (Primary Care) Vital Signs: Last Vital Signs Pulse 86 06/05/25 13:50 BP 118/78 06/05/25 13:50 Pulse Ox 96 06/05/25 13:50 BMI result Body Mass Index 46.5 Tobacco/Smoking Status: Tobacco use Status Tobacco use date assessed 04/10/25 06/05/25 13:51 Patient Tobacco Use Status Never used Tobacco 06/05/25 13:51 e-Cigarette/Vaping Use Never Used 06/05/25 13:51 Thrive Assessment: Date of Thrive Assessment Date Thrive assessed 12/30/24 06/05/25 13:51 Currently or been in a relationship where the following occur: No concerns reported Coding Level of Care Code Est Pt Level 3 (01835) Diagnoses Diabetes 1.5, managed as type 2 E13.9 Morbid obesity due to excess calories E66.01 Assessment & Plan Assessment & Plan (1) Diabetes 1.5, managed as type 2: Comment: glucose usually <150 Code(s): E13.9 - Other specified diabetes mellitus without complications Category: Medical (2) Morbid obesity due to excess calories: Code(s): E66.01 - Morbid (severe) obesity due to excess calories Category: Medical Plan Type 2 Diabetes Mellitus: - The patient is currently taking semaglutide (Ozempic) 0.25 mg for diabetes management. - She experienced confusion regarding a prescription for a higher dose of 0.5 mg, initially believing it was denied. - Her last hemoglobin A1c in March was 6.8%. Surgical Menopause and Osteoporosis Risk: - The patient underwent a total hysterectomy and oophorectomy in February of the previous year due to cancer. - She expressed concern about developing osteoporosis, based on a recommendation from another provider's medical assistant internal medicine, and asked about estrogen therapy. - The patient has been taking an wsej-fmh-ugtsmrt estrogen supplement (Estroven). Medical History: - History of cancer - Type 2 Diabetes Mellitus Surgical History: - Total hysterectomy and bilateral oophorectomy in February of last year for cancer. 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 - Diet: Reports trying to eat more protein and fewer carbohydrates to lose more weight. - Immunizations: Declines flu vaccine, stating she has never had one. Diagnostic Results: - Labs: Hemoglobin A1c was 6.8% in March. - Imaging: A recent mammogram identified a breast cyst. Problem List - Type 2 Diabetes Mellitus - History of cancer - Status post hysterectomy and bilateral oophorectomy Plan - A new prescription for semaglutide (Ozempic) 0.5 mg will be sent to the pharmacy for a 3-month supply. - The patient is instructed to continue the 0.5 mg dose for three months, after which the dosage will be re-evaluated. - Counseled the patient that hormone replacement therapy is not recommended due to her age and the associated risks of certain cancers and blood clots. - Recommended exercise and a calcium-rich diet for osteoporosis prevention instead of hormone therapy. - An order for blood tests will be placed, to be completed before the next visit. - The patient will follow up in three months. - The patient declined the influenza vaccination. Medications: Refilled semaglutide 0.5 mg (0.736 mL) subcut QWEEK 30 days 3.68 mL 0RF semaglutide 0.5 mg (0.736 mL) subcut QWEEK 3.68 mL 2RF 30 days
--- OUTSIDE RECORDS SUMMARY | 2025-06-05 15:47 | XMS_ITS | Clinical Summary ---
Author Organization 175 [facility] Address [address] [place] [address] Phone Care Team Providers Care Keg Washer Name Role Phone Angie Blair MD Primary Care Provider [phone] Medications FreeStyle Lite Meter monitoring kit FOR [...] for mild pain 4 Active iron-vit C-vit D74-tbigx acid [id number] sv-tw-jhi-mg tablet Take by mouth. 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 She continues to describe right anterior [...] Department Care Team Description 04/02/2025 Telephone Neurosurgery [facility] [address] [place] [address] La Torres PA 03/19/2025 1:00 PM EDT Office Visit Neurosurgery [facility] [address] [place] [address] La Torres PA Lumbar spondylosis (Primary Dx) from Last 3 Months Surgical History Surgery Date Site/Laterality Comments GASTRIC BYPASS 11/2021 [place] GASTRIC RSTCV W/BYP W/SM INT RCNSTJ LIMIT [...] 1:30 PM EST Consult Bariatric Surgery - [address] [place] [address] Fercho Goyal MD [address] [place] [phone] Health Maintenance Due Date Last Done [...] ars (1 of 1 - PCV) 2022 RSV Immunization Adult Patie nts (1 - Risk 50-74 years 1-dose series) 2022 Zoster Vaccines (1 of 2) 2022 [...] patient's age to complete this [place] [id number] [facility] Care Teams Keg Washer Relationship Specialty Start Date End Date Angie Blair [place] [facility] [place] [phone] PCP - General Internal Medicine 03/06/22
== END 2025-06-05 14:15 | disposition home or self-care (01) ==
LOC: HO.HMCC 13:49
PROVIDERS: PCP Internal Medicine; Visit Provider Internal Medicine
DX: E13.9 Other specified diabetes mellitus without complications (principal); E66.01 Morbid (severe) obesity due to excess calories; Z68.42 Body mass index [BMI] 45.0-49.9, adult

== ENCOUNTER 2025-06-16 15:11 | Outpatient (AMB) | payer OTHER, SELFPAY ==
[2025-06-16 15:46] VITALS: BP 120/74; PULSE 88; BMI 46.2
--- NOTE | 2025-06-16 15:46 | MHC.OFFVIS ---
Vital Signs 06/16/25 15:46 Height 5 ft 4 in Weight 268 lb 15.423 oz BMI 46.2 BP 120/74 Blood Pressure Location Lt brachial Position Sitting Pulse 88 Intake Visit Reasons: 1 yr follow up Intake Note: 1 year follow-up with ekg hearts doing good Director Clinical Applications Required: No Allergies No Known Allergies Allergy (Verified 06/05/25 13:50) Medication List - Last Reconciled 06/16/25 by Gato Ma MD alcohol swabs (Alcohol Prep Pads) 1 pad topical TID blood pressure kit-extra large As directed blood sugar diagnostic (FreeStyle Lite Strips) Check blood sugar 3 times daily as directed blood-glucose meter (FreeStyle Lite Meter kit) Check blood sugar 3 times daily as directed turner.[id number] 300-50-200 mg tabs PO gabapentin 600 mg PO TID ibuprofen 600 mg PO Q8H PRN lancets (FreeStyle Lancets) Check blood sugar 3 times daily as directed metoprolol tartrate 50 mg PO BID multivitamin 1 tab PO DAILY semaglutide 0.5 mg (0.736 mL) subcut QWEEK 30 days HPI Comments Details: Anushka comes for follow-up. Patient had cervical spine surgery within last year. Still has some disability on her left arm but says that overall symptoms have improved. She has not had any cardiac symptoms. She denies any prolonged palpitation irregular heartbeat. Blood pressures been generally well controlled. She has not been able to lose much weight. Denies any orthopnea, PND, leg edema. Denies any exertional chest pain. [facility] Medical History Anemia Herniated cervical disc Liver fibrosis Steatosis, liver COVID-19 vaccine series completed SVT (supraventricular tachycardia) Hospital discharge follow-up 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 procedure Encounter for Papanicolaou smear of cervix Encounter for general adult medical examination with abnormal findings Encounter for routine gynecological examination Breast screening SOB (shortness of breath) Abnormal nuclear stress test Diabetic nephropathy associated with type 2 diabetes mellitus Morbid obesity Elevated troponin Hypertension PCOS (polycystic ovarian syndrome) Vitamin D deficiency Heel callus Candidal skin infection Hirsutism Chronic GERD Obesity Diabetes 1.5, managed as type 2 Surgical History Hx of discectomy History of gastric surgery Family History Father Diabetes mellitus Mother HTN (hypertension) Total knee replacement status Paternal Grandfather Diabetes mellitus Maternal Grandfather No problems noted. Maternal Grandmother Brain tumor Paternal Grandmother Diabetes mellitus Brother No problems noted. Father Diabetes mellitus Maternal Grandmother Brain tumor Maternal Grandfather No problems noted. Paternal Grandfather Diabetes mellitus Paternal Grandmother No problems noted. Brother No problems noted. 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 Cognitive needs: No Hearing needs: No Vision needs: Yes Review of Systems Const Denies chills, Denies fatigue, Denies fever(s), Denies frequent falls, Denies weakness, Denies weight gain and Denies weight loss ENT Denies dizziness Card Denies chest pain, Denies leg edema, Denies lightheadedness, Denies palpitations, Denies dyspnea, Denies dyspnea on exertion, Denies orthopnea and Denies other (loss of consciousness) Resp Denies cough, Denies dyspnea and Denies dyspnea on exertion GI Denies hematochezia and Denies change in stool character Musc Denies abnormal gait, Denies muscle weakness, Denies numbness, Denies radiating pain into limb and Denies tingling Neuro Denies Abnormal speech present, Denies abnormal gait, Denies dizziness, Denies frequent falls, Denies numbness, Denies tingling and Denies weakness Endo Denies fatigue and Denies palpitations Physical Exam Vital Signs: Last Vital Signs Pulse 88 06/16/25 15:46 BP 120/74 06/16/25 15:46 BMI result Body Mass Index 46.2 Const General: cooperative, comfortable and no acute distress Nutritional Appearance: obese Orientation/consciousness: patient oriented x3 Limitations: ambulation with walker Neck Neck: Yes normal visual inspection and Yes no JVD Resp Effort & Inspection: normal respiratory effort Auscultation: clear to auscultation bilaterally, no crackles, no rales, no rhonchi and no wheezes Cardio Jugular venous distension: no JVD Rate: regular rate Rhythm: regular rhythm Heart sounds: S1 normal heart sound present, S2 normal heart sound present, no gallops, no murmurs and no rubs Peripheral pulses: Peripheral pulses 2+ throughout GI Inspection: Yes normal to inspection Neuro General: patient oriented x3 Speech: No Abnormal speech present Extrem General: Yes normal to inspection and No no pedal edema Office Procedures EKG Details: EKGs shows normal sinus rhythm with poor R-wave progression [id number], Complete Assessment & Plan Assessment & Plan (1) SVT (supraventricular tachycardia): Comment: 2020 & 10/2021-seen in ED-clearance 11/15/21 on chart Code(s): I47.1 - Supraventricular tachycardia Category: Medical Plan: Supraventricular tachycardia which has remained suppressed on current metoprolol therapy. She has not had any significant rebound episodes. Encouraged to continue metoprolol therapy. If she has further recurrent episodes may consider alternative therapy including ablation. Avoidance of stimulants was discussed. Importance of compliance with medication was discussed. (2) Hypertension: Code(s): I10 - Essential (primary) hypertension Category: Medical Qualifiers: Hypertension type: primary hypertension Qualified Code(s): I10 - Essential (primary) hypertension Plan: Hypertension which is also currently well optimized on metoprolol therapy. Continue the same. Importance of good blood pressure control was discussed. Target goal blood pressure less than 130/84. Low-salt diet was discussed. Aggressive control of diabetes goal hemoglobin A1c less than 7% and goal LDL less than 70 mg/dL was discussed. She is currently been started on GLP 1 antagonist and has lost some weight in his encouraged to bought it. Advised to continue participate in aggressive weight loss program. Will follow up in the clinic in 2 years time, sooner PRN. Thank you for allowing me to partake in her care Coding Level of Care Code Est Pt Level 4 (20574) Complex EM visit Add On G2211 Diagnoses SVT (supraventricular tachycardia) I47.1 Primary hypertension I10 Hypertension type: primary hypertension CPT Codes EKG - CPT: 44105-[id number], Complete ([id number])
== END 2025-06-16 16:03 | disposition home or self-care (01) ==
LOC: HO.HCS 15:12
PROVIDERS: PCP Internal Medicine; Visit Provider Internal Medicine Cardiovascular Disease
DX: I47.10 Supraventricular tachycardia, unspecified (principal); I10 Essential (primary) hypertension
CPT/HCPCS: 93010; 99214

== ENCOUNTER → 2025-06-16 15:11 | Outpatient (BNVA) | payer OTHER, SELFPAY | PROVIDERS: PCP Internal Medicine; Visit Provider Internal Medicine Cardiovascular Disease | DX: I47.10 Supraventricular tachycardia, unspecified (principal); I10 Essential (primary) hypertension; Z79.899 Other long term (current) drug therapy | CPT/HCPCS: 93005 ==